=== PATIENT | female | born 1995 | race Hispanic/Latino ===

== ENCOUNTER 2017-11-04 | Emergency (ER) | payer OTHER ==
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
--- NOTE | 2017-11-04 18:00 | ER ---
Nurse's Notes [facility] Name: Sharlene Thayer Age: 22 yrs Sex: Female : 1995 Arrival Date: 11/04/2017 Time: 17:16 Bed 19 Private MD: Diagnosis: Non-specific right foot swelling and numbness Presentation: 11/04 17:27 Presenting complaint: Patient states: right foot swelling for a couple months, worse la1 today. Transition of care: patient was not received from another setting of care. Onset of symptoms was November 04, 2017. Care prior to arrival: None. 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 - Social history:: Smoking status: Patient/guardian denies using tobacco. Screenin:47 Abuse screen: Denies threats or abuse. Denies injuries from another. Nutritional iw screening: No deficits noted. Tuberculosis screening: No symptoms or risk factors identified. Fall Risk None identified. Assessment: 17:47 General: Appears in no apparent distress. Behavior is calm, cooperative. Pain: Denies iw pain. Neuro: Level of Consciousness is awake, alert, obeys commands, Oriented to person, place, time, situation. Derm: Skin is pink, warm \T\ dry. normal. Vital Signs: 17:27 BP 132 / 82; Pulse 98; Resp 16; Temp 97.3(TE); Pulse Ox 100% on R/A; Weight 86.18 kg; la1 Height 5 ft. 2 in. (157.48 cm); 17:27 Body Mass Index 34.75 (86.18 kg, 157.48 cm) la1 ED Course: 17:16 Patient arrived in ED. rg4 17:16 Bandar Reddy MD is Attending Physician. kdr 17:27 Triage completed. la1 17:28 Arm band placed on right wrist. la1 17:45 Kamaljit Garrison LVN is Primary Nurse. em 17:47 Patient has correct armband on for positive identification. iw 17:47 No provider procedures requiring assistance completed. Patient did not have IV access iw during this emergency room visit. 17:49 Primary Nurse role handed off by Kamaljit Garrison LVN iw 17:49 Jennifer Mcmullen, RN is Primary Nurse. iw Administered Medications: No medications were administered Outcome: 17:47 Medical screen evaluation completed per provider. Patient declined treatment. iw 17:47 Condition: good 17:47 Following a medical screening exam, the patient was provided information regarding alternative care sites and resources available per registration personnel. 18:00 Discharge ordered by . kdr 18:02 Patient left the ED. iw Signatures: Bandar Reddy MD MD kdr Munoz, Edgar, LVN LVN em Jennifer Mcmullen, RN RN iw Uvaldo Quinones RN RN Deb Bueno rg4
== END 2017-11-04 18:02 | disposition home or self-care (01) ==
DX: R20.0 Anesthesia of skin (principal)
CPT/HCPCS: 99281

== ENCOUNTER 2018-01-05 11:28 | Emergency (ER) | payer OTHER ==
[2018-01-05] MEDS ORDERED: TETANUS & DIPHTHERIA TOX,ADULT 0.5 ML VIAL ONE (12:10)
[2018-01-05] MEDS ORDERED: LIDOCAINE 1% MPF 2 ML AMPULE ONE (12:10)
--- NOTE | 2018-01-05 13:04 | EDPHYS ---
Physician Documentation [facility] Name: Sharlene Thayer Age: 22 yrs Sex: Female : 1995 Arrival Date: 01/05/2018 Time: 11:29 Bed 7 Private MD: None, None ED Physician Anuel Valdez HPI: 01/05 15:11 This 22 yrs old Female presents to ER via Ambulatory with complaints of gs Laceration To Hand. 15:11 The patient has a laceration occurred at home. The laceration(s) is(are) located on the gs dorsal aspect of right forearm. Onset: The symptoms/episode began/occurred acutely, just prior to arrival. Associated signs and symptoms: Pertinent negatives: heavy bleeding, numbness distal to injury. The patient has not experienced similar symptoms in the past. 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 - Social history:: Smoking status: Patient/guardian denies using tobacco. - Ebola Screening: : No symptoms or risks identified at this time. ROS: 15:11 All other systems are negative. gs Exam: 15:11 Constitutional: The patient appears alert, awake. gs 15:11 Musculoskeletal/extremity: ROM: no acute changes, Circulation is intact in all extremities. Sensation intact. Compartment Syndrome exam of affected extremity: is normal. 15:11 Skin: injury, laceration(s), the wound is approximately 2.5 cm(s), with a depth of 1 cm(s), of the palmar aspect of right forearm. 15:11 Neuro: Exam negative for acute changes, focal neuro deficits, motor deficits, sensory deficits. Vital Signs: 11:35 BP 134 / 90; Pulse 100; Resp 18; Temp 97.4; Pulse Ox 99% ; Weight 90.72 kg; Height 5 sv ft. 1 in. (154.94 cm); Pain 8/10; 13:01 BP 115 / 76; Pulse 85; Resp 17; Pulse Ox 100% on R/A; dh3 13:43 BP 120 / 72; Pulse 78; Resp 18; Temp 97.9; Pulse Ox 99% ; ph 11:35 Body Mass Index 37.79 (90.72 kg, 154.94 cm) sv Laceration: 15:11 Wound Repair of 2.5cm ( 1.0in ) subcutaneous laceration to dorsal aspect of right gs forearm. Distal neuro/vascular/tendon intact. Anesthesia: Local anesthetic administered with 3 mls of 1% lidocaine. Wound prep: Simple cleansing with betadine. Skin closed with 3 1-0 [place] using simple sutures and sterile technique. Dressed with 4x4's. Patient tolerated well. MDM: 11:55 Patient medically screened. 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 Exp: ph 04/04/2020. Lot #: [id number]. } Route: IM; Site: right deltoid; 13:05 Follow up: Response: No adverse reaction ph 13:44 Follow up: Response: No adverse reaction ph 12:55 Drug: Lidocaine (1 %) 5 mg Volume: 5 ml; Route: Infiltration; ph 13:05 Follow up: Response: No adverse reaction ph 13:44 Follow up: Response: No adverse reaction ph Disposition: 01/05/18 13:04 Discharged to Home. Impression: Laceration without foreign body of right forearm. - Condition is Stable. - Discharge Instructions: Laceration Care, Adult. - Medication Reconciliation Form, Thank You Letter, Antibiotic Education, Prescription Opioid Use form. - Follow up: Private Physician; When: 7 - 10 days; Reason: Staple/Suture removal. Signatures: Dispatcher [employer] Karrie Eugene RN RN Zora Coombs RN RN ph Valdez, MD LAVERNE Agee Corrections: (The following items were deleted from the chart) 13:45 13:04 01/05/2018 13:04 Discharged to Home. Impression: Laceration without foreign body ph of right forearm. Condition is Stable. Forms are Medication Reconciliation Form, Thank You Letter, Antibiotic Education, Prescription Opioid Use. Follow up: Private Physician; When: 7 - 10 days; Reason: Staple/Suture removal.
--- NOTE | 2018-01-05 13:04 | ER ---
Nurse's Notes [facility] Name: Sharlene Thayer Age: 22 yrs Sex: Female : 1995 Arrival Date: 01/05/2018 Time: 11:29 Bed 7 Private MD: None, None Diagnosis: Laceration without foreign body of right forearm Presentation: 01/05 11:33 Presenting complaint: Patient states: pushing on a window and right hand went through sv the glass. Pt was attempting to get into her house. Laceration noted to right inner forearm with small amount of bleeding and abrasion noted to right inner wrist. Transition of care: patient was not received from another setting of care. Complicating Factors: Glass or an other foreign body is present in the wound. Onset of symptoms was January 05, 2018. 11:33 Method Of Arrival: Ambulatory sv 11:33 Acuity: SAMANTHA 3 sv 11:34 Risk Assessment: Do you want to hurt yourself or someone else? Patient reports no sv desire to harm self or others. Initial Sepsis Screen: Does the patient meet any 2 criteria? No. Patient's initial sepsis screen is negative. Does the patient have a suspected source of infection? No. Patient's initial sepsis screen is negative. Care prior to arrival: Bleeding of injury controlled. right arm wrapped with her shirt. 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 - Social history:: Smoking status: Patient/guardian denies using tobacco. - Ebola Screening: : No symptoms or risks identified at this time. Screenin:00 Abuse screen: Denies threats or abuse. Denies injuries from another. Nutritional ph screening: No deficits noted. Tuberculosis screening: No symptoms or risk factors identified. Fall Risk None identified. Assessment: 11:55 General: Appears in no apparent distress. comfortable, well groomed, Behavior is calm, ph cooperative, appropriate for age, Denies fever, feeling ill. Pain: Complains of pain in right wrist and palmar aspect of right forearm. Neuro: Level of Consciousness is awake, alert, obeys commands, Oriented to person, place, time, situation. Cardiovascular: Capillary refill < 3 seconds Patient's skin is warm and dry. Pulses are palpable in right radial artery and left radial artery. Respiratory: Airway is patent Respiratory effort is even, unlabored. GI: No signs and/or symptoms were reported involving the gastrointestinal system. Derm: Skin is healthy with good turgor, Skin is pink, warm \T\ dry. Wound noted dorsal aspect of right forearm, right wrist and palmar aspect of right forearm Wound is small laceration noted to palmar aspect of right forearm, and 3 abrasions noted to dorsal aspect of right forearm. Musculoskeletal: Circulation, motion, and sensation intact. Range of motion: intact in all extremities. Injury Description: Laceration sustained to dorsal aspect of right forearm is 0.5 to 2.5 cm long, not bleeding. 13:00 Reassessment: Patient appears in no apparent distress at this time. Patient and/or ph family updated on plan of care and expected duration. Pain level reassessed. Patient is alert, oriented x 3, equal unlabored respirations, skin warm/dry/pink. ERP at bedside to staple wound, pt tolerated well. 13:40 Reassessment: Patient appears in no apparent distress at this time. Patient and/or ph family updated on plan of care and expected duration. Pain level reassessed. Patient is alert, oriented x 3, equal unlabored respirations, skin warm/dry/pink. Pt instructed to follow up in 7-10 days for staple removal, discharged home. Vital Signs: 11:35 BP 134 / 90; Pulse 100; Resp 18; Temp 97.4; Pulse Ox 99% ; Weight 90.72 kg; Height 5 sv ft. 1 in. (154.94 cm); Pain 8/10; 13:01 BP 115 / 76; Pulse 85; Resp 17; Pulse Ox 100% on R/A; dh3 13:43 BP 120 / 72; Pulse 78; Resp 18; Temp 97.9; Pulse Ox 99% ; ph 11:35 Body Mass Index 37.79 (90.72 kg, 154.94 cm) sv ED Course: 11:29 Patient arrived in ED. sb2 11:29 None, None is Private Physician. sb2 11:35 Triage completed. sv 11:36 Arm band placed on left wrist. sv 11:36 Bandage applied. sv 11:52 Valdez, Anuel, MD is Attending Physician. 12:00 Patient has correct armband on for positive identification. Bed in low position. Call ph light in reach. Side rails up X 1. Warm blanket given. 12:14 Zora Coombs RN is Primary Nurse. ph 12:31 X-ray completed. Portable x-ray completed in exam room. Patient tolerated procedure kc2 well. 12:31 Forearm Right XRAY In Process Unspecified. EDMS 13:00 Assist provider with laceration repair on palmar aspect of right forearm that was 2.5 ph cm. or less using phoebe. Set up tray. Performed by Anuel Valdez MD Dressed with 4X4s, Kerlix, Patient tolerated well. 13:41 Patient did not have IV access during this emergency room visit. 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 Exp: ph 04/04/2020. Lot #: [id number]. } Route: IM; Site: right deltoid; 13:05 Follow up: Response: No adverse reaction ph 13:44 Follow up: Response: No adverse reaction ph 12:55 Drug: Lidocaine (1 %) 5 mg Volume: 5 ml; Route: Infiltration; ph 13:05 Follow up: Response: No adverse reaction ph 13:44 Follow up: Response: No adverse reaction ph Outcome: 13:04 Discharge ordered by MD. 13:42 Discharged to home ambulatory. ph 13:42 Condition: good 13:42 Discharge instructions given to patient, Instructed on discharge instructions, follow up and referral plans. wound care, Demonstrated understanding of instructions, follow-up care, wound care. 13:45 Patient left the ED. ph Signatures: Dispatcher [employer] EDMD Karrie Berger RN RN Zora Coombs RN RN Michelle Jimenez 2 Annelise Louis 3 Anuel Valdez MD MD Trinh Rodriguez 2 Corrections: (The following items were deleted from the chart) 11:36 11:35 BP 134 / 90; Pulse 100bpm; Resp 18bpm; Pulse Ox 99%; Temp 97.4F; [facility]
--- NOTE | 2018-01-05 13:14 | RAD REPORT ---
EXAM DESCRIPTION: RAD - Forearm Right - 01/05/2018 12:32 pm CLINICAL HISTORY: Mid forearm laceration COMPARISON: None. FINDINGS: No fracture is identified. There is no dislocation or periosteal reaction noted. No acute bone process seen. No air or definitive foreign body. On the lateral view there are 3 punctate hyperdensities present. T hese are not present on the AP projection and are probably film artifacts or less likely skin contami nant. IMPRESSION: No acute bone finding. True foreign body not suspected.
== END 2018-01-05 13:45 | disposition home or self-care (01) ==
LOC: ER 11:28
PROC: 0JQG0ZZ Repair Right Lower Arm Subcutaneous Tissue and Fascia, Open Approach (ICD-10-PCS; principal; 2018-01-05)
DX: S51.811A Laceration without foreign body of right forearm, initial encounter (principal); W25.XXXA Contact with sharp glass, initial encounter; Y93.89 Activity, other specified; Y92.019 Unspecified place in single-family (private) house as the place of occurrence of the external cause; Z23 Encounter for immunization
CPT/HCPCS: 90714; 99284; J2001

== ENCOUNTER 2022-01-07 23:07 | Emergency (ER) | payer OTHER ==
--- OUTSIDE RECORDS SUMMARY | 2022-01-07 23:12 | XMS REPORT | Continuity of Care Document ---
:1995 Author Organization [facility] t Address [address] [place] [address] Care Team Providers Name Role Phone Thad BEGUM Primary Care Physician Unavailable MIKE Attending Clinician Unavailable MIKE Attending Clinician Unavailable Pob, Lab Main Attending Clinician Unavailable Ada Trujillo MD Attending Clinician ADA TRUJILLO Attending Clinician Unavailable 2, Lab Attending Clinician Unavailable EDITH DEE Attending Clinician Unavailable Ultrasound Attending Clinician Unavailable Edith Dee MD Attending Clinician Only, Db Test Attending Clinician Unavailable Ebrahim [employer] SAL[employer] PROFESSIONAL Attending Clinician EBRAHIM Attending Clinician Unavailable Rd DUMONT Attending Clinician TRIMAJOR Admitting Clinician Unavailable Payers Payer Name Policy Type Policy Number Effective Date Expiration Date Critical access hospital [id number] 2018 CHOICE MEDICAID 00:00:00 Problems Condition Condition Condition Status Onset Resolution Last Treating Co mments Source Name Details Category Date Date Treatment Clinician Date 10 weeks 10 weeks Disease Active Unive rs gestation gestation 5-23 ity of of of 00:00: [place] 00 [facility] Abnormal Abnormal Disease Active [place] 5-23 [place] [address] [place] [address] Disease Active 2022-0 Uni vers with with 4-25 ity of inconclusi inconclus[place] Medica l viability, viability, Br anch single or single or unspecifie unspecifie d fetus d fetus Vaginal Vaginal Disease Active Univers discharge discharge 4-25 ity of 00:00: [place] 00 [facility] Branch History of History of Disease Active U nivers gestationa gestationa 4-25 it y of l diabetes l diabetes [place] [facility] Vaginal Vaginal Disease Active Univers bleeding bleeding 7-20 [place] ch Obesity, Obesity, Disease Active Unive rs Class III, Class III, 2-03 it y of BMI BMI 00:00: [place] 40-49.9 40-49.9 00 Medical (morbid (morbid Branch obesity) obesity) History of History of Disease Active U nivers pre-eclamp pre-eclamp 2-03 it y of ang ang 00:00: [place] 00 Medical Branch History of History of Disease Active U nivers depression depression 2-03 it y of 00:00: [place] 00 Medical Branch Previous Previous Disease Active Unive rs 2-03 ity of section section 00:00: [address] Allergies, Adverse Reactions, Alerts Allergy Allergy Status Severity Reaction(s) Onset Inactive Treating Comm ents Source Name Type Date Date Clinician NO KNOWN Drug Active Univers ALLERGIE Class ity of S [facility] Social History Social Habit Start Date Stop Date Quantity Comments Source ASSERTION 2021-10-31 [facility] 00:00:00 [facility] Branch Exposure to 2021-12-16 2021-12-26 Not sure [facility] SARS-CoV-2 (event) 00:00:00 07:54:00 Medica l Branch Alcohol intake 2021-12-26 2021-12-26 0 /d [facility] 00:00:00 00:00:00 Medical Branch Tobacco use and 2012-11-28 2012-11-28 Never used [facility] exposure 00:00:00 00:00:00 Medical Branch Sex Assigned At [birth year] [facility] 00:00:00 00:00:00 Medical Branch Smoking Status Start Date Stop Date Source Never smoker [facility] Medications Ordered Filled Start Stop Current Ordering Indication Dosage Frequency Signature Comments Components Source Medication Medication Date Date Medication? Clinician (SIG) Name Name No known No Univers medications 5-23 ity of 11:31: [place] 00 Medical [facility] No known No Univers medications 5-23 ity of 11:31: [place] 00 Medical Branch PNV 2021- Yes [id number] 1{capsu Take 1 Uni vers 102-iron-fo 4-26 05-27 le} capsule by i ty of [facility] 00:00: 04:59 mouth [place] (VITAFOL FE 00 :00 daily for Med ical PLUS) 90 mg 30 days. Bran ch iron- 1 mg-200 mg Cap PNV 2021- Yes [id number] 1{capsu Take 1 Uni vers 102-iron-fo 4-26 05-27 le} capsule by i ty of [facility] 00:00: 04:59 mouth [place] (VITAFOL FE 00 :00 daily for Med ical PLUS) 90 mg 30 days. Bran ch iron- 1 mg-200 mg Cap PNV 2021- Yes [id number] 1{capsu Take 1 Uni vers 102-iron-fo 4-26 05-27 le} capsule by i ty of [facility] 00:00: 04:59 mouth [place] (VITAFOL FE 00 :00 daily for Med ical PLUS) 90 mg 30 days. Bran ch iron- 1 mg-200 mg Cap PNV 2021- Yes [id number] 1{capsu Take 1 Uni vers 102-iron-fo 4-26 05-27 le} [facility] 00:00: 04:59 mouth [place] (VITAFOL FE 00 :00 daily for Med ical PLUS) 90 mg 30 days. Bran ch iron- 1 mg-200 mg Cap PNV 2021- Yes [id number] 1{capsu Take 1 Uni vers 102-iron-fo 4-26 05-27 le} capsule by i ty of [facility] 00:00: 04:59 mouth [place] (VITAFOL FE 00 :00 daily for Med ical PLUS) 90 mg 30 days. Bran ch iron- 1 mg-200 mg Cap PNV 2021- Yes [id number] 1{capsu Take 1 Uni vers 102-iron-fo 11-29 05-27 le} capsule by i ty of [facility] 00:00: 04:59 mouth [place] (VITAFOL FE 00 :00 daily for Med ical PLUS) 90 mg 30 days. Bran ch iron- 1 mg-200 mg Cap PNV 2021- Yes [id number] 1{capsu Take 1 Uni vers 102-iron-fo 11-29-27 le} capsule by i ty of [facility] 00:00: 04:59 mouth [place] (VITAFOL FE 00 :00 daily for Med ical PLUS) 90 mg 30 days. Bran ch iron- 1 mg-200 mg Cap PNV 2021- Yes [id number] 1{capsu Take 1 Uni vers 102-iron-fo 11-29 05-27 le} capsule by i ty of [facility] 00:00: 04:59 mouth [place] (VITAFOL FE 00 :00 daily for Med ical PLUS) 90 mg 30 days. Bran ch iron- 1 mg-200 mg Cap terconazole 2021- Yes [id number] 80mg Insert 1 Univers 80 mg 11-2930 Suppositor ity of vaginal 00:00: 04:59 y into [place] suppository 00 :00 vagina at [facility] for 3 days. PNV 2021- Yes [id number] 1{capsu Take 1 Uni vers 102-iron-fo 11-28-26 le} capsule by i ty of [facility] 00:00: 04:59 [place] (VITAFOL FE 00 :00 now for 1 Med ical PLUS) 90 mg dose. Branch iron- 1 mg-200 mg Cap No known No Univers medications 7-20 ity of 17:41: [address] Branch Immunizations Ordered Immunization Filled Immunization Date Status Commen ts Source Name Name TDAP (ADACEL) VACCINE 2019-10-06 Completed Uni versity of 00:00:00 [facility] TDAP (ADACEL) VACCINE 2019-10-06 Completed Uni versity of 00:00:00 [facility] TDAP (ADACEL) VACCINE 2019-10-06 Completed Uni versity of 00:00:00 [place] [facility] TDAP (ADACEL) VACCINE 2019-10-06 Completed Uni versity of 00:00:00 [place] [facility] TDAP (ADACEL) VACCINE 2019-10-06 Completed Uni versity of 00:00:00 [place] [facility] TDAP (ADACEL) VACCINE 2019-10-06 Completed Uni versity of 00:00:00 [place] [facility] TDAP (ADACEL) VACCINE 2019-10-06 Completed Uni versity of 00:00:00 [place] [facility] TDAP (ADACEL) VACCINE 2019-10-06 Completed Uni versity of 00:00:00 [place] [facility] TDAP (ADACEL) VACCINE 2019-10-06 Completed Uni versity of 00:00:00 [place] [facility] TDAP (ADACEL) VACCINE 2019-10-06 Completed Uni versity of 00:00:00 [place] [facility] TDAP (ADACEL) VACCINE 2019-10-06 Completed Uni versity of 00:00:00 [place] [facility] TDAP (ADACEL) VACCINE 2019-10-06 Completed Uni versity of 00:00:00 [facility] Branch Influenza Virus 2019-06-02 Completed Universit y of Vaccine Quad .5 mL IM 00:00:00 [facility] 6+ MO Branch Influenza Virus 2019-06-02 Completed Universit y of Vaccine Quad .5 mL IM 00:00:00 [facility] 6+ MO Branch Influenza Virus 2019-06-02 Completed Universit y of Vaccine Quad .5 mL IM 00:00:00 [facility] 6+ MO Branch Influenza Virus 2019-06-02 Completed Universit y of Vaccine Quad .5 mL IM 00:00:00 [facility] 6+ MO Branch Influenza Virus 2019-06-02 Completed Universit y of Vaccine Quad .5 mL IM 00:00:00 [facility] 6+ MO Branch Influenza Virus 2019-06-02 Completed Universit y of Vaccine Quad .5 mL IM 00:00:00 [facility] 6+ MO Branch Influenza Virus 2019-06-02 Completed Universit y of Vaccine Quad .5 mL IM 00:00:00 [facility] 6+ MO Branch Influenza Virus 2019-06-02 Completed Universit y of Vaccine Quad .5 mL IM 00:00:00 [facility] 6+ MO Branch Influenza Virus 2019-06-02 Completed Universit y of Vaccine Quad .5 mL IM 00:00:00 [facility] 6+ MO Branch Influenza Virus 2019-06-02 Completed Universit y of Vaccine Quad .5 mL IM 00:00:00 [facility] 6+ MO Branch Influenza Virus 2019-06-02 Completed Universit y of Vaccine Quad .5 mL IM 00:00:00 [facility] 6+ MO Branch Influenza Virus 2019-06-02 Completed Universit y of Vaccine Quad .5 mL IM 00:00:00 [facility] 6+ MO Branch TDAP 2015-12-29 Completed University of 00:00:00 [facility] TDAP 2015-12-29 Completed University of 00:00:00 [facility] TDAP 2015-12-29 Completed University of 00:00:00 [facility] TDAP 2015-12-29 Completed University of 00:00:00 [facility] TDAP 2015-12-29 Completed University of 00:00:00 [facility] TDAP 2015-12-29 Completed University of 00:00:00 [facility] TDAP 2015-12-29 Completed University of 00:00:00 [facility] TDAP 2015-12-29 Completed University of 00:00:00 [facility] TDAP 2015-12-29 Completed University of 00:00:00 [facility] TDAP 2015-12-29 Completed University of 00:00:00 [facility] TDAP 2015-12-29 Completed University of 00:00:00 [facility] TDAP 2015-12-29 Completed University of 00:00:00 [facility] Influenza Virus 2015-10-07 Completed Universit y of Vaccine Quad IM 3+ 00:00:00 [facility] Influenza Virus 2015-10-07 Completed Universit y of Vaccine Quad IM 3+ 00:00:00 [facility] Influenza Virus 2015-10-07 Completed Universit y of Vaccine Quad IM 3+ 00:00:00 [facility] Influenza Virus 2015-10-07 Completed Universit y of Vaccine Quad IM 3+ 00:00:00 [facility] Influenza Virus 2015-10-07 Completed Universit y of Vaccine Quad IM 3+ 00:00:00 [facility] Influenza Virus 2015-10-07 Completed Universit y of Vaccine Quad IM 3+ 00:00:00 [facility] Influenza Virus 2015-10-07 Completed Universit y of Vaccine Quad IM 3+ 00:00:00 [facility] Influenza Virus 2015-10-07 Completed Universit y of Vaccine Quad IM 3+ 00:00:00 [facility] Influenza Virus 2015-10-07 Completed Universit y of Vaccine Quad IM 3+ 00:00:00 [facility] Influenza Virus 2015-10-07 Completed Universit y of Vaccine Quad IM 3+ 00:00:00 [facility] Influenza Virus 2015-10-07 Completed Universit y of Vaccine Quad IM 3+ 00:00:00 [facility] Influenza Virus 2015-10-07 Completed Universit y of Vaccine Quad IM 3+ 00:00:00 [facility] TDAP 2015-04-13 Completed University of 00:00:00 [facility] TDAP 2015-04-13 Completed University of 00:00:00 [facility] TDAP 2015-04-13 Completed University of 00:00:00 [facility] TDAP 2015-04-13 Completed University of 00:00:00 [facility] TDAP 2015-04-13 Completed University of 00:00:00 [facility] TDAP 2015-04-13 Completed University of 00:00:00 [facility] TDAP 2015-04-13 Completed University of 00:00:00 [facility] TDAP 2015-04-13 Completed University of 00:00:00 [facility] TDAP 2015-04-13 Completed University of 00:00:00 [facility] TDAP 2015-04-13 Completed University of 00:00:00 [facility] TDAP 2015-04-13 Completed University of 00:00:00 [facility] TDAP 2015-04-13 Completed University of 00:00:00 [facility] Rubella 2012-11-29 Completed University of 00:00:00 [facility] Rubella 2012-11-29 Completed University of 00:00:00 [facility] Rubella 2012-11-29 Completed University of 00:00:00 [facility] Rubella 2012-11-29 Completed University of 00:00:00 [facility] Rubella 2012-11-29 Completed University of 00:00:00 [facility] Rubella 2012-11-29 Completed University of 00:00:00 [facility] Rubella 2012-11-29 Completed University of 00:00:00 [facility] Rubella 2012-11-29 Completed University of 00:00:00 [facility] Rubella 2012-11-29 Completed University of 00:00:00 [facility] Rubella 2012-11-29 Completed University of 00:00:00 [place] [facility] Rubella 2012-11-29 Completed University of 00:00:00 [place] [facility] Rubella 2012-11-29 Completed University of 00:00:00 [place] [facility] HPV 2009-09-27 Completed University of 00:00:00 [place] [facility] HPV 2009-09-27 Completed University of 00:00:00 [place] [facility] HPV 2009-09-27 Completed University of 00:00:00 [place] [facility] HPV 2009-09-27 Completed University of 00:00:00 [place] [facility] HPV 2009-09-27 Completed University of 00:00:00 [place] [facility] HPV 2009-09-27 Completed University of 00:00:00 [place] [facility] HPV 2009-09-27 Completed University of 00:00:00 [place] [facility] HPV 2009-09-27 Completed University of 00:00:00 [place] [facility] HPV 2009-09-27 Completed University of 00:00:00 [place] [facility] HPV 2009-09-27 Completed University of 00:00:00 [place] [facility] HPV 2009-09-27 Completed University of 00:00:00 [place] [facility] HPV 2009-09-27 Completed University of 00:00:00 [place] [facility] HPV 2009-05-25 Completed University of 00:00:00 [place] [facility] MMR 2009-05-25 Completed University of 00:00:00 [place] [facility] HPV 2009-05-25 Completed University of 00:00:00 [place] [facility] MMR 2009-05-25 Completed University of 00:00:00 [place] [facility] HPV 2009-05-25 Completed University of 00:00:00 [place] [facility] MMR 2009-05-25 Completed University of 00:00:00 [place] [facility] HPV 2009-05-25 Completed University of 00:00:00 [place] [facility] MMR 2009-05-25 Completed University of 00:00:00 [place] [facility] HPV 2009-05-25 Completed University of 00:00:00 [place] [facility] MMR 2009-05-25 Completed University of 00:00:00 [place] [facility] HPV 2009-05-25 Completed University of 00:00:00 [place] [facility] MMR 2009-05-25 Completed University of 00:00:00 [place] [facility] HPV 2009-05-25 Completed University of 00:00:00 [place] [facility] MMR 2009-05-25 Completed University of 00:00:00 [place] [facility] HPV 2009-05-25 Completed University of 00:00:00 [place] [facility] MMR 2009-05-25 Completed University of 00:00:00 [facility] HPV 2009-05-25 Completed University of 00:00: [facility] MMR 2009-05-25 Completed University of 00:00: [facility] HPV 2009-05-25 Completed University of 00:00:00 [facility] MMR 2009-05-25 Completed University of 00:00:00 [facility] HPV 2009-05-25 Completed University of 00:00:00 [facility] MMR 2009-05-25 Completed University of 00:00:00 [facility] HPV 2009-05-25 Completed University of 00:00:00 [facility] MMR 2009-05-25 Completed University of 00:00:00 [facility] HEPATITIS A 2009-03-23 Completed University of 00:00:00 [facility] HPV 2009-03-23 Completed University of 00:00:00 [facility] Meningococcal 2009-03-23 Completed University of Polysaccharide 00:00:00 [place] Medi kostas (groups A, C, Y and Branc h W-135) conjugate vaccine (MCV4P) Td 2009-03-23 Completed University of 00:00:00 [facility] Varicella 2009-03-23 Completed University of (varivax)(chicken 00:00:00 [place] M edical pox) Branch HEPATITIS A 2009-03-23 Completed University of 00:00:00 [facility] HPV 2009-03-23 Completed University of 00:00:00 [facility] Meningococcal 2009-03-23 Completed University of Polysaccharide 00:00:00 [place] Medi kostas (groups A, C, Y and Branc h W-135) conjugate vaccine (MCV4P) Td 2009-03-23 Completed University of 00:00:00 [facility] Varicella 2009-03-23 Completed University of (varivax)(chicken 00:00:00 [place] M edical pox) Branch HEPATITIS A 2009-03-23 Completed University of 00:00:00 [facility] HPV 2009-03-23 Completed University of 00:00:00 [facility] Meningococcal 2009-03-23 Completed University of Polysaccharide 00:00:00 [place] Medi kostas (groups A, C, Y and Branc h W-135) conjugate vaccine (MCV4P) Td 2009-03-23 Completed University of 00:00:00 [facility] Varicella 2009-03-23 Completed University of (varivax)(chicken 00:00:00 [place] [facility] [place]ical pox) Branch HEPATITIS A 2009-03-23 Completed University of 00:00:00 [facility] HPV 2009-03-23 Completed University of 00:00:00 [facility] Meningococcal 2009-03-23 Completed University of Polysaccharide 00:00:00 [place] Medi kostas (groups A, C, Y and Branc h W-135) conjugate vaccine (MCV4P) Td 2009-03-23 Completed University of 00:00:00 [facility] Varicella 2009-03-23 Completed University of (varivax)(chicken 00:00:00 [place] M edical pox) Branch HEPATITIS A 2009-03-23 Completed University of 00:00:00 [facility] HPV 2009-03-23 Completed University of 00:00:00 [facility] Meningococcal 2009-03-23 Completed University of Polysaccharide 00:00:00 [place] Medi kostas (groups A, C, Y and Branc h W-135) conjugate vaccine (MCV4P) Td 2009-03-23 Completed University of 00:00:00 [facility] Varicella 2009-03-23 Completed University of (varivax)(chicken 00:00:00 [facility] edical pox) Branch HEPATITIS A 2009-03-23 Completed University of 00:00:00 [facility] HPV 2009-03-23 Completed University of 00:00:00 [facility] Meningococcal 2009-03-23 Completed University of Polysaccharide 00:00:00 [place] Medi kostas (groups A, C, Y and Branc h W-135) conjugate vaccine (MCV4P) Td 2009-03-23 Completed University of 00:00:00 [facility] Varicella 2009-03-23 Completed University of (varivax)(chicken 00:00:00 [place] M edical pox) Branch HEPATITIS A 2009-03-23 Completed University of 00:00:00 [facility] HPV 2009-03-23 Completed University of 00:00:00 [facility] Meningococcal 2009-03-23 Completed University of Polysaccharide 00:00:00 [place] Medi kostas (groups A, C, Y and Branc h W-135) conjugate vaccine (MCV4P) Td 2009-03-23 Completed University of 00:00:00 [facility] Varicella 2009-03-23 Completed University of (varivax)(chicken 00:00:00 [place] [facility] [place]ical pox) Branch HEPATITIS A 2009-03-23 Completed University of 00:00:00 [facility] HPV 2009-03-23 Completed University of 00:00:00 [facility] Meningococcal 2009-03-23 Completed University of Polysaccharide 00:00:00 [place] Medi kostas (groups A, C, Y and Branc h W-135) conjugate vaccine (MCV4P) Td 2009-03-23 Completed University of 00:00:00 [facility] Varicella 2009-03-23 Completed University of (varivax)(chicken 00:00:00 [place] M edical pox) Branch HEPATITIS A 2009-03-23 Completed University of 00:00:00 [facility] HPV 2009-03-23 Completed University of 00:00:00 [facility] Meningococcal 2009-03-23 Completed University of Polysaccharide 00:00:00 [place] Medi kostas (groups A, C, Y and Branc h W-135) conjugate vaccine (MCV4P) Td 2009-03-23 Completed University of 00:00:00 [facility] Varicella 2009-03-23 Completed University of (varivax)(chicken 00:00:00 [place] M edical pox) Branch HEPATITIS A 2009-03-23 Completed University of 00:00:00 [facility] HPV 2009-03-23 Completed University of 00:00:00 [facility] Meningococcal 2009-03-23 Completed University of Polysaccharide 00:00:00 [place] Medi kostas (groups A, C, Y and Branc h W-135) conjugate vaccine (MCV4P) Td 2009-03-23 Completed University of 00:00:00 [facility] Varicella 2009-03-23 Completed University of (varivax)(chicken 00:00:00 [place] [facility] [place] pox) Branch HEPATITIS A 2009-03-23 Completed University of 00:00:00 [facility] HPV 2009-03-23 Completed University of 00:00:00 [facility] Meningococcal 2009-03-23 Completed University of Polysaccharide 00:00:00 [place] Medi kostas (groups A, C, Y and Branc h W-135) conjugate vaccine (MCV4P) Td 2009-03-23 Completed University of 00:00:00 [facility] Varicella 2009-03-23 Completed University of (varivax)(chicken 00:00:00 [place] [facility] [place]ical pox) Branch HEPATITIS A 2009-03-23 Completed University of 00:00:00 [facility] HPV 2009-03-23 Completed University of 00:00:00 [facility] Meningococcal 2009-03-23 Completed University of Polysaccharide 00:00:00 [facility] (groups A, C, Y and Branc h W-135) conjugate vaccine (MCV4P) Td 2009-03-23 Completed University of 00:00:00 [facility] Varicella 2009-03-23 Completed University of (varivax)(chicken 00:00:00 [facility] edical pox) Branch Vital Signs Vital Name Observation Time Observation Value Comments Source Systolic blood 2021-12-26 13:13:00 125 mm[Hg] Univer sity of [facility] Diastolic blood 2021-12-26 13:13:00 84 mm[Hg] [facility] Heart rate 2021-12-26 13:13:00 80 /min Universi ty [facility] Body temperature 2021-12-26 13:13:00 36.56 [facility] Res[facility] 2021-12-26 13:13:00 18 /min [facility] Body height 2021-12-26 13:13:00 154.9 cm Universi ty [facility] Body weight 2021-12-26 13:13:00 100.245 kg Universi ty [facility] BMI 2021-12-26 13:13:00 41.76 kg/m2 [facility] Oxygen saturation in 2021-12-26 13:13:00 100 /min [facility] Arterial blood by [facility] Pulse oximetry Branch Systolic blood 2021-11-28 13:32:00 132 mm[Hg] Univer sity of [facility] Diastolic blood 2021-11-28 13:32:00 84 mm[Hg] Unive rsity of [facility] Heart rate 2021-11-28 13:32:00 86 /min Universi ty of [facility] Body temperature 2021-11-28 13:32:00 36.78 Felicita Univ ersity [facility] Respiratory rate 2021-11-28 13:32:00 18 /min [facility] Body height 2021-11-28 13:32:00 154.9 cm Universi ty of [facility] Body weight 2021-11-28 13:32:00 98.385 kg [facility] [facility] 2021-11-28 13:32:00 40.98 kg/m2 [facility] Procedures Procedure Date / Time Performing Clinician Source Performed POCT TEST 2021-12-26 13:39:00 Raz Mckeon [facility] POCT URINALYSIS 2021-12-26 13:27:00 Raz Mckeon [facility] US FIRST 2021-12-09 14:05[facility] 14 [facility] WEEKS WITH TRANSVAGINAL POCT URINALYSIS W/O 2021-11-28 14:19:00 Raz Mckeon [facility] SPECIFIC GRAVITY [facility] POCT TEST 2021-11-28 14:01:00 Raz Mckeon [facility] Encounters Start End Encounter Admission Attending Care Care Encounter Source Date/Time Date/Time Type Type Clinicians Facility Department ID 2022-01-06 2022-01-06 Outpatient R RAZ MCKEON [facility] B [id number] Univers 09:30:00 09:30:00 [id number]-06 2022-01-06 Outpatient R RAZ MCKEON [facility] B [id number] [facility] 09:30:00 09:30:00 RAZ [facility] 2022-01-03 2022-01-03 Patient Mike COBECK [place] [id number] [facility] 00:00:00 00:00:00 Secure Msg Raz MORAN [id number] ity of WOMEN'S [id number] [facility] [phone] [place] [address] [place] 2021-12-31 2021-12-31 Retail Center Receptionist Riley Dillon Lab Main [facility] 1.2.8 40.114 [id number] [facility] 09:00:00 09:15:00 Visit Ana Trujillo [id number] ity [facility] [id number] [phone] Me dical NAL [facility] 2021-12-31 2021-12-31 Outpatient R [facility] [id number] Univers 09:00:00 09:00:00 [id number] ity [facility] 2021-12-31 2021-12-31 Outpatient R ANA TRUJILLO [facility] [id number] Univers 09:00:00 09:00:00 ity [facility] 2021-12-28 2021-12-28 Retail Center Receptionist 2, Adc Lab [facility] 1.2.840.114 [id number] Univers 13:15:00 13:30:00 Visit Raz Mckeon [place] 350.1.13. 10 ity [facility] [id number] [place] [phone] Id dical NAL [address] [place] [address] 2021-12-28 2021-12-28 Outpatient R [facility] [id number] Univers 13:15:00 13:15:00 [id number] ity [facility] 2021-12-28 2021-12-28 Outpatient R RAZ MCKEON [facility] B [id number] Univers 13:15:00 13:15:00 [facility] 2021-12-26 2021-12-26 Outpatient P EDITH [facility] [id number] Univers 11:45:00 12:20:51 ISABELLE it y of [place] [facility] 2021-12-26 2021-12-26 Retail Center Receptionist Ultrasound, Yefri-[facility] 1.2 .840.114 [id number] Univers 11:45:00 12:20:51 Visit Raz Mckeon [employer] [id number] 0 ity Nohemi Mejia [facility] 4.2.7.2 .686 [place] MATERNAL [id number] [facility] ical & CHILD [address] [place] [address] 2021-12-26 2021-12-26 Outpatient R RAZ MCKEON [facility] B [id number] Univers 11:45:00 11:45:00 RAZ MCKEON 22 0523 ity [facility] 2021-12-26 2021-12-26 Routine [facility] 1.2.840.114 [id number] Univers 08:00:00 08:43:28 Raz MORAN [id number] i ty of Visit WOMEN'S [id number] [place] [facility] [phone] [address] 2021-12-26 2021-12-26 Case [facility] 1.2.840.114 [id number] Univers 00:00:00 00:00:00 Management Raz MORAN [id number] ity of WOMEN'S [id number] [facility] [id number] [address] 2021-12-26 2021-12-26 Telephone [facility] [id number] Univers 00:00:00 00:00:00 Raz MORAN [id number] it y of WOMEN'S [id number] [facility] [id number] [address] 2021-12-14 2021-12-14 Outpatient R RAZ MCKEON [facility] B [id number] Univers 13:00:00 13:00:00 [facility] 2021-12-14 2021-12-14 Outpatient R RAZ MCKEON [facility] B [id number] Univers 13:00:00 13:00:00 RAZ MCKEON [facility] 2021-12-09 2021-12-09 Outpatient R RAZ MCKEON [facility] B [id number] Univers 07:54:22 23:59:00 RAZ MCKEON [facility] 2021-12-09 2021-12-09 [facility] 1.2.840.114 [id number] Univers 07:54:22 23:59:00 Encounter Raz [place] [id number] ity [facility] [id number] [place] [facility] [id number] [facility] [address] 2021-12-09 2021-12-09 Outpatient R MIKE RAZ [facility] [place] [id number] Univers 00:00:00 00:00:00 RAZ MCKEON 22 0506 ity of [facility] 2021-12-09 2021-12-09 Case [facility] 1.2.840.114 [id number] Univers 00:00:00 00:00:00 Management Raz MORAN [id number] ity of WOMEN'S [id number] [facility] [id number] [address] 2021-11-29 2021-11-29 [facility] 1.2.840.114 [id number] Univers 00:00:00 00:00:00 Management Raz MORAN [id number] ity of [facility] [id number] [facility] [id number] [address] 2021-11-28 2021-11-28 Outpatient R MIKE RAZ [facility] B [id number] Univers 08:00:00 09:04:01 [facility] 2021-11-28 2021-11-28 Initial [facility] 1.2.840.114 [id number] Univers 08:00:00 09:04:01 Raz MORAN [id number] i ty of Visit WOMEN'S [id number] [facility] [id number] [address] 2021-11-28 2021-11-28 Outpatient R MIKE RAZ [facility] B [id number] Univers 08:00:00 08:00:00 RAZ MCKEON 22 0425 ity [facility] 2021-07-27 2021-07-27 Laboratory Only, Ang Db Test [facility] 1.2.8 40.114 [id number] Univers 17:45:00 18:00:[address] 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 2, Adc Lab [facility] 1.2.840.114 [id number] 11:18:57 11:33:57 Visit Scott 350.1.13.10 [facility] [id number] Professio [id number] [address] 2021-02-17 2021-02-17 Initial Ana Trujillo [facility] [id number] 09:23:48 11:08:40 Cam Scott 350.1.13.10 Visit [facility] [id number] Professio [phone] [address] Results Test Description Test Time Test Comments Results Result Comments Source POCT TEST 2021-12-26 13:39:00 Test Item Value Reference Range Interpretation Comme nts POCT PREG (test code = 1605) Positive On board controls acceptable with C Line (test code = 3574) Yes POCT PREG LOT # (test code = 3575) POCT PREG TEST DATE (test code = 3576) [facility] SPECIFIC [id number] 13:28:00 Test Item Value Reference Range Interpretation Comments POCT U SP GRAV (test code = N/A 1.005-1.025 3255) POCT PH U (test code = 3254) N/A 5-8 POCT U LEUK EST (test code = N/A Negative - Negative 326) POCT U NIT (test code = N/A Negative - Negative 3262) POCT U PROT (test code = Negative Negative - Negative 3259) POCT U GLU (test code = Negative - Negative 3256) POCT U KETONE (test code = N/A Negative - Negative 3258) POCT U UROBILI (test code = N/A 0.2-1 3260) POCT U BILI (test code = N/A Negative - Negative 3261) POCT U BLD (test code = N/A Negative - Negative 3257) POCT U COLOR (test code = light yellow 3266) POCT U APPEAR (test code = clear 3267) [facility] URINALYSIS W/O SPECIFIC [id number] 14:19:00 Test Item Value Reference Range Interpretation Comments POCT PH U (test code = 3254) n/a 5-8 POCT U LEUK EST (test code = n/a Negative - Negative 3263) POCT U NIT (test code = 3262) n/a Negative - Negative POCT U PROT (test code = 3259) Negative Negative - Negative POCT U GLU (test code = 3256) Negative - Negative POCT U KETONE (test code = 3258) n/a Negative - Negative POCT U BLD (test code = 3257) n/a Negative - Negative Lab Interpretation (test code = Abnormal 45844-7) [facility] [id number] 14:02:00 Test Item Value Reference Range Interpretation Comments POCT PREG (test code = 1605) Positive On board controls acceptable with C Yes Line (test code = 3574) POCT PREG LOT # (test code = 3575) POCT PREG TEST DATE (test code = 3576) [facility]
[2022-01-07 23:43] LABS: Absolute Lymphocytes (CBC) 2.3 K/uL (0.7-4.9); Hematocrit 35.1 % (36.0-45.0); Lymphocytes % 25.3 % (15.3-44.8); MPV 7.9 fL (7.6-11.3); RBC Red Blood Cell Count 4.86 M/uL (3.86-4.86)
[2022-01-08 00:03] LABS: Urine Blood Negative (Negative); Urine Glucose 2+ (Negative); Urine Protein Negative (Negative); Urine Specific Gravity >=1.030 (1.005-1.030)
[2022-01-08 00:13] LABS: Potassium 3.6 mmol/L (3.5-5.1)
--- NOTE | 2022-01-08 02:09 | EDPHYS ---
Physician Documentation [facility] Name: Sharlene Thayer Age: 26 yrs Sex: Female : 1995 Arrival Date: 01/07/2022 Time: 23:08 Bed 14 Private MD: ED Physician Kvng Shi HPI: 01/08 02:08 This 26 yrs old Female presents to ER via Ambulatory with complaints of ms3 Vaginal Bleeding, + Preg <12wks. 02:08 The patient presents to the emergency department with abdominal pain, of the suprapubic ms3 area, that started 15 day(s) ago, vaginal bleeding, that is moderate, with clots, reports using 4 pads or tampons per day. course: care: at a clinic, Leakage of Fluid: none appreciated, Ultrasound: the patient had an ultrasound. Previous pregnancies: in previous pregnancies patient has had. Associated signs and symptoms: Pertinent positives: abdominal pain, nausea, vaginal bleeding, Pertinent negatives: fever. VP BUSINESS DEVELOPMENT: 00:02 Verified sm5 02:08 06, Full Term 3, Premature 0, 2, Living 3, LMP 0 ms3 Historical: - Allergies: 01/07 23:25 No Known Allergies; kd3 - Home Meds: 23:25 None [Active]; kd3 - PMHx: 23:25 high risk pregnancies; kd3 - PSHx: 23:25 section; kd3 - Immunization history:: Adult Immunizations up to date, Client reports having NOT received the Covid vaccine. - Social history:: Smoking status: unknown. - : The history from the nurse's notes was reviewed and I agree with what is documented. ROS: 01/08 02:08 Constitutional: Negative for fever, and chills. Neck: Negative for injury, pain, and ms3 swelling, Cardiovascular: Negative for chest pain, and palpitations. Respiratory: Negative for shortness of breath, cough, wheezing, and pleuritic chest pain. Back: Negative for injury and pain, MS/Extremity: Negative for injury and deformity. Abdomen/GI: Positive for abdominal pain, nausea. : Positive for vaginal bleeding. All other systems are negative. Exam: 02:08 Constitutional: This is a well developed, well nourished patient who is awake, alert, ms3 and in no acute distress. Head/Face: Normocephalic, atraumatic. Neck: Trachea midline, no cervical lymphadenopathy. Supple, full range of motion without nuchal rigidity, or vertebral point tenderness. No Meningismus. Chest/axilla: Normal chest wall appearance and motion. Nontender with no deformity. Cardiovascular: Regular rate and rhythm with a normal S1 and S2. No gallops, murmurs, or rubs. Normal PMI, no JVD. No pulse deficits. Respiratory: Lungs have equal breath sounds bilaterally, clear to auscultation and percussion. No rales, rhonchi or wheezes noted. No increased work of breathing, no retractions or nasal flaring. 02:08 Back: No spinal tenderness. No costovertebral tenderness. Full range of motion. Skin: Warm, dry with normal turgor. Normal color with no rashes, no lesions, and no evidence of cellulitis. MS/ Extremity: Pulses equal, no cyanosis. Neurovascular intact. Full, normal range of motion. 02:08 Abdomen/GI: Inspection: abdomen appears normal, Bowel sounds: normal, Palpation: mild abdominal tenderness, in the suprapubic area. Vital Signs: 01/07 23:21 BP 138 / 75; Pulse 115; Resp 19; Temp 98.2; Pulse Ox 100% on R/A; Pain 10/10; kd3 23:21 Weight 100.24 kg; Height 5 ft. 1 in. (154.94 cm); kd3 / 02:29 BP 122 / 64; Pulse 89; Resp 17; Pulse Ox 100% on R/A; sm5 01/07 23:21 Body Mass Index 41.76 (100.24 kg, 154.94 cm) kd3 MDM: 01/07 23:19 Patient medically screened. ms3 01/08 02:08 Differential diagnosis: ectopic . Data reviewed: vital signs, nurses notes. ms3 02:08 ED course: Discussed labs, US, physical exam findings with patient. Patient to ms3 follow-up with VP BUSINESS DEVELOPMENT in 2 to 3 days. Patient understands and agrees with plan. All questions were answered. Return precautions discussed include worsening symptoms, or any other concerns. On reevaluation patient is alert and oriented x4, in no apparent distress, nontoxic-appearing, speaking full sentences, ambulatory in emergency department.. 01/07 23:20 Order name: Abo/rh Typing; Complete Time: 02:05 ms3 01/07 23:20 Order name: Basic Metabolic Panel; Complete Time: 02:05 ms3 01/07 23:20 Order name: CBC with Diff; Complete Time: 02:05 ms3 01/07 23:20 Order name: Quantitative Hcg; Complete Time: 02:05 ms3 01/08 00:03 Order name: Urine Dipstick-Ancillary; Complete Time: 02:05 EDMS 01/08 00:07 Order name: Urine Dipstick-Ancillary EDMS 01/07 23:20 Order name: IV Saline Lock; Complete Time: 23:45 ms3 01/07 23:20 Order name: Labs collected and sent; Complete Time: 23:45 ms3 01/07 23:20 Order name: NPO; Complete Time: 23:45 ms3 01/07 23:20 Order name: Urine Dipstick-Ancillary (obtain specimen); Complete Time: 00:02 ms3 01/08 00:20 Order name: Pelvis Complete EDMS 01/08 00:22 Order name: Transvaginal Study Probe EDMS Administered Medications: No medications were administered Disposition Summary: 01/08/22 02:08 Discharge Ordered Location: Home ms3 Condition: Stable ms3 Diagnosis - incomplete ms3 Followup: ms3 - With: Maximino Bethea MD - When: 1 - 2 days - Reason: Recheck today's complaints Discharge Instructions: - Discharge Summary Sheet ms3 - Incomplete Miscarriage ms3 Forms: - Medication Reconciliation Form ms3 - Thank You Letter ms3 - Antibiotic Education ms3 - Prescription Opioid Use ms3 Signatures: Dispatcher [employer] EDUT Kvng Shi, DO ms3 Gladis Kumari, RN RN kd3 Corrections: (The following items were deleted from the chart) 00:20 01/07 23:21 OB Limited+US.RAD.BRZ ordered. EDUT EDMS 01/08 06: 06:17 Differential diagnosis: ectopic , ms3 ms3 06:22 06:17 Data reviewed: vital signs, nurses notes, ms3 ms3 06:22 06:17 Constitutional: This is a well developed, well nourished patient who is awake, ms3 alert, and in no acute distress. Head/Face: Normocephalic, atraumatic. Neck: Trachea midline, no cervical lymphadenopathy. Supple, full range of motion without nuchal rigidity, or vertebral point tenderness. No Meningismus. Chest/axilla: Normal chest wall appearance and motion. Nontender with no deformity. Cardiovascular: Regular rate and rhythm with a normal S1 and S2. No gallops, murmurs, or rubs. Normal PMI, no JVD. No pulse deficits. Respiratory: Lungs have equal breath sounds bilaterally, clear to auscultation and percussion. No rales, rhonchi or wheezes noted. No increased work of breathing, no retractions or nasal flaring. ms3 06:22 06:17 Abdomen/GI: Inspection: abdomen appears normal, Bowel sounds: normal, Palpation: ms3 mild abdominal tenderness, in the suprapubic area, ms3 06:22 06:17 Back: No spinal tenderness. No costovertebral tenderness. Full range of motion. ms3 Skin: Warm, dry with normal turgor. Normal color with no rashes, no lesions, and no evidence of cellulitis. MS/ Extremity: Pulses equal, no cyanosis. Neurovascular intact. Full, normal range of motion. ms3 :23 06:17 The history from the nurse's notes was reviewed and I agree with what is ms3 documented. ms3 06:23 06:17 Constitutional: Negative for fever, and chills. Neck: Negative for injury, pain, ms3 and swelling, Cardiovascular: Negative for chest pain, and palpitations. Respiratory: Negative for shortness of breath, cough, wheezing, and pleuritic chest pain, ms3 :23 06:17 Abdomen/GI: Positive for abdominal pain, nausea, ms3 ms3 :23 06:17 Back: Negative for injury and pain, MS/Extremity: Negative for injury and ms3 deformity, ms3 : 06:17 : Positive for vaginal bleeding, ms3 ms3 :23 06:17 All other systems are negative, ms3 ms3 06:24 06:17 The patient presents to the emergency department with abdominal pain, of the ms3 suprapubic area, that started 15 day(s) ago, vaginal bleeding, that is moderate, with clots, reports using 4 pads or tampons per day, ms3 :24 06:17 course: care: at a clinic, Leakage of Fluid: none appreciated, ms3 Ultrasound: the patient had an ultrasound, ms3 :24 06:17 Previous pregnancies: in previous pregnancies patient has had ms3 ms3 24 06:17 Associated signs and symptoms: Pertinent positives: abdominal pain, nausea, ms3 vaginal bleeding, Pertinent negatives: fever, ms3 :24 06:17 This 26 yrs old Female presents to ER via Ambulatory with complaints of ms3 Vaginal Bleeding, + Preg <12wks. ms3 :24 06:17 6, Full Term 3, Premature 0, 2, Living 3, LMP 0 ms3 ms3
--- NOTE | 2022-01-08 02:09 | ER ---
Nurse's Notes [facility] Name: Sharlene Thayer Age: 26 yrs Sex: Female : 1995 Arrival Date: 01/07/2022 Time: 23:08 Bed 14 Private MD: Diagnosis: incomplete Presentation: 01/07 23:21 Chief complaint: Patient states: I started spotting on december 24 and now I am bleeding kd3 a lot. I started passing clots yesterday. I have gone through 4 pads today. Coronavirus screen: Vaccine status: Patient reports being unvaccinated. Ebola Screen: No symptoms or risks identified at this time. Initial Sepsis Screen: Does the patient meet any 2 criteria? No. Patient's initial sepsis screen is negative. Does the patient have a suspected source of infection? No. Patient's initial sepsis screen is negative. Risk Assessment: Do you want to hurt yourself or someone else? Patient reports no desire to harm self or others. Onset of symptoms was December 24, 2021. 23:21 Method Of Arrival: Ambulatory kd3 23:21 Acuity: SAMANTHA 3 kd3 Triage Assessment: 23:25 General: Appears in no apparent distress. Behavior is calm, cooperative. Pain: kd3 Complains of pain in right lower quadrant and left lower quadrant. Neuro: Level of Consciousness is awake, alert, obeys commands, Oriented to person, place, time, situation. : Urine is blood tinged. FILENET ADMIN: 01/08 00:02 Verified sm5 02:08 06, Full Term 3, Premature 0, 2, Living 3, LMP 0 ms3 Historical: - Allergies: 01/07 23:25 No Known Allergies; kd3 - Home Meds: 23:25 None [Active]; kd3 - PMHx: 23:25 high risk pregnancies; kd3 - PSHx: 23:25 section; kd3 - Immunization history:: Adult Immunizations up to date, Client reports having NOT received the Covid vaccine. - Social history:: Smoking status: unknown. - : The history from the nurse's notes was reviewed and I agree with what is documented. Screenin:26 Abuse screen: Denies threats or abuse. Denies injuries from another. Nutritional kd3 screening: No deficits noted. Tuberculosis screening: No symptoms or risk factors identified. Fall Risk None identified. Assessment: 01/08 00:03 Reassessment: US at bedside. sm5 01:00 Reassessment: Patient and/or family updated on plan of care and expected duration. Pain sm5 level reassessed. Patient is alert, oriented x 3, equal unlabored respirations, skin warm/dry/pink. 02:29 Reassessment: No changes from previously documented assessment. sm5 Vital Signs: 01/07 23:21 BP 138 / 75; Pulse 115; Resp 19; Temp 98.2; Pulse Ox 100% on R/A; Pain 10/10; kd3 23:21 Weight 100.24 kg; Height 5 ft. 1 in. (154.94 cm); kd3 01/08 02:29 BP 122 / 64; Pulse 89; Resp 17; Pulse Ox 100% on R/A; sm5 01/07 23:21 Body Mass Index 41.76 (100.24 kg, 154.94 cm) kd3 ED Course: 01/07 23:08 Patient arrived in ED. ja2 23:09 Kvng Shi DO is Attending Physician. ms3 23:15 Anjali Hennessy, DELPHINE is Primary Nurse. sm5 23:24 Triage completed. kd3 23:25 Arm band placed on right wrist. kd3 23:26 Patient has correct armband on for positive identification. kd3 23:36 Inserted saline lock: 20 gauge in right antecubital area, using aseptic technique. jw7 Blood collected. 23:36 Initial lab(s) drawn, by vt, sent to lab. jw7 23:45 Abo/rh Typing Sent. sm5 23:45 Basic Metabolic Panel Sent. sm5 23:45 CBC with Diff Sent. sm5 23:45 Quantitative Hcg Sent. sm5 01/08 00:35 Urine Dipstick-Ancillary Sent. sm5 00:56 Pelvis Complete In Process Unspecified. EDMS 00:56 Transvaginal Study Probe In Process Unspecified. EDMS 02:07 Maximino Bethea MD is Referral Physician. ms3 02:29 No provider procedures requiring assistance completed. IV discontinued, intact, sm5 bleeding controlled, No redness/swelling at site. Pressure dressing applied. Administered Medications: No medications were administered Medication: 02:29 VIS not applicable for this client. sm5 Outcome: 02:08 Discharge ordered by . ms3 02:29 Discharged to home ambulatory. sm5 02:29 Condition: stable 02:29 Discharge instructions given to patient, Instructed on discharge instructions, follow up and referral plans. Demonstrated understanding of instructions, follow-up care. 02:29 Patient left the ED. sm5 Signatures: Dispatcher [employer] EDMS Kvng Shi DO DO ms3 Beatris Smith2 Gladis Kumari RN RN 3 Anjali Hennessy RN RN sm5 Angelita Villalba7 Corrections: (The following items were deleted from the chart) 06:23 06:17 The history from the nurse's notes was reviewed and I agree with what is ms3 documented. ms3
[2022-01-08 02:38] VITALS: TEMP 98.2; O2SAT 100
[2022-01-08 02:40] VITALS: BP 122/64
--- NOTE | 2022-01-10 12:26 | RAD REPORT ---
EXAM DESCRIPTION: Transvaginal Study Probe (accession [id number]), Pelvis Complete (accession [id number]) CLINICAL HISTORY: 26 years Female VAGINAL BLEEDING COMPARISON: None TECHNIQUE: Transabdominal and endovaginal sonography of the pelvis was performed. FINDINGS: Uterus is enlarged measuring 10.7 x 4.3 cm. Gestational sac is identified within the endoc ervical region. No cardiac activity noted. Right ovary is normal in size and echogenicity measuring 3.4 x 2 4 x 2.4 cm. Doppler evaluation revea led satisfactory flow. Left ovary is normal in size and echogenicity measuring 2.0 x 1.8 x 2.1 cm. Doppler evaluation reveal ed satisfactory flow. No abnormal fluid collections demonstrated. IMPRESSION: Gestational sac identified within the endocervical region. The findings would be consist ent with in progress. Correlation with beta-hCG and follow-up imaging would be suggested for further characterization. No cardiac activity detected indicating demise. No sonographic abnormality involving the ovaries bilaterally. Electronically signed by: Isa Villanueva MD 01/08/2022 1:10 AM CDT Due to temporary technical issues with the PACS/Fluency reporting system, reports are being signed by the in house radiologists without review as a courtesy to insure prompt reporting. The interpreting radiologist is fully responsible for the content of the report.
--- NOTE | 2022-01-10 13:33 | RAD REPORT ---
EXAM DESCRIPTION: Transvaginal Study Probe (accession [id number]), Pelvis Complete (accession [id number]) CLINICAL HISTORY: 26 years Female VAGINAL BLEEDING COMPARISON: None TECHNIQUE: Transabdominal and endovaginal sonography of the pelvis was performed. FINDINGS: Uterus is enlarged measuring 10.7 x 4.3 cm. Gestational sac is identified within the endoc ervical region. No cardiac activity noted. Right ovary is normal in size and echogenicity measuring 3.4 x 2 4 x 2.4 cm. Doppler evaluation revea led satisfactory flow. Left ovary is normal in size and echogenicity measuring 2.0 x 1.8 x 2.1 cm. Doppler evaluation reveal ed satisfactory flow. No abnormal fluid collections demonstrated. IMPRESSION: Gestational sac identified within the endocervical region. The findings would be consist ent with in progress. Correlation with beta-hCG and follow-up imaging would be suggested for further characterization. No cardiac activity detected indicating demise. No sonographic abnormality involving the ovaries bilaterally. Electronically signed by: Isa Villanueva MD 01/08/2022 1:10 AM CDT Due to temporary technical issues with the PACS/Fluency reporting system, reports are being signed by the in house radiologists without review as a courtesy to insure prompt reporting. The interpreting radiologist is fully responsible for the content of the report.
== END 2022-01-08 02:29 | disposition home or self-care (01) ==
LOC: ER 23:07
DX: O03.4 Incomplete spontaneous abortion without complication (principal)
CPT/HCPCS: 36415; 76830; 76856; 80048; 81003; 84702; 85025; 86900; 86901; 99283

== ENCOUNTER 2022-10-09 14:58 | Emergency (ER) | payer OTHER ==
--- OUTSIDE RECORDS SUMMARY | 2022-10-09 15:21 | XMS REPORT | Continuity of Care Document ---
:1995 Author Organization [facility] t Address [address] [place] [address] Care Team Providers Name Role Phone ANTONIO MCKEON Primary Care Physician Unavailable CONSUELO MUNGUIA Attending Clinician Unavailable AMANDA JOHNSON Attending Clinician Unavailable Amanda Johnson MD Attending Clinician Unknown, Attending Attending Clinician Unavailable ANTONIO MCKEON Attending Clinician Unavailable ANTONIO MCKEON Attending Clinician Unavailable Lab, [facility] Attending Clinician Unavailable Anthony Verde Attending Clinician ANTHONY SANON Attending Clinician Unavailable Mare Anthony Attending Clinician Unavailable Doctor Unassigned, [place] Attending Clinician Unavailable OSMEL HIGGINS Attending Clinician Unavailable Osmel Higgins MD Attending Clinician Pob, [facility] Main Attending Clinician Unavailable Ana Trujillo MD Attending Clinician ANA TRUJILLO Attending Clinician Unavailable 2, [facility] Attending Clinician Unavailable NOHEMI YOUNG Attending Clinician Unavailable Ultrasound, Ang-Mfm Attending Clinician Unavailable Nohemi Young MD Attending Clinician Only, Ang Db Test Attending Clinician Unavailable Osiel Kramer Attending Clinician OSIEL ARDON Attending Clinician Unavailable FARZANA JARAMILLO Attending Clinician Unavailable Ann Marie Carvajal PA-C Attending Clinician Consuelo Munguia MD Attending Clinician ANN MARIE CARVAJAL Attending Clinician Unavailable Nurse, [facility] Attending Clinician Unavailable Diamante Dumont MD Attending Clinician Ultrasound, [facility] Attending Clinician Unavailable Jada Mckeon MD Attending Clinician DIAMANTE DUMONT Admitting Clinician Unavailable ANTONIO MCKEON Admitting Clinician Unavailable Diamante Dumont MD Admitting Clinician Payers Payer Name Policy Type Policy Number Effective Date Expiration Date Pending sale to [facility] [id number] 2018 [facility] MEDICAID 00:00:00 Problems Condition Condition Condition Status Onset Resolution Last Treating Co mments Source Name Details Category Date Date Treatment Clinician Date 10 weeks 10 weeks Disease Active Unive rs gestation gestation 5-23 ity of of of 00:00: [place] 00 [facility] Abnormal Abnormal Disease Active Unive rs 5-23 [place] [facility] Disease Active Uni vers with with 4-25 ity of inconclusi inconclus[place] Med[place] viability, viability, Br anch single or single or unspecifie unspecifie d fetus d fetus Vaginal Vaginal Disease Active Univers discharge discharge 4-25 ity of 00:00: [place] 00 [facility] History of History of Disease Active U nivers gestationa gestationa 4-25 it y of l diabetes l diabetes 00:[place] [facility] Vaginal Vaginal Disease Active Univers bleeding bleeding 7-20 ity of affecting affecting 00:00[place] [facility] [place] Obesity, Obesity, Disease Active Unive rs Class III, Class III, 2-03 it y of BMI BMI 00:00: [place] 40-49.9 40-49.9 00 Medical (morbid (morbid Branch obesity) obesity) History of History of Disease Active U nivers pre-eclamp pre-eclamp 2-03 it y of ang ang 00:00: [address] History of History of Disease Active U nivers depression depression 2-03 it y of 00:00: [address] Previous Previous Disease Active Unive rs 2-03 ity of section section 00:00: [address] Allergies, Adverse Reactions, Alerts Allergy Allergy Status Severity Reaction(s) Onset Inactive Treating Comm ents Source Name Type Date Date Clinician NO KNOWN Drug Active Univers ALLERGIE Class ity of S [facility] Social History Social Habit Start Date Stop Date Quantity Comments Source ASSERTION 2021-10-31 [facility] 00:00:00 [facility] Exposure to 2022-07-07 2022-07-17 Not sure [facility] SARS-CoV-2 00:00:00 12:26:00 [facility] (event) [place] Alcohol intake 2022-07-17 2022-07-17 0 /d [facility] 00:00:00 00:00:00 [facility] Tobacco use and 2012-11-28 2012-11-28 Smokeless tobacco Un iversity of exposure 00:00:00 00:00:00 non-user [facility] Sex Ass[birth year] At [birth year] Universit y of 00:00:00 00:00:00 [facility] Smoking Status Start Date Stop Date Source Never smoked tobacco [facility] Medications Ordered Filled Start Stop Current Ordering Indication Dosage Frequency Signature Comments Components Source Medication Medication Date Date Medication? Clinician (SIG) Name Name ondansetron 2021-08 Yes [id number] 4mg Take 1 Univers 4 mg 2-12 tablet by ity of disintegrat 00:00: mouth [place] ing tablet 00 every 8 Medica l (eight) Branch hours as needed for Nausea and Vomiting (N/V). benzonatate 2021-08 Yes [id number] 200mg Take 2 Univers 100 mg 2-12 capsules ity of capsule 00:00: by mouth [place] 00 every 8 Medical (eight) Branch hours as needed for Cough. No known No Univers medications 6-10 ity of 11:08: [address] No known No No known Unive rs medications 6-10 medication it y of 11:08: s [address] No known No No known Unive rs medications 6-10 medication it y of 11:08: s [place] [facility] No known No No known Unive rs medications 6-10 medication it y of 11:08: s [place] [facility] No known 2021-0 No Univers medications 6-07 ity of 13:08: [place] [facility] No known 2021-0 No Univers medications 5-23 ity of 11:31: [place] 00 [facility] No known 2021-0 No Univers medications 5-23 ity of 11:31: [place] 00 [facility] No known 2021-0 No Univers medications 5-23 ity of 11:31: [place] [facility] PNV 2021- No [id number] 1{capsu Take 1 Uni vers 102-iron-fo 11-2927 le} capsule by i ty of [facility] 00:00: 04:59 mouth [place] (VITAFOL FE 00 :00 daily for Med ical PLUS) 90 mg 30 days. Bran ch iron- 1 mg-200 mg Cap PNV 2021- No [id number] 1{capsu Take 1 Uni vers 102-iron-fo 11-29-27 le} capsule by i ty of [facility] 00:00: 04:59 mouth [place] (VITAFOL FE 00 :00 daily for Med ical PLUS) 90 mg 30 days. Bran ch iron- 1 mg-200 mg Cap PNV 2021- No [id number] 1{capsu Take 1 Uni vers 102-iron-fo 11-29-27 le} capsule [facility] 00:00: 04:59 mouth [place] (VITAFOL FE 00 :00 daily for Med ical PLUS) 90 mg 30 days. Bran ch iron- 1 mg-200 mg Cap PNV 2021- No [id number] 1{capsu Take 1 Uni vers 102-iron-fo 11-29-27 le} capsule by i [facility] 00:00: 04:59 mouth [place] (VITAFOL FE 00 :00 daily for Med ical PLUS) 90 mg 30 days. Bran ch iron- 1 mg-200 mg Cap PNV 2021- No [id number] 1{capsu Take 1 Uni vers 102-iron-fo 11-2927 le} capsule by i ty of late-dha 00:00: 04:59 mouth [place] (VITAFOL FE 00 :00 daily for Med ical PLUS) 90 mg 30 days. Bran ch iron- 1 mg-200 mg Cap PNV 2021- No [id number] 1{capsu Take 1 Uni vers 102-iron-fo 11-29-27 le} capsule by i ty of late-dha 00:00: 04:59 mouth [place] (VITAFOL FE 00 :00 daily for Med ical PLUS) 90 mg 30 days. Bran ch iron- 1 mg-200 mg Cap PNV 2021- No [id number] 1{capsu Take 1 Uni vers 102-iron-fo 11-29 le} capsule by i ty of late-dha 00:00: 04:59 mouth [place] (VITAFOL FE 00 :00 daily for Med ical PLUS) 90 mg 30 days. Bran ch iron- 1 mg-200 mg Cap PNV 2021- No [id number] 1{capsu Take 1 Uni vers 102-iron-fo 11-29 le} capsule by i ty of latedha 00:00: 04:59 mouth [place] (VITAFOL FE 00 :00 daily for Med ical PLUS) 90 mg 30 days. Bran ch iron- 1 mg-200 mg Cap terconazole 2021- No [id number] 80mg Insert 1 Univers 80 mg 11-2930 Suppositor ity of vaginal 00:00: 04:59 y into [place] suppository 00 :00 vagina at Med ical [facility] for 3 days. PNV 2021- No [id number] 1{capsu Take 1 Uni vers 102-iron-fo 11-28 le} [facility]VITAFOL FE 00 :00 now for 1 Med ical PLUS) 90 mg dose. [place] iron- 1 mg-200 mg Cap No known No Univers medications 7-20 ity of 17:41: [address] Branch Immunizations Ordered Immunization Filled Immunization Date Status Commen ts Source Name Name TDAP (ADACEL) VACCINE 2019-10-06 Completed Uni versity of 00:00:00 [facility] TDAP (ADACEL) VACCINE 2019-10-06 Completed Uni versity of 00:00:00 [facility] TDAP (ADACEL) VACCINE 2019-10-06 Completed Uni versity of 00:00:00 [facility] TDAP (ADACEL) VACCINE 2019-10-06 Completed Uni versity of 00:00:00 [facility] TDAP (ADACEL) VACCINE 2019-10-06 Completed Uni versity of 00:00:00 [facility] TDAP (ADACEL) VACCINE 2019-10-06 Completed Uni versity of 00:00:00 [facility] TDAP (ADACEL) VACCINE 2019-10-06 Completed Uni versity of 00:00:00 [facility] TDAP (ADACEL) VACCINE 2019-10-06 Completed Uni versity of 00:00:00 [facility] TDAP (ADACEL) VACCINE 2019-10-06 Completed Uni versity of 00:00:00 [facility] TDAP (ADACEL) VACCINE 2019-10-06 Completed Uni versity of 00:00:00 [facility] TDAP (ADACEL) VACCINE 2019-10-06 Completed Uni versity of 00:00:00 [facility] TDAP (ADACEL) VACCINE 2019-10-06 Completed Uni versity of 00:00:00 [facility] TDAP (ADACEL) VACCINE 2019-10-06 Completed Uni versity of 00:00:00 [facility] TDAP (ADACEL) VACCINE 2019-10-06 Completed Uni versity of 00:00:00 [facility] TDAP (ADACEL) VACCINE 2019-10-06 Completed Uni versity of 00:00:00 [facility] TDAP (ADACEL) VACCINE 2019-10-06 Completed Uni versity of 00:00:00 [facility] TDAP (ADACEL) VACCINE 2019-10-06 Completed Uni versity of 00:00:00 [facility] TDAP (ADACEL) VACCINE 2019-10-06 Completed Uni versity of 00:00:00 [facility] TDAP (ADACEL) VACCINE 2019-10-06 Completed Uni versity of 00:00:00 [facility] Influenza Virus 2019-06-02 Completed Universit y of Vaccine Quad .5 mL IM 00:00:00 [facility] 6+ MO Branch Influenza Virus 2019-06-02 Completed [...] Branch TDAP 2015-12-29 Completed University of 00:00:00 [facility] TDAP 2015-12-29 Completed University of 00:00:00 [facility] TDAP 2015-12-29 Completed University of 00:00:00 [facility] TDAP 2015-12-29 Completed University of 00:00:00 [facility] TDAP 2015-12-29 Completed University of 00:00:00 [facility] TDAP 2015-12-29 Completed University of 00:00:00 [facility] TDAP 2015-12-29 Completed University of 00:00:00 [facility] TDAP 2015-12-29 Completed University of 00:00:00 [facility] TDAP 2015-12-29 Completed University of 00:00:00 [facility] TDAP 2015-12-29 Completed University of 00:00:00 [facility] TDAP 2015-12-29 Completed University of 00:00:00 [facility] TDAP 2015-12-29 Completed University of 00:00:00 [facility] TDAP 2015-12-29 Completed University of 00:00:00 [facility] TDAP 2015-12-29 Completed University of 00:00:00 [facility] TDAP 2015-12-29 Completed University of 00:00:00 [facility] TDAP 2015-12-29 Completed University of 00:00:00 [facility] TDAP 2015-12-29 Completed University of 00:00:00 [facility] TDAP 2015-12-29 Completed University of 00:00:00 [facility] TDAP 2015-12-29 Completed University of 00:00:00 [facility] Influenza Virus 2015-10-07 Completed Universit y of Vaccine Quad IM 3+ 00:00:00 [facility] Influenza Virus 2015-10-07 Completed Universit y of Vaccine Quad IM 3+ 00:00:00 [facility] Influenza Virus 2015-10-07 Completed Universit y of Vaccine Quad IM 3+ 00:00:00 [facility] Influenza Virus 2015-10-07 Completed Universit y of Vaccine Quad IM 3+ 00:00:00 [facility] Influenza Virus 2015-10-07 Completed Universit y of Vaccine Quad IM 3+ 00:00:00 [facility] Influenza Virus 2015-10-07 Completed Universit y of Vaccine Quad IM 3+ 00:00:00 [facility] Influenza Virus 2015-10-07 Completed Universit y of Vaccine Quad IM 3+ 00:00:00 [facility] Influenza Virus 2015-10-07 Completed Universit y of Vaccine Quad IM 3+ 00:00:00 [facility] Influenza Virus 2015-10-07 Completed Universit y of Vaccine Quad IM 3+ 00:00:00 [facility] Influenza Virus 2015-10-07 Completed Universit y of Vaccine Quad IM 3+ 00:00:00 [facility] Influenza Virus 2015-10-07 Completed Universit y of Vaccine Quad IM 3+ 00:00:00 [facility] Influenza Virus 2015-10-07 Completed Universit y of Vaccine Quad IM 3+ 00:00:00 [facility] Influenza Virus 2015-10-07 Completed Universit y of Vaccine Quad IM 3+ 00:00:00 [facility] Influenza Virus 2015-10-07 Completed Universit y of Vaccine Quad IM 3+ 00:00:00 [facility] Influenza Virus 2015-10-07 Completed Universit y of Vaccine Quad IM 3+ 00:00:00 [facility] Influenza Virus 2015-10-07 Completed Universit y of Vaccine Quad IM 3+ 00:00:00 [facility] Influenza Virus 2015-10-07 Completed Universit y of Vaccine Quad IM 3+ 00:00:00 [facility] Influenza Virus 2015-10-07 Completed Universit y of Vaccine Quad IM 3+ 00:00:00 [facility] Influenza Virus 2015-10-07 Completed Universit y of Vaccine Quad IM 3+ 00:00:00 [facility] TDAP 2015-04-13 Completed University of 00:00:00 [facility] TDAP 2015-04-13 Completed University of 00:00:00 [facility] TDAP 2015-04-13 Completed University of 00:00:00 [facility] TDAP 2015-04-13 Completed University of 00:00:00 [facility] TDAP 2015-04-13 Completed University of 00:00:00 [facility] TDAP 2015-04-13 Completed University of 00:00:00 [facility] TDAP 2015-04-13 Completed University of 00:00:00 [facility] TDAP 2015-04-13 Completed University of 00:00:00 [place] [facility] TDAP 2015-04-13 Completed University of 00:00:00 [place] [facility] TDAP 2015-04-13 Completed University of 00:00:00 [place] [facility] TDAP 2015-04-13 Completed University of 00:00:00 [place] [facility] TDAP 2015-04-13 Completed University of 00:00:00 [place] [facility] TDAP 2015-04-13 Completed University of 00:00:00 [place] [facility] TDAP 2015-04-13 Completed University of 00:00:00 [place] [facility] TDAP 2015-04-13 Completed University of 00:00:00 [place] [facility] TDAP 2015-04-13 Completed University of 00:00:00 [place] [facility] TDAP 2015-04-13 Completed University of 00:00:00 [place] [facility] TDAP 2015-04-13 Completed University of 00:00:00 [place] [facility] TDAP 2015-04-13 Completed University of 00:00:00 [place] [facility] Rubella 2012-11-29 Completed University of 00:00:00 [place] [facility] Rubella 2012-11-29 Completed University of 00:00:00 [place] [facility] Rubella 2012-11-29 Completed University of 00:00:00 [place] [facility] Rubella 2012-11-29 Completed University of 00:00:00 [place] [facility] Rubella 2012-11-29 Completed University of 00:00:00 [place] [facility] Rubella 2012-11-29 Completed University of 00:00:00 [place] [facility] Rubella 2012-11-29 Completed University of 00:00:00 [place] [facility] Rubella 2012-11-29 Completed University of 00:00:00 [place] [facility] Rubella 2012-11-29 Completed University of 00:00:00 [place] [facility] Rubella 2012-11-29 Completed University of 00:00:00 [place] [facility] Rubella 2012-11-29 Completed University of 00:00:00 [place] [facility] Rubella 2012-11-29 Completed University of 00:00:00 [place] [facility] Rubella 2012-11-29 Completed University of 00:00:00 [place] [facility] Rubella 2012-11-29 Completed University of 00:00:00 [place] [facility] Rubella 2012-11-29 Completed University of 00:00:00 [place] [facility] Rubella 2012-11-29 Completed University of [...] Branch MMR 2009-05-25 Completed University of 00:00:00 [facility] HPV 2009-05-25 Completed University of 00:00:00 [facility] MMR 2009-05-25 Completed University of 00:00:00 [facility] HPV 2009-05-25 Completed University of 00:00:00 [facility] MMR 2009-05-25 Completed University of 00:00:00 [facility] HPV 2009-05-25 Completed University of 00:00:00 [facility] MMR 2009-05-25 Completed University of 00:00:00 [facility] HPV 2009-05-25 Completed University of 00:00:00 [facility] MMR 2009-05-25 Completed University of 00:00:00 [facility] HPV 2009-05-25 Completed University of 00:00:00 [facility] MMR 2009-05-25 Completed University of 00:00:00 [facility] HPV 2009-05-25 Completed University of 00:00:00 [facility] MMR 2009-05-25 Completed University of 00:00:00 [facility] HPV 2009-05-25 Completed University of 00:00:00 [facility] MMR 2009-05-25 Completed University of 00:00:00 [facility] HPV 2009-05-25 Completed University of 00:00:00 [facility] MMR 2009-05-25 Completed University of 00:00:00 [facility] HPV 2009-05-25 Completed University of 00:00:00 [facility] MMR 2009-05-25 Completed University of 00:00:00 [facility] HEPATITIS A 2009-03-23 Completed University of 00:00:00 [facility] HPV 2009-03-23 Completed University of 00:00:00 [facility] Meningococcal 2009-03-23 Completed University of Polysaccharide 00:00:00 [facility] kostas (groups A, C, Y and Branc h W-135) conjugate vaccine (MCV4P) Td 2009-03-23 Completed University of 00:00:00 [facility] Varicella 2009-03-23 Completed University of (varivax)(chicken 00:00:00 [facility] edical pox) Branch HEPATITIS A 2009-03-23 Completed University of 00:00:00 [facility] HPV 2009-03-23 Completed University of 00:00:00 [facility] Meningococcal 2009-03-23 Completed University of Polysaccharide 00:00:00 [place] [facility]ost[facility] (groups A, C, Y and Branc h W-135) conjugate vaccine (MCV4P) Td 2009-03-23 Completed University of 00:00:00 [facility] Varicella 2009-03-23 Completed University of (varivax)(chicken 00:00:00 [place] M edical pox) Branch HEPATITIS A 2009-03-23 Completed University of 00:00:00 [facility] HPV 2009-03-23 Completed University of 00:00:00 [facility] Meningococcal 2009-03-23 Completed University of Polysaccharide 00:00:00 [place] Medi kostas (groups A, C, Y and Branc h W-135) conjugate vaccine (MCV4P) Td 2009-03-23 Completed University of 00:00:00 [facility] Varicella 2009-03-23 Completed University of (varivax)(chicken 00:00:00 [place] M edical pox) Branch HEPATITIS A 2009-03-23 Completed University of 00:00:00 [facility] HPV 2009-03-23 Completed University of 00:00:00 [facility] Meningococcal 2009-03-23 Completed University of Polysaccharide 00:00:00 [place] Medi kostas (groups A, C, Y and Branc h W-135) conjugate vaccine (MCV4P) Td 2009-03-23 Completed University of 00:00:00 [facility] Varicella 2009-03-23 Completed University of (varivax)(chicken 00:00:00 [place] M edical pox) Branch HEPATITIS A 2009-03-23 Completed University of 00:00:00 [facility] HPV 2009-03-23 Completed University of 00:00:00 [facility] Meningococcal 2009-03-23 Completed University of Polysaccharide 00:00:00 [place] Medi kostas (groups A, C, Y and Branc h W-135) conjugate vaccine (MCV4P) Td 2009-03-23 Completed University of 00:00:00 [facility] Varicella 2009-03-23 Completed University of (varivax)(chicken 00:00:00 [place] M edical pox) Branch HEPATITIS A 2009-03-23 Completed University of 00:00:00 [facility] HPV 2009-03-23 Completed University of 00:00:00 [facility] Meningococcal 2009-03-23 Completed University of Polysaccharide 00:00:00 [place] Medi kostas (groups A, C, Y and Branc h W-135) conjugate vaccine (MCV4P) Td 2009-03-23 Completed University of 00:00:00 [facility] Varicella 2009-03-23 Completed University of (varivax)(chicken 00:00:00 [place] M edical pox) Branch HEPATITIS A 2009-03-23 Completed University of 00:00:00 [facility] HPV 2009-03-23 Completed University of 00:00:00 [facility] Meningococcal 2009-03-23 Completed University of Polysaccharide 00:00:00 [place] Medi kostas (groups A, C, Y and Branc h W-135) conjugate vaccine (MCV4P) Td 2009-03-23 Completed University of 00:00:00 [facility] Varicella 2009-03-23 Completed University of (varivax)(chicken 00:00:00 [place] M edical pox) Branch HEPATITIS A 2009-03-23 Completed University of 00:00:00 [facility] HPV 2009-03-23 Completed University of 00:00:00 [facility] Meningococcal 2009-03-23 Completed University of Polysaccharide 00:00:00 [place] Medi kostas (groups A, C, Y and Branc h W-135) conjugate vaccine (MCV4P) Td 2009-03-23 Completed University of 00:00:00 [facility] Varicella 2009-03-23 Completed University of (varivax)(chicken 00:00:00 [place] M edical pox) Branch HEPATITIS A 2009-03-23 Completed University of 00:00:00 [facility] HPV 2009-03-23 Completed University of 00:00:00 [facility] Meningococcal 2009-03-23 Completed University of Polysaccharide 00:00:00 [place] Medi kostas (groups A, C, Y and Branc h W-135) conjugate vaccine (MCV4P) Td 2009-03-23 Completed University of 00:00:00 [facility] Varicella 2009-03-23 Completed University of (varivax)(chicken 00:00:00 [place] M edical pox) Branch HEPATITIS A 2009-03-23 Completed University of 00:00:00 [facility] HPV 2009-03-23 Completed University of 00:00:00 [facility] Meningococcal 2009-03-23 Completed University of Polysaccharide 00:00:00 [place] [facility] (groups A, C, Y and Branc h W-135) conjugate vaccine (MCV4P) Td 2009-03-23 Completed University of 00:00:00 [facility] Varicella 2009-03-23 Completed University of (varivax)(chicken 00:00:00 [place] [facility] pox) Branch HEPATITIS A 2009-03-23 Completed University of 00:00:00 [facility] HPV 2009-03-23 Completed University of 00:00:00 [facility] Meningococcal 2009-03-23 Completed University of Polysaccharide 00:00:00 [place] [facility] (groups A, C, Y and Branc h W-135) conjugate vaccine (MCV4P) Td 2009-03-23 Completed University of 00:00:00 [facility] Varicella 2009-03-23 Completed University of (varivax)(chicken 00:00:00 [place] [facility] pox) Branch HEPATITIS A 2009-03-23 Completed University of 00:00:00 [facility] HPV 2009-03-23 Completed University of 00:00:00 [facility] Meningococcal 2009-03-23 Completed University of Polysaccharide 00:00:00 [place] [facility] (groups A, C, Y and Branc h W-135) conjugate vaccine (MCV4P) Td 2009-03-23 Completed University of 00:00:00 [facility] Varicella 2009-03-23 Completed University of (varivax)(chicken 00:00:00 [facility] edical pox) Branch HEPATITIS A 2009-03-23 Completed University of 00:00:00 [facility] HPV 2009-03-23 Completed University of 00:00:00 [facility] Meningococcal 2009-03-23 Completed University of Polysaccharide 00:00:00 [place] [facility] (groups A, C, Y and Branc h W-135) conjugate vaccine (MCV4P) Td 2009-03-23 Completed University of 00:00:00 [facility] Varicella 2009-03-23 Completed University of (varivax)(chicken 00:00:00 [place] [facility] pox) [facility] HEPATITIS A 2009-03-23 Completed University of 00:00:00 [facility] HPV 2009-03-23 Completed University of 00:00:00 [facility] Meningococcal 2009-03-23 Completed University of Polysaccharide 00:00:00 [place] [facility] (groups A, C, Y and Branc h W-135) conjugate vaccine (MCV4P) Td 2009-03-23 Completed University of 00:00:00 [facility] Varicella 2009-03-23 Completed University of (varivax)(chicken 00:00:00 [place] [facility] pox) Branch HEPATITIS A 2009-03-23 Completed University of 00:00:00 [facility] HPV 2009-03-23 Completed University of 00:00:00 [facility] Meningococcal 2009-03-23 Completed [facility] Polysaccharide 00:00:00 [facility] (groups A, C, Y and Branc h W-135) conjugate vaccine (MCV4P) Td 2009-03-23 Completed University of 00:00:00 [facility] Varicella 2009-03-23 Completed University (varivax)(chicken 00:00:00 [facility] edical pox) [place] Vital Signs Vital Name Observation Time Observation Value Comments Source Systolic blood 2022-07-17 19:04:00 130 mm[Hg] Univer sity of [facility] Diastolic blood 2022-07-17 19:04:00 88 mm[Hg] Unive rsity of [facility] Heart rate 2022-07-17 19:04:00 90 /min Universi [facility] Body temperature 2022-07-17 19:04:[address] [facility] Respiratory rate 2022-07-17 19:04:00 16 /min Univ [facility] Body height 2022-07-17 19:04:00 154.9 cm Universi ty [facility] Body weight 2022-07-17 19:04:00 101.47 kg [facility] BMI 2022-07-17 19:04:00 42.27 kg/m2 [facility] Oxygen saturation in 2022-07-17 19:04:00 96 /min University of Arterial blood by [facility] Pulse oximetry Branch Systolic blood 2022-01-09 18:27:00 117 mm[Hg] Univer sity of [facility] Diastolic blood 2022-01-09 18:27:00 84 mm[Hg] Unive rsity of [facility] Heart rate 2022-01-09 18:27:00 84 /min Universi ty [facility] Body temperature 2022-01-09 18:27:00 36.67 Felicita [facility] Respiratory rate 2022-01-09 18:27:00 16 /min [facility] Body height 2022-01-09 18:27:00 154.9 cm [facility]i [facility] [place] [facility] Body weight 2022-01-09 18:27:00 100.245 kg [facility]i [facility] [place] [facility] BMI 2022-01-09 18:27:00 41.76 kg/m2 [facility] [place] [facility] Oxygen saturation in 2022-01-09 18:27:00 97 /min University of Arterial blood by [facility] Pulse oximetry Branch Systolic blood 2021-12-26 13:13:00 125 mm[Hg] Univer sity of pressure [facility] Diastolic blood 2021-12-26 13:13:00 84 mm[Hg] Unive rsity of pressure [facility] Heart rate 2021-12-26 13:13:00 80 /min Universi ty [facility] [place] [facility] Body temperature 2021-12-26 13:13:00 36.56 Felicita Univ ersity of [place] [facility] Respiratory rate 2021-12-26 13:13:00 18 /min Univ ersity of [place] [facility] Body height 2021-12-26 13:13:00 154.9 cm [facility]i [facility] [place] [facility] Body weight 2021-12-26 13:13:00 100.245 kg [facility] [place] [facility] BMI 2021-12-26 13:13:00 41.76 kg/m2 [facility] [place] [facility] Oxygen saturation in 2021-12-26 13:13:00 100 /min University of Arterial blood by [facility] Pulse oximetry Branch Systolic blood 2021-11-28 13:32:00 132 mm[Hg] Univer sity of pressure [facility] Diastolic blood 2021-11-28 13:32:00 84 mm[Hg] Unive rsity of pressure [facility] Heart rate 2021-11-28 13:32:00 86 /min [facility]i ty [facility] [place] [facility] Body temperature 2021-11-28 13:32:00 36.78 Felicita Univ ersity of [facility] Respiratory rate 2021-11-28 13:32:00 18 /min Univ ersity of [facility] Body height 2021-11-28 13:32:00 154.9 cm [facility] [place] [facility] Body weight 2021-11-28 13:32:00 98.385 kg [facility] [place] [facility] BMI 2021-11-28 13:32:00 40.98 kg/m2 [facility] [place] [facility] Procedures Procedure Date / Time Performing Clinician Source Performed POCT TEST 2022-07-17 19:20:00 Amanda Johnson [facility] SCANNED LAB RESULTS 2022-02-16 05:01:00 Doctor Unassigned, No [facility] [place] [facility] POCT TEST 2021-12-26 13:39:[address] [facility] POCT URINALYSIS 2021-12-26 13:27:00 Antonio Mckeon [facility] US FIRST 2021-12-09 14:05:00 Antonio Mckeon [facility] TRIMESTER LESS THAN 14 Medical [facility] WEEKS WITH TRANSVAGINAL POCT URINALYSIS W/O 2021-11-28 14:19:00 Antonio Mckeon [facility] SPECIFIC GRAVITY [facility] POCT TEST 2021-11-28 14:01:00 [facility] En[facility] Start End Encounter Admission Attending Care Care Encounter Source Date/Time Date/Time Type Type Clinicians Facility Department ID 2021-06-02 Outpatient P [facility] VAL [id number] Univers 19:02:24 [facility] 2022-10-11 2022-10-11 Outpatient R TYRELL [facility] [id number] Univers 14:00:00 14:00:00 CONSUELO [facility] 2022-07-17 2022-07-17 Outpatient R ISHA [facility] [id number] Univers 12:20:00 13:24:12 [facility] 2022-07-17 2022-07-17 Urgent Amanda Johnson [facility] 1.2.840.114 [id number] Univers 12:20:00 13:24:12 Care Unknown, Attending [facility] 350.1.13.10 [facility] 4.2.7.2.686 Deepak as TAVON?BLEA [phone] [address] MEDICAL OFFICE BUILDING 2022-06-14 2022-06-14 Outpatient SFA GEORGI [id number] [place] 11:06:56 11:06:56 [id number] F Brian 2022-05-31 2022-05-31 Outpatient SFA SFA [id number] [address] 14:03:19 14:03:19 [id number] Brian 2022-05-09 2022-05-09 Outpatient R BETOANTONIO GONSALVES [facility] B [id number] Univers 09:00:00 09:00:00 ARVINDANTONIO CLARK ity of [facility] 2022-02-21 2022-02-21 Commercial Lines Sales Executive Lab, Ang-Rmchp [facility] 1.2.840. 114 [id number] Univers 10:00:00 10:11:49 Visit Anthony Sanon PIE CRIMPING MACHINE OPERATOR 350.1.13.10 ity of [facility] 4.2.7.2.686 Deepak as MATERNAL [phone] Med ical & CHILD [address] [place] [address] 2022-02-21 2022-02-21 Outpatient R TALITA [facility] [id number] Univers 10:00:00 10:00:00 ANTHONY sánchez [facility] 2022-02-20 2022-02-20 Outpatient R TALITA [facility] [id number] Univers 08:30:00 08:30:00 ANTHONY sánchez [facility] 2022-02-16 2022-02-16 Case Raj [facility] 1.2.840.114 [id number] Univers 00:00:00 00:00:00 Management Mare SPECIALTY 350.1.13.10 ity of [place].2.686 [place] [id number] [facility] 161 Branch 2022-02-16 2022-02-16 Orders Doctor BLACK 1.2.840.114 [id number] Univers 00:00:00 00:00:00 Only Unassigned, TESSA 350.1.13.10 ity of [place] [facility] 4.2.7.2.686 Deepak as [id number] [facility] 009 Branch 2022-01-13 2022-01-13 Outpatient R OSMEL HIGGINS [facility] [id number] Univers 10:30:00 11:24:57 ity of [facility] 2022-01-13 2022-01-13 Telemedici Mare Anthony [facility] 1.2.8 40.114 [id number] Univers 10:30:00 11:24:57 ne Visit Osmel Higgins PIE CRIMPING MACHINE OPERATOR 350.1.13.10 ity of REGIONAL 4.2.7.2.686 Deepak as MATERNAL [phone] [facility] ical & CHILD [address] [place] [address] 2022-01-09 2022-01-09 Outpatient R ANTONIO MCKEON [facility] B [id number] Univers 13:15:00 16:40:15 ARVINDANTONIO CLARK [facility] 2022-01-09 2022-01-09 [facility] 1.2.840.114 [id number] Univers 13:15:00 16:40:15 Antonio MORAN 350.1.13.10 i ty of Visit [place].2.7.2.686 [place] [id number] [address] 2022-01-09 2022-01-09 Patient Mike [facility] 1.2.840.114 [id number] Univers 00:00:00 00:00:00 Secure Msg Antonio MORAN 350.1.13.10 ity of [place] 4.2.7.2.686 [place] [id number] [address] 2022-01-06 2022-01-06 Outpatient R ANTONIO MCKEON [facility] B [id number] Univers 09:30:00 09:30:00 ARVINDANTONIO CLARK [facility] 2022-01-03 2022-01-03 Patient Mike [facility] 1.2.840.114 [id number] Univers 00:00:00 00:00:00 Secure Msg Antonio MORAN 350.1.13.10 ity of [place] 4.2.7.2.686 [place] [id number] [address] 2021-12-31 2021-12-31 Commercial Lines Sales Executive Riley Dillon [facility] Main [facility] 1.2.8 40.114 [id number] Univers 09:00:00 09:15:00 Visit Ana Trujillo [place] 350.1.13.10 ity of [place] 4.2.7.2.686 [place] PROFESSIO [phone] Me dical NAL [address] [facility] 2021-12-31 2021-12-31 Outpatient R ANA TRUJILLO [facility] [id number] Univers 09:00:00 09:00:00 ity of [facility] 2021-12-28 2021-12-28 Commercial Lines Sales Executive 2, Riley Lab [facility] 1.2.840.114 [id number] Univers 13:15:00 13:30:00 Visit ArvindAntonio clark [place] 350.1.13. 10 ity of [place] 4.2.7.2.686 [place] PROFESS[place] [phone] Vt dical NAL [address] [place] [address] 2021-12-28 2021-12-28 Outpatient R MIKE ANTONIO [facility] B [id number] Univers 13:15:00 13:15:00 ANTONIO MCKEON [facility] 2021-12-26 2021-12-26 Outpatient P EDITH [facility] [id number] Univers 11:45:00 12:20:51 ISABELLE it y of [place] [facility] 2021-12-26 2021-12-26 Commercial Lines Sales Executive Ultrasound, [facility] 1.2 .840.114 [id number] Univers 11:45:00 12:20:51 Visit Mike Antonio PIE CRIMPING MACHINE OPERATOR 350.1.13.1 0 ity of Nohemi Young [facility] 4.2.7.2 .686 [place] MATERNAL [phone] Med ical & CHILD [address] [place] [address] 2021-12-26 2021-12-26 Routine Mike [facility] 1.2.840.114 [id number] Univers 08:00:00 08:43:28 Antonio LUISA 350.1.13.10 i ty of Visit [place] 4.2.7.2.686 [place] [id number] [address] 2021-12-26 2021-12-26 Case Mike [facility] 1.2.840.114 [id number] Univers 00:00:00 00:00:00 Management Antonio MORAN 350.1.13.10 ity of [place] 4.2.7.2.686 [place] [id number] [address] 2021-12-26 2021-12-26 [facility] 1.2.840.11 [id number] Univers 00:00:00 00:00:00 Antonio MORAN 350.1.13.10 it y of WOMEN'S 4.2.7.2.686 [facility] [phone] [address] 2021-12-14 2021-12-14 Outpatient R MIKE ANTONIO [facility] B [id number] Univers 13:00:00 13:00:00 [facility] 2021-12-09 2021-12-09 Outpatient R MIKE ANTONIO [facility] B [id number] Univers 07:54:22 23:59:00 [facility] 2021-12-09 2021-12-09 [facility] 1.2.840.114 [id number] Univers 07:54:22 23:59:00 Encounter Antonio BLACKBURN 350.1.13.10 ity [facility] 4.2.7.2.686 [facility] [phone] [facility] 806 [place] 2021-12-09 2021-12-09 [facility] 1.2.840.114 [id number] Univers 00:00:00 00:00:00 Management Antonio MORAN 350.1.13.10 ity of [place] 4.2.7.2.686 [place] HE[place] [id number] [address] 2021-11-29 2021-11-29 [facility] 1.2.840.114 [id number] Univers 00:00:00 00:00:00 Management Antonio MORAN 350.1.13.10 ity of WOMEN'S 4.2.7.2.686 [facility] HEALTH [id number] [address] 2021-11-28 2021-11-28 Outpatient R ANTONIO MCKEON [facility] B [id number] Univers 08:00:00 09:04:01 [facility]TON[facility] 2021-11-28 2021-11-28 Initial [facility] CHRIS 1.2.840.114 [id number] Univers 08:00:00 09:04:01 Antonio MORAN 350.1.13.10 i ty of Visit WOMEN'S 4.2.7.2.686 [place] [facility] [phone] [address] 2021-07-27 2021-07-27 Laboratory Only, Ang Db Test [facility] 1.2.8 40.114 [id number] Univers 17:45:00 18:00:00 Only Ebrahim, [facility] 350.1.13.10 ity of [place] 4.2.7.2.686 Deepak as TAVON?BLEA [id number] [address] MEDICAL OFFICE [facility] 2021-07-27 2021-07-27 Outpatient R DUGLAS [facility] [id number] Univers 17:45:00 17:45:00 [facility] 2021-07-27 2021-07-27 Outpatient R DUGLAS [facility] [id number] Univers 17:45:00 17:45:00 [facility] 2021-07-22 2021-07-22 Laboratory Only, Ang Db Test [facility] 1.2.8 40.114 [id number] Univers 17:30:00 17:45:00 Only Unknown, Attending HEALTH 350.1.13.10 ity of [place] 4.2.7.2.686 Deepak as TAVON?BLEA [id number] [address] MEDICAL OFFICE BUILDING 2021-07-22 2021-07-22 Outpatient R CLINT [facility] [id number] Univers 17:30:00 17:30:00 FARZANA [facility] 2021-03-02 2021-03-02 Outpatient R ANA TRUJILLO [facility] [id number] Univers 10:15:00 10:15:00 ity of [facility] 2021-02-24 2021-02-24 Orders Doctor BLACK 1.2.840.114 [id number] Univers 00:00:00 00:00:00 Only Unassigned, TESSA 350.1.13.10 ity of [place] [facility] 4.2.7.2.686 Deepak as [phone] [address] 2021-02-22 2021-02-22 Routine Ana Trujillo [facility] 1.2.671.312 [id number] Univers 13:39:17 14:19:25 Jovany Blackburn 350.1.13.10 ity of Visit [place] 4.2.7.2.686 [place] Profess[place] [phone] Vt dical nal 134 [facility] 2021-02-22 2021-02-22 Commercial Lines Sales Executive 2, Adc Lab [facility] 1.2.840.114 [id number] Univers 08:39:23 08:54:23 Visit Ana Trujillo 350.1.13.10 ity of [place] 4.2.7.2.686 [place] Profess[place] [phone] Vt carole ngo 353 [facility] 2021-02-22 2021-02-22 Outpatient R ANA TRUJILLO [facility] [id number] Univers 08:30:00 08:30:00 ity of [facility] 2021-02-21 2021-02-21 Outpatient R ANA TRUJILLO [facility] [id number] Univers 14:00:00 14:00:00 ity of [facility] 2021-02-21 2021-02-21 Telephone Ana Trujillo [facility] 1.2.840.114 [id number] Univers 00:00:00 00:00:00 Jovany Blackburn 350.1.13.10 i ty of [place] 4.2.7.2.686 [place] Profess[place] [phone] Vt dical nal 134 [facility] 2021-02-19 2021-02-19 Outpatient R ANA TRUJILLO [facility] [id number] Univers 11:45:00 11:45:00 ity of [facility] 2021-02-18 2021-02-18 Telephone Alena [facility] 1.2.840.114 [id number] 00:00:00 00:00:00 Ann Marie Patelton 350.1.13.10 [place] 4.2.7.2.686 Professio [phone] [address] 2021-02-18 2021-02-18 Telephone [facility] 1.2.840.114 [id number] [facility] 00:00:00 00:00:00 Ann Marie Scott 350.1.13.10 i ty of [place] 4.2.7.2.686 [place] [phone] Vt dical nal 134 [facility] 2021-02-17 2021-02-17 Commercial Lines Sales Executive 2, Adc Lab [facility] 1.2.840.114 [id number] 11:18:57 11:33:57 Visit [place] 350.1.13.10 [place] 4.2.7.2.686 Professio [phone] [address] 2021-02-17 2021-02-17 Commercial Lines Sales Executive 2, Adc Lab [facility] 1.2.840.114 [id number] [facility] 11:18:57 11:33:57 Visit Ana Trujillo [place] 350.1.13.10 ity of [place] 4.2.7.2.686 [place] [phone] Vt dical nal [address] [place] [address] 2021-02-17 2021-02-17 Initial Ana Trujillo [facility] 1.2.199.814 [id number] 09:23:48 11:08:40 Cam [place] 350.1.13.10 Visit [place] 4.2.7.2.686 Professio [phone] [address] 2021-02-17 2021-02-17 Initial Ana Trujillo [facility] 1.2.840.114 [id number] Univers 09:23:48 11:08:40 AdumConsuelo 350.1.13.10 ity of Visit [place] 4.2.7.2.686 [place] [phone] Vt dical [address] 2021-02-17 2021-02-17 Outpatient R ADUM, [facility] [id number] Univers 09:30:00 09:30:00 CONSUELO felix [facility] 2021-01-06 2021-01-06 Outpatient R ALENA [facility] [id number] Univers 09:00:00 09:00:00 ANN MARIE isidro [facility] 2020-12-23 2020-12-23 Case Alena [facility] 1.2.796.023 [id number] Univers 00:00:00 00:00:00 Management Ann Marie Blackburn 350.1.13.10 ity of [place] 4.2.7.2.686 [place] [phone] Vt dical nal 134 [facility] 2020-12-21 2020-12-21 Commercial Lines Sales Executive Santana, Riley Lab Main [facility] 1.2.8 40.114 [id number] Univers 16:00:27 16:15:27 Visit Ann Marie Carvajal 350.1.13.10 ity of [place] 4.2.7.2.686 [place] [phone] Vt dical nal 353 [facility] 2020-12-21 2020-12-21 Office Alena [facility] 1.2.788.432 [id number] [facility] 15:11:19 15:45:05 Visit Ann Marie Blackburn 350.1.13.10 i ty of [place] 4.2.7.2.686 [place] [phone] Vt dical nal 134 [facility] 2020-12-21 2020-12-21 Outpatient Jose CARVAJAL [facility] [id number] Univers 15:30:00 15:30:00 ANN MARIE [facility] 2020-12-21 2020-12-21 Orders Doctor CLAENING 1.2.840.114 [id number] Univers 00:00:00 00:00:00 Only Unassigned, TESSA 350.1.13.10 ity of [facility] 4.2.7.2.686 Deepak as [phone] [address] 2020-10-13 2020-10-13 Outpatient Jose CARVAJAL [facility] [id number] Univers 09:00:00 09:00:00 [facility] 2020-10-07 2020-10-07 Outpatient R ALENA [facility] [id number] Univers 08:30:00 08:30:00 [facility] 2020-01-05 2020-01-05 Outpatient R ALENA [facility] [id number] Univers 14:45:00 14:45:00 [facility] 2020-01-02 2020-01-02 Outpatient R ALENA [facility] [id number] Univers 11:00:00 11:00:00 [facility] 2019-12-31 2019-12-31 [facility] [id number] Univers 10:00:00 10:00:00 [facility] 2019-12-22 2019-12-22 Patient Ana Trujillo [facility] 1.2.120.748 [id number] Univers 00:00:00 00:00:00 Secure Msg Jovany Blackburn 350.1.13.10 ity of [place] 4.2.7.2.686 [place] [phone] Vt dical nal [address] [place] [address] 2019-12-09 2019-12-09 Nurse Nurse, [facility] 1.2.840.114 [id number] Univers 10:18:56 10:39:45 Visit Ana Trujillo [place] 350.1.13.10 ity of [place] 4.2.7.2.686 [place] [phone] Vt dical [address] 2019-12-09 2019-12-09 Outpatient R [facility] [id number] Univers 10:30:00 10:30:00 ity [facility] 2019-12-08 2019-12-08 Outpatient R [facility] [id number] Univers 14:00:00 14:00:00 ity of [facility] 2019-12-08 2019-12-08 Outpatient R [facility] [id number] Univers 10:00:00 10:00:00 ity of [facility] 2019-12-05 2019-12-05 Outpatient R ANA TRUJILLO [facility] [id number] Univers 10:00:00 10:00:00 ity of [facility] 2019-12-03 2019-12-03 Outpatient R ANA TRUJILLO [facility] [id number] Univers 16:15:00 16:15:00 ity [facility] 2019-11-30 2019-12-02 [facility] 1.2.840.114 [id number] Univers 14:27:57 15:00:00 Encounter Diamante Blackburn 350.1.13.10 ity of [place] 4.2.7.2.686 [place] [phone] [address] 2019-11-28 2019-11-28 Commercial Lines Sales Executive Ultrasound, Adc [facility] 1. .840.114 [id number] Univers 15:43:44 16:08:14 Visit Jada Mckeon 350.1.13.10 ity of [place] 4.2.7.2.686 [place] [phone] [address] 2019-11-28 2019-11-28 Outpatient P [facility] [id number] Univers 15:30:00 15:30:00 ity of [facility] 2019-11-24 2019-11-24 Outpatient R ANA TRUJILLO [facility] [id number] Univers 15:45:00 15:45:00 ity [facility] 2019-11-20 2019-11-20 Telephone Ana Trujillo [facility] 1.2.840.114 [id number] Univers 00:00:00 00:00:00 Jovany Blackburn 350.1.13.10 i ty of [place] 4.2.7.2.686 [place] [phone] [address] 2019-11-20 2019-11-20 Telephone Ana Trujillo [facility] 1.2.840.114 [id number] Univers 00:00:00 00:00:00 Jovany Blackburn [id number] i [id number] [phone] [address] 2019-11-20 2019-11-20 Patient Doctor [facility] 1.2.840.114 [id number] Univers 00:00:00 00:00:00 Secure Msg Unassigned, [place] [id number] [id number] [phone] Vt dical nal 134 [facility] 2019-11-17 2019-11-17 Outpatient R ANA TRUJILLO [facility] [id number] Univers 16:00:00 16:00:00 ity of [facility] [facility] 2019-11-17 2019-11-17 Routine [facility] [id number] Univers 13:18:33 14:02:08 Cam [place] [id number] ity of [id number] [phone] Vt dical nal 134 [facility] 2019-11-17 2019-11-17 Commercial Lines Sales Executive 2, Adc Lab [facility] [id number] Univers 13:04:03 13:19:03 Visit Ann Marie Carvajal 350.1.13.10 ity of [id number] [phone] Vt dical nal 353 [facility] 2019-11-17 2019-11-17 Orders Doctor BLACK 1.2.840.114 [id number] Univers 00:00:00 00:00:00 Only Unassigned, TESSA 350.1.13.10 ity of [place] [facility] 4.2.7.2.686 Deepak as [phone] [address] 2019-11-14 2019-11-14 Telephone [facility] 1.2.840.114 [id number] Univers 00:00:00 00:00:00 [place] [id number] i ty of [id number] [phone] Vt dical nal 134 [facility] 2019-11-14 2019-11-14 Telephone [facility] 1.2.840.114 [id number] Univers 00:00:00 00:00:00 Cam [place] [id number] i ty of [id number] [phone] Vt dic[address] 2019-11-14 2019-11-14 Telephone [facility] 1.2.840.114 [id number] Univers 00:00:00 00:00:00 Ann Marie Blackburn 350.1.13.10 i ty of [id number] [phone] [address] 2019-11-07 2019-11-07 Outpatient P [facility] [id number] Univers 13:30:00 13:30:00 ity of [facility] 2019-11-07 2019-11-07 Patient Doctor [facility] 1.2.840.114 [id number] Univers 00:00:00 00:00:00 Secure Msg Unassigned, Scott 350.1.13.10 [place] [phone] [address] 2019-11-03 2019-11-03 Outpatient R ALENA [facility] [id number] Univers 10:15:00 10:15:00 ANN MARIE ity [facility] 2019-11-03 2019-11-03 [facility] 1.2.840.114 [id number] Univers 08:16:34 08:31:34 ne Visit Ann Marie Blackburn [id number] ity of [id number] [phone] [address] 2019-10-24 2019-10-24 Orders Doctor BLACK 1.2.840.114 [id number] Univers 00:00:00 00:00:00 Only Unassigned, TESSA 350.1.13.10 ity of [place] [facility] 4.2.7.2.686 Deepak as [phone] [address] 2019-10-23 2019-10-23 Telephone [facility] 1.2.840.114 [id number] Univers 00:00:00 00:00:00 Ann Marie Blackburn 350.1.13.10 i ty of [id number] [phone] Vt dical nal 134 [facility] 2019-10-20 2019-10-20 Routine Ana Trujillo [facility] 1.2.840.114 [id number] Univers 10:23:53 10:59:47 Ann Marie Carvajal 350.1.13.10 ity of Visit [id number] [phone] Vt dical nal 134 [facility] 2019-10-20 2019-10-20 Outpatient R ALENA [facility] [id number] Univers 10:15:00 10:15:00 ANN MARIE itkaruna [facility] 2019-10-20 2019-10-20 Telephone Ana Trujillo [facility] 1.2.840.114 [id number] Univers 00:00:00 00:00:00 Cam [place] 350.1.13.10 i ty of [place] [phone] [facility] 134 [facility] 2019-10-08 2019-10-08 Outpatient R [facility] [id number] Univers 10:00:00 10:00:00 ity [facility] 2019-10-06 2019-10-06 Routine [facility] [id number] Univers 15:11:25 16:24:42 Ann Marie Blackburn 350.1.13.10 ity of [place] [phone] Vt dicmi nal 134 [facility] 2019-10-06 2019-10-06 Commercial Lines Sales Executive Riley Dillon Lab Main [facility] 1.2.8 40.114 [id number] Univers 09:03:03 09:18:03 Visit Ann Marie Carvajal 350.1.13.10 ity of [place] [phone] Vt dical nal 353 [facility] 2019-10-06 2019-10-06 Outpatient R ALENA [facility] [id number] Univers 09:15:00 09:15:00 ANN MARIE felix [facility] 2019-10-06 2019-10-06 Orders Doctor BLACK 1.2.840.114 [id number] Univers 00:00:00 00:00:00 Only Unassigned, TESSA 350.1.13.10 ity of [place] [facility] 4.2.7.2.686 Deepak as [phone] [address] 2019-10-06 2019-10-06 Letter Alena [facility] [id number] Univers 00:00:00 00:00:00 (Out) Ann Marie Blackburn 350.1.13.10 i ty of [place] [phone] Vt dical nal 134 [facility] 2019-10-06 2019-10-06 Letter [facility] 1.2.788.006 [id number] Univers 00:00:00 00:00:00 (Out) Ann Marie Blackburn 350.1.13.10 i ty of [id number] [phone] Vt dical nal 134 [facility] 2019-09-30 2019-09-30 Patient Ana Trujillo [facility] 1.2.716.862 [id number] Univers 00:00:00 00:00:00 Secure Jovany Blackburn 350.1.13.10 ity of [place] [phone] Vt dical nal 134 [facility] 2019-09-16 2019-09-16 Commercial Lines Sales Executive Riley Dillon Lab Main [facility] 1.2.8 40.114 [id number] Univers 14:24:11 17:50:40 Visit Ana Trujillo Jovany Blackburn 350.1.13.10 ity of [place] [phone] Vt dical nal 353 [facility] 2019-09-16 2019-09-16 Case Alena [facility] 1.2.164.481 [id number] Univers 00:00:00 00:00:00 Management Ann Marie Blackburn 350.1.13.10 ity of [place] [phone] Vt dical nal 134 [facility] 2019-09-08 2019-09-08 Routine Ana Trujillo [facility] [id number] Univers 11:18:19 12:11:06 Jovany Blackburn 350.1.13.10 ity of [place] [phone] Vt dical nal 134 [facility] 2019-08-20 2019-08-20 Routine Alena, [facility] 1.2.693.521 [id number] Univers 08:56:22 09:13:24 Ann Marie Blackburn 350.1.13.10 ity of [id number] [phone] [facility] 134 [facility] Results Test Description Test Time Test Comments Results Result Comments Source POCT TEST 2022-07-17 19:21:00 Test Item Value Reference Range Interpretation Comme nts POCT PREG (test code = 1605) Negative On board controls acceptable with C Line (test code = 3574) Yes POCT PREG LOT # (test code = 3575) PO[facility]REG [facility] (test code = 3576[id number] 13[facility]39:00 Test Item Value Reference Range Interpretation Comments POCT PREG (test code = 1605) Positive On board controls acceptable with C Yes Line (test code = 3574) POCT PREG LOT # (test code = 3575) POCT PREG TEST DATE (test code = 3576) [facility] URINALYSIS W SPECIFIC [id number] 13:28:00 Test Item Value Reference Range Interpretation Comments POCT U SP GRAV (test code = N/A 1.005-1.025 3255) POCT PH U (test code = 3254) N/A 5-8 POCT U LEUK EST (test code = N/A Negative - Negative 3263) POCT U NIT (test code = N/A [...] U APPEAR (test code = clear 3267) [facility] URINALYSIS W/O SPECIFIC [id number] 14:19:00 Test Item Value Reference Range Interpretation [...] Negative Lab Interpretation (test code = Abnormal 65678-6) [id number] 14:02:00 Test Item Value Reference Range Interpretation Comments POCT PREG (test code = 1605) Positive On board controls acceptable with C Yes Line (test code = 3574) POCT PREG LOT # (test code = 3575) POCT PREG TEST DATE (test code = 3576) [facility]
--- NOTE | 2022-10-09 16:05 | RAD REPORT ---
EXAM DESCRIPTION: US - Transvaginal OB - 10/09/2022 3:52 pm CLINICAL HISTORY: with abdominal pain COMPARISON: None. FINDINGS: The uterus measures 13 x 4 x 6 centimeters. Small amount of fluid is present within the e ndometrium. A gestational sac is not seen. Ovaries are normal in size and echotexture.. The right and left adnexa unremarkable No significant free fluid IMPRESSION: Nonvisualization of a gestational sac within the endometrium. These findings could represent an early intrauterine in which the gestational sac is not se en. and even an ectopic can also result in this appearance. This all should be cor related clinically and with serial beta HCG levels. Followup endovaginal sonogram in 1 week recommend ed
[2022-10-09 17:37] LABS: Absolute Lymphocytes (CBC) 3.2 K/uL (0.7-4.9); Hematocrit 40.8 % (36.0-45.0); Lymphocytes % 30.4 % (15.3-44.8); MPV 7.9 fL (7.6-11.3); RBC Red Blood Cell Count 5.37 M/uL (3.86-4.86)
[2022-10-09 17:49] LABS: Potassium 3.8 mmol/L (3.5-5.1)
[2022-10-09 17:55] LABS: Specific Gravity 1.023 (1.005-1.030); Urine Bacteria None Seen /HPF (<20); Urine Bilirubin NEGATIVE (Negative); Urine Blood 3+ (OVER) (Negative); Urine Clarity Extremely Turbid (Clear); Urine Color Brown (Yellow); Urine Crystals Unidentified Few /HPF (None Seen); Urine Glucose 3+ (Negative); Urine Protein 1+ (Negative); Urine RBC >50 /HPF (None Seen); Urine Urobilinogen Normal (Normal); Urine WBC Clump Occasional /HPF (None Seen)
--- NOTE | 2022-10-09 18:03 | EDPHYS ---
Physician Documentation [facility] Name: Sharlene Thayer Age: 27 yrs Sex: Female : 1995 Arrival Date: 10/09/2022 Time: 15:00 Bed DIS4 Private MD: ED Physician Kvng Shi HPI: 10/09 15:19 This 27 yrs old Female presents to ER via Unassigned with complaints of kb Abdominal Pain, Vaginal Bleeding, + Preg <12wks. 15:19 The patient presents to the emergency department with abdominal pain, of the suprapubic kb area, that started this morning, described as crampy, vaginal bleeding, that is light, with clots. The estimated gestational age is 6 weeks. course: care: none, Leakage of Fluid: none appreciated, Ultrasound: the patient has not had an ultrasound. Previous pregnancies: in previous pregnancies patient has had . Associated signs and symptoms: Pertinent positives: abdominal pain, vaginal bleeding. The patient has not experienced similar symptoms in the past. The patient has not recently seen a physician. 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 kb 15:19 Abdomen/GI: Positive for abdominal cramps. 15:19 : Positive for vaginal bleeding. 15:19 All other systems are negative. Exam: 15:19 Constitutional: This is a well developed, well nourished patient who is awake, alert, kb and in no acute distress. Head/Face: Normocephalic, atraumatic. ENT: Moist Mucous membranes Cardiovascular: Regular rate and rhythm with a normal S1 and S2. No gallops, murmurs, or rubs. No pulse deficits. Respiratory: Respirations even and unlabored. No increased work of breathing. Talking in full sentences Abdomen/GI: Soft, non-tender. No distention Skin: Warm, dry with normal turgor. Normal color. MS/ Extremity: Pulses equal, no cyanosis. Neurovascular intact. Full, normal range of motion. Neuro: Awake and alert, GCS 15, oriented to person, place, time, and situation. Moves all extremities. Normal gait. Vital Signs: 17:25 BP 122 / 79; Pulse 87; Resp 16; Temp 98.0; Pulse Ox 100% on R/A; iw MDM: 15:07 Patient medically screened. kb 15:19 Data reviewed: vital signs, nurses notes. kb 15:23 Differential diagnosis: threatened Ab, ectopic . ED course: Patient is a 27-year-old female who presents for suprapubic cramping that started this morning has now resolved and vaginal bleeding that started as spotting yesterday and has progressed today to mild bleeding with clots. G6, P3, A2. LMP 08/31/2022. Normal physical exam, no abdominal tenderness, respirations even and unlabored. will obtain serum labs and transvaginal ultrasound... 18:02 Counseling: I had a detailed discussion with the patient and/or guardian regarding: the historical points, exam findings, and any diagnostic results supporting the discharge/admit diagnosis, lab results, radiology results, the need for outpatient follow up, an OB/Gyne specialist, to return to the emergency department if symptoms worsen or persist or if there are any questions or concerns that arise at home. 10/09 15:08 Order name: Abo/rh Typing 10/09 15:08 Order name: Basic Metabolic Panel 10/09 15:08 Order name: CBC with Diff 10/09 15:08 Order name: Quantitative Hcg 10/09 15:08 Order name: US Transvaginal Ob 10/09 15:08 Order name: IV Saline Lock; Complete Time: 17:25 kb 10/09 15:08 Order name: Labs collected and sent; Complete Time: 17:25 kb 10/09 15:08 Order name: NPO; Complete Time: 17:38 kb 10/09 15:08 Order name: Urine Dipstick-Ancillary (obtain specimen); Complete Time: 17:38 kb 10/09 15:08 Order name: Urine Test (obtain specimen); Complete Time: 17:38 kb 10/09 16:06 Order name: US; Complete Time: 16:16 EDMS 10/09 17:31 Order name: UA bd 10/09 17:50 Order name: Basic Metabolic Panel; Complete Time: 17:54 EDMS 10/09 17:50 Order name: HCG, Quantitative; Complete Time: 17:54 EDMS 10/09 17:53 Order name: ABO/RH typing; Complete Time: 17:54 EDMS 10/09 17:56 Order name: CBC with Automated Diff; Complete Time: 17:58 EDMS 10/09 17:56 Order name: Urinalysis; Complete Time: 17:58 EDMS Administered Medications: No medications were administered Disposition: 18:30 Co-signature as Attending Physician, Kvng Shi I was immediately available on-site ms3 in the Emergency Department for consultation in the care of the patient. Disposition Summary: 10/09/22 18:03 Discharge Ordered Location: Home kb Condition: Stable kb Diagnosis - Threatened kb Followup: kb - With: Emergency Department - When: As needed - Reason: Worsening of condition Followup: kb - With: Private Physician - When: 2 - 3 days - Reason: Recheck today's complaints, Continuance of care, Re-evaluation by your physician Discharge Instructions: - Discharge Summary Sheet kb - Threatened Miscarriage, [id number] kb - Vaginal Bleeding During , First Trimester, [id number]-[id number] kb Forms: - Medication Reconciliation Form kb - Thank You Letter kb - Antibiotic Education kb - Prescription Opioid Use kb Signatures: Dispatcher [employer] Carmen Hutchison, SUPERVISOR DRILLING AND SHOOTING-C SUPERVISOR DRILLING AND SHOOTING-Mey Baidr, RN RN aa5 Kvng Shi, DO HERNANDEZ ms3
--- NOTE | 2022-10-09 18:03 | ER ---
Nurse's Notes [facility] Name: Sharlene Thayer Age: 27 yrs Sex: Female : 1995 Arrival Date: 10/09/2022 Time: 15:00 Bed DIS4 Private MD: Diagnosis: Threatened Presentation: 10/09 15:25 Chief complaint: Patient states: vaginal spotting yesterday and today bleeding with aa5 clots, reports abd cramping today. Reports being 6 weeks . Coronavirus screen: At this time, the client does not indicate any symptoms associated with coronavirus-19. Ebola Screen: Patient denies travel to an Ebola-affected area in the 21 days before illness onset. Risk Assessment: Do you want to hurt yourself or someone else? Patient reports no desire to harm self or others. Onset of symptoms was October 2022. 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 Abuse screen: Denies threats or abuse. Denies injuries from another. Nutritional screening: No deficits noted. Tuberculosis screening: No symptoms or risk factors identified. Assessment: 17:25 Reassessment: Patient appears in no apparent distress at this time. Patient and/or iw family updated on plan of care and expected duration. Pain level reassessed. Patient is alert, oriented x 3, equal unlabored respirations, skin warm/dry/pink. Vital Signs: 17:25 BP 122 / 79; Pulse 87; Resp 16; Temp 98.0; Pulse Ox 100% on R/A; iw ED Course: 15:00 Patient arrived in ED. rg4 15:02 Carmen Russo FNP-C is PHCP. kb 15:02 Kvng Shi DO is Attending Physician. kb 15:25 Arm band placed on. aa5 15:26 Triage completed. aa5 17:24 Inserted saline lock: 20 gauge in right antecubital area, using aseptic technique. zm Blood collected. 17:25 Jennifer Mcmullen, RN is Primary Nurse. iw 17:25 Abo/rh Typing Sent. zm 17:25 Basic Metabolic Panel Sent. zm 17:25 CBC with Diff Sent. zm 17:25 Quantitative Hcg Sent. zm 17:25 No provider procedures requiring assistance completed. iw 17:38 UA Sent. zm 18:31 IV discontinued, intact, bleeding controlled, No redness/swelling at site. Pressure iw dressing applied. Administered Medications: No medications were administered Medication: 17:25 VIS not applicable for this client. iw Outcome: 18:03 Discharge ordered by . kb 18:31 Discharged to home ambulatory. iw 18:31 Condition: good 18:31 Discharge instructions given to patient, Instructed on discharge instructions, follow up and referral plans. Demonstrated understanding of instructions, follow-up care. 18:31 Patient left the ED. iw Signatures: Carmen Russo, PALM AND BACK FORGER-C PALM AND BACK FORGER-CkJennifer Gaviria, RN RN Mey Peacock, RN RN Deb Crow Zaina
[2022-10-09 19:20] VITALS: BP 122/79; TEMP 98; O2SAT 100
--- NOTE | 2022-10-10 09:51 | RAD REPORT ---
EXAM DESCRIPTION: US - Pelvis Complete - 10/09/2022 3:52 pm CLINICAL HISTORY: with abdominal pain COMPARISON: None. FINDINGS: The uterus measures 13 x 4 x 6 centimeters. Small amount of fluid is present within the en dometrium. A gestational sac is not seen. Ovaries are normal in size and echotexture.. The right and left adnexa unremarkable No significant free fluid IMPRESSION: Nonvisualization of a gestational sac within the endometrium. These findings could represent an early intrauterine in which the gestational sac is not se en. and even an ectopic can also result in this appearance. This all should be cor related clinically and with serial beta HCG levels. Followup endovaginal sonogram in 1 week recommend ed
== END 2022-10-09 18:31 | disposition home or self-care (01) ==
LOC: ER 14:58
DX: O20.0 Threatened abortion (principal)
CPT/HCPCS: 36415; 76817; 76856; 80048; 81001; 84702; 85025; 86900; 86901; 87086; 87088

== ENCOUNTER 2023-01-23 07:56 | Emergency (ER) | payer OTHER ==
--- OUTSIDE RECORDS SUMMARY | 2023-01-23 08:02 | XMS REPORT | Continuity of Care Document ---
:1995 Author Organization [facility] t Address [address] [facility] [address] [facility] [place] [address] Care Team Providers Name Role Phone Antonio Mckeon NP Primary Care Physician [phone] ANTONIO MCKEON Attending Clinician Unavailable ANTONIO MCKEON Attending Clinician Unavailable MILA WHITTAKER Attending Clinician Unavailable MILA WHITTAKER Attending Clinician Unavailable Doctor Unassigned, [place] Attending Clinician Unavailable Ana Trujillo MD Attending Clinician Klarissa Paiz MA Attending Clinician Unavailable Consuelo Munguia MD Attending Clinician CONSUELO MUNGUIA Attending Clinician Unavailable AMANDA JOHNSON Attending Clinician Unavailable Amanda Johnson MD Attending Clinician Unknown, Attending Attending Clinician Unavailable Lab, [facility] Attending Clinician Unavailable Anthony Verde Attending Clinician ANTHONY SANON Attending Clinician Unavailable Mare Anthony Attending Clinician Unavailable OSMEL HIGGINS Attending Clinician Unavailable Osmel Higgins MD Attending Clinician Pob, [facility] Main Attending Clinician Unavailable ANA TRUJILLO Attending Clinician Unavailable 2, [facility] Attending Clinician Unavailable NOHEMI YOUNG Attending Clinician Unavailable Ultrasound, [facility] Attending Clinician Unavailable Edith Dee MD, Nohemi Attending Clinician [phone] Only, Yefri Db Test Attending Clinician Unavailable Ebrahim REDUCTION FURNACE OPERATOR, Osiel Attending Clinician EBRAHIM, RANIA Attending Clinician Unavailable FARZANA JARAMILLO Attending Clinician Unavailable Ann Marie Carvajal PA-C Attending Clinician ANN MARIE CARVAJAL Attending Clinician Unavailable Nurse, [facility] Attending Clinician Unavailable Diamante Dumont MD Attending Clinician Ultrasound, [facility] Mf Attending Clinician Unavailable Jada Mckeon MD Attending Clinician DIAMANTE DUMONT Admitting Clinician Unavailable ANTONIO MCKEON Admitting Clinician Unavailable Diamante Dumont MD Admitting Clinician Payers Payer Name Policy Type Policy Number Effective Date Expiration Date Formerly [facility] [id number] 2018 CHOICE MEDICAID 00:00:00 [place] [facility] [id number] 2023 00:00:00 Problems Condition Condition Condition Status Onset Resolution Last Treating Co mments Source Name Details Category Date Date Treatment Clinician Date 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 Abnormal Abnormal Disease Active Unive rs 5-23 [place] of [place] [facility] Disease Active Uni vers with with 4-25 ity of inconclusi inconclusi 00:[place] 00 Medica l viability, viability, Br anch single or single or unspecifie unspecifie d fetus d fetus Vaginal Vaginal Disease Active Univers discharge discharge 4-25 ity of 00:00: [place] [address] [place] [address] History of History of Disease Active U nivers gestationa gestationa 4-25 it y of l diabetes l diabetes [place] [facility] Vaginal Vaginal Disease Active Univers bleeding bleeding 7-20 [place] affecting [place] Obesity, Obesity, Disease Active Unive rs Class III, Class III, 2-03 it y of BMI BMI 00:00: [place] 40-49.9 40-49.9 00 Medical (morbid (morbid Branch obesity) obesity) History of History of Disease Active U nivers pre-eclamp pre-eclamp 2-03 it y of ang ang 00:00: [place] [facility] Branch History of History of Disease Active U nivers depression depression 2-03 it y of 00:00: [place] [facility] Previous Previous Disease Active Unive rs 2-03 ity of section section 00:00: [address] Allergies, Adverse Reactions, Alerts Allergy Allergy Status Severity Reaction(s) Onset Inactive Treating Comm ents Source Name Type Date Date Clinician NO KNOWN Drug Active Univers ALLERGIE Class ity of S [facility] Social History Social Habit Start Date Stop Date Quantity Comments Source ASSERTION 2021-10-31 [facility] 00:00:00 [facility] Alcohol intake 2023-01-18 2023-01-18 0 /d [facility] 00:00:00 00:00:00 [facility] Exposure to 2022-10-30 2022-11-09 Not sure [facility] SARS-CoV-2 00:00:00 16:10:00 [facility] (event) [place] Tobacco use and 2022-10-11 2022-10-11 Smokeless tobacco Un iversity of exposure 00:00:00 00:00:00 non-user [facility] Sex Ass[birth year] At [birth year] Universit y of 00:00:00 00:00:00 [facility] Smoking Status Start Date Stop Date Source Never smoked tobacco [facility] Medications Ordered Filled Start Stop Current Ordering Indication Dosage Frequency Signature Comments Components Source Medication Medication Date Date Medication? Clinician (SIG) Name Name metformin Yes Univers ER 750 mg 6-15 ity of 24 hr 14:10: [place] tablet 45 [facility] metformin Yes Univers ER 750 mg 6-15 ity of 24 hr 14:10: [place] tablet 45 Medical Branch fluconazole 2022-0 Yes [id number] 200mg Take 1 Univers (DIFLUCAN) 4-08 tablet by ity of 200 mg 00:00: mouth in [place] tablet 00 the Medical morning. Branch fluconazole 2022-0 Yes [id number] 200mg Take 1 Univers (DIFLUCAN) 4-08 tablet by ity of 200 mg 00:00: mouth in [place] tablet 00 the Medical morning. Branch fluconazole 2022-0 Yes [id number] 200mg Take 1 Univers (DIFLUCAN) 4-08 tablet by ity of 200 mg 00:00: mouth in [place] tablet 00 the Medical morning. Branch fluconazole 2022-0 Yes [id number] 200mg Take 1 Univers (DIFLUCAN) 4-08 tablet by ity of 200 mg 00:00: mouth in [place] tablet 00 the Medical morning. Branch fluconazole 2022-0 Yes [id number] 200mg Take 1 Univers (DIFLUCAN) 4-08 tablet by ity of 200 mg 00:00: mouth in [place] tablet 00 the Medical morning. Branch 2022-0 Yes Take by Univer s 25/iron 4-06 mouth. ity of fum/folic/d 16:20: [place] medrano 00 Medical (-1 Branch ORAL) metformin 2022-0 Yes Univers ER 750 mg 4-06 ity of 24 hr 16:20: [place] tablet 00 Medical Branch 2022-0 Yes Take by Univer s 25/iron 4-06 mouth. ity of fum/folic/d 16:20: [place] medrano 00 Medical (-1 Branch ORAL) metformin 2022-0 Yes Univers ER 750 mg 4-06 ity of 24 hr 16:20: [place] tablet 00 Medical Branch 2022-0 Yes Take by Univer s 25/iron 4-06 mouth. ity of fum/folic/d 16:20: [place] medrano 00 Medical (-1 Branch ORAL) metformin 2022-0 Yes Univers ER 750 mg 4-06 ity of 24 hr 16:20: [place] tablet 00 Medical Branch 2022-0 Yes Take by Univer s 25/iron 4-06 mouth. ity of fum/folic/d 16:20: [place] medrano 00 Medical (-1 Branch ORAL) metformin 2022-0 Yes Univers ER 750 mg 4-06 ity of 24 hr 16:20: [place] tablet 00 Medical Branch 0 Yes Take by Univer s 25/iron 4-06 mouth. ity of fum/folic/d 16:20: [place] medrano 00 Medical (-1 Branch ORAL) metformin 0 Yes Univers ER 750 mg 4-06 ity of 24 hr 16:20: [place] tablet 00 Medical Branch 0 Yes Take by Univer s 25/iron 4-06 mouth. ity of fum/folic/d 16:20: [place] medrano 00 Medical (-1 Branch ORAL) 0 Yes Take by Univer s 25/iron 4-06 mouth. ity of fum/folic/d 16:20: [place] medrano Medical (-1 Branch ORAL) atorvastati 0 Yes Univer s n 20 mg 3-15 ity of tablet 00:00: [place] [facility] famotidine 0 Yes Univers 40 mg 3-15 ity of tablet 00:00: [place] [facility] glimepiride 0 Yes Univer s 1 mg tablet 3-15 ity of 00:00: Medical Branch atorvastati 0 Yes Univer s n 20 mg 3-15 ity of tablet 00:00: [place] [facility] famotidine 2022-0 Yes Univers 40 mg 3-15 ity of tablet 00:00: Medical Branch glimepiride 0 Yes Univer s 1 mg tablet 3-15 ity of 00:00: Medical Branch atorvastati 2022-0 Yes Univer s n 20 mg 3-15 ity of tablet 00:00: [place] [facility] famotidine 2022-0 Yes Univers 40 mg 3-15 ity of tablet 00:00: [place] [facility] glimepiride 2022-0 Yes Univer s 1 mg tablet 3-15 ity of 00:00: Medical Branch atorvastati 2022-0 Yes Univer s n 20 mg 3-15 ity of tablet 00:00: [place] [facility] famotidine 2022-0 Yes Univers 40 mg 3-15 ity of tablet 00:00: [place] [facility] glimepiride 2022-0 Yes Univer s 1 mg tablet 3-15 ity of 00:00: Medical Branch atorvastati 2022-0 Yes Univer s n 20 mg 3-15 ity of tablet 00:00: Medical Branch famotidine 2022-0 Yes Univers 40 mg 3-15 ity of tablet 00:00: Medical Branch glimepiride 2022-0 Yes Univer s 1 mg tablet 3-15 ity of 00:00: Medical Branch atorvastati 2022-0 Yes Univer s n 20 mg 3-15 ity of tablet 00:00: Medical Branch famotidine 2022-0 Yes Univers 40 mg 3-15 ity of tablet 00:00: Medical Branch glimepiride 2022-0 Yes Univer s 1 mg tablet 3-15 ity of 00:00: Medical Branch atorvastati 0 Yes Univer s n 20 mg 3-15 ity of tablet 00:00: Medical Branch famotidine 2022-0 Yes Univers 40 mg 3-15 ity of tablet 00:00: Medical Branch glimepiride 0 Yes Univer s 1 mg tablet 3-15 ity of 00:00: Medical Branch metformin 2022-0 2023- No Univers ER 750 mg 3-15 04-06 ity of 24 hr 00:00: 00:00 [place] tablet 00 :00 Medical Branch metformin 3-0 3- No Univers ER 750 mg 3-15 04-06 ity of 24 hr 00:00: 00:00 [place] tablet 00 :00 Medical Branch 0 Yes Take by Univer s 25/iron 3-08 mouth. ity of fum/folic/d 14:20: [place] medrano 02 Medical (-1 Branch ORAL) 0 Yes Take by Univer s 25/iron 3-08 mouth. ity of fum/folic/d 14:20: [place] medrano 02 Medical (-1 Branch ORAL) 0 Yes Take by Univer s 25/iron 3-08 mouth. ity of fum/folic/d 14:20: [place] medrano 02 Medical (-1 Branch ORAL) Yes Take by Univer s 25/iron 3-08 mouth. ity of fum/folic/d 14:20: [place] medrano 02 Medical (-1 Branch ORAL) Yes Take by Univer s 25/iron 3-08 mouth. ity of fum/folic/d 14:20: [facility] (-1 Branch ORAL) ondansetron 2021-08 Yes [id number] 4mg Take 1 Univers 4 mg 2-12 tablet by ity of disintegrat 00:00: mouth [place] ing tablet 00 every 8 Medica l (eight) Branch hours as needed for Nausea and Vomiting (N/V). benzonatate 2021-08 Yes [id number] 200mg Take 2 Univers 100 mg 2-12 capsules ity of capsule 00:00: by mouth [place] 00 every 8 Medical (eight) Branch hours as needed for Cough. ondansetron 2021-08- No [id number] 4mg Take 1 Univers 4 mg 2-12 03-08 tablet by ity of disintegrat 00:00: 00:00 [place] tablet [place] :00 every 8 Medica l (eight) Branch hours as needed for Nausea and Vomiting (N/V). benzonatate 2021-08- No [id number] 200mg Take 2 Univers 100 mg 2-12 03-08 capsules ity of capsule 00:00: 00:00 by mouth [place] 00 :00 every 8 Medical (eight) Branch hours as needed for Cough. No known 0 No Univers medications 6-10 ity of 11:08: [address] No known 0 No No known Unive rs medications 6-10 medication it y of 11:08: [address] No known 2021-0 No No known Unive rs medications 6-10 medication it y of 11:08: [address] No known 2021-0 No No known Unive rs medications 6-10 medication it y of 11:08: [address] No known 2021-0 No Univers medications 6-07 ity of 13:08: [address] No known 2021-0 No Univers medications 5-23 ity of 11:31: [address] No known 2021-0 No Univers medications 5-23 ity of 11:31: [address] No known 2021-0 No Univers medications 5-23 ity of 11:31: [place] [facility] PNV No [id number] 1{capsu Take 1 Uni vers 102-iron-fo 4- 05-27 le} [facility]:00: 04:59 mouth [place] (VITAFOL FE 00 :00 daily for Med ical PLUS) 90 mg 30 days. Bran ch iron- 1 mg-200 mg Cap PNV No [id number] 1{capsu Take 1 Uni vers 102-iron-fo 4- 05-27 le} capsule by i ty of [facility] 00:00: 04:59 mouth [place] (VITAFOL FE 00 :00 daily for Med ical PLUS) 90 mg 30 days. Bran ch iron- 1 mg-200 mg Cap PNV No [id number] 1{capsu Take 1 Uni vers 102-iron-fo 4- 05-27 le} capsule by i ty of [facility] 00:00: 04:59 mouth [place] (VITAFOL FE 00 :00 daily for Med ical PLUS) 90 mg 30 days. Bran ch iron- 1 mg-200 mg Cap PNV No [id number] 1{capsu Take 1 Uni vers 102-iron-fo - 05-27 le} capsule by i ty of [facility] 00:00: 04:59 mouth [place] (VITAFOL FE 00 :00 daily for Med ical PLUS) 90 mg 30 days. Bran ch iron- 1 mg-200 mg Cap PNV No [id number] 1{capsu Take 1 Uni vers 102-iron-fo 11-29 05-27 le} capsule by i ty of [facility] 00:00: 04:59 mouth [place] (VITAFOL FE 00 :00 daily for Med ical PLUS) 90 mg 30 days. Bran ch iron- 1 mg-200 mg Cap PNV No [id number] 1{capsu Take 1 Uni vers 102-iron-fo 4- 05-27 le} capsule by i ty of [facility] 00:00: 04:59 mouth [place] (VITAFOL FE 00 :00 daily for Med ical PLUS) 90 mg 30 days. Bran ch iron- 1 mg-200 mg Cap PNV No [id number] 1{capsu Take 1 Uni vers 102-iron-fo 11-29 le} capsule by i ty of late-dha 00:00: 04:59 mouth [place] (VITAFOL FE 00 :00 daily for Med ical PLUS) 90 mg 30 days. Bran ch iron- 1 mg-200 mg Cap PNV 2021- No [id number] 1{capsu Take 1 Uni vers 102-iron-fo 11-29 le} capsule by i ty of late-dha 00:00: 04:59 mouth [place] (VITAFOL FE 00 :00 daily for Med ical PLUS) 90 mg 30 days. Bran ch iron- 1 mg-200 mg Cap terconazole 2021- No [id number] 80mg Insert 1 Univers 80 mg 11-2930 Suppositor ity of vaginal 00:00: 04:59 y into [place] suppository 00 :00 vagina at [facility] ical bedtime Branch for 3 days. PNV 2021- No [id number] 1{capsu Take 1 Uni vers 102-iron-fo 11-28 le} capsule by i ty of latedha 00:00: 04:59 mouth [place] (VITAFOL FE 00 :00 now for 1 Med ical PLUS) 90 mg dose. Branch iron- 1 mg-200 mg Cap No known No Univers medications 7-20 ity of 17:41: [address] Immunizations Ordered Immunization Filled Immunization Date Status Commen ts Source Name Name TDAP (ADACEL) VACCINE 2019-10-06 Completed Uni versity of 00:00:00 [facility] TDAP (ADACEL) VACCINE 2019-10-06 Completed Uni versity of 00:00:00 [facility] TDAP (ADACEL) VACCINE 2019-10-06 Completed Uni versity of 00:00:00 [facility] TDAP (ADACEL) VACCINE 2019-10-06 Completed Uni versity of 00:00:00 [facility] TDAP (ADACEL) VACCINE 2019-10-06 Completed Uni versity of 00:00:00 [facility] TDAP (ADACEL) VACCINE 2019-10-06 Completed Uni versity of 00:00:00 [facility] TDAP (ADACEL) VACCINE 2019-10-06 Completed Uni versity [...] VACCINE 2019-10-06 Completed Uni versity of 00:00:00 [facility] Branch TDAP (ADACEL) VACCINE 2019-10-06 Completed Uni versity of 00:00:00 [facility] Branch TDAP (ADACEL) VACCINE 2019-10-06 Completed Uni versity of 00:00:00 [place] [facility] TDAP (ADACEL) VACCINE 2019-10-06 Completed Uni versity of 00:00:00 [facility] Branch TDAP (ADACEL) VACCINE 2019-10-06 Completed Uni versity of 00:00:00 [facility] Branch TDAP (ADACEL) VACCINE 2019-10-06 Completed Uni versity of 00:00:00 [facility] Influenza Virus 2019-06-02 Completed Universit y of [...] Branch TDAP 2015-12-29 Completed University of 00:00:00 [facility] TDAP 2015-12-29 Completed University of 00:00:00 [facility] Branch TDAP 2015-12-29 Completed University of 00:00:00 [facility] Branch TDAP 2015-12-29 Completed University of 00:00:00 [facility] Branch TDAP 2015-12-29 Completed University of 00:00:00 [facility] TDAP 2015-12-29 Completed University of 00:00:00 [facility] TDAP 2015-12-29 Completed University of 00:00:00 [facility] TDAP 2015-12-29 Completed University of 00:00:00 [facility] TDAP 2015-12-29 Completed University of 00:00:00 [facility] TDAP 2015-12-29 Completed University of 00:00:00 [facility] TDAP 2015-12-29 Completed University of 00:00:00 [facility] TDAP 2015-12-29 Completed University of 00:00:00 [facility] TDAP 2015-12-29 Completed University of 00:00:00 [facility] TDAP 2015-12-29 Completed University of 00:00:00 [facility] TDAP 2015-12-29 Completed University of 00:00:00 [facility] TDAP 2015-12-29 Completed University of 00:00:00 [facility] TDAP 2015-12-29 Completed University of 00:00:00 [facility] TDAP 2015-12-29 Completed University of 00:00:00 [facility] TDAP 2015-12-29 Completed University of 00:00:00 [facility] TDAP 2015-12-29 Completed University of 00:00:00 [facility] TDAP 2015-12-29 Completed University of 00:00:00 [facility] TDAP 2015-12-29 Completed University of 00:00:00 [facility] TDAP 2015-12-29 Completed University of 00:00:00 [facility] TDAP 2015-12-29 Completed University of 00:00:00 [facility] TDAP 2015-12-29 Completed University of 00:00:00 [facility] TDAP 2015-12-29 Completed University of 00:00:00 [facility] TDAP 2015-12-29 Completed University of 00:00:00 [facility] TDAP 2015-12-29 Completed University of 00:00:00 [facility] TDAP 2015-12-29 Completed University of 00:00:00 [facility] TDAP 2015-12-29 Completed University of 00:00:00 [facility] TDAP 2015-12-29 Completed University of 00:00:00 [facility] TDAP 2015-12-29 Completed University of 00:00:00 [facility] Influenza Virus 2015-10-07 Completed Universit y of Vaccine Quad IM 3+ 00:00:00 [facility] Influenza Virus 2015-10-07 Completed Universit y of Vaccine Quad IM 3+ 00:00:00 [facility] Influenza Virus 2015-10-07 Completed Universit y of Vaccine Quad IM 3+ 00:00:00 [facility] Influenza Virus 2015-10-07 Completed Universit y of Vaccine Quad IM 3+ 00:00:00 [facility] Influenza Virus 2015-10-07 Completed Universit y of Vaccine Quad IM 3+ 00:00:00 [facility] Influenza Virus 2015-10-07 Completed Universit y of Vaccine Quad IM 3+ 00:00:00 [facility] Influenza Virus 2015-10-07 Completed Universit y of Vaccine Quad IM 3+ 00:00:00 [facility] Influenza Virus 2015-10-07 Completed Universit y of Vaccine Quad IM 3+ 00:00:00 [facility] Influenza Virus 2015-10-07 Completed Universit y of Vaccine Quad IM 3+ 00:00:00 [facility] Influenza Virus 2015-10-07 Completed Universit y of Vaccine Quad IM 3+ 00:00:00 [facility] Influenza Virus 2015-10-07 Completed Universit y of Vaccine Quad IM 3+ 00:00:00 [facility] Influenza Virus 2015-10-07 Completed Universit y of Vaccine Quad IM 3+ 00:00:00 [facility] Influenza Virus 2015-10-07 Completed Universit y of Vaccine Quad IM 3+ 00:00:00 [facility] Influenza Virus 2015-10-07 Completed Universit y of Vaccine Quad IM 3+ 00:00:00 [facility] Influenza Virus 2015-10-07 Completed Universit y of Vaccine Quad IM 3+ 00:00:00 [facility] Influenza Virus 2015-10-07 Completed Universit y of Vaccine Quad IM 3+ 00:00:00 [facility] Influenza Virus 2015-10-07 Completed Universit y of Vaccine Quad IM 3+ 00:00:00 [facility] Influenza Virus 2015-10-07 Completed Universit y of Vaccine Quad IM 3+ 00:00:00 [facility] Influenza Virus 2015-10-07 Completed Universit y of Vaccine Quad IM 3+ 00:00:00 [facility] Influenza Virus 2015-10-07 Completed Universit y of Vaccine Quad IM 3+ 00:00:00 [facility] Influenza Virus 2015-10-07 Completed Universit y of Vaccine Quad IM 3+ 00:00:00 [facility] Influenza Virus 2015-10-07 Completed Universit y of Vaccine Quad IM 3+ 00:00:00 [facility] Influenza Virus 2015-10-07 Completed Universit y of Vaccine Quad IM 3+ 00:00:00 [facility] Influenza Virus 2015-10-07 Completed Universit y of Vaccine Quad IM 3+ 00:00:00 [facility] Influenza Virus 2015-10-07 Completed Universit y of Vaccine Quad IM 3+ 00:00:00 [facility] Influenza Virus 2015-10-07 Completed Universit y of Vaccine Quad IM 3+ 00:00:00 [facility] Influenza Virus 2015-10-07 Completed Universit y of Vaccine Quad IM 3+ 00:00:00 [facility] Influenza Virus 2015-10-07 Completed Universit y of Vaccine Quad IM 3+ 00:00:00 [facility] Influenza Virus 2015-10-07 Completed Universit y of Vaccine Quad IM 3+ 00:00:00 [facility] Influenza Virus 2015-10-07 Completed Universit y of Vaccine Quad IM 3+ 00:00:00 [facility] Influenza Virus 2015-10-07 Completed Universit y of Vaccine Quad IM 3+ 00:00:00 [facility] Influenza Virus 2015-10-07 Completed Universit y of Vaccine Quad IM 3+ 00:00:00 [facility] TDAP 2015-04-13 Completed University of 00:00:00 [place] [facility] TDAP 2015-04-13 Completed University of 00:00:00 [place] [facility] TDAP 2015-04-13 Completed University of 00:00:00 [place] [facility] TDAP 2015-04-13 Completed University of 00:00:00 [place] [facility] TDAP 2015-04-13 Completed University of 00:00:00 [place] [facility] TDAP 2015-04-13 Completed University of 00:00:00 [place] [facility] TDAP 2015-04-13 Completed University of 00:00:00 [place] [facility] TDAP 2015-04-13 Completed University of 00:00:00 [place] [facility] TDAP 2015-04-13 Completed University of 00:00:00 [place] [facility] TDAP 2015-04-13 Completed University of 00:00:00 [place] [facility] TDAP 2015-04-13 Completed University of 00:00:00 [place] [facility] TDAP 2015-04-13 Completed University of 00:00:00 [place] [facility] TDAP 2015-04-13 Completed University of 00:00:00 [place] [facility] TDAP 2015-04-13 Completed University of 00:00:00 [place] [facility] TDAP 2015-04-13 Completed University of 00:00:00 [place] [facility] TDAP 2015-04-13 Completed University of 00:00:00 [place] [facility] TDAP 2015-04-13 Completed University of 00:00:00 [place] [facility] TDAP 2015-04-13 Completed University of 00:00:00 [place] [facility] TDAP 2015-04-13 Completed University of 00:00:00 [place] [facility] TDAP 2015-04-13 Completed University of 00:00:00 [place] [facility] TDAP 2015-04-13 Completed University of 00:00:00 [place] [facility] TDAP 2015-04-13 Completed University of 00:00:00 [place] [facility] TDAP 2015-04-13 Completed University of 00:00:00 [place] [facility] TDAP 2015-04-13 Completed University of 00:00:00 [place] [facility] TDAP 2015-04-13 Completed University of 00:00:00 [place] [facility] TDAP 2015-04-13 Completed University of 00:00:00 [place] [facility] TDAP 2015-04-13 Completed University of 00:00:00 [place] [facility] TDAP 2015-04-13 Completed University of 00:00:00 [place] [facility] TDAP 2015-04-13 Completed University of 00:00:00 [place] [facility] TDAP 2015-04-13 Completed University of 00:00:00 [place] [facility] TDAP 2015-04-13 Completed University of 00:00:00 [place] [facility] TDAP 2015-04-13 Completed University of 00:00:00 [place] [facility] Rubella 2012-11-29 Completed University of 00:00:00 [place] [facility] Rubella 2012-11-29 Completed University of 00:00:00 [place] [facility] Rubella 2012-11-29 Completed University of 00:00:00 [place] [facility] Rubella 2012-11-29 Completed University of 00:00:00 [place] [facility] Rubella 2012-11-29 Completed [facility] 00:00:00 [facility] Rubella 2012-11-29 Completed University of 00:00:00 [facility] Rubella 2012-11-29 Completed University [facility] 00:00:00 [facility] Rubella 2012-11-29 Completed University [facility] 00:00:00 [facility] Rubella 2012-11-29 Completed University [facility] 00:00:00 [facility] Rubella 2012-11-29 Completed University [facility] 00:00:00 [facility] Rubella 2012-11-29 Completed University [facility] 00:00:00 [facility] Rubella 2012-11-29 Completed University [facility] 00:00:00 [facility] Rubella 2012-11-29 Completed University [facility] 00:00:00 [facility] Rubella 2012-11-29 Completed University [facility] 00:00:00 [facility] Rubella 2012-11-29 Completed University [facility] 00:00:00 [facility] Rubella 2012-11-29 Completed University [facility] 00:00:00 [facility] Rubella 2012-11-29 Completed University of 00:00:00 [facility] Rubella 2012-11-29 Completed [facility] 00:00:00 [facility] Rubella 2012-11-29 Completed University [facility] 00:00:00 [facility] Rubella 2012-11-29 Completed University [facility] 00:00:00 [facility] Rubella 2012-11-29 Completed University of 00:00:00 [facility] Rubella 2012-11-29 Completed University of 00:00:00 [facility] Rubella 2012-11-29 Completed University of 00:00:00 [facility] Rubella 2012-11-29 Completed University of [...] Branch MMR 2009-05-25 Completed University of 00:00:00 [facility] Branch HPV 2009-05-25 Completed University [facility] 00:00:00 [facility] MMR 2009-05-25 Completed University [facility] 00:00:00 [facility] HPV 2009-05-25 Completed University [facility] 00:00:00 [facility] MMR 2009-05-25 Completed University of 00:00:00 [facility] Branch HPV 2009-05-25 Completed University of 00:00:00 [facility] MMR 2009-05-25 Completed University [facility] 00:00:00 [facility] HPV 2009-05-25 Completed University of 00:00:00 [facility] MMR 2009-05-25 Completed University [facility] 00:00:00 [facility] HPV 2009-05-25 Completed [facility] 00:00:00 [facility] MMR 2009-05-25 Completed [facility] of 00:00:00 [facility] Branch HPV 2009-05-25 Completed University of 00:00:00 [facility] Branch MMR 2009-05-25 Completed University of 00:00:00 [facility] Branch HPV 2009-05-25 Completed University of 00:00:00 [facility] Branch MMR 2009-05-25 Completed University of 00:00:00 [facility] Branch HPV 2009-05-25 Completed University of 00:00:00 [facility] Branch MMR 2009-05-25 Completed University of 00:00:00 [facility] Branch HPV 2009-05-25 Completed [facility] 00:00:00 [facility] Branch MMR 2009-05-25 Completed University of 00:00:00 [facility] Branch HPV 2009-05-25 Completed University [facility] 00:00:00 [facility] Branch MMR 2009-05-25 Completed [facility] 00:00:00 [facility] Branch HPV 2009-05-25 Completed University of 00:00:00 [facility] Branch MMR 2009-05-25 Completed University of 00:00:00 [facility] Branch HPV 2009-05-25 Completed University of 00:00:00 [facility] Branch MMR 2009-05-25 Completed University of 00:00:00 [facility] HEPATITIS A 2009-03-23 Completed University of 00:00:00 [facility] HPV 2009-03-23 Completed University of 00:00:00 [facility] Meningococcal 2009-03-23 Completed University of Polysaccharide 00:00:00 [facility] kostas (groups A, C, Y and Branc h W-135) conjugate vaccine (MCV4P) Td 2009-03-23 Completed University of 00:00:00 [facility] Varicella 2009-03-23 Completed University of (varivax)(chicken 00:00:00 [place] [facility]ox[facility] HEPATITIS A 2009-03-23 Completed University of 00:00:00 [facility] HPV 2009-03-23 Completed University of 00:00:00 [facility] Meningococcal 2009-03-23 Completed University of Polysaccharide 00:00:00 [place] [facility] (groups A, C, Y and Branc h W-135) conjugate vaccine (MCV4P) Td 2009-03-23 Completed University of 00:00:00 [facility] Varicella 2009-03-23 Completed University of (varivax)(chicken 00:00:00 [place] [facility] pox) [facility] HEPATITIS A 2009-03-23 Completed University of 00:00:00 [facility] HPV 2009-03-23 Completed University of 00:00:00 [facility] Meningococcal 2009-03-23 Completed University of Polysaccharide 00:00:00 [place] [facility] (groups A, C, Y and Branc h W-135) conjugate vaccine (MCV4P) Td 2009-03-23 Completed University of 00:00:00 [facility] Varicella 2009-03-23 Completed University of (varivax)(chicken 00:00:00 [place] [facility] pox) [facility] HEPATITIS A 2009-03-23 Completed University of 00:00:00 [facility] HPV 2009-03-23 Completed University of 00:00:00 [facility] Meningococcal 2009-03-23 Completed University of Polysaccharide 00:00:00 [place] [facility] (groups A, C, Y and Branc h W-135) conjugate vaccine (MCV4P) Td 2009-03-23 Completed University of 00:00:00 [facility] Varicella 2009-03-23 Completed University of (varivax)(chicken 00:00:00 [place] [facility]ox[facility] HEPATITIS A 2009-03-23 Completed University of 00:00:00 [facility] HPV 2009-03-23 Completed University of 00:00:00 [facility] Meningococcal 2009-03-23 Completed University of Polysaccharide 00:00:00 [place] [facility] (groups A, C, Y and Branc h W-135) conjugate vaccine (MCV4P) Td 2009-03-23 Completed University of 00:00:00 [facility] Varicella 2009-03-23 Completed University of (varivax)(chicken 00:00:00 [place] [facility] pox) [facility] HEPATITIS A 2009-03-23 Completed University of 00:00:00 [facility] HPV 2009-03-23 Completed University of 00:00:00 [facility] Meningococcal 2009-03-23 Completed University of Polysaccharide 00:00:00 [place] [facility] (groups A, C, Y and Branc h W-135) conjugate vaccine (MCV4P) Td 2009-03-23 Completed University of 00:00:00 [facility] Varicella 2009-03-23 Completed University of (varivax)(chicken 00:00:00 [place] [facility] pox) [facility] HEPATITIS A 2009-03-23 Completed University of 00:00:00 [facility] HPV 2009-03-23 Completed University of 00:00:00 [facility] Meningococcal 2009-03-23 Completed University of Polysaccharide 00:00:00 [place] [facility] (groups A, C, Y and Branc h W-135) conjugate vaccine (MCV4P) Td 2009-03-23 Completed University of 00:00:00 [facility] Varicella 2009-03-23 Completed University of (varivax)(chicken 00:00:00 [facility] edical pox) Branch HEPATITIS A 2009-03-23 Completed University of 00:00:00 [facility] HPV 2009-03-23 Completed University of 00:00:00 [facility] Meningococcal 2009-03-23 Completed University of Polysaccharide 00:00:00 [place] [facility] (groups A, C, Y and Branc h W-135) conjugate vaccine (MCV4P) Td 2009-03-23 Completed University of 00:00:00 [facility] Varicella 2009-03-23 Completed University of (varivax)(chicken 00:00:00 [place] [facility] pox) [facility] HEPATITIS A 2009-03-23 Completed University of 00:00:00 [facility] HPV 2009-03-23 Completed University of 00:00:00 [facility] Meningococcal 2009-03-23 Completed University of Polysaccharide 00:00:00 [place] [facility] (groups A, C, Y and Branc h W-135) conjugate vaccine (MCV4P) Td 2009-03-23 Completed University of 00:00:00 [facility] Varicella 2009-03-23 Completed University of (varivax)(chicken 00:00:00 [place] [facility]ox[facility] HEPATITIS A 2009-03-23 Completed University of 00:00:00 [facility] HPV 2009-03-23 Completed University of 00:00:00 [facility] Meningococcal 2009-03-23 Completed University of Polysaccharide 00:00:00 [place] [facility] (groups A, C, Y and Branc h W-135) conjugate vaccine (MCV4P) Td 2009-03-23 Completed University of 00:00:00 [facility] Varicella 2009-03-23 Completed University of (varivax)(chicken 00:00:00 [place] [facility] pox) [facility] HEPATITIS A 2009-03-23 Completed University of 00:00:00 [facility] HPV 2009-03-23 Completed University of 00:00:00 [facility] Meningococcal 2009-03-23 Completed University of Polysaccharide 00:00:00 [place] [facility] (groups A, C, Y and Branc h W-135) conjugate vaccine (MCV4P) Td 2009-03-23 Completed University of 00:00:00 [facility] Varicella 2009-03-23 Completed University of (varivax)(chicken 00:00:00 [place] [facility] pox) [facility] HEPATITIS A 2009-03-23 Completed University of 00:00:00 [facility] HPV 2009-03-23 Completed University of 00:00:00 [facility] Meningococcal 2009-03-23 Completed University of Polysaccharide 00:00:00 [place] [facility] (groups A, C, Y and Branc h W-135) conjugate vaccine (MCV4P) Td 2009-03-23 Completed University of 00:00:00 [facility] Varicella 2009-03-23 Completed University of (varivax)(chicken 00:00:00 [place] [facility] pox) [facility] HEPATITIS A 2009-03-23 Completed University of 00:00:00 [facility] HPV 2009-03-23 Completed University of 00:00:00 [facility] Meningococcal 2009-03-23 Completed University of Polysaccharide 00:00:00 [place] [facility] (groups A, C, Y and Branc h W-135) conjugate vaccine (MCV4P) Td 2009-03-23 Completed University of 00:00:00 [facility] Varicella 2009-03-23 Completed University of (varivax)(chicken 00:00:00 [place] [facility] pox) [facility] HEPATITIS A 2009-03-23 Completed University of 00:00:00 [facility] HPV 2009-03-23 Completed University of 00:00:00 [facility] Meningococcal 2009-03-23 Completed University of Polysaccharide 00:00:00 [facility] kostas (groups A, C, Y and Branc h W-135) conjugate vaccine (MCV4P) Td 2009-03-23 Completed University of 00:00:00 [facility] Varicella 2009-03-23 Completed University of (varivax)(chicken 00:00:00 [place] [facility] pox) [facility] HEPATITIS A 2009-03-23 Completed University of 00:00:00 [facility] HPV 2009-03-23 Completed University of 00:00:00 [facility] Meningococcal 2009-03-23 Completed University of Polysaccharide 00:00:00 [facility] kostas (groups A, C, Y and Branc h W-135) conjugate vaccine (MCV4P) Td 2009-03-23 Completed University of 00:00:00 [facility] Varicella 2009-03-23 Completed University of (varivax)(chicken 00:00:00 [facility] edical pox) [place] Vital Signs Vital Name Observation Time Observation Value Comments Source Systolic blood 2023-01-18 19:09:00 139 mm[Hg] Univer sity [facility] Diastolic blood 2023-01-18 19:09:00 93 [facility] 2023-01-18 19:04:00 83 /min [facility] Body temperature 2023-01-18 19:04:00 36.83 Felicita [facility] Respiratory rate 2023-01-18 19:04:00 18 /min [facility] Body height 2023-01-18 19:04:00 154.9 cm [facility] Body weight 2023-01-18 19:04:00 99.791 kg [facility] BMI 2023-01-18 19:04:00 41.57 kg/m2 [facility] Systolic blood 2022-11-09 21:18:00 134 mm[Hg] Univer sity [facility] Diastolic blood 2022-11-09 21:18:00 86 mm[Hg] Unive rsity [facility] Heart rate 2022-11-09 21:18:00 78 /min [facility] Body temperature 2022-11-09 21:18:00 36.89 Felicita [facility] Respiratory rate 2022-11-09 21:18:00 18 /min Univ [facility] Body height 2022-11-09 21:18:00 154.9 cm [facility] Body weight 2022-11-09 21:18:00 103.329 kg [facility] BMI 2022-11-09 21:18:00 43.04 kg/m2 [facility] Systolic blood 2022-10-11 20:20:00 136 mm[Hg] Univer sity of pressure [facility] Diastolic blood 2022-10-11 20:20:00 80 mm[Hg] Unive rsity of pressure [facility] Heart rate 2022-10-11 20:20:00 88 /min [facility] Body temperature 2022-10-11 20:20:00 36.56 Felicita [facility] Respiratory rate 2022-10-11 20:20:00 18 /min Univ [facility] Body height 2022-10-11 20:20:00 154.9 cm [facility] Body weight 2022-10-11 20:20:00 102.649 kg [facility] BMI 2022-10-11 20:20:00 42.76 kg/m2 [facility] Systolic blood 2022-07-17 19:04:00 130 mm[Hg] Univer sity of pressure [facility] Diastolic blood 2022-07-17 19:04:00 88 mm[Hg] Unive rsity of pressure [facility] Heart rate 2022-07-17 19:04:00 90 /min [facility] Body temperature 2022-07-17 19:04:00 37.33 Felicita [facility] Respiratory rate 2022-07-17 19:04:00 16 /min Univ [facility] Body height 2022-07-17 19:04:00 154.9 cm [facility] Body weight 2022-07-17 19:04:00 101.47 kg [facility] BMI 2022-07-17 19:04:00 42.27 kg/m2 [facility] Oxygen saturation in 2022-07-17 19:04:00 96 /min University of Arterial blood by [place] [facility] kostas Pulse oximetry Branch Systolic blood 2022-01-09 18:27:00 117 mm[Hg] Univer sity of pressure [facility] Diastolic blood 2022-01-09 18:27:00 84 mm[Hg] Unive rsity of pressure [facility] Heart rate 2022-01-09 18:27:00 84 /min [facility] Body temperature 2022-01-09 18:27:00 36.67 Felicita [facility] Respiratory rate 2022-01-09 18:27:00 16 /min Univ [facility] Body height 2022-01-09 18:27:00 154.9 cm [facility] Body weight 2022-01-09 18:27:00 100.245 kg [facility] BMI 2022-01-09 18:27:00 41.76 kg/m2 [facility] Oxygen saturation in 2022-01-09 18:27:00 97 /min University of Arterial blood by [place] [facility] [facility] Pulse oximetry Branch Systolic blood 2021-12-26 13:13:00 125 mm[Hg] Univer sity of pressure [facility] Diastolic blood 2021-12-26 13:13:00 84 mm[Hg] Unive rsity of pressure [facility] Heart rate 2021-12-26 13:13:00 80 /min [facility] Body temperature 2021-12-26 13:13:00 36.56 Felicita [facility] Respiratory rate 2021-12-26 13:13:00 18 /min Univ [facility] Body height 2021-12-26 13:13:00 154.9 cm [facility] Body weight 2021-12-26 13:13:00 100.245 kg [facility] BMI 2021-12-26 13:13:00 41.76 kg/m2 [facility] Oxygen saturation in 2021-12-26 13:13:00 100 /min University of Arterial blood by [place] [facility] Pulse oximetry Branch Systolic blood 2021-11-28 13:32:00 132 mm[Hg] Univer sity of pressure [facility] Diastolic blood 2021-11-28 13:32:00 84 mm[Hg] Unive rsity of pressure [facility] Heart rate 2021-11-28 13:32:00 86 /min [facility] Body temperature 2021-11-28 13:32:00 36.78 Felicita [facility] Res[facility] rate 2021-11-28 13:32:00 18 /min [facility] Body height 2021-11-28 13:32:00 154.9 cm [facility] Body weight 2021-11-28 13:32:00 98.385 kg [facility] BMI 2021-11-28 13:32:00 40.98 kg/m2 [facility] Procedures Procedure Date / Time Performing Clinician Source Performed ASSIGNMENT OF BENEFITS 2023-01-18 18:48:59 Doctor Unassigned, No [facility] POCT TEST 2023-01-18 00:00:00 [facility]INALYSIS W/O 2023-01-18 00:00:00 [facility] 2022-10-26 05:01:00 Doctor Unassigned, No [facility] HCG, TOTAL, QN-Q 2022-10-13 16:27:00 Adum, Consuelo Adkins [facility] POCT TEST 2022-10-11 00:00:00 AdumConsuelo [facility] POCT URINALYSIS W/O 2022-10-11 00:00:00 Adum, Consuelo Adkins [facility] AUTHORIZATION TO RELEASE 2022-10-06 06:01:00 Doctor Unassigned, No [facility] POCT TEST 2022-07-17 19:20:00 Amanda Johnson [facility] SCANNED LAB RESULTS 2022-02-16 05:01:00 [facility], [facility] POCT TEST 2021-12-26 13:39:00 Antonio Mckeon [facility] POCT URINALYSIS 2021-12-26 13:27:00 [facility] 2021-12-09 14:05:00 Antonio Mckeone [facility] TRIMESTER LESS THAN [address] WEEKS WITH TRANSVAGINAL POCT URINALYSIS W/O 2021-11-28 14:19:00 Antonio Mckeon [facility] SPECIFIC GRAVITY [facility] POCT TEST 2021-11-28 14:01:00 Antonio Mckeon [facility] Encounters Start End Encounter Admission Attending Care Care Encounter Source Date/Time Date/Time Type Type Clinicians Facility Department ID 2021-06-02 Outpatient P [facility] VAL [id number] Univers 19:02:24 ity of [facility] 2023-01-30 2023-01-30 Outpatient R ANTONIO MCKEON [facility] B [id number] Univers 09:30:00 09:30:00 ANTONIO MCKEON [facility]kar[facility] 2023-01-18 2023-01-18 Outpatient R MILA WHITTAKER [facility] [[email or web address]] [facility] [id number] Univers 14:00:00 14:36:54 RIVER WHITTAKERL ity [facility] 2023-01-18 2023-01-18 Initial [facility] 1.2.840.114 [id number] Univers 14:00:00 14:36:54 s, Mila LUISA 350.1.13.10 ity of [place] [id number] [facility] [address] 2023-01-18 2023-01-18 Orders Doctor CLEANING 1.2.840.114 [id number] Univers 00:00:00 00:00:00 Only Unassigned, TESSA 350.1.13.10 ity of [place] [facility] 4.2.7.2.686 Deepak as [id number] [address] 2023-01-18 2023-01-18 Telephone [facility] 1.2.840.11 [id number] Univers 00:00:00 00:00:00 sMila 350.1.13.10 [place] [id number] [address] 2022-11-23 2022-11-23 Refill Ana Trujillo [facility] [[email or web address]] [id number] Univers 00:00:00 00:00:00 Cam ALEXEY 350.1.13.10 i ty of [facility] [place] [id number] Mo dic[address] 2022-11-22 2022-11-22 Outpatient [facility] [id number] [address] 09:45:26 09:45:26 [id number] [address] [place] 2022-11-11 2022-11-11 Case Ana Trujillo [facility] [[email or web address]] [id number] Univers 00:00:00 00:00:00 Management Jovany ALEXEY 350.1.13.10 ity [facility] 4[place] [id number] Mo dic[address] 2022-11-09 2022-11-09 Outpatient R KAMINI WHITTAKERSOL [facility] [[email or web address]] U [facility] [id number] Univers 16:00:00 16:35:12 KYLE-DEE MILA ity [facility] 2022-11-09 2022-11-09 Office [facility] 1.2.840.114 [id number] Univers 16:00:00 16:35:12 Visit sMila 350.1.13.10 ity [place] [id number] [address] 2022-11-09 2022-11-09 Outpatient R BENNETT MILA [facility] [[email or web address]] U [facility] [id number] Univers 14:00:00 14:00:00 MORE[place]-DEE MILA ity [facility] 2022-10-31 2022-10-31 JAKI Barker 1.2.840.114 [id number] Univers 00:00:00 00:00:00 Management Klarissa MEIER 350.1.13.10 [place] [id number] [facility] [address] [place] 2022-10-26 2022-10-26 Orders Doctor BLACK 1.2.840.114 [id number] Univers 00:00:00 00:00:00 Only Unassigned, TESSA 350.1.13.10 ity of [place] [facility] 4.2.7.2.686 Deepak as [id number] [facility] [address] [place] 2022-10-18 2022-10-18 Outpatient [facility] [id number] Ward 10:46:03 10:46:03 [id number] F Brian 2022-10-13 2022-10-13 Orders AdumBLACK 1.2.840.114 [id number] Univers 00:00:00 00:00:00 Only Consuelo ZARATE 350.1.13.10 i ty of HOSPITAL 4.2.7.2.686 Deepak as [id number] [address] 2022-10-13 2022-10-13 [facility] 1.2.840.114 [id number] Univers 00:00:00 00:00:00 Consuelo MORAN 350.1.13.10 i ty [place] [id number] [address] 2022-10-11 2022-10-11 Outpatient R ADUM, [facility] [id number] Univers 14:00:00 14:51:10 CONSUELO felix of [facility] 2022-10-11 2022-10-11 [facility] [id number] [id number] Univers 14:00:00 14:51:10 Consuelo MORAN 350.1.13.10 ity of [place] [id number] [address] 2022-10-062022-10-06 Orders Doctor BLACK 1.2.840.114 [id number] Univers 00:00:00 00:00:00 Only Unassigned, TESSA 350.1.13.10 ity of [place] [facility] 4.2.7.2.686 Deepka as [id number] [address] 2022-07-17 2022-07-17 Outpatient R ALEX [facility] [id number] [facility] 12:20:00 13:24:12 [facility] 2022-07-17 2022-07-17 Urgent Alex [facility] 1.2.840.114 [id number] Univers 12:20:00 13:24:12 Care Unknown, Attending [facility].1.13.10 [facility] 4.2.7.2.686 Deepak as TAVON?BLEA [id number] [address] MEDICAL OFFICE [facility] 2022-06-14 2022-06-14 Outpatient [facility] [id number] [address] 11:06:56 11:06:56 [id number] [address] [place] 2022-05-31 2022-05-31 Outpatient [facility] [id number] [address] 14:03:19 14:03:19 [id number] [place] 2022-05-09 2022-05-09 Outpatient R ANTONIO MCKEON [facility] B [id number] Univers 09:00:00 09:00:00 ANTONIO MCKEON [facility] 2022-02-21 2022-02-21 Palliative Nurse Lab, Ang-Rmchp [facility] [[email or web address]] 1.2.840. 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 350.1.13.10 ity [facility] 4.2.7.2.686 Deepak as MATERNAL [id number] Med ical & CHILD [address] [place] [address] 2022-02-21 2022-02-21 Outpatient R TALITA [facility] [id number] Univers 10:00:00 10:00:00 ANTHONY felix o [facility] 2022-02-20 2022-02-20 Outpatient R TALITA [facility] [id number] Univers 08:30:00 08:30:00 ROSHUNDA ity o f [facility] 2022-02-16 2022-02-16 Case Raj [facility] [[email or web address]] 1.2.840.114 [id number] Univers 00:00:00 00:00:00 Management Mare SPECIALTY 350.1.13.10 ity of [place] [id number] [facility] [address] 2022-02-16 2022-02-16 Orders Doctor BLACK 1.2.840.114 [id number] Univers 00:00:00 00:00:00 Only Unassigned, TESSA 350.1.13.10 ity of [place] [facility] 4.2.7.2.686 Deepak as [phone] [facility] [address] 2022-01-13 2022-01-13 Outpatient R OSMEL HIGGINS [facility] [id number] Univers 10:30:00 11:24:57 ity of [facility] 2022-01-13 2022-01-13 Telemedici RajMare [facility] [[email or web address]] 1.2.8 40.114 [id number] Univers 10:30:00 11:24:57 ne Visit Osmel Higgins ENTRY LEVEL ASSISTANT MANAGER 350.1.13.10 ity of [facility] 4.2.7.2.686 Deepak as MATERNAL [phone] Med ical & CHILD [address] [place] [address] 2022-01-09 2022-01-09 Outpatient R ANTONIO MCKEON [facility] B [id number] Univers 13:15:00 16:40:15 TRIANTONIO GONSALVES ity of [facility] 2022-01-09 2022-01-09 Routine Trimatt [facility] 1.2.840.114 [id number] Univers 13:15:00 16:40:15 Antonio MORAN 350.1.13.10 i ty of Visit [place] [facility] [phone] [facility] [address] 2022-01-09 2022-01-09 Patient Mike PRBECK PEREZ 1.2.840.114 [id number] Univers 00:00:00 00:00:00 Secure Msg Antonio MORAN 350.1.13.10 ity of [place] [facility] [phone] [address] 2022-01-06 2022-01-06 Outpatient R ARVINDEDUADRO ANTONIO [facility] B [id number] Univers 09:30:00 09:30:00 ANTONIO MCKEON ity of [facility] 2022-01-03 2022-01-03 Patient Arvindeduardo [facility] 1.2.840.114 [id number] Univers 00:00:00 00:00:00 Secure Msg Antonio MORAN 350.1.13.10 ity [place] [phone] [address] 2021-12-31 2021-12-31 Palliative Nurse Santana, Adc Lab Main [facility] [[email or web address]] 1.2.8 40.114 [id number] Univers 09:00:00 09:15:00 Visit Ana Trujillo 350.1.13.10 ity of [facility] 4.2.7.2.[place] [phone] Mo dical NAL [facility] 2021-12-31 2021-12-31 Outpatient R ANA TRUJILLO [facility] [id number] Univers 09:00:00 09:00:00 ity of [facility] 2021-12-28 2021-12-28 Palliative Nurse 2, Adc Lab [facility] [[email or web address]] 1.2.840.114 [id number] Univers 13:15:00 13:30:00 Visit TrinitycierraJennifer clarkburak ALEXEY 350.1.13. 10 ity of [place] [phone] Mo dical NAL [facility] 2021-12-28 2021-12-28 Outpatient R ANTONIO MCKEON [facility] B [id number] Univers 13:15:00 13:15:00 ANTONIO MCKEON ity [facility] 2021-12-26 2021-12-26 Outpatient P EDITH [facility] [id number] Univers 11:45:00 12:20:51 ISABELLE it y of S, SONG [facility] 2021-12-26 2021-12-26 Palliative Nurse [facility]tras[facility] 1.2 .840.114 [id number] [facility] 11:45:00 12:20:51 Visit Antonio Mckeon ENTRY LEVEL ASSISTANT MANAGER 350.1.13.1 0 ity of Edith GodinezNohemi brush [facility] 4.2.7.2 .686 [place] MATERNAL [phone] [facility] ical & CHILD [address] [place] [address] 2021-12-26 2021-12-26 Routine [facility] 1.2.840.114 [id number] Univers 08:00:00 08:43:28 Jenniferburak MORAN 350.1.13.10 i ty of Visit [place] [id number] [address] 2021-12-26 2021-12-26 [facility] 1.2.840.114 [id number] Univers 00:00:00 00:00:00 Management Antonio MORAN 350.1.13.10 ity of [place] [phone] [address] 2021-12-26 2021-12-26 Telephone [facility] 1.2.840.11 [id number] Univers 00:00:00 00:00:00 Antonio MORAN 350.1.13.10 it y of [place] [id number] [address] 2021-12-14 2021-12-14 Outpatient R ANTONIO MCKEON [facility] B [id number] Univers 13:00:00 13:00:00 ANTONIO MCKEON [facility] 2021-12-09 2021-12-09 Outpatient R ANTONIO MCKEON [facility] B [id number] Univers 07:54:22 23:59:00 ANTONIO MCKEON [facility] 2021-12-09 2021-12-09 [facility] 1.2.840.114 [id number] Univers 07:54:22 23:59:00 Encounter Antonio PATELTHOMAS 350.1.13.10 ity of [place] 4.2.7.2.686 [facility] [phone] [place] 018726 [place] 2021-12-09 2021-12-09 [facility] 1.2.840.114 [id number] Univers 00:00:00 00:00:00 Management Antonio MORAN 350.1.13.10 ity of [place]'S 4.2.7.2.686 [facility] [phone] [address] 2021-11-29 2021-11-29 [facility] 1.2.840.114 [id number] Univers 00:00:00 00:00:00 Management Antonio MORAN 350.1.13.10 ity of [place]'S 4.2.7.2.686 [facility] [id number] [address] 2021-11-28 2021-11-28 Outpatient R ARVINDJENNIFER CLARKBURAK [facility] B [id number] Univers 08:00:00 09:04:01 [facility] 2021-11-28 2021-11-28 Initial [facility] 1.2.840.114 [id number] Univers 08:00:00 09:04:01 Antonio LUISA 350.1.13.10 i ty of Visit WOMEN'S 4.2.7.2.686 [facility] [phone] [address] 2021-07-27 2021-07-27 Laboratory Only, Ang Db Test [facility] [[email or web address]] 1.2.8 40.114 [id number] Univers 17:45:00 18:00:00 Only Osiel Grajeda HEALTH 350.1.13.10 ity of [place] 4.2.7.2.686 Deepak as TAVON?BLEA [phone] Mo carole [address] MEDICAL OFFICE BUILDING 2021-07-27 2021-07-27 Outpatient R DUGLAS [facility] [id number] Univers 17:45:00 17:45:00 RANIA ity [facility] 2021-07-27 2021-07-27 Outpatient R DUGLAS [facility] [id number] Univers 17:45:00 17:45:00 RANIA ity [facility] 2021-07-22 2021-07-22 Laboratory Only, Ang Db Test [facility] [[email or web address]] 1.2.8 40.114 [id number] Univers 17:30:00 17:45:00 Only Unknown, Attending HEALTH 350.1.13.10 ity of [facility] 4.2.7.2.686 Deepak as TAVON?BLEA [phone] Mo carole BLAIREY [address] [place] MEDICAL [facility]ILD[facility] 2021-07-22 2021-07-22 Outpatient R CLINT [facility] [id number] Univers 17:30:00 17:30:00 FARZANA ity [facility] 2021-03-02 2021-03-02 Outpatient R ANA TRUJILLO [facility] [id number] Univers 10:15:00 10:15:00 ity [facility] 2021-02-24 2021-02-24 Orders Doctor BLACK 1.2.840.114 [id number] Univers 00:00:00 00:00:00 Only Unassigned, TESSA 350.1.13.10 ity of [place] [facility] 4.2.7.2.686 Deepak as [phone] [address] 2021-02-22 2021-02-22 Routine Ana Trujillo [facility] [[email or web address]] 1.2.333.886 [id number] Univers 13:39:17 14:19:25 Jovany Chavez 350.1.13.10 ity of [place] [phone] Mo carole ngo [address] 2021-02-22 2021-02-22 Palliative Nurse 2, Adc Lab [facility] [[email or web address]] 1.2.840.114 [id number] Univers 08:39:23 08:54:23 Visit Ana Trujillo 350.1.13.10 ity of [place] [phone] [facility] 353 [facility] 2021-02-22 2021-02-22 Outpatient R RONNIE ANA [facility] [id number] Univers 08:30:00 08:30:00 ity [facility] 2021-02-21 2021-02-21 Outpatient R RONNIE [facility] [id number] Univers 14:00:00 14:00:00 [facility] 2021-02-21 2021-02-21 Telephone Ronnie [facility] 1.2.840.114 [id number] [facility] 00:00:00 00:00:00 Cam Ansley 350.1.13.10 i ty of [place] [phone] [address] 2021-02-19 2021-02-19 Outpatient R RONNIE [facility] [id number] Univers 11:45:00 11:45:00 [facility] 2021-02-18 2021-02-18 [facility] 1.2.840.114 [id number] 00:00:00 00:00:00 Ann Marie Ansley 350.1.13.10 [place] 4.2.7.2.686 Professio [phone] [address] 2021-02-18 2021-02-18 Telephone [facility] 1.2.840.114 [id number] [facility] 00:00:00 00:00:00 Ann Marie Patelton 350.1.13.10 i ty of [place].2.[place] [phone] Mo dic[address] 2021-02-17 2021-02-17 Palliative Nurse 2, Adc Lab [facility] [[email or web address]] 1.2.840.114 [id number] 11:18:57 11:33:57 Visit Ansley 350.1.13.10 [place] 4.2.7.2.686 Professio [phone] [address] 2021-02-17 2021-02-17 Palliative Nurse 2, Adc Lab [facility] [[email or web address]] 1.2.840.114 [id number] [facility] 11:18:57 11:33:57 Visit Ana Trujillo 350.1.13.10 ity of [place].2.[place] [phone] Mo dical [facility] 353 [facility] 2021-02-17 2021-02-17 Initial Ana Trujillo [facility] 1.2.462.408 [id number] 09:23:48 11:08:40 Jovany Chavez 350.1.13.10 Visit [place] 4.2.7.2.686 Professio [phone] [facility] 134 [facility] 2021-02-17 2021-02-17 Initial Ana Trujillo [email or web address]] 1.2.840.114 [id number] [facility] 09:23:48 11:08:40 Adum, Consuelo Patelton 350.1.13.10 ity of [place].2.[place] [phone] [facility] 134 [facility] 2021-02-17 2021-02-17 Outpatient R TYRELL, [facility] [id number] Univers 09:30:00 09:30:00 CONSUELO ity [facility] 2021-01-06 2021-01-06 [facility] [id number] Univers 09:00:00 09:00:00 ANN MARIE itkaruna [facility] 2020-12-23 2020-12-23 Case [facility] 1.2.259.597 [id number] Univers 00:00:00 00:00:00 Management Ann Marie Chavez 350.1.13.10 ity of [place] [phone] Mo dical [facility] 134 [facility] 2020-12-21 2020-12-21 Palliative Nurse Riley Dillon Lab Main [facility] [[email or web address]] 1.2.8 40.114 [id number] Univers 16:00:27 16:15:27 Visit Ann Marie Carvajal 350.1.13.10 ity of [place].2.[place] [phone] Mo dical [facility] 353 [facility] 2020-12-21 2020-12-21 Office Alena [facility] [[email or web address]] 1.2.820.843 [id number] Univers 15:11:19 15:45:05 Visit Ann Marie Chavez 350.1.13.10 i ty of [place].2.[place] [phone] Mo dic[address] 2020-12-21 2020-12-21 Outpatient R ALENA [facility] [id number] Univers 15:30:00 15:30:00 [facility] 2020-12-21 2020-12-21 Orders Doctor BLACK 1.2.840.114 [id number] Univers 00:00:00 00:00:00 Only Unassigned, TESSA 350.1.13.10 ity [facility] 4.2.7.2.686 Deepak as [phone] [address] 2020-10-13 2020-10-13 Outpatient R ALENA [facility] [id number] Univers 09:00:00 09:00:00 [facility] 2020-10-07 2020-10-07 Outpatient R ALENA [facility] [id number] Univers 08:30:00 08:30:00 [facility] 2020-01-05 2020-01-05 Outpatient R ALENA [facility] [id number] Univers 14:45:00 14:45:00 [facility] 2020-01-02 2020-01-02 Outpatient Jose CARVAJAL [facility] [id number] Univers 11:00:00 11:00:00 [facility] 2019-12-31 2019-12-31 Outpatient Jose CARVAJAL [facility] [id number] Univers 10:00:00 10:00:00 [facility] 2019-12-22 2019-12-22 Patient Ana Trujillo [email or web address]] 1.2.042.276 [id number] Univers 00:00:00 00:00:00 Secure Msg Jovany Alexey 350.1.13.10 ity [facility] [place].2.[place] [phone] [address] 2019-12-09 2019-12-09 Nurse Nurse, [facility] 1.2.840.114 [id number] Univers 10:18:56 10:39:45 Visit Ana Trujillo 350.1.13.10 ity of [place].2.[place] [phone] [address] 2019-12-09 2019-12-09 Outpatient R [facility] [id number] Univers 10:30:00 10:30:00 ity of [facility] 2019-12-08 2019-12-08 Outpatient R [facility] [id number] Univers 14:00:00 14:00:00 ity of [facility] 2019-12-08 2019-12-08 Outpatient R [facility] [id number] Univers 10:00:00 10:00:00 ity of [facility] 2019-12-05 2019-12-05 Outpatient R ANA TRUJILLO [facility] [id number] Univers 10:00:00 10:00:00 ity of [facility] 2019-12-03 2019-12-03 Outpatient R ANA TRUJILLO [facility] [id number] Univers 16:15:00 16:15:00 ity of [facility] 2019-11-30 2019-12-02 [facility] 1.2.840.114 [id number] Univers 14:27:57 15:00:00 Encounter Diamante Chavez 350.1.13.10 ity of [place] [phone] [address] 2019-11-28 2019-11-28 Palliative Nurse Ultrasound, [facility] 1.2 .840.114 [id number] Univers 15:43:44 16:08:14 Visit Jada Mckeon 350.1.13.10 ity of [place].2.[place] [phone] [address] 2019-11-28 2019-11-28 Outpatient P [facility] [id number] Univers 15:30:00 15:30:00 ity of [facility] 2019-11-24 2019-11-24 Outpatient R ANA TRUJILLO [facility] [id number] Univers 15:45:00 15:45:00 ity of [facility] 2019-11-20 2019-11-20 Telephone Ana Trujillo [email or web address] 1.2.840.114 [id number] Univers 00:00:00 00:00:00 Cam Ansley 350.1.13.10 i ty of [place] [phone] [address] 2019-11-20 2019-11-20 Telephone Ana Trujillo [facility] [[email or web address]] 1.2.840.114 [id number] Univers 00:00:00 00:00:00 Cam Ansley 350.1.13.10 i ty of [place].2.[place] [phone] [address] 2019-11-20 2019-11-20 Patient Doctor [facility] [[email or web address]] 1.2.840.114 [id number] Univers 00:00:00 00:00:00 Secure Msg Unassigned, Ansley 350.1.13.10 ity of [place] 4.2.7.2.[place] [phone] [address] 2019-11-17 2019-11-17 Outpatient R ANA TRUJILLO [facility] [id number] Univers 16:00:00 16:00:00 ity of [facility] 2019-11-17 2019-11-17 Routine Ana Trujillo [email or web address]] 1.2.364.497 [id number] Univers 13:18:33 14:02:08 Cam Ansley 350.1.13.10 ity of [place].2.[place] [phone] [address] 2019-11-17 2019-11-17 Palliative Nurse 2, Adc Lab [facility] [[email or web address]] 1.2.840.114 [id number] Univers 13:04:03 13:19:03 Visit Ann Marie Carvajalton 350.1.13.10 ity of [place].2.[place] [phone] Mo dical nal 353 [facility] 2019-11-17 2019-11-17 Orders Doctor BLACK 1.2.840.114 [id number] Univers 00:00:00 00:00:00 Only Unassigned, ETSSA 350.1.13.10 ity of [place] [facility] 4.2.7.2.686 Deepak as [phone] [address] 2019-11-14 2019-11-14 Telephone Ana Trujillo [email or web address]] 1.2.840.114 [id number] Univers 00:00:00 00:00:00 Cam Ansley 350.1.13.10 i ty of [place] 4.2.[place].2.[place] [phone] Mo dical nal 134 [facility] 2019-11-14 2019-11-14 Telephone Ana Trujillo [email or web address] 1.2.840.114 [id number] Univers 00:00:00 00:00:00 Jovany Ansley 350.1.13.10 i ty of [place].2.[place] [phone] Mo dical nal 134 [facility] 2019-11-14 2019-11-14 Telephone Alena [facility] [[email or web address] 1.2.840.114 [id number] Univers 00:00:00 00:00:00 Ann Marie Chavez 350.1.13.10 i ty of [place].2.[place] [phone] Mo dical nal 134 [facility] 2019-11-07 2019-11-07 Outpatient P [facility] [id number] Univers 13:30:00 13:30:00 ity of [facility] 2019-11-07 2019-11-07 Patient Doctor [email or web address]] 1.2.840.114 [id number] Univers 00:00:00 00:00:00 Secure Msg Unassigned, Ansley 350.1.13.10 ity of [place] 4.2.7.2.[place] [phone] Mo dical nal 134 [facility] 2019-11-03 2019-11-03 Outpatient R ALENA [facility] [id number] Univers 10:15:00 10:15:00 ANN MARIE ity of [facility] 2019-11-03 2019-11-03 Telemedici [facility] 1.2.840.114 [id number] Univers 08:16:34 08:31:34 ne Visit Ann Marie Chavez 350.1.13.10 ity of [place] 4[place].2.[place] [phone] Mo dical [address] 2019-10-24 2019-10-24 Orders Doctor BLACK 1.2.840.114 [id number] Univers 00:00:00 00:00:00 Only Unassigned, TESSA 350.1.13.10 ity of [place] [facility] 4.2.7.2.686 Deepak as [phone] [address] 2019-10-23 2019-10-23 Telephone Alena [email or web address] 1.2.840.114 [id number] Univers 00:00:00 00:00:00 Ann Marie Chavez 350.1.13.10 i ty of [place].2.[place] [phone] Mo dical nal [address] [place] [address] 2019-10-20 2019-10-20 Routine Ana Trujillo [email or web address]] 1.2.840.114 [id number] Univers 10:23:53 10:59:47 Ann Marie Carvajal 350.1.13.10 ity of [place].2.[place] [phone] Mo dical [address] 2019-10-20 2019-10-20 Outpatient R ALENA [facility] [id number] Univers 10:15:00 10:15:00 ANN MARIE itkaruna [facility] 2019-10-20 2019-10-20 Telephone Ana Trujillo [email or web address] 1.2.840.114 [id number] Univers 00:00:00 00:00:00 Jovany Chavez 350.1.13.10 i ty of [place] 4[place].2.[place] [phone] Mo dical [address] 2019-10-08 2019-10-08 Outpatient R [facility] [id number] Univers 10:00:00 10:00:00 ity of [facility] 2019-10-06 2019-10-06 Routine Alena [email or web address] 1.2.898.523 [id number] Univers 15:11:25 16:24:42 Ann Marie Chavez 350.1.13.10 ity of [place] [phone] [facility] 134 [facility] 2019-10-06 2019-10-06 Palliative Nurse Santana, Riley Lab Main [email or web address]] 1.2.8 40.114 [id number] [facility] 09:03:03 09:18:03 Visit Ann Marie Carvajal 350.1.13.10 ity of [place] [phone] [facility] 353 [facility] 2019-10-06 2019-10-06 Outpatient R ALENA [facility] [id number] Univers 09:15:00 09:15:00 ANN MARIE ity of [facility] 2019-10-06 2019-10-06 Orders Doctor BLACK 1.2.840.114 [id number] Univers 00:00:00 00:00:00 Only Unassigned, TESSA 350.1.13.10 ity of [place] [facility] 4.2.7.2.686 Deepak as [phone] [address] 2019-10-06 2019-10-06 Letter Alena [email or web address]] 1.2.935.094 [id number] Univers 00:00:00 00:00:00 (Out) Ann Marie Chavez 350.1.13.10 i ty of [place] [phone] [address] 2019-10-06 2019-10-06 Letter [facility] 1.2.041.939 [id number] Univers 00:00:00 00:00:00 (Out) Ann Marie Chvaez 350.1.13.10 i ty [place] [phone] [facility] 134 [facility] 2019-09-30 2019-09-30 Patient Ana Trujillo [facility] 1.2.642.681 [id number] Univers 00:00:00 00:00:00 Secure Msg Jovany Aelxey 350.1.13.10 ity of [place] [phone] Mo dical nal 134 [facility] 2019-09-16 2019-09-16 Palliative Nurse Santana, Adc Lab Main [facility] 1.2.8 40.114 [id number] Univers 14:24:11 17:50:40 Visit Ana Trujillo 350.1.13.10 ity of [place] [phone] Mo dicsc nal 353 [facility] 2019-09-16 2019-09-16 Case Alena [email or web address]] 1.2.166.941 [id number] Univers 00:00:00 00:00:00 Management Ann Marie Alexey [id number] [id number] [phone] [facility] nal 134 [facility] 2019-09-08 2019-09-08 Routine Ana [place] [id number] [employer] 11:18:19 12:11:06 Jovany Ansley [id number] ity of [id number] [phone] Mo dical nal 134 [facility] 2019-08-20 2019-08-20 Routine Alena [facility] [[email or web address]] [id number] [facility] 08:56:22 09:13:24 Ann Marie Alexey [id number] ity [id number] [phone] [facility] 134 [facility] Results Test Description Test Time Test Comments Results Result Comments Source POCT TEST 2023-01-18 19:17:00 Test Item Value Reference Range Interpretation Comme nts POCT PREG (test code = 1605) Positive faint On board controls acceptable with C Line (test code = 3574) Yes POCT PREG LOT # (test code = 3575) POCT PREG TEST DATE (test code = 3576) [facility]/O SPECIFIC [id number] 19:17:00 Test Item Value Reference Range Interpretation Comments POCT PH U (test code = 3254) N/A 5-8 POCT U LEUK EST (test code = N/A Negative - Negative 3263) POCT U NIT (test code = 3262) N/A Negative - Negative POCT U PROT (test code = 3259) Negative Negative - Negative POCT U GLU (test code = 3256) Negative Negative - Negative POCT U KETONE (test code = 3258) N/A Negative - Negative POCT U BLD (test code = 3257) N/A Negative - Negative [facility] IgG, IgM, [id number] 11:33:07 Test Item Value Reference Range Interpretation Comments RHEUMATOID FACTOR IgG 2 Units <7 (test code = 35863) RHEUMATOID FACTOR IgA 2 Units <7 (test code = 42277) RHEUMATOID FACTOR IgM 3 Units <7 TESTI NG PERFORMED AT (test code = 47793) [facility] [employer] . [address] [place] [address], [address], [place] [id number] CLIA NO: [id number] NAY AUTOIMMUNE [id number] 02:36:39 Test Item Value Reference Range Interpretation Comments ANTI-NUCLEAR NEGATIVE NEGATIVE ANTIBODIES (test code = 3506) NAY PATTERN SEE BELOW (REPORTED TITER) (test code = 87031) HOMOGENEOUS (test NEGATIVE TITER NEGATIVE code = 81223) SPECKLED (test NEGATIVE TITER NEGATIVE code = 148095) DENSE FINE NEGATIVE TITER NEGATIVE SPECKLED (test code = 05916) CENTROMERE (test NEGATIVE TITER NEGATIVE code = 414457) COARSE SPECKLED NEGATIVE TITER NEGATIVE (test code = 299319) DISCRETE NUCLEAR NEGATIVE TITER NEGATIVE DOTS (test code = 462368) NUCLEOLAR (test NEGATIVE TITER NEGATIVE code = 295117) NUCLEAR MEMBRANE NEGATIVE TITER NEGATIVE (test code = 107716) CYTO. RETICULAR NEGATIVE NEGATIVE (SHARLENE) (test code = 657320) COMMENTS (test NONE code = 416320) METHOD (test code (NOTE) TESTING P ERFORMED BY = 32392) [facility] NOVA VIEW IFA PLATFORM.THE DC THOD INCLUDES A SCRE EN THRESHOLD OF 1: 80, DIGITIZED AND COMPUTER ALGORITHM-KARRI NICOLE INTERPRETATION OF TITERS AND DIGI HOLLEY PATTERNS, AND H Ep-2 CELL LINE SUBST RATE. ADDITIONAL UNUS UAL PATTERNS WILL B E GIVEN COMMEN TS.FOR MORE INFORMATIO N, SEE [email or web address] SJOGREN'S SS-A <0.2 AI <1.0 ANTIBODY (test code = 98129) SJOGREN'S SS-B <0.2 AI <1.0 ANTIBODY (test code = 40711) SALDANA (Sm) <0.2 AI <1.0 ANTIBODY (test code = 87140) [employer] ANTIBODY (test <0.2 AI <1.0 code = 55572) SCL-70 ANTIBODY <0.2 AI <1.0 (test code = 4606) Marj-1 ANTIBODY <0.2 AI <1.0 (test code = 4680) CENTROMERE B <0.2 AI <1.0 ANTIBODY (test code = 4630) RIBOSOMAL P <0.2 AI <1.0 ANTIBODY (test code = 01197) CHROMATIN ANTIBODY <0.2 AI <1.0 (test code = 19956) THYROID PEROXIDASE 3 IU/ML <9 AB (test code = 71338) COMPLEMENT C3 201 MG/DL 90-180 H (test code = 3509) COMPLEMENT C4 44 MG/DL 10-40 H (test code = 3510) RHEUMATOID FACTOR, <10 IU/ML <14 QUANT (test code = 3502) dsDNA ANTIBODY 1.0 IU/ML SEE BELOW NEGATIVE . . . . . . (test code = 4287) . . . . . . . . IU/ML <=4.9 INDETERMI RODRÍGUEZ. . . . . . . . . . . . IU/ML 5.0-9.0 POSITIVE . . . . . . . . . . . . . . IU/ML >=10.0 CCP IgG (test code <0.5 U/ML <3.0 INTE RPRETIVE = 07102) INFORMATION INTERPRETATION RESULT NEGATIVE <3.0 U /ML POSITIVE >=3.0 U/ML SEDIMENTATION [id number] 10:17:52 Test Item Value Reference Range Interpretation Comments SEDIMENTATION RATE (test code = 8 MM/HOUR 0-20 1017) VITAMIN D, 25 [id number] 07:14:47 Test Item Value Reference Range Interpretation Comments VITAMIN D, 25 24 NG/ML SEE BELOW L EFFECTIVE 08/14/2022, [place] (test code PLEASE NOTE NE W METHODOLOGY = 4958) IS ELECTROCH EMILUMINESCENCE BINDING ASSAY. NOTE: 25-HYDROXYVITAM IN D ASSAY INCLUDES 25-HYD ROXYVITAMIN D2 AND D3. I NTERPRETIVE RANGES PED IATRIC (<17 YEARS) . . . . . . . . . . . NG/ML 20-100ADU LT: INSUFFICIENT . . . . . . . . . . . . . . NG/ML <20 SUBOP TIMAL . . . . . . . . . . . . . . . NG/ML 20-29 OPTIMAL . . . . . . . . . . . . . . . . . NG/ML 30-100 VITAMIN [id number] 07:14:34 Test Item Value Reference Range Interpretation Comments VITAMIN B-12 (test code = 2840) 381 PG/ML 200-950 LIPID [id number] 06:50:15 Test Item Value Reference Range Interpretation Comments CHOLESTEROL (test 154 MG/DL <200 code = 2210) TRIGLYCERIDES (test 168 MG/DL <150 H code = 2232) HDL CHOLESTEROL (test 28 MG/DL >39 L code = 2220) CALC LDL CHOL (test 99 MG/DL <100 NOTE: C ALCULATED LDL code = 2237) IS BASED ON TAIWO-MAC METHOD WHICHINCLUDES ADJUSTABLE TRIGLYCERIDE:VL DL CHOLESTEROL RAT IO.THIS FACTOR VARIES B Y MEASURED TRIGLY CERIDE AND NON-HDLCHOL ESTEROL CONCENTRATIONS WITH INCREASED CALCU LATED LDL SEENIN HIGH ER TRIGLYCERIDE OR LOWER NON-HDL SPECIME NS. FOR MOREINFORMATION , SEE CLIENT ANNOUNCE MENT AT [email or web address] LDL/HDL 3.54 RATIO <3.22 H [facility] has important (test code = 2238) pathology staff changes effecti ve 10/04/2022. New pathology staff will provide uninter rupted, excellent patie nt care and clinical consultation. S ee URL: [email or web address]. UNLE SS OTHERWISE INDIC ATED, ALL TESTING PER FORMED AT [facility], [address] [place] [address] MEHUL HASKINS DIRECTOR: Tommie VASQUES [place] NUMBER [id number] CAP ACCREDITATION N O. [id number] URIC [id number] 06:50:15 Test Item Value Reference Range Interpretation Comments URIC ACID (test code = 2233) 4.2 MG/DL 2.7-6.1 C-REACTIVE [id number] 06:48:54 Test Item Value Reference Range Interpretation Comments C-REACTIVE PROTEIN (test code = 0.4 MG/DL <0.5 3513) HEMOGLOBIN [id number] 05:15:02 Test Item Value Reference Range Interpretation Comments HEMOGLOBIN A1c (test 8.9 % 4.2-5.6 H AMERIC AN DIABETES code = 30876) ASSOCIATION IDELINES FOR HGB A1C: PREDIABETES/INC REASED RISK . . . . . . . 5.7 -6.4% DIAGNOSIS OF DI ABETES . . . . . . . . . >=6 .5% WITH CONFIRMATION OR APPROPRIATE SYMPTOMS NOTE: ASSAY MAY BE AFFECTED BY HEMOGLOBINOPATH IES (SICKLE CELL ANEMIA, S- C DISEASE, OTHERS) OR JACINTA FICIALLY LOWERED BY DECR EASED RED CELL SURVIVAL ( HEMOLYTIC ANEMIAS, BLOOD LOSS, ETC.). CONSIDER ALTERN ATE TESTING OR LABORATORY C ONSULTATION. HCG, TOTAL, [id number] 06:00:00 Test Item Value Reference Interpretation Comments Range HCG, TOTAL, QN-Q 6 mIU/mL H Reference (test code = [place] [address]-6) premenopausal ? ?<5Postmenopaus al ? <10 Values from dif ferent assay methods m ay vary.The use of this assay to monito r or to diagnose pat ients with cancer or any condition unrel atedto has n ot been cleared or approved bythe FDA or the manufacture r of the assay. Wome n with hCG values betw een 5 and 25 mIU/mLsh ould have the result confirmed by repeatanalysis in 2 to 4 days if clinically estella cated. Values less ryder n 10 are considered normal forpost-menopau chica females. SANTANA (test code = PERFORMED BY SANTANA) [employer] [facility]; [address] [place] [address]; NESS KINGSLEY MD Lab Interpretation Abnormal (test code = 47268-8) [facility] [id number] 20:22:00 Test Item Value Reference Range Interpretation Comments POCT PREG (test code = 1605) Negative very faint On board controls acceptable with Yes C Line (test code = 3574) POCT PREG LOT # (test code = 3575) POCT PREG TEST DATE (test code = 3576) [facility] URINALYSIS W/O SPECIFIC [id number] 20:19:00 Test Item Value Reference Range Interpretation Comments POCT PH U (test code = 3254) n/a 5-8 POCT U LEUK EST (test code = n/a Negative - Negative 3263) POCT U NIT (test code = 3262) n/a Negative - Negative POCT U PROT (test code = 3259) negative Negative - Negative POCT U GLU (test code = 3256) 250 Negative - Negative POCT U KETONE (test code = 3258) n/a Negative - Negative POCT U BLD (test code = 3257) n/a Negative - Negative [facility] [id number] 19:21:00 Test Item Value Reference Range Interpretation Comments POCT PREG (test code = 1605) Negative On board controls acceptable with C Yes Line (test code = 3574) POCT PREG LOT # (test code = 3575) POCT PREG TEST DATE (test code = 3576) [facility] [id number] 13:39:00 Test Item Value Reference Range Interpretation Comments POCT PREG (test code = 1605) Positive On board controls acceptable with C Yes Line (test code = 3574) POCT PREG LOT # (test code = 3575) POCT PREG TEST DATE (test code = 3576) [facility] URINALYSIS W SPECIFIC [id number] 13:28:00 Test Item Value Reference Range Interpretation [...] POCT U APPEAR (test code = clear 3266) [facility]/O SPECIFIC [id number] 14:19:00 Test Item Value Reference Range Interpretation [...] Negative Lab Interpretation (test code = Abnormal 20611-7) [facility] [id number] 14:02:00 Test Item Value Reference Range Interpretation Comments POCT PREG (test code = 1605) Positive On board controls acceptable with C Yes Line (test code = 3574) POCT PREG LOT # (test code = 3570) POCT PREG TEST DATE (test code = 3576) [facility]
[2023-01-23] MEDS ORDERED: ACETAMINOPHEN 500 MG TAB ONE (08:28)
[2023-01-23 08:40] LABS: Absolute Lymphocytes (CBC) 2.1 K/uL (0.7-4.9); Hematocrit 40.5 % (36.0-45.0); MCV 78.7 fL (80-100); MPV 8.4 fL (7.6-11.3); RBC Red Blood Cell Count 5.14 M/uL (3.86-4.86)
[2023-01-23 08:56] LABS: Specific Gravity 1.027 (1.005-1.030)
[2023-01-23 08:57] LABS: ALT/SGPT 76 U/L (13-56); AST/SGOT 20 U/L (15-37); Albumin 3.3 g/dL (3.4-5.0); Alkaline Phosphatase 112 U/L (45-117); BUN Blood Urea Nitrogen 10 mg/dL (7-18); Bicarbonate 25 mEq/L (21-32); Bilirubin Total 0.4 mg/dL (0.2-1.0); Glomerular Filtration Rate 121 ml/min (=/>90); Glucose Level 308 mg/dL (74-106); Potassium 3.7 mEq/L (3.5-5.1); Protein, Total 7.3 g/dL (6.4-8.2); Sodium Level 136 mEq/L (136-145)
[2023-01-23 08:57] LABS: Specific Gravity 1.027 (1.005-1.030); Urine Bacteria None Seen /HPF (<20); Urine Bilirubin NEGATIVE (Negative); Urine Blood 3+ (OVER) (Negative); Urine Clarity Turbid (Clear); Urine Color Colorless (Yellow); Urine Glucose 4+ (Over) (Negative); Urine Protein NEGATIVE (Negative); Urine RBC >50 /HPF (None Seen); Urine Urobilinogen Normal (Normal)
[2023-01-23 08:58] LABS: Bilirubin Direct < 0.1 mg/dL (0-0.2); Bilirubin Indirect, Calculated ND mg/dL (0.2-0.8); Troponin High Sensitivity < 3.0 pg/mL (<58.9)
[2023-01-23 09:12] LABS: Barbiturates NEGATIVE (NEGATIVE); Benzodiazepines NEGATIVE (NEGATIVE); Cocaine NEGATIVE (NEGATIVE); METHAMPHETAM NEGATIVE (NEGATIVE); Methadone NEGATIVE (NEGATIVE); Opiates NEGATIVE (NEGATIVE); Phencyclidine NEGATIVE (NEGATIVE); THC Cannibis POSITIVE (NEGATIVE)
--- NOTE | 2023-01-23 11:04 | RAD REPORT ---
EXAM DESCRIPTION: US - Pelvis Complete - 01/23/2023 10:17 am CLINICAL HISTORY: EARLY OB, VAG BLEEDING COMPARISON: Pelvis Complete dated 10/09/2022; TRANSVAG OB CERVIX ASSESSMENT dated 01/23/2023; Transvagi nal OB dated 10/09/2022 TECHNIQUE: Sonographic grayscale and color flow images of the pelvis were obtained through both tra nsvaginal and transabdominal approach. FINDINGS: The uterus is normal in size and echotexture. The uterus measures 11.1 centimeter in lengt h. Lobulated appearance along the anterior wall, may relate to a small subendometrial fibroid. The uterine cervix is elongated, with numerous nabothian cysts. The endometrial stripe is focally thickened near the fundus, with an ill-defined small internal compl ex cystic structure, measuring 1.5 x 1.5 x 0.9 centimeter. No pole is identified. If this does indeed represent the gestational sac, its average diameter would be 12.9 millimeter, corresponding to gestational age of 6 weeks and 0 days. Gestational age by last menstrual period was calculated at 10 weeks and 3 days. Both ovaries were not visualized, limiting evaluation. No suspicious masses or other abnormal process ease in the adnexal regions. No significant pelvic ascites. IMPRESSION: Small ovoid complex cystic structure in the fundal endometrium, with average diameter 12 .9 millimeter. If this is indeed represents these gestational sac, it would correspond to gestational age of 6 weeks and 0 days, compared to calculated gestational age of 10 weeks and 3 days by given da sukhjinder. This is an abnormal finding, and could relate to incomplete miscarriage or retained products of conception. Please correlate clinically and with beta HCG levels. Nonvisualization of the ovaries, limiting evaluation. No other suspicious abnormalities.
--- NOTE | 2023-01-23 11:04 | RAD REPORT ---
EXAM DESCRIPTION: US - TRANSVAG OB CERVIX ASSESSMENT - 01/23/2023 10:17 am CLINICAL HISTORY: VAGINAL BLEEDING COMPARISON: Pelvis Complete dated 01/23/2023; Transvaginal OB dated 10/09/2022; Pelvis Complete dated TECHNIQUE: Sonographic grayscale and color flow images of the pelvis were obtained through both tra nsvaginal and transabdominal approach. FINDINGS: The uterus is normal in size and echotexture. The uterus measures 11.1 centimeter in lengt h. Lobulated appearance along the anterior wall, may relate to a small subendometrial fibroid. The uterine cervix is elongated, with numerous nabothian cysts. The endometrial stripe is focally thickened near the fundus, with an ill-defined small internal compl ex cystic structure, measuring 1.5 x 1.5 x 0.9 centimeter. No pole is identified. If this does indeed represent the gestational sac, its average diameter would be 12.9 millimeter, corresponding to gestational age of 6 weeks and 0 days. Gestational age by last menstrual period was calculated at 10 weeks and 3 days. Both ovaries were not visualized, limiting evaluation. No suspicious masses or other abnormal process ease in the adnexal regions. No significant pelvic ascites. IMPRESSION: Small ovoid complex cystic structure in the fundal endometrium, with average diameter 12 .9 millimeter. If this is indeed represents these gestational sac, it would correspond to gestational age of 6 weeks and 0 days, compared to calculated gestational age of 10 weeks and 3 days by given da sukhjinder. This is an abnormal finding, and could relate to incomplete miscarriage or retained products of conception. Please correlate clinically and with beta HCG levels. Nonvisualization of the ovaries, limiting evaluation. No other suspicious abnormalities.
--- NOTE | 2023-01-23 11:25 | ER ---
Nurse's Notes [facility] Name: Sharlene Thayer Age: 27 yrs Sex: Female : 1995 Arrival Date: 01/23/2023 Time: 07:56 Bed 15 Private MD: Diagnosis: Chest pain, unspecified;Threatened ;Diabetes mellitus due to underlying condition with hyperglycemia Presentation: 01/23 08:04 Chief complaint: Patient states: right sided chest pain that blankenship at 3am this morning. kc6 pt states her LMP was in November and believes she is currently experiencing a miscarriage. Coronavirus screen: At this time, the client does not indicate any symptoms associated with coronavirus-19. Ebola Screen: No symptoms or risks identified at this time. Initial Sepsis Screen: Does the patient meet any 2 criteria? No. Patient's initial sepsis screen is negative. Does the patient have a suspected source of infection? No. Patient's initial sepsis screen is negative. Risk Assessment: Do you want to hurt yourself or someone else? Patient reports no desire to harm self or others. Onset of symptoms was January 23, 2023. 08:04 Method Of Arrival: Ambulatory 6 08:04 Acuity: SAMANTHA 3 kc6 Triage Assessment: 08:06 General: Appears in no apparent distress. comfortable, Behavior is calm, cooperative, kc6 appropriate for age. Pain: Complains of pain in chest Pain does not radiate. Pain currently is 5 out of 10 on a pain scale. at worst was 8 out of 10 on a pain scale. Quality of pain is described as sharp, Pain began 4 hours ago. Is continuous. EENT: No signs and/or symptoms were reported regarding the EENT system. Neuro: Level of Consciousness is awake, alert, obeys commands, Oriented to person, place, time, situation, Appropriate for age. Cardiovascular: Capillary refill < 3 seconds. Respiratory: Airway is patent Trachea midline Respiratory effort is even, unlabored, Respiratory pattern is regular, symmetrical. GI: No signs and/or symptoms were reported involving the gastrointestinal system. : Reports vaginal bleeding that is bright red, with clots, moderate flow. Derm: No signs and/or symptoms reported regarding the dermatologic system. Skin is intact, Skin is pink, warm \T\ dry. Musculoskeletal: No signs and/or symptoms reported regarding the musculoskeletal system. Circulation, motion, and sensation intact. Capillary refill < 3 seconds, Range of motion: intact in all extremities. 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 Flu vaccine is not up to date. - Social history:: Smoking status: Patient denies any tobacco usage or history of. Screenin:08 [facility] ED Fall Risk Assessment (Adult) History of falling in the last 3 months, kc6 including since admission No falls in past 3 months (0 pts) Confusion or Disorientation No (0 pts) Intoxicated or Sedated No (0 pts) Impaired Gait No (0 pts) Mobility Assist Device Used No (0 pt) Altered Elimination No (0 pt) Score/Fall Risk Level 0 - 2 = Low Risk Oriented to surroundings, Maintained a safe environment, Educated pt \T\ family on fall prevention, incl call for assistance when getting out of bed, Assessed \T\ reinforced patient's understanding of fall precautions, Hourly rounding (assess needs \T\ fall precautionary measures) done. Abuse screen: Denies threats or abuse. Denies injuries from another. Nutritional screening: No deficits noted. Tuberculosis screening: No symptoms or risk factors identified. Assessment: 08:07 Reassessment: please see triage assessment. kc6 09:06 Reassessment: Patient appears in no apparent distress at this time. No changes from 6 previously documented assessment. Patient and/or family updated on plan of care and expected duration. Pain level reassessed. Patient is alert, oriented x 3, equal unlabored respirations, skin warm/dry/pink. 10:05 Reassessment: Patient appears in no apparent distress at this time. No changes from 6 previously documented assessment. Patient and/or family updated on plan of care and expected duration. Pain level reassessed. Patient is alert, oriented x 3, equal unlabored respirations, skin warm/dry/pink. 11:02 Reassessment: Patient appears in no apparent distress at this time. No changes from [facility] previously documented assessment. Patient and/or family updated on plan of care and expected duration. Pain level reassessed. Patient is alert, oriented x 3, equal unlabored respirations, skin warm/dry/pink. Vital Signs: 08:04 Weight 99.79 kg; Height 5 ft. 1 in. (R); Pain 5/10; kc6 08:08 BP 141 / 69; Pulse 99; Resp 18 S; Pulse Ox 99% on R/A; kc6 09:06 BP 130 / 69; Pulse 83; Resp 19 S; Pulse Ox 97% on R/A; kc6 10:06 BP 125 / 89; Pulse 79; Resp 20 S; Pulse Ox 98% on R/A; kc6 11:03 BP 113 / 71; Pulse 79; Resp 17 S; Pulse Ox 98% on R/A; kc6 08:04 Body Mass Index 41.57 (99.79 kg, 154.94 cm) kc6 08:04 Pain Scale: Adult kc6 ED Course: 07:57 Patient arrived in ED. im 08:00 Elizabeth Adan, RN is Primary Nurse. kc6 08:06 Triage completed. kc6 08:06 Arm band placed on. kc6 08:08 Patient has correct armband on for positive identification. Bed in low position. Call kc6 light in reach. Side rails up X 1. Adult w/ patient. Client placed on continuous cardiac and pulse oximetry monitoring. NIBP monitoring applied. playground monitor on. 08:08 Patient maintains SpO2 saturation greater than 95% on room air. kc6 08:11 Rajendra Griffin PA is PHCP. cp 08:11 Bandar Reddy MD is Attending Physician. cp 08:29 Inserted saline lock: 20 gauge in right antecubital area, using aseptic technique. kc6 Blood collected. 09:12 Rh Type Sent. kc6 09:12 HCG-Quantitative Sent. kc6 10:17 TRANSVAG OB CERVIX ASSESSMENT In Process Unspecified. EDMS 10:19 Pelvis Complete In Process Unspecified. EDMS 11:39 No provider procedures requiring assistance completed. IV discontinued, intact, kc6 bleeding controlled, No redness/swelling at site. Pressure dressing applied. Administered Medications: 08:21 Drug: Acetaminophen PO 1000 mg Route: PO; kc6 09:08 Follow up: Response: No adverse reaction; Pain is decreased kc6 Medication: 11:39 VIS not applicable for this client. kc6 Outcome: 11:24 Discharge ordered by . cp 11:39 Discharged to home ambulatory, with significant other. kc6 11:39 Condition: improved 11:39 Discharge instructions given to patient, Instructed on discharge instructions, follow up and referral plans. Demonstrated understanding of instructions, follow-up care. 11:39 Patient left the ED. kc6 Signatures: Dispatcher [employer] EDMS Rajendra Griffin PA PA cp Campbell, Kaitlyn RN RN kc6 Safia Cabrera
--- NOTE | 2023-01-23 11:25 | EDPHYS ---
Physician Documentation [facility] Name: Sharlene Thayer Age: 27 yrs Sex: Female : 1995 Arrival Date: 01/23/2023 Time: 07:56 Bed 15 Private MD: ED Physician Bandar Reddy HPI: 01/23 08:17 This 27 yrs old Female presents to ER via Ambulatory with complaints of Chest cp Pain. 08:17 The patient or guardian reports chest pain that is located primarily in the anterior cp chest wall, right. The pain does not radiate. Duration: The patient or guardian reports a single episode, that is now resolved. Modifying factors: the symptoms are aggravated by movement, palpation of area. Severity of pain: in the emergency department the pain has resolved and did so just prior to arrival. 08:17 Patient reports recently finding out she was . Concerned about possible cp miscarriage as she has been having vaginal bleeding for past several days. 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 Flu vaccine is not up to date. - Social history:: Smoking status: Patient denies any tobacco usage or history of. ROS: 08:18 Constitutional: Negative for body aches, chills, fever, poor PO intake. cp 08:18 Cardiovascular: Positive for chest pain. cp 08:18 Respiratory: Negative for cough, shortness of breath, wheezing. cp 08:18 Eyes: Negative for injury, pain, redness, and discharge. cp 08:18 ENT: Negative for drainage from ear(s), ear pain, sore throat, difficulty swallowing, difficulty handling secretions. 08:18 Abdomen/GI: Negative for abdominal pain, nausea, vomiting, and diarrhea. 08:18 Neuro: Negative for altered mental status, dizziness, headache, syncope, weakness. 08:18 : Positive for vaginal bleeding, Negative for urinary symptoms. cp 08:18 All other systems are negative. Exam: 08:18 ECG was reviewed by the Attending Physician. cp 08:20 Constitutional: The patient appears in no acute distress, alert, awake, cp non-diaphoretic, non-toxic, well developed, well nourished, obese. 08:20 Head/Face: Normocephalic, atraumatic. cp 08:20 Eyes: Periorbital structures: appear normal, Conjunctiva: normal, no exudate, no injection, Sclera: no appreciated abnormality, Lids and lashes: appear normal, bilaterally. 08:20 ENT: External ear(s): are unremarkable, Nose: is normal, Mouth: Lips: moist, Oral mucosa: pink and intact, moist, Posterior pharynx: is normal, airway is patent, no erythema, no exudate. 08:20 Neck: ROM/movement: is normal, is supple, without pain, no range of motions limitations. 08:20 Chest/axilla: Inspection: normal. 08:20 Cardiovascular: Rate: normal, Rhythm: regular, Edema: is not appreciated, JVD: is not appreciated. 08:20 Respiratory: the patient does not display signs of respiratory distress, Respirations: normal, no use of accessory muscles, no retractions, labored breathing, is not present, Breath sounds: are clear throughout, no decreased breath sounds, no stridor, no wheezing. 08:20 Abdomen/GI: Inspection: obese Bowel sounds: active, all quadrants, Palpation: soft, in all quadrants, nontender, in all quadrants. 08:20 Back: pain, is absent, ROM is normal. 08:20 Neuro: Orientation: to person, place \T\ time. Mentation: is normal, Cerebellar function: is grossly normal, Motor: moves all fours, strength is normal, Sensation: is normal. Vital Signs: 08:04 Weight 99.79 kg; Height 5 ft. 1 in. (R); Pain 5/10; kc6 08:08 BP 141 / 69; Pulse 99; Resp 18 S; Pulse Ox 99% on R/A; kc6 09:06 BP 130 / 69; Pulse 83; Resp 19 S; Pulse Ox 97% on R/A; kc6 10:06 BP 125 / 89; Pulse 79; Resp 20 S; Pulse Ox 98% on R/A; kc6 11:03 BP 113 / 71; Pulse 79; Resp 17 S; Pulse Ox 98% on R/A; kc6 08:04 Body Mass Index 41.57 (99.79 kg, 154.94 cm) [facility] 08:04 Pain Scale: Adult kc6 MDM: 08:15 Patient medically screened. 09:00 Differential diagnosis: abnormal EKG, acute myocardial infarction, acute pericarditis, cp anxiety, chest wall pain, cholecystitis, Cholelithiasis pericarditis, pneumonia, pneumothorax, pulmonary embolus. 11:22 ED course: review of records from previous ED visit show patient with positive rh cp factor. 11:24 Data reviewed: vital signs, nurses notes, lab test result(s), EKG, radiologic studies, cp plain films. 11:24 I considered the following discharge prescriptions or medication management in the emergency department Medications were administered in the Emergency Department. See MAR. Independent interpretation of the following test(s) in the Emergency Department EKG: See my EKG interpretation above X-Ray: My interpretation is chest image negative for infiltrates. Test considered but Not performed: CT: chest. Counseling: I had a detailed discussion with the patient and/or guardian regarding: the historical points, exam findings, and any diagnostic results supporting the discharge/admit diagnosis, lab results, radiology results, the need for outpatient follow up, an OB/Gyne specialist, to return to the emergency department if symptoms worsen or persist or if there are any questions or concerns that arise at home. 01/23 08:13 Order name: Urinalysis W/Microscopic; Complete Time: 09:28 01/23 09:28 Interpretation: Normal except: [facility] Turbid; UGLUC 4+ (Over); UKET TRACE; UBLD 3+ cp (OVER); URBC >50. 01/23 08:13 Order name: PREGU; Complete Time: 08:57 01/23 11:11 Interpretation: Reviewed. 01/23 08:13 Order name: UDS; Complete Time: 09:28 01/23 09:28 Interpretation: Normal except: THC POSITIVE. 01/23 08:13 Order name: Basic Metabolic Panel; Complete Time: 09:28 01/23 09:29 Interpretation: Normal except: GLUC 308. 01/23 08:13 Order name: CBC with Diff; Complete Time: 08:57 01/23 08:57 Interpretation: Normal except: RBC 5.14; MCV 78.7; MCH 26.1. 01/23 08:13 Order name: LFT's; Complete Time: 09:28 cp 20 09:29 Interpretation: Normal except: ALT 76; ALB 3.3; GLOB 4.0; A/G 0.8. cp 01/23 08:13 Order name: Magnesium; Complete Time: 09:28 cp 01/23 08:13 Order name: PT-INR; Complete Time: 08:57 cp 01/23 08:13 Order name: Troponin HS; Complete Time: 09:28 cp 01/23 08:15 Order name: Lipase; Complete Time: 08:57 cp 01/23 08:57 Interpretation: Reviewed. cp 01/23 08:56 Order name: Rh Type cp 01/23 08:56 Order name: HCG-Quantitative; Complete Time: 09:28 cp 01/23 09:29 Interpretation: HCGQ 69; Reviewed. cp 01/23 11:19 Order name: Glucose, Ancillary Testing; Complete Time: 11:25 EDMS 01/23 10:15 Order name: Pelvis Complete; Complete Time: 11:10 EDMS 01/23 10:17 Order name: TRANSVAG OB CERVIX ASSESSMENT; Complete Time: 11:10 EDMS 01/23 08:13 Order name: EKG; Complete Time: 08:14 cp 01/23 08:13 Order name: Cardiac monitoring; Complete Time: 08:15 cp 01/23 08:13 Order name: EKG - Nurse/Tech; Complete Time: 08:15 cp 01/23 08:13 Order name: IV Saline Lock; Complete Time: 08:29 cp 01/23 08:13 Order name: Labs collected and sent; Complete Time: 08:29 cp 01/23 08:13 Order name: O2 Per Protocol; Complete Time: 08:15 cp 01/23 08:13 Order name: O2 Sat Monitoring; Complete Time: 08:15 cp 01/23 11:01 Order name: Accucheck Blood Glucose; Complete Time: 11:07 cp EC:18 Rate is 77 beats/min. Rhythm is regular. MI interval is normal. QRS interval is normal. cp QT interval is normal. T waves are Inverted in lead aVR. Interpreted by me. Reviewed by me. Administered Medications: 08:21 Drug: Acetaminophen PO 1000 mg Route: PO; kc6 09:08 Follow up: Response: No adverse reaction; Pain is decreased kc6 Disposition: 12:10 Co-signature as Attending Physician, Bandar Reddy MD I agree with the assessment and kdr plan of care. Disposition Summary: 01/23/23 11:24 Discharge Ordered Location: Home cp Problem: new cp Symptoms: have improved cp Condition: Stable cp Diagnosis - Chest pain, unspecified cp - Threatened cp - Diabetes mellitus due to underlying condition with hyperglycemia cp Followup: cp - With: Private Physician - When: 48 Hours - Reason: Repeat Beta-HCG (48 Hours) Discharge Instructions: - Discharge Summary Sheet cp - Nonspecific Chest Pain, Adult cp - Hyperglycemia cp - Care cp - Threatened Miscarriage cp - Vaginal Bleeding During , First Trimester cp - Blood Glucose Monitoring, Adult cp - Diabetes Mellitus and Nutrition, Adult cp Forms: - Medication Reconciliation Form cp - Thank You Letter cp - Antibiotic Education cp - Prescription Opioid Use cp Signatures: Dispatcher [employer] EDBandar Nettles MD MD kdr Rajendra Griffin PA PA cp Elizabeth Adan RN RN kc6 Corrections: (The following items were deleted from the chart) 10:16 09:30 Transvaginal Ob+US.RAD.BRZ ordered. EDMS EDMS
[2023-01-23 12:09] VITALS: O2SAT 98
[2023-01-23 12:10] VITALS: BP 113/71
--- NOTE | 2023-01-24 19:13 | EKG ---
Test Date: 2023-01-23 Test Time: 08:10:52 Delivery Driver: GALILEO MEASUREMENT RESULTS: Intervals: Rate: 77 AL: 168 QRSD: 84 QT: 388 QTc: 439 [place]: P: 33 AL: 168 QRS: 82 T: 29 INTERPRETIVE STATEMENTS: Normal sinus rhythm Normal ECG No previous ECG available for comparison Electronically Signed On 01-24-23 19:10:30 CDT by Dominik Beard
== END 2023-01-23 11:39 | disposition home or self-care (01) ==
LOC: ER 07:56
DX: O20.0 Threatened abortion (principal); O24.911 Unspecified diabetes mellitus in pregnancy, first trimester; E11.65 Type 2 diabetes mellitus with hyperglycemia; Z3A.10 10 weeks gestation of pregnancy
CPT/HCPCS: 36415; 76817; 76856; 80048; 80076; 80307; 81001; 81025; 82947; 83690; 83735; 84484; 84702; 85025; 85610; 93005

== ENCOUNTER 2023-06-21 10:19 | Emergency (ER) | payer OTHER ==
--- OUTSIDE RECORDS SUMMARY | 2023-06-21 10:29 | XMS REPORT | Continuity of Care Document ---
:1995 Author Organization [facility] t Address [address] [facility] [place] [address] Care Team Providers Name Role Phone Marychuy Johnson MD Primary Care Physician MARYCHUY JOHNSON Attending Clinician Unavailable MARYCHUY JOHNSON Attending Clinician Unavailable RE VELARDE Attending Clinician Unavailable Pob, [facility] Attending Clinician Unavailable Diamante Baer MD Attending Clinician DIAMANTE BAER Attending Clinician Unavailable Mila Whittaker MD Attending Clinician 2, [facility] Attending Clinician Unavailable MILA WHITTAKER Attending Clinician Unavailable Doctor Unassigned, [place] Attending Clinician Unavailable Chente CHOPRA, [place] Attending Clinician ANTONIO MCKEON Attending Clinician Unavailable ANTONIO MCKEON Attending Clinician Unavailable Ana Trujillo MD Attending [...] Clinician Unavailable Osmel Higgins MD Attending Clinician ANA TRUJILLO Attending Clinician Unavailable NOHEMI YOUNG Attending Clinician Unavailable Ultrasound, [facility] Attending Clinician Unavailable Nohemi Young MD Attending Clinician [phone] Only, Ang Db Test Attending Clinician Unavailable EbrahiOsiel Foster Attending Clinician EBRAOSIEL DELVALLE Attending Clinician Unavailable FARZANA JARAMILLO Attending Clinician Unavailable Ann Marie Carvajal PA-C Attending Clinician ANN MARIE CARVAJAL Attending Clinician Unavailable Nurse, [facility] Attending Clinician Unavailable Diamante Dumont MD Attending Clinician Ultrasound, [facility] Attending Clinician Unavailable Jada Mckeon MD Attending Clinician DIAMANTE DUMONT Admitting Clinician Unavailable OBI-ANA, MARYCHUY Admitting Clinician Unavailable MILA WHITTAKER Admitting Clinician Unavailable ANTONIO MCKEON Admitting Clinician Unavailable Diamante Dumont MD Admitting Clinician Payers Payer Name Policy Type Policy Number Effective Date Expiration Date [facility] [id number] 2018 CHOICE MEDICAID 00:00:00 [place] [employer] [id number] 2023 00:00:00 Problems Condition Condition Condition Status Onset Resolution Last Treating Co mments Source Name Details Category Date Date Treatment Clinician Date Other Other Disease Active Univers hyperlipid hyperlipid 03-08 it y of emia emia 00:00: [address] Other Other Disease Active Univers fatigue fatigue 03-08 ity of 00:00: [address] Vitamin Vitamin Disease Active Univers B12 B12 03-08 [place] [address] [place] [address] STI STI Disease Active Univers (sexually (sexually 8-03 ity of transmitte transmitte [place] 00 Medical infection) infection) Br anch Type 2 Type 2 Disease Active Univers diabetes diabetes 4-06 ity of mellitus mellitus 00:00: without without 00 Medical complicati complicati Br anch on, on, without without long-term long-term current current use of use of insulin insulin 10 weeks 10 weeks Disease Active Unive rs gestation gestation 5-23 ity of of of 00:00: [place] 00 [facility] Abnormal Abnormal Disease Active Unive rs 5-23 [place] [facility] Branch Disease Active Uni vers with with 4-25 ity of inconclusi inconclusi [place] Medica l viability, viability, Br anch fetus 1 of fetus 1 of multiple multiple gestation gestation Vaginal Vaginal Disease Active Univers discharge discharge 4-25 ity of 00:00: [place] [facility] History of History of Disease Active U nivers gestationa gestationa 4-25 it y of l diabetes l diabetes 00:[place] 00 [facility] Vaginal Vaginal Disease Active Univers bleeding bleeding 7-20 ity of affecting affecting 00:00: [place] early early Medical Bran ch Obesity, Obesity, Disease Active Unive rs Class III, Class III, 2-03 it y of BMI BMI 00:00: [place] 40-49.9 40-49.9 00 Medical (morbid (morbid Branch obesity) obesity) History of History of Disease Active 2019- U nivers pre-eclamp pre-eclamp 2-03 it y of ang ang 00:00: [place] [facility] History of History of Disease Active 2020- U nivers depression depression 2-03 it y of 00:00: [place] [facility] Previous Previous Disease Active Unive rs 2-03 ity of section section 00:00: [address] Allergies, Adverse Reactions, Alerts Allergy Allergy Status Severity Reaction(s) Onset Inactive Treating Comm ents Source Name Type Date Date Clinician NO KNOWN Drug Active Univers ALLERGIE Class ity of S [facility] Social History Social Habit Start Date Stop Date Quantity Comments Source ASSERTION 2021-10-31 [facility] 00:00:00 [facility] Gender identity Universit y of [facility] Sexual orientation [facility]iver [facility]ity [facility] Alcohol intake 2023-06-11 2023-06-11 0 /d [facility] 00:00:00 00:00:00 [facility] History of Social 2023-03-08 2023-03-08 Univers ity of function 00:00:00 00:00:00 [facility] Exposure to 2022-10-30 2022-11-09 Not sure [facility] SARS-CoV-2 (event) 00:00:00 16:10:00 [facility] Tobacco use and 2022-10-11 2022-10-11 Smokeless Universit y of exposure 00:00:00 00:00:00 tobacco non-user [facility] Sex Assigned At [birth year] Universit y of 00:00:00 00:00:00 [facility] Smoking Status Start Date Stop Date Source Never smoked tobacco [facility] [place] Medications Ordered Filled Start Stop Current Ordering Indication Dosage Frequency Signature Comments Components Source Medication Medication Date Date Medication? Clinician (SIG) Name Name metformin 2022-08 Yes [id number] 500mg Take 1 Univers ER 500 mg 1-06 tablet by ity o f 24 hr 00:00: mouth in [place] tablet 00 the Medical morning Branch and 1 tablet in the evening. ondansetron 2022-08 Yes [id number] 4mg Take 1 Univers 4 mg 1-06 tablet by ity of disintegrat 00:00: mouth [place] ing tablet 00 every 8 Medica l (eight) Branch hours as needed for Nausea and Vomiting (N/V). metformin 2022-08 Yes [id number] 500mg Take 1 Univers ER 500 mg 1-06 tablet by ity o f 24 hr 00:00: mouth in [place] tablet 00 the Medical morning Branch and 1 tablet in the evening. ondansetron 2022-08 Yes [id number] 4mg Take 1 Univers 4 mg 1-06 tablet by ity of disintegrat 00:00: mouth [place] ing tablet 00 every 8 Medica l (eight) Branch hours as needed for Nausea and Vomiting (N/V). metformin 2022- Univers ER 750 mg -20 09-20 ity of 24 hr 13:33: 00:00 [place] tablet 50 :00 Medical Branch metformin 2023-0 2023- No Univers ER 750 mg 9-20 -20 ity of 24 hr 13:33: 00:00 [place] tablet 50 :00 Medical Branch ondansetron 2023-0 Yes [id number] 4mg Take 1 Univers 4 mg 9-20 tablet by ity of disintegrat 00:00: mouth [place] ing tablet 00 every 8 Medica l (eight) Branch hours as needed for Nausea and Vomiting (N/V). metformin 2023-0 Yes 750mg Take 1 Unive rs ER 750 mg 9-20 tablet by ity o f 24 hr 00:00: mouth in [place] tablet 00 the Medical morning Branch and 1 tablet in the evening. ondansetron 2023-0 Yes [id number] 4mg Take 1 Univers 4 mg 9-20 tablet by ity of disintegrat 00:00: mouth [place] ing tablet 00 every 8 Medica l (eight) Branch hours as needed for Nausea and Vomiting (N/V). metformin 2023-0 Yes 750mg Take 1 Unive rs ER 750 mg 9-20 tablet by ity o f 24 hr 00:00: mouth in [place] tablet 00 the Medical morning Branch and 1 tablet in the evening. ondansetron 2023-0 Yes [id number] 4mg Take 1 Univers 4 mg 9-20 tablet by ity of disintegrat 00:00: mouth [place] ing tablet 00 every 8 Medica l (eight) Branch hours as needed for Nausea and Vomiting (N/V). metformin 2023-0 Yes 750mg Take 1 Unive rs ER 750 mg 9-20 tablet by ity o f 24 hr 00:00: mouth in [place] tablet 00 the Medical morning Branch and 1 tablet in the evening. ondansetron 2023-0 Yes [id number] 4mg Take 1 Univers 4 mg 9-20 tablet by ity of disintegrat 00:00: mouth [place] ing tablet 00 every 8 Medica l (eight) Branch hours as needed for Nausea and Vomiting (N/V). metformin 2023-0 Yes 750mg Take 1 Unive rs ER 750 mg 9-20 tablet by ity o f 24 hr 00:00: mouth in [place] tablet 00 the Medical morning Branch and 1 tablet in the evening. ondansetron 2023-0 Yes [id number] 4mg Take 1 Univers 4 mg 9-20 tablet by ity of disintegrat 00:00: mouth [place] ing tablet 00 every 8 Medica l (eight) Branch hours as needed for Nausea and Vomiting (N/V). metformin 2023-0 Yes 750mg Take 1 Unive rs ER 750 mg 9-20 tablet by ity o f 24 hr 00:00: mouth in [place] tablet 00 the Medical morning Branch and 1 tablet in the evening. ondansetron 2023-0 Yes [id number] 4mg Take 1 Univers 4 mg 9-20 tablet by ity of disintegrat 00:00: mouth [place] ing tablet 00 every 8 Medica l (eight) Branch hours as needed for Nausea and Vomiting (N/V). metformin 2023-0 Yes 750mg Take 1 Unive rs ER 750 mg 9-20 tablet by ity o f 24 hr 00:00: mouth in [place] tablet 00 the Medical morning Branch and 1 tablet in the evening. ondansetron 2023-0 Yes [id number] 4mg Take 1 Univers 4 mg 9-20 tablet by ity of disintegrat 00:00: mouth [place] ing tablet 00 every 8 Medica l (eight) Branch hours as needed for Nausea and Vomiting (N/V). metformin 2023-0 Yes 750mg Take 1 Unive rs ER 750 mg 9-20 tablet by ity o f 24 hr 00:00: mouth in [place] tablet 00 the Medical morning Branch and 1 tablet in the evening. ondansetron 2023-0 Yes [id number] 4mg Take 1 Univers 4 mg 9-20 tablet by ity of disintegrat 00:00: mouth [place] ing tablet 00 every 8 Medica l (eight) Branch hours as needed for Nausea and Vomiting (N/V). metformin 2023-0 Yes 750mg Take 1 Unive rs ER 750 mg 9-20 tablet by ity o f 24 hr 00:00: mouth in [place] tablet 00 the Medical morning Branch and 1 tablet in the evening. ondansetron 2023-0 Yes [id number] 4mg Take 1 Univers 4 mg 9-20 tablet by ity of disintegrat 00:00: mouth [place] ing tablet 00 every 8 Medica l (eight) Branch hours as needed for Nausea and Vomiting (N/V). metformin 2023-0 Yes 750mg Take 1 Unive rs ER 750 mg 9-20 tablet by ity o f 24 hr 00:00: mouth in [place] tablet 00 the Medical morning Branch and 1 tablet in the evening. ondansetron 2023-0 Yes [id number] 4mg Take 1 Univers 4 mg 9-20 tablet by ity of disintegrat 00:00: mouth [place] ing tablet 00 every 8 Medica l (eight) Branch hours as needed for Nausea and Vomiting (N/V). metformin 2023-0 Yes 750mg Take 1 Unive rs ER 750 mg 9-20 tablet by ity o f 24 hr 00:00: mouth in [place] tablet 00 the Medical morning Branch and 1 tablet in the evening. ondansetron 2023-0 Yes [id number] 4mg Take 1 Univers 4 mg 9-20 tablet by ity of disintegrat 00:00: mouth [place] ing tablet 00 every 8 Medica l (eight) Branch hours as needed for Nausea and Vomiting (N/V). metformin 2023-0 Yes 750mg Take 1 Unive rs ER 750 mg 9-20 tablet by ity o f 24 hr 00:00: mouth in [place] tablet 00 the Medical morning Branch and 1 tablet in the evening. ondansetron 2023-0 2023- No [id number] 4mg Take 1 Univers 4 mg 9-20 11-06 tablet by ity of disintegrat 00:00: [place] :00 every 8 Medica l (eight) Branch hours as needed for Nausea and Vomiting (N/V). metformin 2023-0 2023- No 750mg Take 1 Univ ers ER 750 mg 9-20 11-06 tablet by ity of 24 hr 00:00: 00:00 mouth in [place] tablet 00 :00 the Medical morning Branch and 1 tablet in the evening. ondansetron 2023-0 2023- No [id number] 4mg Take 1 Univers 4 mg 9-20 11-06 tablet by ity of disintegrat 00:00: [place] :00 every 8 Medica l (eight) Branch hours as needed for Nausea and Vomiting (N/V). metformin 2023-0 2023- No 750mg Take 1 Univ ers ER 750 mg 9-20 11-06 tablet by ity of 24 hr 00:00: 00:00 mouth in [place] tablet 00 :00 the Medical morning Branch and 1 tablet in the evening. semaglutide 2022-0 2023- No [id number] inject Univers (OZEMPIC) 03-13 104 0.25 mg ity of 0.25 mg or 00:00: 05:59 under the [place] 0.5 mg(2 00 :00 skin Medical mg/1.5 mL) weekly for Bra nch PnIj 30 days, THEN 0.5 mg weekly for 30 days, THEN 1 mg weekly for 90 days. Direction: Inject 0.25mg qWeek x 4 Weeks; then Inject 0.5mg qWeek x 4Weeks; then inject 1mg qWeek. semaglutide 2022-0 2022- No [id number] inject Univers (OZEMPIC) 03-13 104 0.25 mg ity of 0.25 mg or 00:00: 05:59 under the [place] 0.5 mg (2 00 :00 skin Medical mg/3 mL) weekly for Branc h PnIj 30 days, THEN 0.5 mg weekly for 30 days. semaglutide 2022-0 2022- No [id number] inject Univers (OZEMPIC) 03-13 104 0.25 mg ity of 0.25 mg or 00:00: 05:59 under the [place] 0.5 mg (2 00 :00 skin Medical mg/3 mL) weekly for Branc h PnIj 30 days, THEN 0.5 mg weekly for 30 days. semaglutide 2022-0 2022- No [id number] inject Univers (OZEMPIC) 03-13 104 0.25 mg ity of 0.25 mg or 00:00: 05:59 under the [place] 0.5 mg (2 00 :00 skin Medical mg/3 mL) weekly for Branc h PnIj 30 days, THEN 0.5 mg weekly for 30 days. semaglutide 2022-0 2022- No [id number] inject Univers (OZEMPIC) 03-13 104 0.25 mg ity of 0.25 mg or 00:00: 05:59 under the [place] 0.5 mg (2 00 :00 skin Medical mg/3 mL) weekly for Branc h PnIj 30 days, THEN 0.5 mg weekly for 30 days. semaglutide 2022-0 3- No [id number] inject Univers (OZEMPIC) 03-13 104 0.25 mg ity of 0.25 mg or 00:00: 05:59 under the [place] 0.5 mg (2 00 :00 skin Medical mg/3 mL) weekly for Branc h PnIj 30 days, THEN 0.5 mg weekly for 30 days. semaglutide 2022-0 3- No [id number] inject Univers (OZEMPIC) 03-13 104 0.25 mg ity of 0.25 mg or 00:00: 05:59 under the [place] 0.5 mg (2 00 :00 skin Medical mg/3 mL) weekly for Branc h PnIj 30 days, THEN 0.5 mg weekly for 30 days. semaglutide 2022-0 3- No [id number] inject Univers (OZEMPIC) 03-13 104 0.25 mg ity of 0.25 mg or 00:00: 05:59 under the [place] 0.5 mg (2 00 :00 skin Medical mg/3 mL) weekly for Branc h PnIj 30 days, THEN 0.5 mg weekly for 30 days. semaglutide 2022-0 3- No [id number] inject Univers (OZEMPIC) 03-13 104 0.25 mg ity of 0.25 mg or 00:00: 05:59 under the [place] 0.5 mg (2 00 :00 skin Medical mg/3 mL) weekly for Branc h PnIj 30 days, THEN 0.5 mg weekly for 30 days. semaglutide 2022-0 3- No [id number] inject Univers (OZEMPIC) 03-13 104 0.25 mg ity of 0.25 mg or 00:00: 05:59 under the [place] 0.5 mg (2 00 :00 skin Medical mg/3 mL) weekly for Branc h PnIj 30 days, THEN 0.5 mg weekly for 30 days. semaglutide 3-0 3- No [id number] inject Univers (OZEMPIC) 03-13 104 0.25 mg ity of 0.25 mg or 00:00: 05:59 under the [place] 0.5 mg (2 00 :00 skin Medical mg/3 mL) weekly for Branc h PnIj 30 days, THEN 0.5 mg weekly for 30 days. semaglutide 2023-0 2023- No [id number] inject Univers (OZEMPIC) 03-13 104 0.25 mg ity of 0.25 mg or 00:00: 04:59 under the [place] 0.5 mg (2 00 :00 skin Medical mg/3 mL) weekly for Branc h PnIj 30 days, THEN 0.5 mg weekly for 30 days. semaglutide 2022-0 3- No [id number] inject Univers (OZEMPIC) 03-13 104 0.25 mg ity of 0.25 mg or 00:00: 04:59 under the [place] 0.5 mg (2 00 :00 skin Medical mg/3 mL) weekly for Branc h PnIj 30 days, THEN 0.5 mg weekly for 30 days. semaglutide 2022-0 3- No [id number] inject Univers (OZEMPIC) 03-13 104 0.25 mg ity of 0.25 mg or 00:00: 04:59 under the [place] 0.5 mg (2 00 :00 skin Medical mg/3 mL) weekly for Branc h PnIj 30 days, THEN 0.5 mg weekly for 30 days. semaglutide 3-0 3- No [id number] inject Univers (OZEMPIC) 03-13 104 0.25 mg ity of 0.25 mg or 00:00: 04:59 under the [place] 0.5 mg (2 00 :00 skin Medical mg/3 mL) weekly for Branc h PnIj 30 days, THEN 0.5 mg weekly for 30 days. semaglutide 3-0 3- No [id number] inject Univers (OZEMPIC) 03-13 104 0.25 mg ity of 0.25 mg or 00:00: 04:59 under the [place] 0.5 mg (2 00 :00 skin Medical mg/3 mL) weekly for Branc h PnIj 30 days, THEN 0.5 mg weekly for 30 days. semaglutide 3-0 3- No [id number] inject Univers (OZEMPIC) 03-13 104 0.25 mg ity of 0.25 mg or 00:00: 04:59 under the [place] 0.5 mg (2 00 :00 skin Medical mg/3 mL) weekly for Branc h PnIj 30 days, THEN 0.5 mg weekly for 30 days. ergocalcife 2023-0 Yes [id number] Take 1 Univers rol, 8-04 capsule by ity of vitamin d2, 00:00: mouth [place] 1,250 mcg 00 weekly. Medical (50,000 Branch unit) capsule ergocalcife 2023-0 Yes [id number] Take 1 Univers rol, 8-04 capsule by ity of vitamin d2, 00:00: mouth [place] 1,250 mcg 00 weekly. Medical (50,000 Branch unit) capsule ergocalcife 2023-0 Yes [id number] Take 1 Univers rol, 8-04 capsule by ity of vitamin d2, 00:00: mouth [place] 1,250 mcg 00 weekly. Medical (50,000 Branch unit) capsule ergocalcife 2023-0 Yes [id number] Take 1 Univers rol, 8-04 capsule by ity of vitamin d2, 00:00: mouth [place] 1,250 mcg 00 weekly. Medical (50,000 Branch unit) capsule ergocalcife 2023-0 Yes [id number] Take 1 Univers rol, 8-04 capsule by ity of vitamin d2, 00:00: mouth [place] 1,250 mcg 00 weekly. Medical (50,000 Branch unit) capsule ergocalcife 2023-0 Yes [id number] Take 1 Univers rol, 8-04 capsule by ity of vitamin d2, 00:00: mouth [place] 1,250 mcg 00 weekly. Medical (50,000 Branch unit) capsule ergocalcife 2023-0 Yes [id number] Take 1 Univers rol, 8-04 capsule by ity of vitamin d2, 00:00: mouth [place] 1,250 mcg 00 weekly. Medical (50,000 Branch unit) capsule ergocalcife 2023-0 Yes [id number] Take 1 Univers rol, 8-04 capsule by ity of vitamin d2, 00:00: mouth [place] 1,250 mcg 00 weekly. Medical (50,000 Branch unit) capsule ergocalcife 2023-0 Yes [id number] Take 1 Univers rol, 8-04 capsule by ity of vitamin d2, 00:00: mouth [place] 1,250 mcg 00 weekly. Medical (50,000 Branch unit) capsule ergocalcife 2023-0 Yes [id number] Take 1 Univers rol, 8-04 capsule by ity of vitamin d2, 00:00: mouth [place] 1,250 mcg 00 weekly. Medical (50,000 Branch unit) capsule ergocalcife 2023-0 Yes [id number] Take 1 Univers rol, 8-04 capsule by ity of vitamin d2, 00:00: mouth [place] 1,250 mcg 00 weekly. Medical (50,000 Branch unit) capsule ergocalcife 2023-0 Yes [id number] Take 1 Univers rol, 8-04 capsule by ity of vitamin d2, 00:00: mouth [place] 1,250 mcg 00 weekly. Medical (50,000 Branch unit) capsule ergocalcife 2023-0 Yes [id number] Take 1 Univers rol, 8-04 capsule by ity of vitamin d2, 00:00: mouth [place] 1,250 mcg 00 weekly. Medical (50,000 Branch unit) capsule ergocalcife 2023-0 Yes [id number] Take 1 Univers rol, 8-04 capsule by ity of vitamin d2, 00:00: mouth [place] 1,250 mcg 00 weekly. Medical (50,000 Branch unit) capsule ergocalcife 2023-0 Yes [id number] Take 1 Univers rol, 8-04 capsule by ity of vitamin d2, 00:00: mouth [place] 1,250 mcg 00 weekly. Medical (50,000 Branch unit) capsule ergocalcife 2023-0 Yes [id number] Take 1 Univers rol, 8-04 capsule by ity of vitamin d2, 00:00: mouth [place] 1,250 mcg 00 weekly. Medical (50,000 Branch unit) capsule ergocalcife 2023-0 Yes [id number] Take 1 Univers rol, 8-04 capsule by ity of vitamin d2, 00:00: mouth [place] 1,250 mcg 00 weekly. Medical (50,000 Branch unit) capsule ergocalcife 2023-0 Yes [id number] Take 1 Univers rol, 8-04 capsule by ity of vitamin d2, 00:00: mouth [place] 1,250 mcg 00 weekly. Medical (50,000 Branch unit) capsule ergocalcife 2023-0 Yes [id number] Take 1 Univers rol, 8-04 capsule by ity of vitamin d2, 00:00: mouth [place] 1,250 mcg 00 weekly. Medical (50,000 Branch unit) capsule ergocalcife 2023-0 Yes [id number] Take 1 Univers rol, 8-04 capsule by ity of vitamin d2, 00:00: mouth [place] 1,250 mcg 00 weekly. Medical (50,000 Branch unit) capsule ergocalcife 2023-0 Yes [id number] Take 1 Univers rol, 8-04 capsule by ity of vitamin d2, 00:00: mouth [place] 1,250 mcg 00 weekly. Medical (50,000 Branch unit) capsule semaglutide 2022-0 4- No [id number] inject Univers (OZEMPIC) 03-09 104 0.25 mg ity of 0.25 mg or 00:00: 05:59 under the [place] 0.5 mg(2 00 :00 skin Medical mg/1.5 mL) weekly for Bra nch PnIj 30 days, THEN 0.5 mg weekly for 30 days, THEN 1 mg weekly for 90 days. Direction: Inject 0.25mg qWeek x 4 Weeks; then Inject 0.5mg qWeek x 4Weeks; then inject 1mg qWeek. semaglutide 0 4- No [id number] inject Univers (OZEMPIC) 03-09 104 0.25 mg ity of 0.25 mg or 00:00: 05:59 under the [place] 0.5 mg(2 00 :00 skin Medical mg/1.5 mL) weekly for Bra nch PnIj 30 days, THEN 0.5 mg weekly for 30 days, THEN 1 mg weekly for 90 days. Direction: Inject 0.25mg qWeek x 4 Weeks; then Inject 0.5mg qWeek x 4Weeks; then inject 1mg qWeek. semaglutide 2022-0 4- No [id number] inject Univers (OZEMPIC) 03-09 104 0.25 mg ity of 0.25 mg or 00:00: 05:59 under the [place] 0.5 mg(2 00 :00 skin Medical mg/1.5 mL) weekly for Bra nch PnIj 30 days, THEN 0.5 mg weekly for 30 days, THEN 1 mg weekly for 90 days. Direction: Inject 0.25mg qWeek x 4 Weeks; then Inject 0.5mg qWeek x 4Weeks; then inject 1mg qWeek. semaglutide 3-0 4- No [id number] inject Univers (OZEMPIC) 03-09 104 0.25 mg ity of 0.25 mg or 00:00: 05:59 under the [place] 0.5 mg(2 00 :00 skin Medical mg/1.5 mL) weekly for Bra nch PnIj 30 days, THEN 0.5 mg weekly for 30 days, THEN 1 mg weekly for 90 days. Direction: Inject 0.25mg qWeek x 4 Weeks; then Inject 0.5mg qWeek x 4Weeks; then inject 1mg qWeek. semaglutide 3-0 3- No [id number] inject Univers (OZEMPIC) 03-09 104 0.25 mg ity of 0.25 mg or 00:00: 00:00 under the [place] 0.5 mg(2 00 :00 skin Medical mg/1.5 mL) weekly for Bra nch PnIj 30 days, THEN 0.5 mg weekly for 30 days, THEN 1 mg weekly for 90 days. Direction: Inject 0.25mg qWeek x 4 Weeks; then Inject 0.5mg qWeek x 4Weeks; then inject 1mg qWeek. glimepiride 2023-0 Yes 2mg Take 1 Univ ers 2 mg tablet 7-14 tablet by ity of 00:00: mouth in [address] and 1 tablet in the evening. glimepiride 2023-0 Yes 2mg Take 1 Univ ers 2 mg tablet 7-14 tablet by ity of 00:00: mouth in [address] and 1 tablet in the evening. glimepiride 2023-0 Yes 2mg Take 1 Univ ers 2 mg tablet 7-14 tablet by ity of 00:00: mouth in [address] and 1 tablet in the evening. glimepiride 2023-0 Yes 2mg Take 1 Univ ers 2 mg tablet 7-14 tablet by ity of 00:00: mouth in [place] 00 the [facility] morning Branch and 1 tablet in the evening. glimepiride 2023-0 Yes 2mg Take 1 Univ ers 2 mg tablet 7-14 tablet by ity of 00:00: mouth in [place] 00 the [facility] morning [place] and 1 tablet in the evening. glimepiride 2023-0 Yes 2mg Take 1 Univ ers 2 mg tablet 7-14 tablet by ity of 00:00: mouth in [place] 00 the [facility] morning Branch and 1 tablet in the evening. glimepiride 2023-0 Yes 2mg Take 1 Univ ers 2 mg tablet 7-14 tablet by ity of 00:00: mouth in [place] 00 the [facility] morning [place] and 1 tablet in the evening. glimepiride 2023-0 Yes 2mg Take 1 Univ ers 2 mg tablet 7-14 tablet by ity of 00:00: mouth in [place] 00 the [facility] and 1 tablet in the evening. glimepiride 2023-0 Yes 2mg Take 1 Univ ers 2 mg tablet 7-14 tablet by ity of 00:00: mouth in [place] 00 the [facility] morning [place] and 1 tablet in the evening. glimepiride 2023-0 Yes 2mg Take 1 Univ ers 2 mg tablet 7-14 tablet by ity of 00:00: mouth in [place] [address] the [facility] and 1 tablet in the evening. glimepiride 2023-0 Yes 2mg Take 1 Univ ers 2 mg tablet 7-14 tablet by ity of 00:00: mouth in [place] 00 the [facility] and 1 tablet in the evening. glimepiride 2023-0 2023- No 2mg Take 1 Uni vers 2 mg tablet 7-14 11-06 tablet by it y of 00:00: 00:00 mouth in [place] 00 :00 the [facility] and 1 tablet in the evening. glimepiride 2023-0 2023- No 2mg Take 1 Uni vers 2 mg tablet 7-14 11-06 tablet by it y of 00:00: 00:00 mouth in [place] 00 :00 the [facility] and 1 tablet in the evening. metformin 2023-0 Yes Univers ER 750 mg 6-15 ity of 24 hr 14:10: [place] tablet 45 [facility] metformin 2023-0 Yes Univers ER 750 mg 6-15 ity of 24 hr 14:10: [place] tablet [address] [place] [address] metformin 3-0 Yes Univers ER 750 mg 6-15 ity of 24 hr 14:10: [place] tablet [address] [place] [address] metformin 3-0 Yes Univers ER 750 mg 6-15 ity of 24 hr 14:10: [place] tablet [address] [place] [address] metformin 3-0 Yes Univers ER 750 mg 6-15 ity of 24 hr 14:10: [place] tablet [address] [place] [address] metformin 2022-0 Yes Univers ER 750 mg 6-15 ity of 24 hr 14:10: [place] tablet [address] [place] [address] metformin 2022-0 Yes [facility] 750 mg 6-15 ity of 24 hr 14:10: [place] tablet [address] [place] [address] metformin 2022-0 Yes [facility] 750 mg 6-15 ity of 24 hr 14:10: [place] tablet [address] [place] [address] metformin 2022-0 Yes [facility] 750 mg 6-15 ity of 24 hr 14:10: [place] tablet [address] [place] [address] metformin 3-0 Yes [facility] 750 mg 6-15 ity of 24 hr 14:10: [place] tablet [address] [place] [address] metformin 3-0 Yes [facility] 750 mg 6-15 ity of 24 hr 14:10: [place] tablet [address] [place] [address] metformin 3-0 Yes [facility] 750 mg 6-15 ity of 24 hr 14:10: [place] tablet [address] [place] [address] metformin 3-0 Yes [facility] 750 mg 6-15 ity of 24 hr 14:10: [place] tablet [address] [place] [address] metformin 2023-0 Yes [facility] 750 mg 6-15 ity of 24 hr 14:10: [place] tablet [address] [place] [address] metformin 3-0 Yes [facility] 750 mg 6-15 ity of 24 hr 14:10: [place] tablet [address] [place] [address] metformin 3-0 Yes [facility] 750 mg 6-15 ity of 24 hr 14:10: [place] tablet [address] [place] [address] metformin 2023-0 Yes [facility] 750 mg 6-15 ity of 24 hr 14:10: [place] tablet [address] [place] [address] metformin 2023-0 Yes [facility] 750 mg 6-15 ity of 24 hr 14:10: [place] tablet [address] [place] [address] metformin 2023-0 Yes [facility] 750 mg 6-15 ity of 24 hr 14:10: [place] tablet [address] [place] [address] metformin 3-0 Yes [facility] 750 mg 6-15 ity of 24 hr 14:10: [place] tablet 45 [facility] metformin 3-0 Yes [facility] ER 750 mg 6-15 ity of 24 hr 14:10: [place] tablet 45 [facility] metformin 3-0 Yes [facility] 750 mg 6-15 ity of 24 hr 14:10: [place] tablet 45 [facility] metformin 3-0 Yes [facility] ER 750 mg 6-15 ity of 24 hr 14:10: [place] tablet 45 [facility] metformin 3-0 Yes [facility] 750 mg 6-15 ity of 24 hr 14:10: [place] tablet 45 [facility] metformin 2022-0 Yes [facility] ER 750 mg 6-15 ity of 24 hr 14:10: [place] tablet 45 [facility] metformin 2022-0 Yes [facility] ER 750 mg 6-15 ity of 24 hr 14:10: [place] tablet 45 [facility] metformin 2022-0 Yes [facility] ER 750 mg 6-15 ity of 24 hr 14:10: [place] tablet 45 [facility] metformin 3-0 Yes [facility] 750 mg 6-15 ity of 24 hr 14:10: [place] tablet 45 [facility] metformin 3-0 Yes [facility] 750 mg 6-15 ity of 24 hr 14:10: [place] tablet 45 [facility] metformin 3-0 Yes [facility] 750 mg 6-15 ity of 24 hr 14:10: [place] tablet 45 [facility] metformin 3-0 Yes [facility] 750 mg 6-15 ity of 24 hr 14:10: [place] tablet 45 [facility] metformin 3-0 Yes [facility] ER 750 mg 6-15 ity of 24 hr 14:10: [place] tablet 45 [facility] metformin 3-0 Yes [facility] 750 mg 6-15 ity of 24 hr 14:10: [place] tablet 45 [facility] fluconazole 3-0 Yes [id number] 200mg Take 1 [facility] (DIFLUCAN) 4-08 tablet by ity of 200 mg 00:00: mouth in [place] tablet 00 the Medical morning. Branch fluconazole 2022-0 Yes [id number] 200mg Take 1 [facility] (DIFLUCAN) 4-08 tablet by ity of 200 mg 00:00: mouth in [place] tablet 00 the Medical morning. Branch fluconazole 2022-0 Yes [id number] 200mg Take 1 [facility] (DIFLUCAN) 4-08 tablet by ity of 200 mg 00:00: mouth in [place] tablet 00 the Medical morning. Branch fluconazole 2023-0 Yes [id number] 200mg Take 1 [facility] (DIFLUCAN) 4-08 tablet by ity of 200 mg 00:00: mouth in [place] tablet 00 the Medical morning. Branch fluconazole 2023-0 Yes [id number] 200mg Take 1 [facility] (DIFLUCAN) 4-08 tablet by ity of 200 mg 00:00: mouth in [place] tablet 00 the Medical morning. Branch fluconazole 2023-0 Yes [id number] 200mg Take 1 [facility] (DIFLUCAN) 4-08 tablet by ity of 200 mg 00:00: mouth in [place] tablet 00 the Medical morning. Branch fluconazole 2023-0 Yes [id number] 200mg Take 1 [facility] (DIFLUCAN) 4-08 tablet by ity of 200 mg 00:00: mouth in [place] tablet 00 the Medical morning. Branch fluconazole 2023-0 Yes [id number] 200mg Take 1 [facility] (DIFLUCAN) 4-08 tablet by ity of 200 mg 00:00: mouth in [place] tablet 00 the Medical morning. Branch fluconazole 2023-0 Yes [id number] 200mg Take 1 [facility] (DIFLUCAN) 4-08 tablet by ity of 200 mg 00:00: mouth in [place] tablet 00 the Medical morning. Branch fluconazole 2023-0 Yes [id number] 200mg Take 1 [facility] (DIFLUCAN) 4-08 tablet by ity of 200 mg 00:00: mouth in [place] tablet 00 the Medical morning. Branch fluconazole 2023-0 Yes [id number] 200mg Take 1 [facility] (DIFLUCAN) 4-08 tablet by ity of 200 mg 00:00: mouth in [place] tablet 00 the Medical morning. Branch fluconazole 2023-0 Yes [id number] 200mg Take 1 [facility] (DIFLUCAN) 4-08 tablet by ity of 200 mg 00:00: mouth in [place] tablet 00 the Medical morning. Branch fluconazole 2023-0 Yes [id number] 200mg Take 1 [facility] (DIFLUCAN) 4-08 tablet by ity of 200 mg 00:00: mouth in [place] tablet 00 the Medical morning. Branch fluconazole 2023-0 Yes [id number] 200mg Take 1 [facility] (DIFLUCAN) 4-08 tablet by ity of 200 mg 00:00: mouth in [place] tablet 00 the Medical morning. Branch fluconazole 2023-0 Yes [id number] 200mg Take 1 [facility] (DIFLUCAN) 4-08 tablet by ity of 200 mg 00:00: mouth in [place] tablet 00 the Medical morning. Branch fluconazole 2023-0 Yes [id number] 200mg Take 1 [facility] (DIFLUCAN) 4-08 tablet by ity of 200 mg 00:00: mouth in [place] tablet 00 the Medical morning. Branch fluconazole 2023-0 Yes [id number] 200mg Take 1 [facility] (DIFLUCAN) 4-08 tablet by ity of 200 mg 00:00: mouth in [place] tablet 00 the Medical morning. Branch fluconazole 2023-0 Yes [id number] 200mg Take 1 [facility] (DIFLUCAN) 4-08 tablet by ity of 200 mg 00:00: mouth in [place] tablet 00 the Medical morning. Branch fluconazole 2023-0 Yes [id number] 200mg Take 1 [facility] (DIFLUCAN) 4-08 tablet by ity of 200 mg 00:00: mouth in [place] tablet 00 the Medical morning. Branch fluconazole 2023-0 Yes [id number] 200mg Take 1 [facility] (DIFLUCAN) 4-08 tablet by ity of 200 mg 00:00: mouth in [place] tablet 00 the Medical morning. Branch fluconazole 3-0 Yes [id number] 200mg Take 1 [facility] (DIFLUCAN) 4-08 tablet by ity of 200 mg 00:00: mouth in [place] tablet 00 the Medical morning. Branch fluconazole 2023-0 Yes [id number] 200mg Take 1 [facility] (DIFLUCAN) 4-08 tablet by ity of 200 mg 00:00: mouth in [place] tablet 00 the Medical morning. Branch fluconazole 2023-0 Yes [id number] 200mg Take 1 [facility] (DIFLUCAN) 4-08 tablet by ity of 200 mg 00:00: mouth in [place] tablet 00 the Medical morning. Branch fluconazole 2023-0 Yes [id number] 200mg Take 1 [facility] (DIFLUCAN) 4-08 tablet by ity of 200 mg 00:00: mouth in [place] tablet 00 the Medical morning. Branch fluconazole 2023-0 Yes [id number] 200mg Take 1 [facility] (DIFLUCAN) 4-08 tablet by ity of 200 mg 00:00: mouth in [place] tablet 00 the Medical morning. Branch fluconazole 2023-0 Yes [id number] 200mg Take 1 [facility] (DIFLUCAN) 4-08 tablet by ity of 200 mg 00:00: mouth in [place] tablet 00 the Medical morning. Branch fluconazole 2023-0 Yes [id number] 200mg Take 1 [facility] (DIFLUCAN) 4-08 tablet by ity of 200 mg 00:00: mouth in [place] tablet 00 the Medical morning. Branch fluconazole 2023-0 Yes [id number] 200mg Take 1 [facility] (DIFLUCAN) 4-08 tablet by ity of 200 mg 00:00: mouth in [place] tablet 00 the Medical morning. Branch fluconazole 2023-0 Yes [id number] 200mg Take 1 [facility] (DIFLUCAN) 4-08 tablet by ity of 200 mg 00:00: mouth in [place] tablet 00 the Medical morning. Branch fluconazole 2023-0 Yes [id number] 200mg Take 1 [facility] (DIFLUCAN) 4-08 tablet by ity of 200 mg 00:00: mouth in [place] tablet 00 the Medical morning. Branch fluconazole 2023-0 Yes [id number] 200mg Take 1 [facility] (DIFLUCAN) 4-08 tablet by ity of 200 mg 00:00: mouth in [place] tablet 00 the Medical morning. Branch fluconazole 3-0 Yes [id number] 200mg Take 1 [facility] (DIFLUCAN) 4-08 tablet by ity of 200 mg 00:00: mouth in [place] tablet 00 the Medical morning. Branch fluconazole 3-0 Yes [id number] 200mg Take 1 [facility] (DIFLUCAN) 4-08 tablet by ity of 200 mg 00:00: mouth in [place] tablet 00 the Medical morning. Branch fluconazole 2023-0 Yes [id number] 200mg Take 1 [facility] (DIFLUCAN) 4-08 tablet by ity of 200 mg 00:00: mouth in [place] tablet 00 the Medical morning. Branch fluconazole 2023-0 Yes [id number] 200mg Take 1 [facility] (DIFLUCAN) 4-08 tablet by ity of 200 mg 00:00: mouth in [place] tablet 00 the Medical morning. Branch fluconazole 2023-0 Yes [id number] 200mg Take 1 [facility] (DIFLUCAN) 4-08 tablet by ity of 200 mg 00:00: mouth in [place] tablet 00 the Medical morning. Branch fluconazole 2023-0 2023- No [id number] 200mg Take 1 [facility] (DIFLUCAN) 4-08 09-20 tablet by ity of 200 mg 00:00: 00:00 mouth in [place] tablet 00 :00 the Medical morning. Branch fluconazole 2022-0 2023- No [id number] 200mg Take 1 [facility] (DIFLUCAN) 4-08 09-20 tablet by ity of 200 mg 00:00: 00:00 mouth in [place] tablet 00 :00 the Medical morning. Branch 2022-0 Yes Take [...] [place] medrano 00 Medical (-1 Branch ORAL) 2023-0 Yes Take by [facility] 25/iron 4-06 [...] [place] medrano 00 Medical (-1 Branch ORAL) atorvastati 2022-0 Yes [facility] n 20 mg 3-15 ity of tablet 00:00: [place] [facility] famotidine 2022-0 Yes [facility] 40 mg 3-15 ity of tablet 00:00: [place] [facility] glimepiride 2022-0 Yes [facility] 1 mg tablet 3-15 ity of 00:00: [place] [facility] atorvastati 2022-0 Yes [facility] s n 20 mg 3-15 ity of tablet 00:00: [place] [address] Medical Branch famotidine 2022-0 Yes [facility] 40 mg 3-15 ity of tablet 00:00: [place] [address] Medical Branch glimepiride 2022-0 Yes [facility] 1 mg tablet 3-15 ity of 00:00: [place] [address] Medical Branch atorvastati 2022-0 Yes [facility] n 20 mg 3-15 ity of tablet 00:00: [place] [address] Medical Branch famotidine 2022-0 Yes [facility] 40 mg 3-15 ity of tablet 00:00: [place] [facility] glimepiride 2022-0 Yes [facility] 1 mg tablet 3-15 ity of 00:00: [place] [address] Medical Branch atorvastati 2022-0 Yes [facility] n 20 mg 3-15 ity of tablet 00:00: [place] [address] Medical Branch famotidine 2022-0 Yes [facility] 40 mg 3-15 ity of tablet 00:00: [place] [address] Medical Branch glimepiride 2022-0 Yes [facility] 1 mg tablet 3-15 ity of 00:00: [place] [facility] atorvastati 2022-0 Yes [facility] s n 20 mg 3-15 ity of tablet 00:00: [place] [address] Medical Branch famotidine 2022-0 Yes [facility] 40 mg 3-15 ity of tablet 00:00: [place] [address] Medical Branch glimepiride 2022-0 Yes [facility] 1 mg tablet 3-15 ity of 00:00: [place] [facility] atorvastati 2022-0 Yes [facility] s n 20 mg 3-15 ity of tablet 00:00: [place] [address] Medical Branch famotidine 2022-0 Yes [facility] 40 mg 3-15 ity of tablet 00:00: [place] [facility] glimepiride 2023-0 Yes [facility] 1 mg tablet 3-15 ity of 00:00: [place] 00 Medical Branch atorvastati 2023-0 Yes [facility] s n 20 mg 3-15 ity of tablet 00:00: [place] [facility] famotidine 2023-0 Yes [facility] 40 mg 3-15 ity of tablet 00:00: [place] [facility] glimepiride 2023-0 Yes [facility] 1 mg tablet 3-15 ity of 00:00: [place] [facility] atorvastati 2022-0 Yes [facility] s n 20 mg 3-15 ity of tablet 00:00: [place] [address] Medical Branch famotidine 3-0 Yes [facility] 40 mg 3-15 ity of tablet 00:00: [place] [facility] glimepiride 2022-0 Yes [facility] 1 mg tablet 3-15 ity of 00:00: [place] [facility] atorvastati 2022-0 Yes [facility] n 20 mg 3-15 ity of tablet 00:00: [place] [facility] famotidine 3-0 Yes [facility] 40 mg 3-15 ity of tablet 00:00: [place] [facility] glimepiride 3-0 Yes [facility] 1 mg tablet 3-15 ity of 00:00: [place] [facility] atorvastati 3-0 Yes [facility] n 20 mg 3-15 ity of tablet 00:00: [place] [address] Medical Branch famotidine 2023-0 Yes [facility] 40 mg 3-15 ity of tablet 00:00: [place] [facility] glimepiride 2023-0 Yes [facility] 1 mg tablet 3-15 ity of 00:00: [place] [facility] atorvastati 3-0 Yes [facility] s n 20 mg 3-15 ity of tablet 00:00: [place] [address] Medical Branch famotidine 2023-0 Yes [facility] 40 mg 3-15 ity of tablet 00:00: [place] [facility] glimepiride 2023-0 Yes [facility] 1 mg tablet 3-15 ity of 00:00: [place] [facility] atorvastati 3-0 Yes [facility] s n 20 mg 3-15 ity of tablet 00:00: [place] [facility] famotidine 2023-0 Yes [facility] 40 mg 3-15 ity of tablet 00:00: [place] [facility] glimepiride 2022-0 Yes [facility] 1 mg tablet 3-15 ity of 00:00: [place] [facility] atorvastati 2022-0 Yes [facility] s n 20 mg 3-15 ity of tablet 00:00: [place] [facility] famotidine 2022-0 Yes [facility] 40 mg 3-15 ity of tablet 00:00: [place] [facility] glimepiride 2022-0 Yes [facility] 1 mg tablet 3-15 ity of 00:00: [place] [facility] atorvastati 2022-0 Yes [facility] s n 20 mg 3-15 ity of tablet 00:00: [place] [facility] famotidine 2022-0 Yes [facility] 40 mg 3-15 ity of tablet 00:00: [place] [facility] glimepiride 2022-0 Yes [facility] 1 mg tablet 3-15 ity of 00:00: [place] [facility] atorvastati 2022-0 Yes [facility] s n 20 mg 3-15 ity of tablet 00:00: [place] [facility] famotidine 2022-0 Yes [facility] 40 mg 3-15 ity of tablet 00:00: [place] [facility] glimepiride 2022-0 Yes [facility] 1 mg tablet 3-15 ity of 00:00: [place] [facility] atorvastati 2022-0 Yes [facility] s n 20 mg 3-15 ity of tablet 00:00: [place] [address] Medical Branch famotidine 2022-0 Yes [facility] 40 mg 3-15 ity of tablet 00:00: [place] [facility] glimepiride 2022-0 Yes [facility] 1 mg tablet 3-15 ity of 00:00: [place] [facility] atorvastati 3-0 Yes [facility] s n 20 mg 3-15 ity of tablet 00:00: [place] [facility] famotidine 3-0 Yes [facility] 40 mg 3-15 ity of tablet 00:00: [place] [facility] glimepiride 2022-0 Yes [facility] 1 mg tablet 3-15 ity of 00:00: [place] [facility] atorvastati 2022-0 Yes [facility] n 20 mg 3-15 ity of tablet 00:00: [place] [address] Medical Branch famotidine 2023-0 Yes [facility] 40 mg 3-15 ity of tablet 00:00: [place] [facility] glimepiride 2022-0 Yes [facility] 1 mg tablet 3-15 ity of 00:00: [place] [facility] atorvastati 2022-0 Yes [facility] n 20 mg 3-15 ity of tablet 00:00: [place] [facility] famotidine 2022-0 Yes [facility] 40 mg 3-15 ity of tablet 00:00: [place] [facility] glimepiride 2022-0 Yes [facility] 1 mg tablet 3-15 ity of 00:00: [place] [facility] atorvastati 2022-0 Yes [facility] s n 20 mg 3-15 ity of tablet 00:00: [place] [facility] famotidine 2022-0 Yes [facility] 40 mg 3-15 ity of tablet 00:00: [place] [facility] glimepiride 2022-0 Yes [facility] 1 mg tablet 3-15 ity of 00:00: [place] [facility] atorvastati 2022-0 Yes [facility] n 20 mg 3-15 ity of tablet 00:00: [place] [address] Medical Branch famotidine 2022-0 Yes [facility] 40 mg 3-15 ity of tablet 00:00: [place] [facility] glimepiride 2022-0 Yes [facility] 1 mg tablet 3-15 ity of 00:00: [place] [facility] atorvastati 2022-0 Yes [facility] n 20 mg 3-15 ity of tablet 00:00: [place] [facility] famotidine 2022-0 Yes [facility] 40 mg 3-15 ity of tablet 00:00: [place] [facility] glimepiride 2022-0 Yes [facility] 1 mg tablet 3-15 ity of 00:00: [place] [facility] atorvastati 3-0 Yes [facility] n 20 mg 3-15 ity of tablet 00:00: [place] [facility] famotidine 3-0 Yes [facility] 40 mg 3-15 ity of tablet 00:00: [place] [address] Medical Branch glimepiride 2022-0 Yes [facility] 1 mg tablet 3-15 ity of 00:00: [place] [facility] atorvastati 2022-0 Yes [facility] n 20 mg 3-15 ity of tablet 00:00: [place] [facility] famotidine 2022-0 Yes [facility] 40 mg 3-15 ity of tablet 00:00: [place] [facility] glimepiride 2022-0 Yes [facility] 1 mg tablet 3-15 ity of 00:00: [place] [facility] atorvastati 2022-0 Yes [facility] n 20 mg 3-15 ity of tablet 00:00: [place] [facility] famotidine 2022-0 Yes [facility] 40 mg 3-15 ity of tablet 00:00: [place] [facility] glimepiride 2022-0 Yes [facility] 1 mg tablet 3-15 ity of 00:00: [place] [facility] atorvastati 2022-0 Yes [facility] n 20 mg 3-15 ity of tablet 00:00: [place] [facility] famotidine 2022-0 Yes [facility] 40 mg 3-15 ity of tablet 00:00: [place] [facility] glimepiride 2022-0 Yes [facility] 1 mg tablet 3-15 ity of 00:00: [place] [facility] atorvastati 2022-0 Yes [facility] n 20 mg 3-15 ity of tablet 00:00: [place] [address] [facility] Branch famotidine 2022-0 Yes [facility] 40 mg 3-15 ity of tablet 00:00: [place] [facility] glimepiride 2022-0 Yes [facility] 1 mg tablet 3-15 ity of 00:00: [place] [facility] atorvastati 2022-0 Yes [facility] n 20 mg 3-15 ity of tablet 00:00: [place] [facility] famotidine 2022-0 Yes [facility] 40 mg 3-15 ity of tablet 00:00: [place] [facility] glimepiride 2022-0 Yes [facility] 1 mg tablet 3-15 ity of 00:00: [place] [facility] atorvastati 2022-0 Yes [facility] n 20 mg 3-15 ity of tablet 00:00: [place] [facility] famotidine 2022-0 Yes [facility] 40 mg 3-15 ity of tablet 00:00: [place] [facility] glimepiride 2022-0 Yes [facility] 1 mg tablet 3-15 ity of 00:00: [place] [address] [facility] Branch atorvastati 2022-0 Yes [facility] n 20 mg 3-15 ity of tablet 00:00: [place] [facility] famotidine 2022-0 Yes [facility] 40 mg 3-15 ity of tablet 00:00: [place] [facility] glimepiride 2022-0 Yes [facility] 1 mg tablet 3-15 ity of 00:00: [place] [facility] atorvastati 2022-0 Yes [facility] n 20 mg 3-15 ity of tablet 00:00: [place] [facility] famotidine 2022-0 Yes [facility] 40 mg 3-15 ity of tablet 00:00: [place] [facility] glimepiride 2022-0 Yes [facility] 1 mg tablet 3-15 ity of 00:00: [place] [facility] atorvastati 2022-0 Yes [facility] n 20 mg 3-15 ity of tablet 00:00: [place] [address] [facility] Branch famotidine 2022-0 Yes [facility] 40 mg 3-15 ity of tablet 00:00: [place] [facility] glimepiride 2022-0 Yes [facility] 1 mg tablet 3-15 ity of 00:00: [place] [address] [facility] Branch atorvastati 2022-0 Yes [facility] n 20 mg 3-15 ity of tablet 00:00: [place] [address] [facility] Branch famotidine 2022-0 Yes [facility] 40 mg 3-15 ity of tablet 00:00: [place] [address] [facility] Branch glimepiride 2022-0 Yes [facility] 1 mg tablet 3-15 ity of 00:00: [place] [facility] atorvastati 2022-0 Yes [facility] n 20 mg 3-15 ity of tablet 00:00: [place] [facility] famotidine 3-0 Yes [facility] 40 mg 3-15 ity of tablet 00:00: [place] [facility] glimepiride 2022-0 Yes [facility] 1 mg tablet 3-15 ity of 00:00: [place] [facility] atorvastati 2022-0 Yes [facility] n 20 mg 3-15 ity of tablet 00:00: [place] [address] [facility] Branch famotidine 2022-0 Yes [facility] 40 mg 3-15 ity of tablet 00:00: [place] [facility] glimepiride 2022-0 Yes [facility] 1 mg tablet 3-15 ity of 00:00: [place] [facility] atorvastati 2022-0 Yes [facility] s n 20 mg 3-15 ity of tablet 00:00: [place] [facility] famotidine 202-0 Yes [facility] 40 mg 3-15 ity of tablet 00:00: [place] [facility] glimepiride 2022-0 Yes [facility] 1 mg tablet 3-15 ity of 00:00: Medical Branch atorvastati 2022-0 Yes [facility] n 20 mg 3-15 ity of tablet 00:00: [place] [facility] famotidine 2022-0 Yes [facility] 40 mg 3-15 ity of tablet 00:00: [place] [facility] glimepiride 2022-0 Yes [facility] 1 mg tablet 3-15 ity of 00:00: [place] [facility] atorvastati 2022-0 Yes [facility] n 20 mg 3-15 ity of tablet 00:00: [place] [facility] famotidine 2022-0 Yes [facility] 40 mg 3-15 ity of tablet 00:00: [place] [facility] glimepiride 2022-0 Yes [facility] 1 mg tablet 3-15 ity of 00:00: [place] [facility] atorvastati 2022-0 Yes [facility] n 20 mg 3-15 ity of tablet 00:00: [place] [facility] famotidine 2022-0 Yes [facility] 40 mg 3-15 ity of tablet 00:00: [place] [facility] atorvastati 2022-0 Yes [facility] n 20 mg 3-15 ity of tablet 00:00: [place] [facility] famotidine 3-0 Yes [facility] 40 mg 3-15 ity of tablet 00:00: [place] [facility] atorvastati 3-0 Yes [facility] n 20 mg 3-15 ity of tablet 00:00: [place] [facility] famotidine 202-0 Yes [facility] 40 mg 3-15 ity of tablet 00:00: [place] [facility] atorvastati 2022-0 Yes [facility] n 20 mg 3-15 ity of tablet 00:00: [place] [facility] famotidine 3-0 Yes [facility] 40 mg 3-15 ity of tablet 00:00: [place] [address] [facility] Branch atorvastati 2023-0 Yes [facility] n 20 mg 3-15 ity of tablet 00:00: [place] [facility] famotidine 2022-0 Yes [facility] 40 mg 3-15 ity of tablet 00:00: [place] [facility] atorvastati 2022-0 Yes [facility] n 20 mg 3-15 ity of tablet 00:00: [place] [facility] famotidine 2022-0 Yes [facility] 40 mg 3-15 ity of tablet 00:00: [place] [facility] atorvastati 2022-0 Yes [facility] n 20 mg 3-15 ity of tablet 00:00: [place] [facility] famotidine 2022-0 Yes [facility] 40 mg 3-15 ity of tablet 00:00: [place] [facility] atorvastati 2022-0 Yes [facility] n 20 mg 3-15 ity of tablet 00:00: [place] [address] [facility] Branch famotidine 2022-0 Yes [facility] 40 mg 3-15 ity of tablet 00:00: [place] [facility] atorvastati 2022-0 Yes [facility] n 20 mg 3-15 ity of tablet 00:00: [place] [facility] famotidine 2022-0 Yes [facility] 40 mg 3-15 ity of tablet 00:00: [place] [facility] atorvastati 2022-0 Yes [facility] s n 20 mg 3-15 ity of tablet 00:00: [place] [facility] famotidine 2022-0 Yes [facility] 40 mg 3-15 ity of tablet 00:00: [place] [facility] atorvastati 2022-0 Yes [facility] s n 20 mg 3-15 ity of tablet 00:00: [place] [facility] famotidine 2022-0 Yes [facility] 40 mg 3-15 ity of tablet 00:00: [place] [address] [facility] Branch atorvastati 2022-0 Yes [facility] n 20 mg 3-15 ity of tablet 00:00: [place] [facility] famotidine 2023-0 Yes [facility] 40 mg 3-15 ity of tablet 00:00: [place] [address] [facility] Branch atorvastati 2022-0 Yes [facility] n 20 mg 3-15 ity of tablet 00:00: [place] [facility] famotidine 2022-0 Yes [facility] 40 mg 3-15 ity of tablet 00:00: [place] 00 [facility] Branch atorvastati 0 Yes [facility] s n 20 mg 3-15 ity of tablet 00:00: 00 Medical Branch famotidine 2022-0 Yes [facility] 40 mg 3-15 ity of tablet 00:00: Medical Branch atorvastati 2022-0 Yes [facility] n 20 mg 3-15 ity of tablet 00:00: Medical Branch famotidine 2022-0 Yes [facility] 40 mg 3-15 ity of tablet 00:00: Medical Branch atorvastati 0 Yes [facility] s n 20 mg 3-15 ity of tablet 00:00: Medical Branch famotidine 2022-0 Yes [facility] 40 mg 3-15 ity of tablet 00:00: Medical Branch glimepiride 2022-0 3- No [facility] 1 mg tablet 3-15 -20 ity of 00:00: 00:00 [place] 00 :00 Medical Branch glimepiride 2022-0 2022- No [facility] 1 mg tablet 3-15 -20 ity of 00:00: 00:00 [place] 00 :00 Medical Branch metformin 2022-0 3- No [facility] ER 750 mg 3-15 -06 ity of 24 hr 00:00: 00:00 [place] tablet 00 :00 Medical Branch metformin 2022-0 2022- No [facility] ER 750 mg 3-15 -06 ity of 24 hr 00:00: 00:00 [place] tablet 00 :00 Medical Branch Yes Take by [facility] 25/iron 3-08 [...] [place] medrano 02 Medical (-1 Branch ORAL) ondansetron 2021-08 Yes [id number] 4mg Take 1 [facility] 4 mg 2-12 tablet by ity of disintegrat 00:00: mouth [place] ing tablet 00 every 8 Medica l (eight) Branch hours as needed for Nausea and Vomiting (N/V). benzonatate 2021-08 Yes [id number] 200mg Take 2 [facility] 100 mg 2-12 capsules ity of capsule 00:00: by mouth [place] 00 every 8 Medical (eight) Branch hours as needed for Cough. ondansetron 2021-08- No [id number] 4mg Take 1 [facility] 4 mg 2-12 03-08 tablet by ity of disintegrat 00:00: 00:00 [place] :00 every 8 Medica l (eight) Branch hours as needed for Nausea and Vomiting (N/V). benzonatate 2021-08- No [id number] 200mg Take 2 [facility] 100 mg 2-12 03-08 capsules ity of capsule 00:00: 00:00 by mouth [place] 00 :00 every 8 Medical (eight) Branch hours as needed for Cough. No known No [facility] medications 6-10 ity of 11:08: [address] No known 0 No No known Un[facility] rs medications 6-10 medication it y of 11:08: s [address] No known 0 No No known Un[facility] rs medications 6-10 medication it y of 11:08: s [address] No known 2021-0 No No known Un[facility] rs medications 6-10 medication it y of 11:08: [place] [address] No known 0 No [facility] medications 6-07 ity of 13:08: [place] [facility] No known 2021-0 No [facility] medications 5-23 ity of 11:31: [place] [facility] No known 2021-0 No [facility] medications 5-23 ity of 11:31: [place] [facility] No known 2021-0 No [facility] medications 5-23 ity of 11:31: [place] [facility] PNV 2021- No [id number] 1{capsu Take 1 Uni vers 102-iron-fo - 05-27 le} capsule by i ty of [facility] 00:00: 04:59 mouth [place] (VITAFOL FE 00 :00 daily for Med ical PLUS) 90 mg 30 days. Bran ch iron- 1 mg-200 mg Cap PNV 2021- No [id number] 1{capsu Take 1 Uni vers 102-iron-fo 11-29 05-27 le} [facility]:00: 04:59 mouth [place] (VITAFOL FE 00 :00 daily for Med ical PLUS) 90 mg 30 days. Bran ch iron- 1 mg-200 mg Cap PNV 2021- No [id number] 1{capsu Take 1 Uni vers 102-iron-fo 11-29 05-27 le} capsule by i ty of [facility] 00:00: 04:59 mouth [place] (VITAFOL FE 00 :00 daily for Med ical PLUS) 90 mg 30 days. Bran ch iron- 1 mg-200 mg Cap PNV 2021- No [id number] 1{capsu Take 1 Uni vers 102-iron-fo - 05-27 le} capsule by i ty of [facility] 00:00: 04:59 mouth [place] (VITAFOL FE 00 :00 daily for Med ical PLUS) 90 mg 30 days. Bran ch iron- 1 mg-200 mg Cap PNV 2021- No [id number] 1{capsu Take 1 Uni vers 102-iron-fo 11-29 05-27 le} capsule by i ty of [facility] 00:00: 04:59 mouth [place] (VITAFOL FE 00 :00 daily for Med ical PLUS) 90 mg 30 days. Bran ch iron- 1 mg-200 mg Cap PNV 2021- No [id number] 1{capsu Take 1 Uni vers 102-iron-fo 4 05-27 le} [facility]:00: 04:59 mouth [place] (VITAFOL FE 00 :00 daily for Med ical PLUS) 90 mg 30 days. Bran ch iron- 1 mg-200 mg Cap PNV No [id number] 1{capsu Take 1 Uni vers 102-iron-fo 4- 05-27 le} capsule by i ty of [facility] 00:00: 04:59 mouth [place] (VITAFOL FE 00 :00 daily for Med ical PLUS) 90 mg 30 days. Bran ch iron- 1 mg-200 mg Cap PNV 2021- No [id number] 1{capsu Take 1 Uni vers 102-iron-fo 11-29 le} capsule by i ty of [facility] 00:00: 04:59 mouth [place] (VITAFOL FE 00 :00 daily for Med ical PLUS) 90 mg 30 days. Bran ch iron- 1 mg-200 mg Cap terconazole 2021- No [id number] 80mg Insert 1 Univers 80 mg 11-2930 Suppositor ity of vaginal 00:00: 04:59 y into [place] suppository 00 :00 vagina at [facility] ical bedtime Branch for 3 days. PNV 2021- No [id number] 1{capsu Take 1 Uni vers 102-iron-fo 11-28 le} [facility] 04[facility]59 [place]VITAFOL FE 00 :00 now for 1 Med ical PLUS) 90 mg dose. Branch iron- 1 mg-200 mg Cap No known No Univers medications 7-20 ity of 17:41: [address] Immunizations Ordered Immunization Filled Date Status Comments Sour ce Name Immunization Name TDAP (ADACEL) 2019-10-06 Completed University of VACCINE 00:00:00 [facility] TDAP (ADACEL) 2019-10-06 Completed University of VACCINE 00:00:00 [facility] TDAP (ADACEL) 2019-10-06 Completed University of VACCINE 00:00:00 [facility] TDAP (ADACEL) 2019-10-06 Completed University of VACCINE 00:00:00 [facility] TDAP (ADACEL) 2019-10-06 Completed University of VACCINE 00:00:00 [facility] TDAP (ADACEL) 2019-10-06 Completed University of VACCINE 00:00:00 [facility] TDAP (ADACEL) 2019-10-06 Completed University of VACCINE 00:00:00 [facility] TDAP (ADACEL) 2019-10-06 Completed University of VACCINE 00:00:00 [place] [facility] TDAP (ADACEL) 2019-10-06 Completed University of VACCINE 00:00:00 [place] [facility] TDAP (ADACEL) 2019-10-06 Completed University of VACCINE 00:00:00 [place] [facility] TDAP (ADACEL) 2019-10-06 Completed University of VACCINE 00:00:00 [facility] TDAP (ADACEL) 2019-10-06 Completed University of VACCINE 00:00:00 [facility] TDAP (ADACEL) 2019-10-06 Completed University of VACCINE 00:00:00 [facility] TDAP (ADACEL) 2019-10-06 Completed University of VACCINE 00:00:00 [facility] TDAP (ADACEL) 2019-10-06 Completed University of VACCINE 00:00:00 [facility] TDAP (ADACEL) 2019-10-06 Completed University of VACCINE 00:00:00 [facility] TDAP (ADACEL) 2019-10-06 Completed University of VACCINE 00:00:00 [facility] TDAP (ADACEL) 2019-10-06 Completed University of VACCINE 00:00:00 [facility] TDAP (ADACEL) 2019-10-06 Completed University of VACCINE 00:00:00 [facility] TDAP (ADACEL) 2019-10-06 Completed University of VACCINE 00:00:00 [facility] TDAP (ADACEL) 2019-10-06 Completed University of VACCINE 00:00:00 [facility] TDAP (ADACEL) 2019-10-06 Completed University of VACCINE 00:00:00 [facility] TDAP (ADACEL) 2019-10-06 Completed University of VACCINE 00:00:00 [facility] TDAP (ADACEL) 2019-10-06 Completed University of VACCINE 00:00:00 [facility] TDAP (ADACEL) 2019-10-06 Completed University of VACCINE 00:00:00 [facility] TDAP (ADACEL) 2019-10-06 Completed University of VACCINE 00:00:00 [place] [facility] TDAP (ADACEL) 2019-10-06 Completed University of VACCINE 00:00:00 [place] [facility] TDAP (ADACEL) 2019-10-06 Completed University of VACCINE 00:00:00 [facility] TDAP (ADACEL) 2019-10-06 Completed University of VACCINE 00:00:00 [place] [facility] TDAP (ADACEL) 2019-10-06 Completed University of VACCINE 00:00:00 [place] [facility] TDAP (ADACEL) 2019-10-06 Completed University of VACCINE 00:00:00 [place] [facility] TDAP (ADACEL) 2019-10-06 Completed University of VACCINE 00:00:00 [place] [facility] TDAP (ADACEL) 2019-10-06 Completed University of VACCINE 00:00:00 [facility] TDAP (ADACEL) 2019-10-06 Completed University of VACCINE 00:00:00 [facility] TDAP (ADACEL) 2019-10-06 Completed University of VACCINE 00:00:00 [place] [facility] TDAP (ADACEL) 2019-10-06 Completed University of VACCINE 00:00:00 [facility] TDAP (ADACEL) 2019-10-06 Completed University of VACCINE 00:00:00 [facility] TDAP (ADACEL) 2019-10-06 Completed University of VACCINE 00:00:00 [facility] TDAP (ADACEL) 2019-10-06 Completed University of VACCINE 00:00:00 [facility] TDAP (ADACEL) 2019-10-06 Completed University of VACCINE 00:00:00 [facility] TDAP (ADACEL) 2019-10-06 Completed University of VACCINE 00:00:00 [facility] TDAP (ADACEL) 2019-10-06 Completed University of VACCINE 00:00:00 [facility] TDAP (ADACEL) 2019-10-06 Completed University of VACCINE 00:00:00 [facility] TDAP (ADACEL) 2019-10-06 Completed University of VACCINE 00:00:00 [facility] TDAP (ADACEL) 2019-10-06 Completed University of VACCINE 00:00:00 [place] [facility] TDAP (ADACEL) 2019-10-06 Completed University of VACCINE 00:00:00 [facility] TDAP (ADACEL) 2019-10-06 Completed University of VACCINE 00:00:00 [place] [facility] TDAP (ADACEL) 2019-10-06 Completed University of VACCINE 00:00:00 [place] [facility] TDAP (ADACEL) 2019-10-06 Completed University of VACCINE 00:00:00 [facility] TDAP (ADACEL) 2019-10-06 Completed University of VACCINE 00:00:00 [place] [facility] TDAP (ADACEL) 2019-10-06 Completed University of VACCINE 00:00:00 [facility] TDAP (ADACEL) 2019-10-06 Completed University of VACCINE 00:00:00 [facility] TDAP (ADACEL) 2019-10-06 Completed University of VACCINE 00:00:00 [facility] TDAP (ADACEL) 2019-10-06 Completed University of VACCINE 00:00:00 [facility] TDAP (ADACEL) 2019-10-06 Completed University of VACCINE 00:00:00 [facility] TDAP (ADACEL) 2019-10-06 Completed University of VACCINE 00:00:00 [facility] TDAP (ADACEL) 2019-10-06 Completed University of VACCINE 00:00:00 [facility] TDAP (ADACEL) 2019-10-06 Completed University of VACCINE 00:00:00 [facility] TDAP (ADACEL) 2019-10-06 Completed University of VACCINE 00:00:00 [facility] TDAP (ADACEL) 2019-10-06 Completed University of VACCINE 00:00:00 [facility] TDAP (ADACEL) 2019-10-06 Completed University of VACCINE 00:00:00 [facility] TDAP (ADACEL) 2019-10-06 Completed University of VACCINE 00:00:00 [facility] Influenza Virus 2019-06-02 Completed Universit y of Vaccine Quad .5 mL 00:00:00 [place] [facility] Influenza Virus 2019-06-02 Completed Universit y of [facility] .5 mL 00:00:00 [place] [facility] Influenza Virus 2019-06-02 Completed Universit y of [facility] .5 mL 00:00:00 [place] [facility] Influenza Virus 2019-06-02 Completed Universit y of [facility] .5 mL 00:00:00 [place] [facility] Influenza Virus 2019-06-02 Completed Universit y of [facility] .5 mL 00:00:00 [place] [facility] Influenza Virus 2019-06-02 Completed Universit y of [facility] .5 mL 00:00:00 [place] [facility] Influenza Virus 2019-06-02 Completed Universit y of [facility] .5 mL 00:00:00 [place] [facility] Influenza Virus 2019-06-02 Completed Universit y of [facility] .5 mL 00:00:00 [place] [facility] Influenza Virus 2019-06-02 Completed Universit y of [facility] .5 mL 00:00:00 [place] [facility] Influenza Virus 2019-06-02 Completed Universit y of [facility] .5 mL 00:00:00 [place] [facility] Influenza Virus 2019-06-02 Completed Universit y of [facility] .5 mL 00:00:00 [place] [facility] Influenza Virus 2019-06-02 Completed Universit y of [facility] .5 mL 00:00:00 [place] [facility] Influenza Virus 2019-06-02 Completed Universit y of [facility] .5 mL 00:00:00 [place] [facility] Influenza Virus 2019-06-02 Completed Universit y of [facility] .5 mL 00:00:00 [place] [facility] Influenza Virus 2019-06-02 Completed Universit y of [facility] .5 mL 00:00:00 [place] [facility] Influenza Virus 2019-06-02 Completed Universit y of [facility] .5 mL 00:00:00 [place] [facility] Influenza Virus 2019-06-02 Completed Universit y of [facility] .5 mL 00:00:00 [place] [facility] Influenza Virus 2019-06-02 Completed Universit y of [facility] .5 mL 00:00:00 [place] [facility] Influenza Virus 2019-06-02 Completed Universit y of [facility] .5 mL 00:00:00 [place] [facility] Influenza Virus 2019-06-02 Completed Universit y of [facility] .5 mL 00:00:00 [place] [facility] Influenza Virus 2019-06-02 Completed Universit y of [facility] .5 mL 00:00:00 [place] [facility] Influenza Virus 2019-06-02 Completed Universit y of [facility] .5 mL 00:00:00 [place] [facility] Influenza Virus 2019-06-02 Completed Universit y of [facility] .5 mL 00:00:00 [place] [facility] Influenza Virus 2019-06-02 Completed Universit y of [facility] .5 mL 00:00:00 [place] [facility] Influenza Virus 2019-06-02 Completed Universit y of [facility] .5 mL 00:00:00 [place] [facility] Influenza Virus 2019-06-02 Completed Universit y of [facility] .5 mL 00:00:00 [place] [facility] Influenza Virus 2019-06-02 Completed Universit y of [facility] .5 mL 00:00:00 [place] [facility] Influenza Virus 2019-06-02 Completed Universit y of [facility] .5 mL 00:00:00 [place] [facility] Influenza Virus 2019-06-02 Completed Universit y of [facility] .5 mL 00:00:00 [place] [facility] MO [facility] Influenza Virus 2019-06-02 Completed Universit y of [facility] .5 mL 00:00:00 [place] [facility] Influenza Virus 2019-06-02 Completed Universit y of [facility] .5 mL 00:00:00 [place] [facility] Influenza Virus 2019-06-02 Completed Universit y of [facility] .5 mL 00:00:00 [place] [facility] Influenza Virus 2019-06-02 Completed Universit y of [facility] .5 mL 00:00:00 [place] [facility] Influenza Virus 2019-06-02 Completed Universit y of [facility] .5 mL 00:00:00 [place] [facility] Influenza Virus 2019-06-02 Completed Universit y of [facility] .5 mL 00:00:00 [place] [facility] Influenza Virus 2019-06-02 Completed Universit y of [facility] .5 mL 00:00:00 [place] [facility] Influenza Virus 2019-06-02 Completed Universit y of [facility] .5 mL 00:00:00 [place] [facility] Influenza Virus 2019-06-02 Completed Universit y of [facility] .5 mL 00:00:00 [place] [facility] Influenza Virus 2019-06-02 Completed Universit y of [facility] .5 mL 00:00:00 [place] [facility] MO [facility] Influenza Virus 2019-06-02 Completed Universit y of [facility] .5 mL 00:00:00 [place] [facility] Influenza Virus 2019-06-02 Completed Universit y of [facility] .5 mL 00:00:00 [place] [facility] Influenza Virus 2019-06-02 Completed Universit y of [facility] .5 mL 00:00:00 [place] [facility] MO [facility] Influenza Virus 2019-06-02 Completed Universit y of [facility] .5 mL 00:00:00 [place] [facility] Influenza Virus 2019-06-02 Completed Universit y of [facility] .5 mL 00:00:00 [place] [facility] MO Branch Influenza Virus 2019-06-02 Completed Universit y of [facility] .5 mL 00:00:00 [place] [facility] Influenza Virus 2019-06-02 Completed Universit y of [facility] .5 mL 00:00:00 [place] [facility] Influenza Virus 2019-06-02 Completed Universit y of [facility] .5 mL 00:00:00 [place] [facility] MO Branch Influenza Virus 2019-06-02 Completed Universit y of [facility] .5 mL 00:00:00 [place] [facility] Influenza Virus 2019-06-02 Completed Universit y of [facility] .5 mL 00:00:00 [place] [facility] MO Branch Influenza Virus 2019-06-02 Completed Universit y of [facility] .5 mL 00:00:00 [place] [facility] MO Branch Influenza Virus 2019-06-02 Completed Universit y of [facility] .5 mL 00:00:00 [place] [facility] MO Branch Influenza Virus 2019-06-02 Completed Universit y of [facility] .5 mL 00:00:00 [place] [facility] MO Branch Influenza Virus 2019-06-02 Completed Universit y of [facility] .5 mL 00:00:00 [place] [facility] MO Branch Influenza Virus 2019-06-02 Completed Universit y of [facility] .5 mL 00:00:00 [place] [facility] MO Branch Influenza Virus 2019-06-02 Completed Universit y of [facility] .5 mL 00:00:00 [place] [facility] MO Branch Influenza Virus 2019-06-02 Completed Universit y of [facility] .5 mL 00:00:00 [place] [facility] MO Branch Influenza Virus 2019-06-02 Completed Universit y of [facility] .5 mL 00:00:00 [place] [facility] MO Branch Influenza Virus 2019-06-02 Completed Universit y of [facility] .5 mL 00:00:00 [place] [facility] Influenza Virus 2019-06-02 Completed Universit y of [facility] .5 mL 00:00:00 [place] [facility] MO Branch Influenza Virus 2019-06-02 Completed Universit y of [facility] .5 mL 00:00:00 [place] [facility] MO Branch Influenza Virus 2019-06-02 Completed Universit y of Vaccine [facility] .5 mL 00:00:00 [facility] IM 6+ MO Branch Influenza Virus 2019-06-02 Completed Universit y of Vaccine [facility] .5 mL 00:00:00 [facility] IM 6+ MO Branch TDAP 2015-12-29 Completed University of 00:00:00 [facility] TDAP 2015-12-29 Completed University of 00:00:00 [facility] TDAP 2015-12-29 Completed University of 00:00:00 [facility] TDAP 2015-12-29 Completed University of 00:00:00 [facility] TDAP 2015-12-29 Completed University of 00:00:00 [facility] TDAP 2015-12-29 Completed University of 00:00:00 [facility] TDAP 2015-12-29 Completed University of 00:00:00 [facility] TDAP 2015-12-29 Completed University of 00:00:00 [facility] TDAP 2015-12-29 Completed University of 00:00:00 [facility] TDAP 2015-12-29 Completed University of 00:00:00 [facility] TDAP 2015-12-29 Completed University of 00:00:00 [facility] TDAP 2015-12-29 Completed University of 00:00:00 [facility] TDAP 2015-12-29 Completed University of 00:00:00 [facility] TDAP 2015-12-29 Completed University of 00:00:00 [facility] TDAP 2015-12-29 Completed University of 00:00:00 [facility] TDAP 2015-12-29 Completed University of 00:00:00 [facility] TDAP 2015-12-29 Completed University of 00:00:00 [facility] TDAP 2015-12-29 Completed University of 00:00:00 [facility] TDAP 2015-12-29 Completed University of 00:00:00 [facility] TDAP 2015-12-29 Completed University of 00:00:00 [facility] TDAP 2015-12-29 Completed University of 00:00:00 [facility] TDAP 2015-12-29 Completed University of 00:00:00 [facility] TDAP 2015-12-29 Completed University of 00:00:00 [facility] TDAP 2015-12-29 Completed University of 00:00:00 [facility] TDAP 2015-12-29 Completed University of 00:00:00 [facility] TDAP 2015-12-29 Completed University of 00:00:00 [place] [facility] TDAP 2015-12-29 Completed University of 00:00:00 [place] [facility] TDAP 2015-12-29 Completed University of 00:00:00 [place] [facility] TDAP 2015-12-29 Completed University of 00:00:00 [place] [facility] TDAP 2015-12-29 Completed University of 00:00:00 [place] [facility] TDAP 2015-12-29 Completed University of 00:00:00 [place] [facility] TDAP 2015-12-29 Completed University of 00:00:00 [place] [facility] TDAP 2015-12-29 Completed University of 00:00:00 [place] [facility] TDAP 2015-12-29 Completed University of 00:00:00 [place] [facility] TDAP 2015-12-29 Completed University of 00:00:00 [place] [facility] TDAP 2015-12-29 Completed University of 00:00:00 [place] [facility] TDAP 2015-12-29 Completed University of 00:00:00 [facility] TDAP 2015-12-29 Completed University of 00:00:00 [facility] TDAP 2015-12-29 Completed University of 00:00:00 [facility] TDAP 2015-12-29 Completed University of 00:00:00 [facility] TDAP 2015-12-29 Completed University of 00:00:00 [place] [facility] TDAP 2015-12-29 Completed University of 00:00:00 [place] [facility] TDAP 2015-12-29 Completed University of 00:00:00 [facility] TDAP 2015-12-29 Completed University of 00:00:00 [facility] TDAP 2015-12-29 Completed University of 00:00:00 [place] [facility] TDAP 2015-12-29 Completed University of 00:00:00 [place] [facility] TDAP 2015-12-29 Completed University of 00:00:00 [place] [facility] TDAP 2015-12-29 Completed University of 00:00:00 [place] [facility] TDAP 2015-12-29 Completed University of 00:00:00 [place] [facility] TDAP 2015-12-29 Completed University of 00:00:00 [place] [facility] TDAP 2015-12-29 Completed University of 00:00:00 [place] [facility] TDAP 2015-12-29 Completed University of 00:00:00 [facility] TDAP 2015-12-29 Completed University of 00:00:00 [facility] TDAP 2015-12-29 Completed University of 00:00:00 [facility] TDAP 2015-12-29 Completed University of 00:00:00 [facility] TDAP 2015-12-29 Completed University of 00:00:00 [facility] TDAP 2015-12-29 Completed University of 00:00:00 [facility] TDAP 2015-12-29 Completed University of 00:00:00 [facility] TDAP 2015-12-29 Completed University of 00:00:00 [facility] TDAP 2015-12-29 Completed University of 00:00:00 [facility] TDAP 2015-12-29 Completed University of 00:00:00 [facility] TDAP 2015-12-29 Completed University of 00:00:00 [facility] Influenza Virus 2015-10-07 Completed Universit y of [facility] IM 3+ 00:00:00 [facility] Influenza Virus 2015-10-07 Completed Universit y of [facility] IM 3+ 00:00:00 [facility] Influenza Virus 2015-10-07 Completed Universit y of [facility] IM 3+ 00:00:00 [facility] Influenza Virus 2015-10-07 Completed Universit y of [facility] IM 3+ 00:00:00 [facility] Influenza Virus 2015-10-07 Completed Universit y of [facility] IM 3+ 00:00:00 [facility] Influenza Virus 2015-10-07 Completed Universit y of [facility] IM 3+ 00:00:00 [facility] Influenza Virus 2015-10-07 Completed Universit y of [facility] IM 3+ 00:00:00 [facility] Influenza Virus 2015-10-07 Completed Universit y of [facility] IM 3+ 00:00:00 [facility] Influenza Virus 2015-10-07 Completed Universit y of [facility] IM 3+ 00:00:00 [facility] Influenza Virus 2015-10-07 Completed Universit y of [facility] IM 3+ 00:00:00 [facility] Influenza Virus 2015-10-07 Completed Universit y of [facility] IM 3+ 00:00:00 [facility] Influenza Virus 2015-10-07 Completed Universit y of [facility] IM 3+ 00:00:00 [facility] Influenza Virus 2015-10-07 Completed Universit y of [facility] IM 3+ 00:00:00 [facility] Influenza Virus 2015-10-07 Completed Universit y of [facility] IM 3+ 00:00:00 [facility] Influenza Virus 2015-10-07 Completed Universit y of [facility] IM 3+ 00:00:00 [facility] Influenza Virus 2015-10-07 Completed Universit y of [facility] IM 3+ 00:00:00 [facility] Influenza Virus 2015-10-07 Completed Universit y of [facility] IM 3+ 00:00:00 [facility] Influenza Virus 2015-10-07 Completed Universit y of [facility] IM 3+ 00:00:00 [facility] Influenza Virus 2015-10-07 Completed Universit y of [facility] IM 3+ 00:00:00 [facility] Influenza Virus 2015-10-07 Completed Universit y of [facility] IM 3+ 00:00:00 [facility] Influenza Virus 2015-10-07 Completed Universit y of [facility] IM 3+ 00:00:00 [facility] Influenza Virus 2015-10-07 Completed Universit y of [facility] IM 3+ 00:00:00 [facility] Influenza Virus 2015-10-07 Completed Universit y of [facility] IM 3+ 00:00:00 [facility] Influenza Virus 2015-10-07 Completed Universit y of [facility] IM 3+ 00:00:00 [facility] Influenza Virus 2015-10-07 Completed Universit y of [facility] IM 3+ 00:00:00 [facility] Influenza Virus 2015-10-07 Completed Universit y of [facility] IM 3+ 00:00:00 [facility] Influenza Virus 2015-10-07 Completed Universit y of [facility] IM 3+ 00:00:00 [facility] Influenza Virus 2015-10-07 Completed Universit y of [facility] IM 3+ 00:00:00 [facility] Influenza Virus 2015-10-07 Completed Universit y of [facility] IM 3+ 00:00:00 [facility] Influenza Virus 2015-10-07 Completed Universit y of [facility] IM 3+ 00:00:00 [facility] Influenza Virus 2015-10-07 Completed Universit y of [facility] IM 3+ 00:00:00 [facility] Influenza Virus 2015-10-07 Completed Universit y of [facility] IM 3+ 00:00:00 [facility] Influenza Virus 2015-10-07 Completed Universit y of [facility] IM 3+ 00:00:00 [facility] Influenza Virus 2015-10-07 Completed Universit y of [facility] IM 3+ 00:00:00 [facility] Influenza Virus 2015-10-07 Completed Universit y of Vaccine Quad IM 3+ 00:00:00 [facility] Influenza Virus 2015-10-07 Completed Universit y of Vaccine Quad IM 3+ 00:00:00 [facility] Influenza Virus 2015-10-07 Completed [facility] y of Vaccine Quad IM 3+ 00:00:00 [facility] Influenza Virus 2015-10-07 Completed [facility]it y of Vaccine Quad IM 3+ 00:00:00 [facility] Influenza Virus 2015-10-07 Completed [facility] y of Vaccine Quad IM 3+ 00:00:00 [facility] Influenza Virus 2015-10-07 Completed [facility]it y of Vaccine Quad IM 3+ 00:00:00 [facility] Influenza Virus 2015-10-07 Completed [facility]it y of Vaccine Quad IM 3+ 00:00:00 [facility] Influenza Virus 2015-10-07 Completed [facility]it y of Vaccine Quad IM 3+ 00:00:00 [facility] Influenza Virus 2015-10-07 Completed [facility]it y of Vaccine Quad IM 3+ 00:00:00 [facility] Influenza Virus 2015-10-07 Completed [facility] y of Vaccine Quad IM 3+ 00:00:00 [facility] Influenza Virus 2015-10-07 Completed [facility] y of Vaccine Quad IM 3+ 00:00:00 [facility] Influenza Virus 2015-10-07 Completed [facility] y of Vaccine Quad IM 3+ 00:00:00 [facility] Influenza Virus 2015-10-07 Completed [facility] y of Vaccine Quad IM 3+ 00:00:00 [facility] Influenza Virus 2015-10-07 Completed [facility]it y of Vaccine Quad IM 3+ 00:00:00 [facility] Influenza Virus 2015-10-07 Completed [facility] y of Vaccine Quad IM 3+ 00:00:00 [facility] Influenza Virus 2015-10-07 Completed [facility] y of Vaccine Quad IM 3+ 00:00:00 [facility] Influenza Virus 2015-10-07 Completed [facility] y of Vaccine Quad IM 3+ 00:00:00 [facility] Influenza Virus 2015-10-07 Completed [facility] y of Vaccine Quad IM 3+ 00:00:00 [facility] Influenza Virus 2015-10-07 Completed [facility] y of Vaccine Quad IM 3+ 00:00:00 [facility] Influenza Virus 2015-10-07 Completed [facility] y of Vaccine Quad IM 3+ 00:00:00 [facility] Influenza Virus 2015-10-07 Completed [facility] y of Vaccine Quad IM 3+ 00:00:00 [facility] Influenza Virus 2015-10-07 Completed [facility] y of Vaccine Quad IM 3+ 00:00:00 [facility] Influenza Virus 2015-10-07 Completed [facility] y of Vaccine Quad IM 3+ 00:00:00 [facility] Influenza Virus 2015-10-07 Completed [facility] y of Vaccine Quad IM 3+ 00:00:00 [facility] Influenza Virus 2015-10-07 Completed [facility] y of Vaccine Quad IM 3+ 00:00:00 [facility] Influenza Virus 2015-10-07 Completed [facility] y of Vaccine Quad IM 3+ 00:00:00 [facility] Influenza Virus 2015-10-07 Completed [facility] y of Vaccine Quad IM 3+ 00:00:00 [facility] Influenza Virus 2015-10-07 Completed [facility] y of Vaccine Quad IM 3+ 00:00:00 [facility] TDAP 2015-04-13 Completed [facility] of 00:00:00 [facility] TDAP 2015-04-13 Completed University of 00:00:00 [facility] TDAP 2015-04-13 Completed [facility] of 00:00:00 [facility] TDAP 2015-04-13 Completed [facility] of 00:00:00 [facility] TDAP 2015-04-13 Completed [facility] of 00:00:00 [facility] TDAP 2015-04-13 Completed [facility] of 00:00:00 [facility] TDAP 2015-04-13 Completed University of 00:00:00 [facility] TDAP 2015-04-13 Completed [facility] of 00:00:00 [facility] TDAP 2015-04-13 Completed [facility] of 00:00:00 [facility] TDAP 2015-04-13 Completed [facility] of 00:00:00 [facility] TDAP 2015-04-13 Completed [facility] of 00:00:00 [facility] TDAP 2015-04-13 Completed [facility] of 00:00:00 [facility] TDAP 2015-04-13 Completed [facility] of 00:00:00 [facility] TDAP 2015-04-13 Completed [facility] 00:00:00 [facility] TDAP 2015-04-13 Completed [facility] 00:00:00 [facility] TDAP 2015-04-13 Completed [facility] of 00:00:00 [facility] TDAP 2015-04-13 Completed [facility] of 00:00:00 [facility] TDAP 2015-04-13 Completed [facility] of 00:00:00 [facility] TDAP 2015-04-13 Completed [facility] of 00:00:00 [facility] TDAP 2015-04-13 Completed [facility] of 00:00:00 [facility] TDAP 2015-04-13 Completed [facility] of 00:00:00 [facility] TDAP 2015-04-13 Completed [facility] of 00:00:00 [facility] TDAP 2015-04-13 Completed [facility] of 00:00:00 [facility] TDAP 2015-04-13 Completed [facility] of 00:00:00 [facility] TDAP 2015-04-13 Completed [facility] of 00:00:00 [facility] TDAP 2015-04-13 Completed [facility] of 00:00:00 [facility] TDAP 2015-04-13 Completed [facility] of 00:00:00 [facility] TDAP 2015-04-13 Completed [facility] of 00:00:00 [facility] TDAP 2015-04-13 Completed [facility] of 00:00:00 [facility] TDAP 2015-04-13 Completed [facility] of 00:00:00 [facility] TDAP 2015-04-13 Completed [facility] of 00:00:00 [facility] TDAP 2015-04-13 Completed [facility] of 00:00:00 [facility] TDAP 2015-04-13 Completed [facility] of 00:00:00 [facility] TDAP 2015-04-13 Completed [facility] of 00:00:00 [facility] TDAP 2015-04-13 Completed [facility] of 00:00:00 [facility] TDAP 2015-04-13 Completed [facility] of 00:00:00 [facility] TDAP 2015-04-13 Completed [facility] of 00:00:00 [facility] TDAP 2015-04-13 Completed [facility] of 00:00:00 [facility] TDAP 2015-04-13 Completed [facility] of 00:00:00 [facility] TDAP 2015-04-13 Completed University of [...] Branch TDAP 2015-04-13 Completed [facility] of 00:00:00 [facility] TDAP 2015-04-13 Completed [facility] of 00:00:00 [facility] TDAP 2015-04-13 Completed [facility] of 00:00:00 [facility] TDAP 2015-04-13 Completed [facility] of 00:00:00 [facility] TDAP 2015-04-13 Completed [facility] 00:00:00 [facility] TDAP 2015-04-13 Completed [facility] 00:00:00 [facility] TDAP 2015-04-13 Completed [facility] of 00:00:00 [facility] TDAP 2015-04-13 Completed [facility] of 00:00:00 [facility] TDAP 2015-04-13 Completed [facility] of 00:00:00 [facility] TDAP 2015-04-13 Completed [facility] of 00:00:00 [facility] TDAP 2015-04-13 Completed [facility] of 00:00:00 [facility] Rubella 2012-11-29 Completed [facility] of 00:00:00 [facility] Rubella 2012-11-29 Completed [facility] of 00:00:00 [facility] Rubella 2012-11-29 Completed [facility] of 00:00:00 [facility] Rubella 2012-11-29 Completed [facility] of 00:00:00 [facility] Rubella 2012-11-29 Completed [facility] of 00:00:00 [facility] Rubella 2012-11-29 Completed [facility] 00:00:00 [facility] Rubella 2012-11-29 Completed [facility] of 00:00:00 [facility] Rubella 2012-11-29 Completed [facility] of 00:00:00 [facility] Rubella 2012-11-29 Completed [facility] 00:00:00 [facility] Rubella 2012-11-29 Completed [facility] of 00:00:00 [facility] Rubella 2012-11-29 Completed [facility] of 00:00:00 [facility] Rubella 2012-11-29 Completed [facility] of 00:00:00 [facility] Rubella 2012-11-29 Completed [facility] of 00:00:00 [facility] Rubella 2012-11-29 Completed [facility] of 00:00:00 [facility] Rubella 2012-11-29 Completed [facility] of 00:00:00 [facility] Rubella 2012-11-29 Completed [facility] 00:00:00 [facility] Rubella 2012-11-29 Completed [facility] of 00:00:00 [facility] Rubella 2012-11-29 Completed [facility] 00:00:00 [facility] Rubella 2012-11-29 Completed [facility] 00:00:00 [facility] Rubella 2012-11-29 Completed [facility] 00:00:00 [facility] Rubella 2012-11-29 Completed [facility] 00:00:00 [facility] Rubella 2012-11-29 Completed [facility] 00:00:00 [facility] Rubella 2012-11-29 Completed [facility] 00:00:00 [facility] Rubella 2012-11-29 Completed [facility] 00:00:00 [facility] Rubella 2012-11-29 Completed [facility] 00:00:00 [facility] Rubella 2012-11-29 Completed [facility] 00:00:00 [facility] Rubella 2012-11-29 Completed [facility] 00:00:00 [facility] Rubella 2012-11-29 Completed [facility] 00:00:00 [facility] Rubella 2012-11-29 Completed [facility] 00:00:00 [facility] Rubella 2012-11-29 Completed [facility] 00:00:00 [facility] Rubella 2012-11-29 Completed [facility] 00:00:00 [facility] Rubella 2012-11-29 Completed [facility] 00:00:00 [facility] Rubella 2012-11-29 Completed [facility] 00:00:00 [facility] Rubella 2012-11-29 Completed [facility] of 00:00:00 [facility] Rubella 2012-11-29 Completed [facility] 00:00:00 [facility] Rubella 2012-11-29 Completed [facility] 00:00:00 [facility] Rubella 2012-11-29 Completed [facility] 00:00:00 [facility] Rubella 2012-11-29 Completed [facility] of 00:00:00 [facility] Rubella 2012-11-29 Completed [facility] of 00:00:00 [facility] Rubella 2012-11-29 Completed [facility] of 00:00:00 [facility] Rubella 2012-11-29 Completed [facility] 00:00:00 [facility] Rubella 2012-11-29 Completed [facility] of 00:00:00 [facility] Rubella 2012-11-29 Completed [facility] of 00:00:00 [facility] Rubella 2012-11-29 Completed [facility] of 00:00:00 [facility] Rubella 2012-11-29 Completed [facility] 00:00:00 [facility] Rubella 2012-11-29 Completed [facility] 00:00:00 [facility] Rubella 2012-11-29 Completed [facility] 00:00:00 [facility] Rubella 2012-11-29 Completed [facility] 00:00:00 [facility] Rubella 2012-11-29 Completed [facility] of 00:00:00 [facility] Rubella 2012-11-29 Completed [facility] 00:00:00 [facility] Rubella 2012-11-29 Completed [facility] of 00:00:00 [facility] Rubella 2012-11-29 Completed [facility] of 00:00:00 [facility] Rubella 2012-11-29 Completed [facility] of 00:00:00 [facility] Rubella 2012-11-29 Completed [facility] 00:00:00 [facility] Rubella 2012-11-29 Completed [facility] of 00:00:00 [facility] Rubella 2012-11-29 Completed [facility] 00:00:00 [facility] Rubella 2012-11-29 Completed [facility] 00:00:00 [facility] Rubella 2012-11-29 Completed [facility] 00:00:00 [facility] Rubella 2012-11-29 Completed [facility] 00:00:00 [facility] Rubella 2012-11-29 Completed [facility] 00:00:00 [facility] Rubella 2012-11-29 Completed [facility] of 00:00:00 [facility] Rubella 2012-11-29 Completed University of [...] Branch HPV 2009-05-25 Completed [facility] of 00:00:00 [facility] MMR 2009-05-25 Completed [facility] of 00:00:00 [facility] HPV 2009-05-25 Completed University of 00:00: [facility] MMR 2009-05-25 Completed University of 00:00: [facility] HPV 2009-05-25 Completed [facility] of 00:00:00 [facility] MMR 2009-05-25 Completed [facility] of 00:00:00 [facility] HPV 2009-05-25 Completed [facility] of 00:00:00 [facility] MMR 2009-05-25 Completed [facility] of 00:00:00 [facility] HEPATITIS A 2009-03-23 Completed [facility] of 00:00:00 [facility] HPV 2009-03-23 Completed [facility] of 00:00:00 [facility] Meningococcal 2009-03-23 Completed [facility] Polysaccharide 00:00:00 [facility] (groups A, C, Y and Branc h W-135) conjugate vaccine (MCV4P) Td 2009-03-23 Completed [facility] of 00:00:00 [facility] Varicella 2009-03-23 Completed University of (varivax)(chicken 00:00:00 [facility] pox) [facility] HEPATITIS A 2009-03-23 Completed [facility] of 00:00:00 [facility] HPV 2009-03-23 Completed [facility] of 00:00:00 [facility] Meningococcal 2009-03-23 Completed [facility] of Polysaccharide 00:00:00 [facility] (groups A, C, Y and Branc h W-135) conjugate vaccine (MCV4P) Td 2009-03-23 Completed [facility] of 00:00:00 [facility] Varicella 2009-03-23 Completed [facility] of (varivax)(chicken 00:00:00 [facility] pox) [facility] HEPATITIS A 2009-03-23 Completed [facility] of 00:00:00 [facility] HPV 2009-03-23 Completed [facility] of 00:00:00 [facility] Meningococcal 2009-03-23 Completed [facility] of Polysaccharide 00:00:00 [facility] (groups A, C, Y and Branc h W-135) conjugate vaccine (MCV4P) Td 2009-03-23 Completed [facility] of 00:00:00 [facility] Varicella 2009-03-23 Completed [facility] of (varivax)(chicken 00:00:00 [facility] pox) [facility] HEPATITIS A 2009-03-23 Completed [facility] of 00:00:00 [facility] HPV 2009-03-23 Completed [facility] of 00:00:00 [facility] Meningococcal 2009-03-23 Completed [facility] of Polysaccharide 00:00:00 [facility] (groups A, C, Y and Branc h W-135) conjugate vaccine (MCV4P) Td 2009-03-23 Completed [facility] of 00:00:00 [facility] Varicella 2009-03-23 Completed [facility] of (varivax)(chicken 00:00:00 [facility] pox) [facility] HEPATITIS A 2009-03-23 Completed [facility] of 00:00:00 [facility] HPV 2009-03-23 Completed [facility] of 00:00:00 [facility] Meningococcal 2009-03-23 Completed [facility] of Polysaccharide 00:00:00 [facility] (groups A, C, Y and Branc h W-135) conjugate vaccine (MCV4P) Td 2009-03-23 Completed [facility] of 00:00:00 [facility] Varicella 2009-03-23 Completed [facility] of (varivax)(chicken 00:00:00 [facility] pox) [facility] HEPATITIS A 2009-03-23 Completed [facility] of 00:00:00 [facility] HPV 2009-03-23 Completed [facility] of 00:00:00 [facility] Meningococcal 2009-03-23 Completed [facility] of Polysaccharide 00:00:00 [facility] (groups A, C, Y and Branc h W-135) conjugate vaccine (MCV4P) Td 2009-03-23 Completed [facility] of 00:00:00 [facility] Varicella 2009-03-23 Completed [facility] of (varivax)(chicken 00:00:00 [facility] pox) [facility] HEPATITIS A 2009-03-23 Completed [facility] of 00:00:00 [facility] HPV 2009-03-23 Completed [facility] of 00:00:00 [facility] Meningococcal 2009-03-23 Completed [facility] of Polysaccharide 00:00:00 [facility] (groups A, C, Y and Branc h W-135) conjugate vaccine (MCV4P) Td 2009-03-23 Completed [facility] of 00:00:00 [facility] Varicella 2009-03-23 Completed [facility] of (varivax)(chicken 00:00:00 [facility] pox) [facility] HEPATITIS A 2009-03-23 Completed [facility] of 00:00:00 [facility] HPV 2009-03-23 Completed [facility] of 00:00:00 [facility] Meningococcal 2009-03-23 Completed [facility] of Polysaccharide 00:00:00 [facility] (groups A, C, Y and Branc h W-135) conjugate vaccine (MCV4P) Td 2009-03-23 Completed [facility] of 00:00:00 [facility] Varicella 2009-03-23 Completed [facility] of (varivax)(chicken 00:00:00 [facility] pox) [facility] HEPATITIS A 2009-03-23 Completed [facility] of 00:00:00 [facility] HPV 2009-03-23 Completed [facility] of 00:00:00 [facility] Meningococcal 2009-03-23 Completed [facility] of Polysaccharide 00:00:00 [facility] (groups A, C, Y and Branc h W-135) conjugate vaccine (MCV4P) Td 2009-03-23 Completed [facility] of 00:00:00 [facility] Varicella 2009-03-23 Completed [facility] of (varivax)(chicken 00:00:00 [facility] pox) [facility] HEPATITIS A 2009-03-23 Completed [facility] of 00:00:00 [facility] HPV 2009-03-23 Completed [facility] of 00:00:00 [facility] Meningococcal 2009-03-23 Completed [facility] of Polysaccharide 00:00:00 [facility] (groups A, C, Y and Branc h W-135) conjugate vaccine (MCV4P) Td 2009-03-23 Completed [facility] of 00:00:00 [facility] Varicella 2009-03-23 Completed [facility] of (varivax)(chicken 00:00:00 [facility] pox) [facility] HEPATITIS A 2009-03-23 Completed [facility] of 00:00:00 [facility] HPV 2009-03-23 Completed [facility] of 00:00:00 [facility] Meningococcal 2009-03-23 Completed [facility] of Polysaccharide 00:00:00 [facility] (groups A, C, Y and Branc h W-135) conjugate vaccine (MCV4P) Td 2009-03-23 Completed [facility] 00:00:00 [facility] Varicella 2009-03-23 Completed [facility] of (varivax)(chicken 00:00:00 [facility] pox) [facility] HEPATITIS A 2009-03-23 Completed [facility] of 00:00:00 [facility] HPV 2009-03-23 Completed [facility] of 00:00:00 [facility] Meningococcal 2009-03-23 Completed [facility] of Polysaccharide 00:00:00 [facility] (groups A, C, Y and Branc h W-135) conjugate vaccine (MCV4P) Td 2009-03-23 Completed [facility] of 00:00:00 [facility] Varicella 2009-03-23 Completed [facility] of (varivax)(chicken 00:00:00 [facility] pox) [facility] HEPATITIS A 2009-03-23 Completed [facility] of 00:00:00 [facility] HPV 2009-03-23 Completed [facility] of 00:00:00 [facility] Meningococcal 2009-03-23 Completed [facility] of Polysaccharide 00:00:00 [facility] (groups A, C, Y and Branc h W-135) conjugate vaccine (MCV4P) Td 2009-03-23 Completed [facility] of 00:00:00 [facility] Varicella 2009-03-23 Completed [facility] of (varivax)(chicken 00:00:00 [facility] pox) [facility] HEPATITIS A 2009-03-23 Completed [facility] of 00:00:00 [facility] HPV 2009-03-23 Completed [facility] of 00:00:00 [facility] Meningococcal 2009-03-23 Completed [facility] of Polysaccharide 00:00:00 [facility] (groups A, C, Y and Branc h W-135) conjugate vaccine (MCV4P) Td 2009-03-23 Completed [facility] of 00:00:00 [facility] Varicella 2009-03-23 Completed [facility] of (varivax)(chicken 00:00:00 [facility] pox) [facility] HEPATITIS A 2009-03-23 Completed [facility] of 00:00:00 [facility] HPV 2009-03-23 Completed [facility] of 00:00:00 [facility] Meningococcal 2009-03-23 Completed [facility] of Polysaccharide 00:00:00 [facility] (groups A, C, Y and Branc h W-135) conjugate vaccine (MCV4P) Td 2009-03-23 Completed [facility] of 00:00:00 [facility] Varicella 2009-03-23 Completed [facility] of (varivax)(chicken 00:00:00 [facility] pox) [facility] HEPATITIS A 2009-03-23 Completed [facility] of 00:00:00 [facility] HPV 2009-03-23 Completed [facility] of 00:00:00 [facility] Meningococcal 2009-03-23 Completed [facility] of Polysaccharide 00:00:00 [facility] (groups A, C, Y and Branc h W-135) conjugate vaccine (MCV4P) TD, NOS 2009-03-23 Completed [facility] of 00:00:00 [facility] Varicella 2009-03-23 Completed [facility] of (varivax)(chicken 00:00:00 [facility] pox) [facility] HEPATITIS A 2009-03-23 Completed [facility] of 00:00:00 [facility] HPV 2009-03-23 Completed [facility] of 00:00:00 [facility] Meningococcal 2009-03-23 Completed [facility] of Polysaccharide 00:00:00 [facility] (groups A, C, Y and Branc h W-135) conjugate vaccine (MCV4P) TD, NOS 2009-03-23 Completed [facility] of 00:00:00 [facility] Varicella 2009-03-23 Completed [facility] of (varivax)(chicken 00:00:00 [facility] pox) Branch HEPATITIS A 2009-03-23 Completed [facility] of 00:00:00 [facility] HPV 2009-03-23 Completed [facility] of 00:00:00 [facility] Meningococcal 2009-03-23 Completed [facility] of Polysaccharide 00:00:00 [facility] (groups A, C, Y and Branc h W-135) conjugate vaccine (MCV4P) TD, NOS 2009-03-23 Completed [facility] of 00:00:00 [facility] Varicella 2009-03-23 Completed [facility] of (varivax)(chicken 00:00:00 [facility] pox) [facility] HEPATITIS A 2009-03-23 Completed [facility] of 00:00:00 [facility] HPV 2009-03-23 Completed [facility] of 00:00:00 [facility] Meningococcal 2009-03-23 Completed [facility] of Polysaccharide 00:00:00 [facility] (groups A, C, Y and Branc h W-135) conjugate vaccine (MCV4P) TD, NOS 2009-03-23 Completed [facility] of 00:00:00 [facility] Varicella 2009-03-23 Completed [facility] of (varivax)(chicken 00:00:00 [facility] pox) [facility] HEPATITIS A 2009-03-23 Completed [facility] of 00:00:00 [facility] HPV 2009-03-23 Completed [facility] of 00:00:00 [facility] Meningococcal 2009-03-23 Completed [facility] of Polysaccharide 00:00:00 [facility] (groups A, C, Y and Branc h W-135) conjugate vaccine (MCV4P) TD, NOS 2009-03-23 Completed [facility] 00:00:00 [facility] Varicella 2009-03-23 Completed [facility] of (varivax)(chicken 00:00:00 [facility] pox) [facility] HEPATITIS A 2009-03-23 Completed [facility] of 00:00:00 [facility] HPV 2009-03-23 Completed [facility] of 00:00:00 [facility] Meningococcal 2009-03-23 Completed [facility] of Polysaccharide 00:00:00 [facility] (groups A, C, Y and Branc h W-135) conjugate vaccine (MCV4P) TD, NOS 2009-03-23 Completed [facility] 00:00:00 [facility] Varicella 2009-03-23 Completed [facility] of (varivax)(chicken 00:00:00 [facility] pox) [facility] HEPATITIS A 2009-03-23 Completed [facility] of 00:00:00 [facility] HPV 2009-03-23 Completed [facility] of 00:00:00 [facility] Meningococcal 2009-03-23 Completed [facility] of Polysaccharide 00:00:00 [facility] (groups A, C, Y and Branc h W-135) conjugate vaccine (MCV4P) TD, NOS 2009-03-23 Completed [facility] 00:00:00 [facility] Varicella 2009-03-23 Completed [facility] of (varivax)(chicken 00:00:00 [facility] pox) [facility] Rubella Unknown Completed [facility] TDAP Unknown Completed [facility] Influenza Virus Unknown Completed [facility] of Vaccine Quad IM 3+ [facility] TDAP Unknown Completed [facility] Influenza Virus Unknown Completed [facility] Vaccine Quad .5 mL [facility] 6+ [place] Branch (FLUZONE/FLULAVAL/FL UARIX) TDAP (ADACEL) Unknown Completed [facility] Rubella Unknown Completed [facility] TDAP Unknown Completed [facility] Influenza Virus Unknown Completed [facility] of Vaccine Quad IM 3+ [facility] TDAP Unknown Completed [facility] Influenza Virus Unknown Completed [facility] Vaccine Quad .5 mL [facility] IM 6+ [place] Branch (FLUZONE/FLULAVAL/FL UARIX) TDAP (ADACEL) Unknown Completed [facility] [facility] Unknown Completed [facility] TDAP Unknown Completed [facility] Influenza Virus Unknown Completed [facility] IM 3+ [facility] TDAP Unknown Completed [facility] Influenza Virus Unknown Completed [facility] .5 mL [facility] 6+ [facility] (FLUZONE/FLULAVAL/FL UARIX) TDAP (ADACEL) Unknown Completed [facility] Rubella Unknown Completed [facility] TDAP Unknown Completed [facility] Influenza Virus Unknown Completed [facility] y [facility] IM 3+ [facility] TDAP Unknown Completed [facility] Influenza Virus Unknown Completed [facility] .5 mL [facility] 6+ [facility] (FLUZONE/FLULAVAL/FL UARIX) TDAP (ADACEL) Unknown Completed [facility] Rubella Unknown Completed [facility] TDAP Unknown Completed [facility] Influenza Virus Unknown Completed [facility] IM 3+ [facility] TDAP Unknown Completed [facility] Influenza Virus Unknown Completed [facility] .5 mL [facility] 6+ MO Branch (FLUZONE/FLULAVAL/FL UARIX) TDAP (ADACEL) Unknown Completed [facility] Rubella Unknown Completed [facility] TDAP Unknown Completed [facility] Influenza Virus Unknown Completed [facility] IM 3+ [facility] TDAP Unknown Completed [facility] Influenza Virus Unknown Completed [facility] .5 mL [facility] 6+ [facility] Branch (FLUZONE/FLULAVAL/FL UARIX) TDAP (ADACEL) Unknown Completed [facility] Rubella Unknown Completed [facility] TDAP Unknown Completed [facility] Influenza Virus Unknown Completed [facility] IM 3+ [facility] TDAP Unknown Completed [facility] Influenza Virus Unknown Completed [facility] .5 mL [facility] IM 6+ [facility] Branch (FLUZONE/FLULAVAL/FL UARIX) TDAP (ADACEL) Unknown Completed [facility] Rubella Unknown Completed [facility] TDAP Unknown Completed [facility] Influenza Virus Unknown Completed [facility] IM 3+ [facility] TDAP Unknown Completed [facility] Influenza Virus Unknown Completed [facility] .5 mL [facility] IM 6+ [facility] (FLUZONE/FLULAVAL/FL UARIX) TDAP (ADACEL) Unknown Completed [facility] Rubella Unknown Completed [facility] TDAP Unknown Completed [facility] Influenza Virus Unknown Completed [facility] IM 3+ [facility] TDAP Unknown Completed [facility] Influenza Virus Unknown Completed [facility] .5 mL [facility] IM 6+ [facility] (FLUZONE/FLULAVAL/FL UARIX) TDAP (ADACEL) Unknown Completed [facility] Rubella Unknown Completed [facility] TDAP Unknown Completed [facility] Influenza Virus Unknown Completed [facility] IM 3+ [facility] TDAP Unknown Completed [facility] Influenza Virus Unknown Completed [facility] .5 mL [facility] IM 6+ [facility] Branch (FLUZONE/FLULAVAL/FL UARIX) TDAP (ADACEL) Unknown Completed [facility] Rubella Unknown Completed [facility] TDAP Unknown Completed [facility] Influenza Virus Unknown Completed [facility] IM 3+ [facility] TDAP Unknown Completed [facility] Influenza Virus Unknown Completed [facility] .5 mL [facility] 6+ MO Branch (FLUZONE/FLULAVAL/FL UARIX) TDAP (ADACEL) Unknown Completed [facility] Rubella Unknown Completed [facility] TDAP Unknown Completed [facility] Influenza Virus Unknown Completed [facility] IM 3+ [facility] TDAP Unknown Completed [facility] Influenza Virus Unknown Completed [facility] .5 mL [facility] 6+ MO Branch (FLUZONE/FLULAVAL/FL UARIX) TDAP (ADACEL) Unknown Completed [facility] Rubella Unknown Completed [facility] TDAP Unknown Completed [facility] Influenza Virus Unknown Completed [facility] IM 3+ [facility] TDAP Unknown Completed [facility] Influenza Virus Unknown Completed [facility] .5 mL [facility] IM 6+ [facility] Branch (FLUZONE/FLULAVAL/FL UARIX) TDAP (ADACEL) Unknown Completed [facility] Rubella Unknown Completed [facility] TDAP Unknown Completed [facility] Influenza Virus Unknown Completed [facility] Vaccine Quad IM 3+ [facility] TDAP Unknown Completed [facility] Influenza Virus Unknown Completed [facility] .5 mL [facility] IM 6+ [facility] (FLUZONE/FLULAVAL/FL UARIX) TDAP (ADACEL) Unknown Completed [facility] Rubella Unknown Completed [facility] TDAP Unknown Completed [facility] Influenza Virus Unknown Completed [facility] IM 3+ [facility] TDAP Unknown Completed [facility] Influenza Virus Unknown Completed [facility] .5 mL [facility] IM 6+ [facility] (FLUZONE/FLULAVAL/FL UARIX) TDAP (ADACEL) Unknown Completed [facility] Rubella Unknown Completed [facility] TDAP Unknown Completed [facility] Influenza Virus Unknown Completed [facility] IM 3+ [facility] TDAP Unknown Completed [facility] Influenza Virus Unknown Completed [facility] .5 mL [facility] 6+ MO Branch (FLUZONE/FLULAVAL/FL UARIX) TDAP (ADACEL) Unknown Completed [facility] Rubella Unknown Completed [facility] TDAP Unknown Completed [facility] Influenza Virus Unknown Completed [facility] IM 3+ [facility] TDAP Unknown Completed [facility] Influenza Virus Unknown Completed [facility] .5 mL [facility] 6+ MO Branch (FLUZONE/FLULAVAL/FL UARIX) TDAP (ADACEL) Unknown Completed [facility] Rubella Unknown Completed [facility] TDAP Unknown Completed [facility] Influenza Virus Unknown Completed [facility] IM 3+ [facility] TDAP Unknown Completed [facility] Influenza Virus Unknown Completed [facility] .5 mL [facility] 6+ MO Branch (FLUZONE/FLULAVAL/FL UARIX) TDAP (ADACEL) Unknown Completed [facility] Rubella Unknown Completed [facility] TDAP Unknown Completed [facility] Influenza Virus Unknown Completed [facility] IM 3+ [facility] TDAP Unknown Completed [facility] Influenza Virus Unknown Completed [facility] .5 mL [facility] IM 6+ [facility] (FLUZONE/FLULAVAL/FL UARIX) TDAP (ADACEL) Unknown Completed [facility] Influenza Virus Unknown Completed [facility] Vaccine [facility] Rubella Unknown Completed [facility] TDAP Unknown Completed [facility] Influenza Virus Unknown Completed [facility] Quad IM 3+ [facility] TDAP Unknown Completed [facility] Influenza Virus Unknown Completed [facility] .5 mL [facility] IM 6+ [facility] (FLUZONE/FLULAVAL/FL UARIX) TDAP (ADACEL) Unknown Completed [facility] Influenza Virus Unknown Completed [facility] Vaccine [facility] Rubella Unknown Completed [facility] TDAP Unknown Completed [facility] Influenza Virus Unknown Completed [facility] IM 3+ [facility] TDAP Unknown Completed [facility] Influenza Virus Unknown Completed [facility] Quad .5 mL [facility] 6+ MO Branch (FLUZONE/FLULAVAL/FL UARIX) TDAP (ADACEL) Unknown Completed [facility] Influenza Virus Unknown Completed [facility] Vaccine [facility] Rubella Unknown Completed [facility] TDAP Unknown Completed [facility] Influenza Virus Unknown Completed [facility] IM 3+ [facility] TDAP Unknown Completed [facility] Influenza Virus Unknown Completed [facility] Quad .5 mL [facility] 6+ MO Branch (FLUZONE/FLULAVAL/FL UARIX) TDAP (ADACEL) Unknown Completed [facility] Influenza Virus Unknown Completed [facility] Vaccine [facility] Rubella Unknown Completed [facility] TDAP Unknown Completed [facility] Influenza Virus Unknown Completed [facility] IM 3+ [facility] TDAP Unknown Completed [facility] Influenza Virus Unknown Completed [facility] .5 mL [facility] IM 6+ [facility] (FLUZONE/FLULAVAL/FL UARIX) TDAP (ADACEL) Unknown Completed [facility] Influenza Virus Unknown Completed [facility] Vaccine [facility] Rubella Unknown Completed [facility] TDAP Unknown Completed [facility] Influenza Virus Unknown Completed [facility]ine Quad IM 3+ [facility] TDAP Unknown Completed [facility] Influenza Virus Unknown Completed [facility] .5 mL [facility] IM 6+ [facility] (FLUZONE/FLULAVAL/FL UARIX) TDAP (ADACEL) Unknown Completed [facility] Influenza Virus Unknown Completed [facility] Vaccine [facility] Rubella Unknown Completed [facility] TDAP Unknown Completed [facility] Influenza Virus Unknown Completed [facility] of Vaccine Quad IM 3+ [facility] [place] TDAP Unknown Completed [facility] Influenza Virus Unknown Completed [facility] .5 mL [facility] IM 6+ [facility] (FLUZONE/FLULAVAL/FL UARIX) TDAP (ADACEL) Unknown Completed [facility] Influenza Virus Unknown Completed [facility] Vaccine [facility] Rubella Unknown Completed [facility] TDAP Unknown Completed [facility] Influenza Virus Unknown Completed [facility] of Vaccine Quad IM 3+ [facility] TDAP Unknown Completed [facility] Influenza Virus Unknown Completed [facility] of [facility] Quad .5 mL [facility] 6+ MO Branch (FLUZONE/FLULAVAL/FL UARIX) TDAP (ADACEL) Unknown Completed [facility] Influenza Virus Unknown Completed [facility] Vaccine [facility] Rubella Unknown Completed [facility] TDAP Unknown Completed [facility] Influenza Virus Unknown Completed [facility]ine [facility] IM 3+ [facility] TDAP Unknown Completed [facility] Influenza Virus Unknown Completed [facility] of [facility] Quad .5 mL [facility] 6+ MO Branch (FLUZONE/FLULAVAL/FL UARIX) TDAP (ADACEL) Unknown Completed [facility] Influenza Virus Unknown Completed [facility] Vaccine [facility] Rubella Unknown Completed [facility] TDAP Unknown Completed [facility] Influenza Virus Unknown Completed [facility] of Vaccine Quad IM 3+ [facility] TDAP Unknown Completed [facility] Influenza Virus Unknown Completed [facility] .5 mL [facility] IM 6+ [facility] (FLUZONE/FLULAVAL/FL UARIX) TDAP (ADACEL) Unknown Completed [facility] Influenza Virus Unknown Completed [facility] Vaccine [facility] Vital Signs Vital Name Observation Time Observation Value Comments Source Diastolic blood 2023-06-11 14:57:00 85 mm[Hg] [facility] Heart rate 2023-06-11 14:57:00 72 /min [facility] Body height 2023-06-11 14:57:00 154.9 cm [facility] Body weight 2023-06-11 14:57:00 91.218 kg [facility] BMI 2023-06-11 14:57:00 38.00 kg/m2 [facility] Oxygen saturation in 2023-06-11 14:57:00 98 /min [facility] of Arterial blood by [facility] Pulse oximetry Branch Systolic blood 2023-06-11 14:57:00 131 mm[Hg] Univer sity of pressure [facility] Systolic blood 2023-05-29 15:44:00 117 mm[Hg] [facility]iver [facility] of pressure [facility] Diastolic blood 2023-05-29 15:44:00 78 mm[Hg] [facility] pressure [facility] Heart rate 2023-05-29 15:44:00 88 /min [facility] Body temperature 2023-05-29 15:44:00 36.33 Felicita [facility] Body height 2023-05-29 15:44:00 154.9 cm [facility] Body weight 2023-05-29 15:44:00 92.262 kg [facility] BMI 2023-05-29 15:44:00 38.43 kg/m2 [facility] Oxygen saturation in 2023-05-29 15:44:00 96 /min [facility] of Arterial blood by [facility] kostas Pulse oximetry Branch Systolic blood 2023-04-25 18:08:00 124 mm[Hg] Univer sity of pressure [facility] Diastolic blood 2023-04-25 18:08:00 87 mm[Hg] [facility]ive rsity of pressure [facility] Heart rate 2023-04-25 18:08:00 79 /min [facility] Body temperature 2023-04-25 18:08:00 36.28 Felicita [facility] Body height 2023-04-25 18:08:00 154.9 cm [facility] Body weight 2023-04-25 18:08:00 94.983 kg [facility] BMI 2023-04-25 18:08:00 39.57 kg/m2 [facility] Oxygen saturation in 2023-04-25 18:08:00 94 /min [facility] Arterial blood by [facility] Pulse oximetry Branch Systolic blood 2023-03-08 18:06:00 119 mm[Hg] [facility]iver [facility] of pressure [facility] Diastolic blood 2023-03-08 18:06:00 78 mm[Hg] [facility] of pressure [facility] Heart rate 2023-03-08 18:06:00 74 /min [facility] Body temperature 2023-03-08 18:06:00 36.33 Felicita [facility] Respiratory rate 2023-03-08 18:06:00 18 /min [facility] Body height 2023-03-08 18:06:00 154.9 cm [facility] Body weight 2023-03-08 18:06:00 97.75 kg [facility] BMI 2023-03-08 18:06:00 40.72 kg/m2 [facility] Systolic blood 2023-03-05 20:17:00 120 mm[Hg] [facility] Diastolic blood 2023-03-05 20:17:00 75 mm[Hg] [facility] pressure [facility] Heart rate 2023-03-05 20:17:00 79 /min [facility] Body temperature 2023-03-05 20:17:00 36.72 Felicita [facility] Respiratory rate 2023-03-05 20:17:00 18 /min [facility] Body height 2023-03-05 20:17:00 154.9 cm [facility] Body weight 2023-03-05 20:17:00 97.342 kg [facility] BMI 2023-03-05 20:17:00 40.55 kg/m2 [facility] Systolic blood 2023-02-01 13:23:00 121 mm[Hg] [facility] Diastolic blood 2023-02-01 13:23:00 81 mm[Hg] [facility] pressure [facility] Heart rate 2023-02-01 13:23:00 75 /min [facility] Respiratory rate 2023-02-01 13:23:00 18 /min [facility] Body height 2023-02-01 13:23:00 154.9 cm [facility] Body weight 2023-02-01 13:23:00 100.699 kg [facility] BMI 2023-02-01 13:23:00 41.95 kg/m2 [facility] Systolic blood 2023-01-25 20:06:00 120 mm[Hg] [facility] pressure [facility] Diastolic blood 2023-01-25 20:06:00 79 mm[Hg] [facility]ive rsity of pressure [facility] Heart rate 2023-01-25 20:06:00 78 /min [facility] Body temperature 2023-01-25 20:06:00 36.72 Felicita [facility] Respiratory rate 2023-01-25 20:06:00 18 /min [facility] Body height 2023-01-25 20:06:00 154.9 cm [facility] Body weight 2023-01-25 20:06:00 100.245 kg [facility] BMI 2023-01-25 20:06:00 41.76 kg/m2 [facility] Systolic blood 2023-01-18 19:09:00 139 mm[Hg] [facility] Diastolic blood 2023-01-18 19:09:00 93 mm[Hg] [facility] pressure [facility] Heart rate 2023-01-18 19:04:00 83 /min [facility] Body temperature 2023-01-18 19:04:00 36.83 Felicita [facility] Respiratory rate 2023-01-18 19:04:00 18 /min [facility] Body height 2023-01-18 19:04:00 154.9 cm [facility] Body weight 2023-01-18 19:04:00 99.791 kg [facility] BMI 2023-01-18 19:04:00 41.57 kg/m2 [facility] Systolic blood 2022-11-09 21:18:00 134 mm[Hg] [facility] pressure [facility] Diastolic blood 2022-11-09 21:18:00 86 mm[Hg] [facility]ive rsity of pressure [facility] Heart rate 2022-11-09 21:18:00 78 /min [facility] Body temperature 2022-11-09 21:18:00 36.89 Felicita [facility] Respiratory rate 2022-11-09 21:18:00 18 /min [facility] Body height 2022-11-09 21:18:00 154.9 cm [facility] Body weight 2022-11-09 21:18:00 103.329 kg [facility] BMI 2022-11-09 21:18:00 43.04 kg/m2 [facility] Systolic blood 2022-10-11 20:20:00 136 mm[Hg] [facility]iver [facility] pressure [facility] Diastolic blood 2022-10-11 20:20:00 80 mm[Hg] [facility]ive [facility]ity [facility] pressure [facility] Heart rate 2022-10-11 20:20:00 88 /min [facility] Body temperature 2022-10-11 20:20:00 36.56 Felicita [facility] Respiratory rate 2022-10-11 20:20:00 18 /min [facility] Body height 2022-10-11 20:20:00 154.9 cm [facility] Body weight 2022-10-11 20:20:00 102.649 kg [facility] BMI 2022-10-11 20:20:00 42.76 kg/m2 [facility] Systolic blood 2022-07-17 19:04:00 130 mm[Hg] [facility] pressure [facility] Diastolic blood 2022-07-17 19:04:00 88 mm[Hg] [facility]ive rsity [facility] pressure [facility] Heart rate 2022-07-17 19:04:00 90 /min [facility] Body temperature 2022-07-17 19:04:00 37.33 Felicita [facility] Respiratory rate 2022-07-17 19:04:00 16 /min [facility] Body height 2022-07-17 19:04:00 154.9 cm [facility] Body weight 2022-07-17 19:04:00 101.47 kg [facility] BMI 2022-07-17 19:04:00 42.27 kg/m2 [facility] Oxygen saturation in 2022-07-17 19:04:00 96 /min [facility]ial blood by [facility] Pulse oximetry Branch Systolic blood 2022-01-09 18:27:00 117 mm[Hg] [facility]iver [facility]ity of pressure [facility] Diastolic blood 2022-01-09 18:27:00 84 mm[Hg] Unive rsity of pressure [facility] Heart rate 2022-01-09 18:27:00 84 /min [facility] Body temperature 2022-01-09 18:27:00 36.67 Felicita [facility] Respiratory rate 2022-01-09 18:27:00 16 /min [facility] Body height 2022-01-09 18:27:00 154.9 cm [facility] Body weight 2022-01-09 18:27:00 100.245 kg [facility] BMI 2022-01-09 18:27:00 41.76 kg/m2 [facility] Oxygen saturation in 2022-01-09 18:27:00 97 /min [facility] Arterial blood by [facility] Pulse oximetry Branch Systolic blood 2021-12-26 13:13:00 125 mm[Hg] [facility]iver [facility]ity of pressure [facility] Diastolic blood 2021-12-26 13:13:00 84 mm[Hg] [facility]ive rsity of pressure [facility] Heart rate 2021-12-26 13:13:00 80 /min [facility] Body temperature 2021-12-26 13:13:00 36.56 Felicita [facility] Respiratory rate 2021-12-26 13:13:00 18 /min [facility] Body height 2021-12-26 13:13:00 154.9 cm Universi [facility] Body weight 2021-12-26 13:13:00 100.245 [facility] BMI 2021-12-26 13:13:00 41.76 kg/m2 [facility] Oxygen saturation in 2021-12-26 13:13:00 100 /min [facility] Arterial blood by [facility] Pulse oximetry Branch Systolic blood 2021-11-28 13:32:00 132 mm[Hg] [facility] [place] Diastolic blood 2021-11-28 13:32:00 84 mm[Hg] [facility] Heart rate 2021-11-28 13:32:00 86 /min [facility] Body temperature 2021-11-28 13:32:00 36.78 Felicita [facility] Respiratory rate 2021-11-28 13:32:00 18 /min [facility] Body height 2021-11-28 13:32:00 154.9 cm [facility] Body weight 2021-11-28 13:32:00 98.385 kg [facility] BMI 2021-11-28 13:32:00 40.98 kg/m2 [facility] Procedures Procedure Date / Time Performing Clinician Source Performed MR KNEE RIGHT WO CONTRAST 2023-06-05 18:06:35 Marychuy Johnson [facility] POCT TEST 2023-04-25 18:49:00 Marychuy Johnson [facility] POCT SARS-COV-2 ANTIGEN 2023-04-25 18:48:00 Marychuy Johnson [facility] (BINAX NOW) [facility] POCT MOLECULAR FLU 2023-04-25 18:37:00 Marychuy Johnson [facility] HCG, TOTAL, QN-Q 2023-03-22 16:22:[address] [facility] MEDICATION CORRESPONDENCE 2023-03-09 05:01:00 Doctor Behzad [facility] [place] [facility] [place] TOTAL BETA HCG ASSAY 2023-03-05 20:53:00 Remedios [facility] HCG, TOTAL, QN-Q 2023-02-20 20:13:[address] [facility] HCG, TOTAL, QN-Q 2023-02-12 19:01:[address] [facility] US FIRST 2023-02-02 19:47:31 Remedios [facility] TRIMESTER LESS THAN 14 [facility] WEEKS WITH TRANSVAGINAL POCT TEST 2023-02-01 00:00:00 Remedios [facility] EXTERNAL PROVIDER RECORDS 2023-01-26 05:01:00 Doctor Wen [facility] Name [facility] POCT URINALYSIS W/O 2023-01-25 00:00:00 Remedios [facility] SPECIFIC [facility] ASSIGNMENT OF BENEFITS 2023-01-18 18:48:59 Doctor Behzad, [facility] [place] [facility] POCT TEST 2023-01-18 00:00:00 Remedios [facility] POCT URINALYSIS W/O 2023-01-18 00:00:00 Remedios [facility] SPECIFIC [facility] EXTERNAL PROVIDER RECORDS 2022-10-26 05:01:00 Doctor Wen [facility] [place] [facility] [place] HCG, TOTAL, QN-Q 2022-10-13 16:27:00 AdumConsuelo [facility] POCT TEST 2022-10-11 00:00:00 AdumConsuelo [facility] POCT URINALYSIS W/O 2022-10-11 00:00:00 AdumConsuelo [facility] AUTHORIZATION TO RELEASE 2022-10-06 06:01:00 Doctor Wen [facility] TO [facility] [place] [facility] POCT TEST 2022-07-17 19:20:00 [facility] 2022-02-16 05:01:00 Doctor UnassOrtega luevano [facility] [place] [facility] POCT TEST 2021-12-26 13:39:00 Antonio Mckeon [facility] POCT URINALYSIS 2021-12-26 13:27:00 Antonio Mckeon [facility] US FIRST 2021-12-09 14:05:00 Antonio Mckeon [facility] TRIMESTER LESS THAN 14 [facility] ranch WEEKS WITH TRANSVAGINAL POCT URINALYSIS W/O 2021-11-28 14:19:00 Antonio Mckeon [facility] SPECIFIC GRAVITY [facility] POCT TEST 2021-11-28 14:01:00 Mike [facility] Encounters Start End Encounter Admission Attending Care Care Encounter Source Date/Time Date/Time Type Type Clinicians Facility Department ID 2021-06-[address] [facility] VAL [id number] Univers 19:02:24 [facility] 2023-09-11 2023-09-11 Out[facility] [id number] Univers 09:40:00 09:40:00 [facility] 2023-06-11 2023-06-11 Outpatient R [facility] [id number] Univers 09:20:00 09:26:00 [facility] 2023-06-11 2023-06-11 Office Obi-Ana [facility] 1.2.840.114 10 [id number] Univers 09:20:00 09:26:00 Visit , Marychuy [place] 350.1.13.10 i ty [facility] 4.2.7.2.686 Umair CHAPMNAESSFRANCESCA [id number] Az dical [place] [address] Branch BUILDING 2023-06-08 2023-06-08 Camouflage Specialist Pob, Adc Lab Main [facility] 1.2.8 40.114 [id number] Univers 14:15:00 14:30:00 Visit Diamante Baer 350.1.13.10 ity of [facility] 4.2.7.2.[place] [id number] Az dical NAL 353 [facility] 2023-06-08 2023-06-08 [address] R [address] [facility] [id number] Univers 14:15:00 14:15:00 DIAMANTE [facility] 2023-06-05 2023-06-05 Outpatient R OBI-ANA [facility] [id number] Univers 11:41:37 23:59:00 [facility] 2023-06-05 2023-06-05 Hospital Obi-Ana [facility] 1.2.840.114 1 [id number] Univers 11:41:37 23:59:00 Encounter Marychuy 350.1.13.10 ity [facility] [place]2.7.[place] [id number] [facility] [address] [place] 2023-05-29 2023-05-29 Outpatient R [facility]BI[facility] [id number] Univers 10:40:00 11:23:06 OBI-ANAMARYCHUY [facility] 2023-05-29 2023-05-29 Office Obi-Ana [facility] 1.2.840.114 10 [id number] Univers 10:40:00 11:23:06 Visit Marychuy 350.1.13.10 i ty of [facility] 4.2.7.2.[place] [id number] Az dicnate NAL 044 [facility] 2023-05-29 2023-05-29 Outpatient R [facility] [id number] Univers 10:40:00 11:23:06 OBI-ANA, MARYCHUY [facility] 2023-05-09 2023-05-09 Patient Obi-Ana [facility] 1.2.840.114 10 [id number] Univers 00:00:00 00:00:00 Secure Msg , Marychuy [place] 350.1.13.10 ity of [place].2.[place] [id number] Az dical NAL 044 [facility] 2023-04-27 2023-04-27 Telephone Obi-Ana [facility] 1.2.840.114 [id number] Univers 00:00:00 00:00:00 , Marychuy [place] 350.1.13.10 i ty of [place] 4.2.7.2.[place] [id number] Az dical NAL 044 [facility] 2023-04-26 2023-04-26 Patient Obi-Ana [facility] 1.2.840.114 10 [id number] Univers 00:00:00 00:00:00 Secure Msg , Marychuy [place] 350.1.13.10 ity of [place] 4.2.7.2.[place] [id number] Az dical NAL 044 [facility] 2023-04-26 2023-04-26 Patient Moreau-Jenna [facility] 1.2.840.114 10 [id number] Univers 00:00:00 00:00:00 Secure Msg s, Mila [place] 350.1.13.10 ity of [place] 4.2.7.2.[place] [id number] Az dical NAL 134 [facility] 2023-04-26 2023-04-26 Patient Moreau-Jenna [facility] 1.2.840.114 10 [id number] Univers 00:00:00 00:00:00 Secure Msg s, Mila [place] 350.1.13.10 ity of [place] 4.2.7.2.[place] [id number] Az dical NAL 134 [facility] 2023-04-25 2023-04-25 Outpatient R OBJuan Ramon-MARYCHUY PEREZ [facility] [place] [id number] Univers 13:00:00 13:49:44 OBJuan Ramon-MARYCHUY PEREZ ity [facility] 2023-04-25 2023-04-25 Office Obi-Ana [facility] 1.2.840.114 10 [id number] Univers 13:00:00 13:49:44 Visit Marychuy 350.1.13.10 i ty of [place] 4.2.7.2.686 [place] [id number] Az dic[address] 2023-04-25 2023-04-25 Telephone Obi-Ana [facility] 1.2.840.114 [id number] Univers 00:00:00 00:00:00 , Marychuy [place] 350.1.13.10 i ty of [place] 4.2.7.2.[place] [id number] [address] 2023-04-24 2023-04-[address] [facility] [id number] [address] 08:47:42 08:47:42 [id number] 2023-03-26 2023-03-26 Patient Obi-Ana [facility] 1.2.840.114 10 [id number] Univers 00:00:00 00:00:00 Secure Msg Marychuy 350.1.13.10 ity of [place] 4.2.7.2.[place] [id number] [address] 2023-03-22 2023-03-22 Orders Wendie CLEANING 1.2.840.114 10 [id number] Univers 00:00:00 00:00:00 Only s, Mila TESSA 350.1.13.10 ity of [facility] 4.2.7.2.686 Deepak as [id number] [address] 2023-03-13 2023-03-13 Outpatient R OBI-MARYCHUY PEREZ [facility] [id number] Univers 13:00:00 13:00:00 OBI-MARYCHUY PEREZ ity [facility] 2023-03-13 2023-03-13 Telephone Obi-Ana [facility] 1.2.840.114 [id number] Univers 00:00:00 00:00:00 , Marychuy [place] 350.1.13.10 i ty of [facility] 4.2.7.2.[place] [id number] Az dical NAL 044 [facility] 2023-03-09 2023-03-09 Camouflage Specialist 2, Adc Lab [facility] 1.2.840.114 [id number] Univers 09:15:00 09:15:00 Visit Mila Whittaker 350.1.1 3.10 ity of [facility] 4.2.7.2.[place] [id number] Az dical NAL 353 [facility] 2023-03-09 2023-03-09 Outpatient R MILA WHITTAKER [facility] U [facility] [id number] Univers 09:15:00 08:57:52 MILA WHITTAKER ity of [facility] 2023-03-09 2023-03-09 Telephone Lex-Ana [facility] 1.2.840.114 [id number] Univers 00:00:00 00:00:00 , [facility] 350.1.13.10 it y of [place]2.[place] - [phone] [address] 2023-03-09 2023-03-[address] [facility] 1.2.840.114 [id number] Univers 00:00:00 00:00:00 , [facility] 350.1.13.10 it y of [place].2.[place] - [id number] [address] 2023-03-09 2023-03-09 Orders Doctor BLACK 1.2.840.114 [id number] Univers 00:00:00 00:00:00 Only Unassigned, TESSA 350.1.13.10 ity of [place] [facility] 4.2.7.2.686 Deepak as [id number] [address] 2023-03-09 2023-03-[address] [facility] 1.2.840.114 [id number] Univers 00:00:00 00:00:00 Herson [place] 350.1.13.10 ity of [place] 4.2.7.2.[place] [id number] Az dical NAL 044 [facility] 2023-03-09 2023-03-[address] [facility] 1.2.840.114 [id number] 679 [facility] 00:00:00 00:00:00 Secure Msg Unassigned, ALEXEY 350.1.13.10 ity of [place]2.[place] [id number] Az dical NAL 134 [facility] 2023-03-08 2023-03-08 Outpatient R OBJuan Ramon-ANA [facility] [id number] Univers 13:00:00 14:06:28 OBELIZABETH [facility] 2023-03-08 2023-03-[address] [facility] 1.2.840.114 10 [id number] Univers 13:00:00 14:06:28 Visit , [facility] ALEXEY 350.1.13.10 i ty of [facility] 4.2.7.2.[place] [phone] Az dical NAL 044 [facility] 2023-03-07 2023-03-07 Outpatient R JOSE [facility] [id number] Univers 09:00:00 09:00:00 MARYCHUY JOHNSON [facility] 2023-03-05 2023-03-05 Camouflage Specialist 2, Adc Lab [facility] 1.2.840.114 [id number] Univers 15:30:00 15:54:36 Visit Mila Whittaker 350.1.1 3.10 ity of [place]2.[place].2.[place] [id number] Az dical NAL 353 [facility] 2023-03-05 2023-03-05 Outpatient R MILA WHITTAKER [facility] [id number] Univers 15:00:00 15:30:54 REMEDIOS, MILA ity [facility] 2023-03-05 2023-03-05 Routine Moreau-Jenna [facility] 1.2.840.114 10 [id number] Univers 15:00:00 15:30:54 s, Mila [place] 350.1.13.10 ity of Visit [place] 4.2.7.2.[place] [id number] Az dic[address] 2023-03-02 2023-03-02 Outpatient R MOREAU-DEE MILA [facility] U [facility] [id number] Univers 09:00:00 09:00:00 MOREAU-PRICEKAMINI SHETTYSOL ity [facility] 2023-02-22 2023-02-22 Outpatient R MOREAU-KAMINI PRICESOL [facility] U [facility] [id number] Univers 08:00:00 08:00:00 MOREAU-KAMINI PRICESOL ity [facility] 2023-02-20 2023-02-20 Outpatient [facility] [id number] [address] 11:53:48 11:53:48 [id number] 2023-02-20 2023-02-20 Orders Lizzeth-Jenna BLACK 1.2.840.114 10 [id number] Univers 00:00:00 00:00:00 Only s, Mila TESSA 350.1.13.10 ity of [facility] 4.2.7.2.686 Deepak as [id number] [address] 2023-02-12 2023-02-12 Orders Moreau-Jenna BLACK 1.2.840.114 10 [id number] Univers 00:00:00 00:00:00 Only s, Imla TESSA 350.1.13.10 ity of [facility] 4.2.7.2.686 Deepak as [id number] [address] 2023-02-02 2023-02-02 Outpatient R MOREAU-DEE MILA [facility] R AD [id number] Univers 14:13:10 23:59:00 MOREAU-PRICE, MILA ity [facility] 2023-02-02 2023-02-02 [facility] 1.2.840.114 1 [id number] Univers 14:13:10 23:59:00 Encounter sMilaTHOMAS 350.1.13.10 ity of [facility] 4.2.7.2.686 [facility] [id number] [facility] [address] 2023-02-02 2023-02-02 Patient [facility] 1.2.840.114 [id number] Univers 00:00:00 00:00:00 Secure Msg Mila keating 350.1.13.10 ity of [place] 4.2.7.2.686 [facility] [id number] [address] 2023-02-01 2023-02-01 Routine [facility] 1.2.840.114 [id number] Univers 08:15:00 08:40:43 sMila 350.1.13.10 ity of Visit [place]S 4.2.7.2.686 [facility] [id number] [address] 2023-02-01 2023-02-01 Outpatient R MOREAUEMELIA MILA [facility] U [facility] [id number] Univers 00:00:00 00:00:00 KAMINI WHITTAKERSOL ity of [facility] 2023-02-01 2023-02-01 Telephone [facility] 1.2.840.11 4 [id number] Univers 00:00:00 00:00:00 Mila keating 350.1.13.10 ity of [place] 4.2.7.2.686 [facility] [id number] [address] 2023-01-30 2023-01-30 Outpatient R ANTONIO MCKEON [facility] B [id number] Univers 09:30:00 09:30:00 ANTONIO MCKEON ity [facility] 2023-01-26 2023-01-26 Orders Doctor CLEANING 1.2.840.114 [id number] Univers 00:00:00 00:00:00 Only Unassigned, TESSA 350.1.13.10 ity of [place] [facility] 4.2.7.2.686 Deepak as [id number] [address] 2023-01-25 2023-01-25 Outpatient R MILA WHITTAKER [facility] U [facility] [id number] Univers 15:00:00 15:39:01 MIL[facility]KER [facility] 2023-01-25 2023-01-25 [facility] 1.2.840.114 [id number] Univers 15:00:00 15:39:01 sMila 350.1.13.10 ity of [place]2.[place].2.[place] [id number] [address] 2023-01-23 2023-01-23 Telephone [facility] 1.2.840.11 4 [id number] Univers 00:00:00 00:00:00 sMila 350.1.13.10 ity of [place] [id number] [address] 2023-01-18 2023-01-18 Outpatient R MILA WHITTAKER [facility] U [facility] [id number] Univers 14:00:00 14:36:54 MILA WHITTAKER ity [facility] 2023-01-18 2023-01-18 Initial [facility] 1.2.840.114 [id number] Univers 14:00:00 14:36:54 sMila 350.1.13.10 ity of [place] 4[place]2.7.2.[place] [id number] [address] 2023-01-18 2023-01-18 Orders Doctor CLEANING 1.2.840.114 [id number] Univers 00:00:00 00:00:00 Only Unassigned, TESSA 350.1.13.10 ity of [place] [facility] 4.2.7.2.686 Deepak as [id number] [address] 2023-01-18 2023-01-18 Telephone [facility] 1.2.840.11 4 [id number] Univers 00:00:00 00:00:00 sMila 350.1.13.10 ity of [place] [id number] [address] 2022-11-24 2022-11-24 Patient Ana Trujillo [facility] 1.2.225.070 [id number] Univers 00:00:00 00:00:00 Secure Msg Cam [place] 350.1.13.10 ity of [facility] 4.2.7[place]2.686 [place] [id number] Az dic[address] 2022-11-23 2022-11-23 Refill Ana Trujillo [facility] 1.2.098.860 [id number] Univers 00:00:00 00:00:00 Cam [place] 350.1.13.10 i ty of [facility] 4.2.7.2.[place] [id number] [address] 2022-11-22 2022-11-[address] [facility] [id number] Ward 09:45:26 09:45:26 [id number] [address] 2022-11-11 2022-11-11 Case Ana Trujillo [facility] 1.2.365.877 [id number] Univers 00:00:00 00:00:00 Management Cam [place] 350.1.13.10 ity of [place] 4.[place].7.2.[place] [id number] Az dic[address] 2022-11-09 2022-11-09 Outpatient R MILA WHITTAKER [facility] [id number] Univers 16:00:00 16:35:12 MILA WHITTAKER ity of [facility] 2022-11-09 2022-11-09 Office [facility] 1.2.840.114 [id number] Univers 16:00:00 16:35:12 Visit Mila keating 350.1.13.10 ity of [place] 4[place]2.[place] [id number] [facility] [address] 2022-11-09 2022-11-09 Outpatient R MOREAUBraedenPRICEKAMINI SHETTYSOL [facility] [id number] Univers 14:00:00 14:00:00 REMEDIOSMILA ity [facility] 2022-10-31 2022-10-31 JAKI Barker 1.2.840.114 [id number] Univers 00:00:00 00:00:00 Management Klarissa [place] 350.1.13.10 ity of [place]2.7.2.686 [place] [id number] [facility] [address] [place] 2022-10-26 2022-10-26 Orders Doctor BLACK 1.2.840.114 [id number] Univers 00:00:00 00:00:00 Only Unassigned, TESSA 350.1.13.10 ity of [place] [facility] 4.2.7.2.686 Deepak as [id number] [facility] [address] [place] 2022-10-18 2022-10-[address] [facility] [id number]- Ward 10:46:03 10:46:03 [id number] F Brian 2022-10-13 2022-10-13 Orders BLACK [place] 1.2.840.114 [id number] Univers 00:00:00 00:00:00 Only Consuelo ZARATE 350.1.13.10 i ty of HOSPITAL 4.2.7.2.686 Deepak as [id number] [address] 2022-10-13 2022-10-13 [facility] 1.2.840.114 10 [id number] Univers 00:00:00 00:00:00 Consuelo MORAN 350.1.13.10 i ty of [place] [id number] [address] 2022-10-11 2022-10-11 Outpatient R AD, [facility] [id number] Univers 14:00:00 14:51:10 CONSUELO felix [facility] 2022-10-11 2022-10-11 Initial Adum, [facility] CHRIS 1.2.822.064 [id number] Univers 14:00:00 14:51:10 Consuelo MORAN 350.1.13.10 ity of [place] 4[place]2.[place].2.[place] [id number] [address] 2022-10-11 2022-10-11 Patient Adum, [facility] CHRIS 1.2.837.411 [id number] Univers 00:00:00 00:00:00 Secure Msg Consuelo MORAN 350.1.13.10 ity of [place] 4[place] [id number] [address] 2022-10-06 2022-10-06 Orders Doctor BLACK 1.2.840.114 [id number] Univers 00:00:00 00:00:00 Only Unassigned, TESSA 350.1.13.10 ity of [place] [facility] 4.2.7.2.686 Deepak as [id number] [address] 2022-07-17 2022-07-17 Outpatient R ISHA [facility] [id number] Univers 12:20:00 13:24:12 [facility] 2022-07-17 2022-07-[address] [facility] 1.2.840.114 [id number] Univers 12:20:00 13:24:12 Care Unknown, Attending HEALTH 350.1.13.10 ity of [place] 4.2.7.2.686 Deepak as TAVON?BLEA [id number] Az carole ALYSIA [address] [place] [address] MEDICAL OFFICE BUILDING 2022-06-14 2022-06-[address] [facility] GEORGI [id number]- Ward 11:06:56 11:06:56 F Brian 2022-05-31 2022-05-31 Outpatient [facility] [id number] Ward 14:03:19 14:03:19 F Brian 2022-05-09 2022-05-09 Outpatient R ANTONIO MCKEON [facility] B [id number] Univers 09:00:00 09:00:00 ANTONIO MCKEON [facility] 2022-02-212022-02-21 Camouflage Specialist Lab, Ang-Rmchp [facility] 1.2.840. 114 [id number] Univers 10:00:00 10:11:49 Visit SanonAnthony [facility] 350.1.13.10 ity of [facility] 4.2.7.2.686 Deepak as MATERNAL [id number] [facility] & [address] 2022-02-21 2022-02-21 Outpatient R TALITA [facility] [id number] Univers 10:00:00 10:00:00 ANTHONY alaniz princess [facility] 2022-02-20 2022-02-20 Outpatient R [facility]LECT [facility] [id number] Univers 08:30:00 08:30:00 ANTHONY sánchez [facility] 2022-02-16 2022-02-[address] [facility] 1.2.840.114 [id number] Univers 00:00:00 00:00:00 Management Mare SPECIALTY 350.1.13.10 it[place] [id number] [facility] [place] [address] 2022-02-16 2022-02-16 Orders Doctor BLACK 1.2.840.114 [id number] Univers 00:00:00 00:00:00 Only Unassigned, TESSA 350.1.13.10 ity of [place] [facility] 4.2.7.2.686 Deepak as [phone] [facility] [place] [address] 2022-02-08 2022-02-[address] [facility] 1.2.840.114 [id number] Univers 00:00:00 00:00:00 Secure Msg Unassigned, [facility] [employer] [facility] 350.1.13.10 ity of [place] [facility] 4.2.7.2.686 Deepak as MATERNAL [id number] [facility] & CHILD [address] [place] [address] 2022-01-13 2022-01-13 Outpatient R OSMEL HIGGINS [facility] [id number] Univers 10:30:00 11:24:57 ity of [facility] 2022-01-13 2022-01-13 Telemedici Mare Anthony [facility] 1.2.8 40.114 [id number] Univers 10:30:00 11:24:57 ne Visit Osmel Higgins [facility] 350.1.13.10 ity of REGIONAL 4.2.7.2.686 Deepak as MATERNAL [id number] [facility] ical & CHILD [address] [place] [address] 2022-01-11 2022-01-11 Patient Mike [facility] 1.2.840.114 [id number] Univers 00:00:00 00:00:00 Secure Msg Antonio MORAN 350.1.13.10 ity of PEDIATRIC 4.2.7.2.686 [facility] [id number] [address] 2022-01-09 2022-01-09 Outpatient R ANTONIO MCKEON [facility] B [id number] Univers 13:15:00 16:40:15 ANTONIO MCKEON [facility] 2022-01-09 2022-01-09 Routine Unafidel [facility] 1.2.840.114 [id number] Univers 13:15:00 16:40:15 Jenniferburak LUISA 350.1.13.10 i [address] of [place] [id number] [address] 2022-01-09 2022-01-09 Patient LINSEY Mckeon PEREZ 1.2.840.114 [id number] Univers 00:00:00 00:00:00 Secure Msg Antonio MORAN 350.1.13.10 it[place] [id number] [address] 2022-01-06 2022-01-06 Outpatient R ANTONIO MCKEON [facility] B [id number] Univers 09:30:00 09:30:00 ANTONIO MCKEON [facility] 2022-01-03 2022-01-03 Patient Mike [facility] 1.2.840.114 [id number] Univers 00:00:00 00:00:00 Secure Msg Jenniferburak MORAN 350.1.13.10 ity [place] [id number] [address] 2021-12-31 2021-12-31 Camouflage Specialist Santana, [facility] Main [facility] 1.2.8 40.114 [id number] Univers 09:00:00 09:15:00 Visit Ana Trujillo 350.1.13.10 ity of [facility] [place] [phone] Az dical NAL [address] [place] [address] 2021-12-31 2021-12-31 Outpatient R RONNIE ANA [facility] [id number] Univers 09:00:00 09:00:00 ity of [facility] 2021-12-29 2021-12-[address] [facility] CHRIS 1.2.137.277 [id number] Univers 00:00:00 00:00:00 Secure Msg UnassignedLUISA 350.1.13.10 ity of [place] [facility] [place] [facility] [phone] [address] 2021-12-28 2021-12-28 Camouflage Specialist 2, Adc Lab [facility] 1.2.840.114 [id number] Univers 13:15:00 13:30:00 Visit Antonio Mckeon 350.1.13. 10 ity of [facility] [place] [phone] Az dical NAL [address] [place] [address] 2021-12-28 2021-12-28 Outpatient R ANTONIO MCKEON [facility] B [id number] Univers 13:15:00 13:15:00 ANTONIO MCKEON ity of [facility] 2021-12-27 2021-12-[address] [facility] [place] 1.2.840.114 [id number] Univers 00:00:00 00:00:00 Secure Msg Antonio MORAN 350.1.13.10 ity of [place] [id number] [address] 2021-12-26 2021-12-26 Outpatient P EDITH [facility] [id number] Univers 11:45:00 12:20:51 ISABELLE it y of S, SONG [facility] 2021-12-26 2021-12-26 Camouflage Specialist [facility] 1.2 .840.114 [id number] Univers 11:45:00 12:20:51 Visit Antonio Mckeon [facility] 350.1.13.1 0 ity of Nohemi Young [facility] 4.2.7.2 .686 [place] MATERNAL [phone] [facility] CHILD [address] [place] [address] 2021-12-26 2021-12-26 Routine [facility] 1.2.840.114 [id number] Univers 08:00:00 08:43:28 Jenniferburak MORAN 350.1.13.10 i ty of [place] [id number] [address] 2021-12-26 2021-12-26 Case Dorinakevincierrafidel [facility] 1.2.840.114 [id number] Univers 00:00:00 00:00:00 Management Jenniferburak MORAN 350.1.13.10 ity of [place] [id number] [address] 2021-12-26 2021-12-26 Telephone Dorinamatt [facility] 1.2.840.11 [id number] Univers 00:00:00 00:00:00 Jenniferburak MORAN 350.1.13.10 it y of [place] [phone] [address] 2021-12-14 2021-12-14 Outpatient R ANTONIO MCKEON [facility] B [id number] Univers 13:00:00 13:00:00 ANTONIO MCKEON [facility] 2021-12-09 2021-12-09 Outpatient R ANTOINO MCKEON [facility] B [id number] Univers 07:54:22 23:59:00 TRITSCHLER, CHERYAL [facility] 2021-12-09 2021-12-09 [facility] 1.2.840.114 [id number] Univers 07:54:22 23:59:00 Encounter Antonio TELLOTHOMAS 350.1.13.10 ity of [place] 4.2.7.2.686 [facility] [phone] [facility] [place] [address] 2021-12-09 2021-12-09 [facility] 1.2.840.114 [id number] Univers 00:00:00 00:00:00 Management Antonio MORAN 350.1.13.10 ity of [place] 4.2.7.2.686 [facility] [phone] [address] 2021-11-29 2021-11-29 [facility] 1.2.840.114 [id number] Univers 00:00:00 00:00:00 Management Antonio MORAN 350.1.13.10 ity of [place] 4.2.7.2.686 [facility] [id number] [address] 2021-11-28 2021-11-28 Outpatient R MIKEJENNIFERBURAK [facility] B [id number] Univers 08:00:00 09:04:01 MIKEJENNIFERBURAK [facility] 2021-11-28 2021-11-28 Initial [facility] 1.2.840.114 [id number] Univers 08:00:00 09:04:01 Antonio MORAN 350.1.13.10 i ty of Visit WOMEN'S 4.2.7.2.686 [facility] [phone] [address] 2021-07-27 2021-07-27 Laboratory Only, Ang Db Test [facility] 1.2.8 40.114 [id number] Univers 17:45:00 18:00:00 Only Osiel Grajeda HEALTH 350.1.13.10 ity of [place] 4.2.7.2.686 Deepak as TAVON?BLEA [phone] Az carole [address] MEDICAL OFFICE BUILDING 2021-07-27 2021-07-27 Outpatient R JASMINEANTONIOMichelle [facility] [id number] Univers 17:45:00 17:45:00 RANAUBREY itkaruna [facility] 2021-07-27 2021-07-27 Outpatient R DUGLAS [facility] [id number] Univers 17:45:00 17:45:00 RANIA ity [facility] 2021-07-22 2021-07-22 Laboratory Only, Ang Db Test [facility] 1.2.8 40.114 [id number] Univers 17:30:00 17:45:00 Only Unknown, Attending HEALTH 350.1.13.10 ity of [place] 4.2.7.2.686 Deepak as TAVON?BLEA [phone] Az dicnate KNEY [address] MEDICAL OFFICE BUILDING 2021-07-22 2021-07-[address] [facility] [id number] Univers 17:30:00 17:30:00 FARZANA ity of [facility] 2021-03-09 2021-03-[address] [facility] 1.2.840.114 [id number] Univers 00:00:00 00:00:00 Secure Msg Unassigned, ALEXEY 350.1.13.10 ity of [place]2.7.2.[place] [phone] Az carole VARGAS [address] BUILDING 2021-03-02 2021-03-02 Outpatient R ANA TRUJILLO [facility] [id number] Univers 10:15:00 10:15:00 ity of [facility] 2021-02-24 2021-02-24 Orders Doctor BLACK 1.2.840.114 [id number] Univers 00:00:00 00:00:00 Only Unassigned, TESSA 350.1.13.10 ity of [place] [facility] 4.2.7.2.686 Deepak as [phone] [address] 2021-02-22 2021-02-22 Routine Ana Trujillo [facility] 1.2.410.632 [id number] Univers 13:39:17 14:19:25 Cam Alexey 350.1.13.10 ity of [place].2.[place] [phone] Az dical nal 134 [facility] 2021-02-22 2021-02-22 Camouflage Specialist 2, Adc Lab [facility] 1.2.840.114 [id number] Univers 08:39:23 08:54:23 Visit Ana Trujillo [place] 350.1.13.10 ity of [place] 4[place].7.2.[place] [phone] Az dical nal 353 [facility] 2021-02-22 2021-02-22 Outpatient R ANA TRUJILLO [facility] [id number] Univers 08:30:00 08:30:00 ity of [facility] 2021-02-22 2021-02-22 Patient Ana Trujillo [facility] 1.2.459.831 [id number] Univers 00:00:00 00:00:00 Secure Msg Jovany [place] 350.1.13.10 ity of [place] 4.2.7.2.[place] [phone] Az dical NAL [address] [place] [address] 2021-02-21 2021-02-21 Outpatient R ANA TRUJILLO [facility] [id number] Univers 14:00:00 14:00:00 ity of [facility] 2021-02-21 2021-02-21 Telephone Ana Trujillo [facility] 1.2.840.114 [id number] Univers 00:00:00 00:00:00 Jovany Blackburn 350.1.13.10 i ty of [place] 4.2.7.2.[place] [phone] Az dical nal [address] [place] [address] 2021-02-19 2021-02-19 Outpatient R ANA TRUJILLO [facility] [id number] Univers 11:45:00 11:45:00 ity of [facility] 2021-02-18 2021-02-[address] [facility] 1.2.840.114 [id number] Univers 00:00:00 00:00:00 Ann Marie Blackburn 350.1.13.10 i ty of [place] 4.2.7.2.[place] [phone] Az dical nal [address] [place] [address] 2021-02-18 2021-02-18 [facility] 1.2.840.114 [id number] 00:00:00 00:00:00 Ann Marie Alexey 350.1.13.10 [place] 4.2.7.2.686 Professio [phone] [address] 2021-02-17 2021-02-17 Camouflage Specialist 2, Adc Lab [facility] 1.2.840.114 [id number] [facility] 11:18:57 11:33:57 Visit Ana Trujillo 350.1.13.10 ity of [place] 4.2.7.2.[place] [phone] Az dical [address] 2021-02-17 2021-02-17 Camouflage Specialist 2, Adc Lab [facility] 1.2.840.114 [id number] 11:18:57 11:33:57 Visit Alexey 350.1.13.10 [place] 4.2.7.2.686 Professio [phone] [address] 2021-02-17 2021-02-17 Initial Ana Trujillo [facility] 1.2.840.114 [id number] Univers 09:23:48 11:08:40 Adum, Consuelo dAkins Alexey 350.1.13.10 ity of [place] 4.2.7.2.[place] [phone] Az dical [address] 2021-02-17 2021-02-17 Initial Ana Trujillo [facility] 1.2.107.668 [id number] 09:23:48 11:08:40 Jovany Blackburn 350.1.13.10 Visit [place] 4.2.7.2.686 Professio [phone] [address] 2021-02-17 2021-02-17 Outpatient R TYRELL [facility] [id number] Univers 09:30:00 09:30:00 CONSUELO felix [facility] 2021-01-06 2021-01-06 Outpatient R ALENA [facility] [id number] Univers 09:00:00 09:00:00 ANN MARIE felix [facility] 2020-12-23 2020-12-[address] [facility] 1.2.840.114 [id number] Univers 00:00:00 00:00:00 Secure Msg UnassignedOMERTHOMAS 350.1.13.10 ity of [place] 4.2.7.2.[place] [phone] Az dical NAL 134 [facility] 2020-12-23 2020-12-[address] [facility] 1.2.360.351 [id number] Univers 00:00:00 00:00:00 Management Ann Marie Blackburn 350.1.13.10 ity of [place] 4.[place].2.[place] [phone] Az dical nal 134 [facility] 2020-12-22 2020-12-[address] [facility] 1.2.840.114 [id number] Univers 00:00:00 00:00:00 Secure Msg Unassigned, ALEXEY 350.1.13.10 ity of [place] 4.2.7.2.[place] [phone] Az dical NAL 134 [facility] 2020-12-21 2020-12-21 Camouflage Specialist Santana, Riley [facility] Main [facility] 1.2.8 40.114 [id number] Univers 16:00:27 16:15:27 Visit Ann Marie Carvajal 350.1.13.10 ity of [place] 4[place]2.7.2.[place] [phone] Az dical nal 353 [facility] 2020-12-21 2020-12-[address] [facility] 1.2.365.513 [id number] Univers 15:11:19 15:45:05 Visit Ann Marie Blackburn 350.1.13.10 i ty of [place] 4.2.7.2.686 [place] [phone] Az dical nal 134 [facility] 2020-12-21 2020-12-21 Outpatient R ALENA [facility] [id number] Univers 15:30:00 15:30:00 ANN MARIE felix of [facility] 2020-12-21 2020-12-21 Orders Doctor BLACK 1.2.840.114 [id number] Univers 00:00:00 00:00:00 Only Unassigned, TESSA 350.1.13.10 ity of [facility] 4.2.7.2.686 Deepak as [phone] [address] 2020-10-13 2020-10-[address] [facility] [id number] Univers 09:00:00 09:00:00 ANN MARIE felix [facility] 2020-10-07 2020-10-07 Outpatient Jose [address]JAL [facility] [id number] Univers 08:30:00 08:30:00 ANN MARIE karuna [facility] 2020-06-02 2020-06-02 Patient Ana Trujillo [facility] 1.2.505.332 [id number] Univers 00:00:00 00:00:00 Secure Msg Cam [place] 350.1.13.10 ity [facility] 4.2.7.2.[place] [phone] [address] 2020-04-16 2020-04-16 Patient Ana Trujillo [facility] 1.2.243.680 [id number] Univers 00:00:00 00:00:00 Secure Msg Cam [place] 350.1.13.10 ity of [place] 4.2.7.2.686 [place] [phone] [address] 2020-01-05 2020-01-[address] Jose [address] [facility] [id number] Univers 14:45:00 14:45:00 ANN MARIE felix [facility] 2020-01-02 2020-01-[address] Jose [address]JAL [facility] [id number] Univers 11:00:00 11:00:00 ANN MARIE felix [facility] 2019-12-31 2019-12-31 Outpatient Jose CARVAJAL [facility] [id number] Univers 10:00:00 10:00:00 ANN MARIE felix [facility] 2019-12-22 2019-12-22 Patient Ana Trujillo [facility] 1.2.918.451 [id number] Univers 00:00:00 00:00:00 Secure Msg Jovany Blackburn 350.1.13.10 ity of [place] 4.[place].7.2.[place] [phone] Az dic[address] 2019-12-09 2019-12-09 Nurse Nurse, [facility] 1.2.840.114 [id number] Univers 10:18:56 10:39:45 Visit Ana Trujillo Jovany Blackburn 350.1.13.10 ity of [place] 4.2.7.2.[place] [phone] [address] 2019-12-09 2019-12-[address] [facility] [id number] Univers 10:30:00 10:30:00 ity of [facility] 2019-12-08 2019-12-[address] [facility] [id number] Univers 14:00:00 14:00:00 ity of [facility] 2019-12-08 2019-12-[address] [facility] [id number] Univers 10:00:00 10:00:00 ity of [facility] 2019-12-05 2019-12-05 Outpatient R TRUJILLO ANA [facility] [id number] Univers 10:00:00 10:00:00 ity of [facility] 2019-12-03 2019-12-03 Outpatient R RONNIE ANA [facility] [id number] Univers 16:15:00 16:15:00 ity [facility] 2019-11-30 2019-12-02 [facility] 1..840.114 7 [id number] Univers 14:27:57 15:00:00 Encounter Diamante Blackburn 350.1.13.10 ity of [place] 4.2.7.2.686 [place] [phone] [facility] [place] [address] 2019-11-28 2019-11-28 Camouflage Specialist Ultrasound, [facility] 1.2 .840.114 [id number] Univers 15:43:44 16:08:14 Visit Jada Mckeon 350.1.13.10 ity of [place] 4.2.7.2.686 [place] [phone] Az dical nal [address] [place] [address] 2019-11-28 2019-11-[address] [facility] [id number] Univers 15:30:00 15:30:00 ity of [facility] 2019-11-24 2019-11-24 Outpatient R ANA TRUJILLO [facility] [id number] Univers 15:45:00 15:45:00 ity of [facility] 2019-11-20 2019-11-20 Telephone Ana Trujillo [facility] 1.2.840.114 [id number] Univers 00:00:00 00:00:00 Cam Sabula 350.1.13.10 i ty of [place] 4.2.7.2.686 [place] [phone] [address] 2019-11-20 2019-11-20 Telephone Ana Trujillo [facility] 1.2.840.114 [id number] Univers 00:00:00 00:00:00 Cam Sabula 350.1.13.10 i ty of [place] 4.2.7.2.686 [place] [phone] [address] 2019-11-20 2019-11-[address] [facility] 1.2.840.114 [id number] Univers 00:00:00 00:00:00 Secure Msg Unassigned, [place] 350.1.13.10 ity of [place] 4.2.7.2.686 [place] [phone] Az dical nal [address] [place] [address] 2019-11-17 2019-11-17 Outpatient R ANA TRUJILLO [facility] [id number] Univers 16:00:00 16:00:00 ity of [facility] 2019-11-17 2019-11-17 Routine Ronnie [facility] 1.2.094.176 [id number] Univers 13:18:33 14:02:08 Cam [place] 350.1.13.10 ity of Visit [place] 4.2.7.2.686 [place] [phone] Az dic[address] 2019-11-17 2019-11-17 Camouflage Specialist 2, Adc Lab [facility] 1.2.840.114 [id number] Univers 13:04:03 13:19:03 Visit LeoraSruthi quesadayoni Blackburn 350.1.13.10 ity of [place] 4.2.7.2.[place] [phone] Az dical nal 353 [facility] 2019-11-17 2019-11-17 Orders Doctor BLACK 1.2.840.114 [id number] Univers 00:00:00 00:00:00 Only Unassigned, TESSA 350.1.13.10 ity of [place] [facility] 4.2.7.2.686 Deepak as [phone] [address] 2019-11-14 2019-11-14 Telephone Ana Trujillo [facility] 1.2.840.114 [id number] Univers 00:00:00 00:00:00 Jovany Blackburn 350.1.13.10 i ty of [place] 4.2.7.2.686 [place] [phone] Az dical nal 134 [facility] 2019-11-14 2019-11-14 Telephone Ana Trujillo [facility] 1.2.840.114 [id number] Univers 00:00:00 00:00:00 Cam Sabula 350.1.13.10 i ty of [place] 4.2.7.2.686 [place] [phone] Az dical nal 134 [facility] 2019-11-14 2019-11-[address] [facility] 1.2.840.114 [id number] Univers 00:00:00 00:00:00 Ann Marie Blackburn 350.1.13.10 i ty of [place] 4.2.7.2.686 [place] [phone] Az dical nal 134 [facility] 2019-11-07 2019-11-[address] [facility] [id number] Univers 13:30:00 13:30:00 ity of [facility] 2019-11-07 2019-11-[address] [facility] 1.2.840.114 [id number] Univers 00:00:00 00:00:00 Secure Msg Unassigned, [place] 350.1.13.10 ity of [place] 4.2.7.2.686 [place] [phone] [address] 2019-11-03 2019-11-03 Outpatient R ALENA [facility] [id number] Univers 10:15:00 10:15:00 ANN MARIE felix [facility] 2019-11-03 2019-11-03 [facility] 1.2.840.114 [id number] Univers 08:16:34 08:31:34 ne Visit Ann Marie Blackburn 350.1.13.10 ity of [place] 4.2.7.2.[place] [phone] [address] 2019-10-24 2019-10-24 Orders Doctor BLACK 1.2.840.114 [id number] Univers 00:00:00 00:00:00 Only Unassigned, TESSA 350.1.13.10 ity of [place] [facility] 4.2.7.2.686 Deepak as [phone] [address] 2019-10-23 2019-10-[address] [facility] 1.2.840.114 [id number] Univers 00:00:00 00:00:00 Ann Marie Blackburn 350.1.13.10 i ty of [place] 4.2.7.2.[place] [phone] [address] 2019-10-20 2019-10-20 Routine Ana Trujillo [facility] 1.2.840.114 [id number] Univers 10:23:53 10:59:47 Ann Marie Carvajal 350.1.13.10 ity of Visit [place] 4.2.7.2.686 [place] [phone] [address] 2019-10-20 2019-10-20 Outpatient R ALENA [facility] [id number] Univers 10:15:00 10:15:00 ANN MARIE felix [facility] 2019-10-20 2019-10-20 Telephone Ana Trujillo [facility] 1.2.840.114 [id number] Univers 00:00:00 00:00:00 Jovany Blackburn 350.1.13.10 i ty of [place] 4.2.7.2.[place] [phone] [facility] 134 [facility] 2019-10-08 2019-10-[address] [facility] [id number] Univers 10:00:00 10:00:00 ity of [facility] 2019-10-06 2019-10-06 Routine [facility] 1.2.318.278 [id number] Univers 15:11:25 16:24:42 Ann Marie Blackburn 350.1.13.10 ity of [place] 4.2.7.2.[place] [phone] [facility] 134 [facility] 2019-10-06 2019-10-06 Camouflage Specialist Santana, Adc Lab Main [facility] 1.2.8 40.114 [id number] Univers 09:03:03 09:18:03 Visit Ann Marie Carvajal 350.1.13.10 ity of [place] 4.2.7.2.[place] [phone] [facility] 353 [facility] 2019-10-06 2019-10-06 Outpatient [facility] [id number] Univers 09:15:00 09:15:00 ANN MARIE ity of [facility] 2019-10-06 2019-10-06 Orders Doctor BLACK 1.2.840.114 [id number] Univers 00:00:00 00:00:00 Only Unassigned, TESSA 350.1.13.10 ity of [place] [facility] 4.2.7.2.686 Deepak as [phone] [address] 2019-10-06 2019-10-06 Letter [facility] 1.2.903.650 [id number] Univers 00:00:00 00:00:00 (Out) Ann Marie Blackburn 350.1.13.10 i ty of [place] 4.2.7.2.[place] [phone] [facility] 134 [facility] 2019-10-06 2019-10-06 Letter [facility] 1.2.027.979 [id number] Univers 00:00:00 00:00:00 (Out) Ann Marie Blackburn 350.1.13.10 i ty of [place] 4.2.7.2.[place] [phone] Az dical nal 134 [facility] 2019-09-30 2019-09-30 Patient Ana Trujillo [place] 1.2.710.158 [id number] Univers 00:00:00 00:00:00 Secure Msg Jovany Blackburn 350.1.13.10 ity of [place] 4.2.7.2.[place] [phone] Az dical nal 134 [facility] 2019-09-16 2019-09-16 Camouflage Specialist Santana, [facility] Main [facility] 1.2.8 40.114 [id number] Univers 14:24:11 17:50:40 Visit Ana Trujillo 350.1.13.10 ity of [place] 4.2.7.2.[place] [phone] Az dical nal 353 [facility] 2019-09-16 2019-09-[address] [facility] 1.2.282.372 [id number] Univers 00:00:00 00:00:00 Management Ann Marie Blackburn 350.1.13.10 ity of [place] 4.2.7.2.[place] [phone] Az dicsc nal 134 [facility] 2019-09-08 2019-09-08 Routine [place] Trujillo [place] 1.2.533.241 [id number] Univers 11:18:19 12:11:06 Jovany Blackburn 350.1.13.10 ity of [place] 4.2.7.2.[place] [phone] Az dical nal 134 [facility] 2019-08-20 2019-08-[address] [facility] 1.2.610.809 [id number] Univers 08:56:22 09:13:24 Ann Marie Blackburn 350.1.13.10 ity of [place] 4.2.[place].2.[place] [phone] [facility] nal 134 [facility] Results Test Description Test Time Test Comments Results Result Comments Source POCT TEST 2023-04-25 18:49:00 Test Item Value Reference Range Interpretation Comme nts POCT PREG (test code = 1605) Negative On board controls acceptable with C Line (test code = 3574) Yes POCT PREG LOT # (test code = 3575) POCT PREG TEST DATE (test code = 3576) Lab Interpretation (test code = 70213-5) Normal [facility] [id number] 18:49:00 Test Item Value Reference Range Interpretation Comments POCT PREG (test code = 1605) Negative On board controls acceptable with C Yes Line (test code = 3574) POCT PREG LOT # (test code = 3575) POCT PREG TEST DATE (test code = 3576) Lab Interpretation (test code = Normal 71741-1) [facility] MOLECULAR [id number] 18:48:48 Test Item Value Reference Range Interpretation Comments POCT Molecular FluA (test code = Negative Negative 38992-3) POCT Molecular FluB (test code = Negative Negative 39447-0) Lab Interpretation (test code = Normal 46809-6) [facility] MOLECULAR [id number] 18:48:48 Test Item Value Reference Range Interpretation Comments POCT Molecular FluA (test code = Negative Negative 12313-5) POCT Molecular FluB (test code = Negative Negative 55226-0) Lab Interpretation (test code = Normal 93643-0) [facility] SARS-COV-2 ANTIGEN (BINAX NOW)2023-04-25 18:48:00 Test Item Value Reference Range Interpretation Comments POCT SARS-COV-2 ANTIGEN (test Not Detected Not Detected code = 46526-4) On board controls acceptable Yes with C Line (test code = 3574) Lab Interpretation (test code = Normal 51115-9) [facility] SARS-COV-2 ANTIGEN (BINAX NOW)2023-04-25 18:48:00 Test Item Value Reference Range Interpretation Comments POCT SARS-COV-2 ANTIGEN (test Not Detected Not Detected code = 20719-1) On board controls acceptable Yes with C Line (test code = 3574) Lab Interpretation (test code = Normal 60406-9) [facility] [id number] 10:15:39 Test Item Value Reference Range Interpretation Comments GLUCOSE (test code = 115 MG/DL 70-99 H 2216) BUN (test code = 9 MG/DL 6-20 2207) CREATININE (test 0.53 MG/DL 0.60-1.30 L code = 2213) eGFR (2020 CKD-EPI) 130 >60 (test code = 04175) ML/MIN/1.73 CALC BUN/CREAT (test 17 RATIO 6-28 code = 223) SODIUM (test code = 142 MEQ/L 229-217 8947) POTASSIUM (test code 3.8 MEQ/L 3.5-5.4 = 2227) CHLORIDE (test code 107 MEQ/L 95-107 = 2214) CARBON DIOXIDE (test 23 MEQ/L 19-31 code = 2205) CALCIUM (test code = 9.0 MG/DL 8.5-10.5 2208) PROTEIN, TOTAL (test 6.8 G/DL 6.1-8.3 code = 2228) ALBUMIN (test code = 4.2 G/DL 3.5-5.2 2200) CALC GLOBULIN (test 2.6 G/DL 1.9-3.7 code = 224) CALC A/G RATIO (test 1.6 RATIO 1.0-2.6 code = 223) BILIRUBIN, TOTAL 0.5 MG/DL <=1.2 (test code = 220) ALKALINE PHOSPHATASE 70 U/L 40-112 (test code = 220) AST (test code = 20 U/L 9-40 2217) ALT (test code = 39 U/L 5-40 UNLESS OTH ERWISE 2218) INDICATED, ALL TESTING PERFORM ED AT CLINICAL PATHOL [facility], [facility] [address] [place] [address] DIRECTOR: Tommie VASQUES [place] NUMBER [id number] CAP ACCREDITATION N O. [id number] LIPID [id number] 10:15:39 Test Item Value Reference Range Interpretation Comments CHOLESTEROL (test 162 MG/DL <200 code = 2210) TRIGLYCERIDES (test 129 MG/DL <150 code = 2232) HDL CHOLESTEROL (test 35 MG/DL >39 L code = 2220) CALC LDL CHOL (test 104 MG/DL <100 H NOTE: C ALCULATED LDL code = 2237) IS BASED ON TAIWO-MAC METHOD WHICHINCLUDES ADJUSTABLE TRIGLYCERIDE:VL DL CHOLESTEROL RAT IO.THIS FACTOR VARIES B Y MEASURED TRIGLY CERIDE AND NON-HDLCHOL ESTEROL CONCENTRATIONS WITH INCREASED CALCU LATED LDL SEENIN HIGH ER TRIGLYCERIDE OR LOWER NON-HDL SPECIME NS. FOR MOREINFORMATION , SEE CLIENT ANNOUNCE MENT AT [email or web address] [email or web address] RATIO LDL/HDL 2.97 RATIO <3.22 (test code = 2238) HEMOGLOBIN [id number] 02:59:20 Test Item Value Reference Range Interpretation Comments HEMOGLOBIN A1c (test 6.5 % 4.2-5.6 H AMERIC AN DIABETES code = 38230) ASSOCIATION IDELINES FOR HGB A1C: PREDIABETES/INC REASED [...] TESTING OR LABORATORY C ONSULTATION. HCG, TOTAL, [id number] 06:00:00 Test Item Value Reference Range Interpretation Comments HCG, TOTAL, <5 mIU/mL Reference QN-Q (test RangeNonpregnan t or code = premenopausal ? 76765-9) ?<5Postmenopaus al ? <10 V alues from different assay methods may esther y.The use of this ass ay to monitor or to d iagnose patients with c ancer or any condition unrelatedto pre gnancy has not been cl eared or approved bythe FDA or the manufacture r of the assay. REPORT COMMENT:FASTING :NO SANTANA (test PERFORMED BY QUEST code = SANTANA) [facility]; [address] [place] [address]; HITESH MERCEDES MD,PHD. [facility] Texas[facility]CG, TOTAL, [id number] 04:00:00 Test Item Value Reference Interpretation Comments Range HCG, TOTAL, QN-Q 29 mIU/mL H Reference (test code = [place] [address]-6) premenopausal ? ?<5Postmenopaus al ? <10 Values from dif ferent assay methods m ay vary.The use of this assay to monito r or to diagnose pat ients with cancer or any condition unrel atedto has n ot been cleared or approved [facility] FDA or the manufacture r of the assay. SANTANA (test code = PERFORMED BY SANTANA) [facility]; [address] [place] [phone]; HITESH MERCEDES MD,PHD. Lab Interpretation Abnormal (test code = 05060-0) [facility] Texas[facility]CG, TOTAL, [id number] 04:00:00 Test Item Value Reference Interpretation Comments Range HCG, TOTAL, QN-Q 61 mIU/mL H Reference (test code = [place] [address]-9) premenopausal ? ?<5Postmenopaus al ? <10 Values from dif ferent assay methods m ay vary.The use of this assay to monito r or to diagnose pat ients with cancer or any condition unrel atedto has n ot been cleared or approved [facility] FDA or the manufacture r of the assay. SANTANA (test code = PERFORMED BY SANTANA) [facility]; [address] [place] [address]; HITESH MERCEDES MD,PHD. Lab Interpretation Abnormal (test code = 06361-5) [facility] [id number] 13:37:00 Test Item Value Reference Range Interpretation Comments POCT PREG (test code = 1605) Positive faint On board controls acceptable with C Yes Line (test code = 3574) POCT PREG LOT # (test code = 3575) POCT PREG TEST DATE (test code = 3576) [facility] URINALYSIS W/O SPECIFIC [id number] 20:45:00 Test Item Value Reference Range Interpretation Comments POCT PH U (test code = 3254) n/a 5-8 POCT U LEUK EST (test code = 3263) n/a Negative - Negative POCT U NIT (test code = 3262) n/a Negative - Negative POCT U PROT (test code = 3259) neg Negative - Negative POCT U GLU (test code = 3256) neg Negative - Negative POCT U KETONE (test code = 3258) n/a Negative - Negative POCT U BLD (test code = 3257) n/a Negative - Negative [facility] [id number] 19:17:00 Test Item Value Reference Range Interpretation Comments POCT PREG (test code = 1605) Positive faint On board controls acceptable with C Yes Line (test code = 3574) POCT PREG LOT # (test code = 3575) POCT PREG TEST DATE (test code = 3576) [facility] URINALYSIS W/O SPECIFIC [id number] 19:17:00 Test Item Value Reference Range Interpretation [...] code = 3257) N/A Negative - Negative [facility] TexasRHEUMATOID FACTOR IgG, IgM, [id number] 11:33:07 Test Item Value Reference Range Interpretation Comments RHEUMATOID FACTOR IgG 2 Units <7 (test code = 29488) RHEUMATOID FACTOR IgA 2 Units <7 (test code = 96966) RHEUMATOID FACTOR IgM 3 Units <7 TEST ING PERFORMED AT (test code = 29107) [facility] [employer], [address], [address], [place] [address] 8 CLIA NO: [id number] NAY AUTOIMMUNE [id number] 02:36:39 Test Item Value Reference Range Interpretation Comments ANTI-NUCLEAR NEGATIVE NEGATIVE ANTIBODIES (test code = 3506) NAY PATTERN SEE BELOW (REPORTED TITER) (test code = 18280) HOMOGENEOUS (test NEGATIVE TITER NEGATIVE code = 74079) SPECKLED (test NEGATIVE TITER NEGATIVE code = 418912) DENSE FINE NEGATIVE TITER NEGATIVE SPECKLED (test code = 74276) CENTROMERE (test NEGATIVE TITER NEGATIVE code = 605881) COARSE SPECKLED NEGATIVE TITER NEGATIVE (test code = 035564) DISCRETE NUCLEAR NEGATIVE TITER NEGATIVE DOTS (test code = 521155) NUCLEOLAR (test NEGATIVE TITER NEGATIVE code = 986553) NUCLEAR MEMBRANE NEGATIVE TITER NEGATIVE (test code = 347429) CYTO. RETICULAR NEGATIVE NEGATIVE (SHARLENE) (test code = 136109) COMMENTS (test NONE code = 185495) METHOD (test code (NOTE) TESTING P ERFORMED BY = 41759) [facility] [employer] IFA PLATFORM.THE ME THOD INCLUDES A SCRE EN THRESHOLD OF 1: 80, DIGITIZED AND COMPUTER ALGORITHM-KARRI NICOLE INTERPRETATION OF TITERS AND DIGI HOLLEY PATTERNS, AND H Ep-2 CELL LINE SUBST RATE. ADDITIONAL UNUS UAL PATTERNS WILL B E GIVEN COMMEN TS.FOR MORE INFORMATIO N, SEE [email or web address] SJOGREN'S SS-A <0.2 AI <1.0 ANTIBODY (test code = 76793) SJOGREN'S SS-B <0.2 AI <1.0 ANTIBODY (test code = 01050) SALDANA (Sm) <0.2 AI <1.0 ANTIBODY (test code = 57232) BAIT DIGGER ANTIBODY (test <0.2 AI <1.0 code = 23586) SCL-70 ANTIBODY <0.2 AI <1.0 (test code = 4606) Marj-1 ANTIBODY <0.2 AI <1.0 (test code = 4680) CENTROMERE B <0.2 AI <1.0 ANTIBODY (test code = 4630) RIBOSOMAL P <0.2 AI <1.0 ANTIBODY (test code = 43332) CHROMATIN ANTIBODY <0.2 AI <1.0 (test code = 40814) THYROID PEROXIDASE 3 IU/ML <9 AB (test code = 18284) COMPLEMENT C3 201 MG/DL 90-180 H (test [...] code <0.5 U/ML <3.0 INTE RPRETIVE = 76667) INFORMATION INTERPRETATION RESULT NEGATIVE <3.0 U/ML POSITIVE >=3.0 U/ML SEDIMENTATION [id number] 10:17:52 Test Item Value Reference Range Interpretation Comments SEDIMENTATION RATE (test code = 8 MM/HOUR 0-20 1017) VITAMIN D, 25 [id number] 07:14:47 Test Item Value Reference Range Interpretation Comments VITAMIN D, 25 24 NG/ML SEE BELOW L EFFECTIVE 08/14/2022, [place] (test code PLEASE NOTE NE W METHODOLOGY = 7288) IS ELECTROCH EMILUMINESCENCE BINDING ASSAY. NOTE: 25-HYDROXYVITAM IN D ASSAY INCLUDES 25-HYD ROXYVITAMIN D2 AND D3. INTERPRETIVE RANGES PED IATRIC (<17 YEARS) . . [...] . . . . NG/ML 30-100 VITAMIN [id number] 07:14:34 Test Item Value Reference Range Interpretation Comments VITAMIN B-12 (test code = 2840) 381 PG/ML 200-950 LIPID [id number] 06:50:15 Test Item Value Reference Range Interpretation [...] MOREINFORMATION , SEE CLIENT ANNOUNCE MENT AT [email or web address] RATIO LDL/HDL 3.54 RATIO <3.22 H [facility] has important (test code = 2238) pathology staff changes effecti ve 10/04/2022. New pathology staff will provide uninter rupted, excellent patie nt care and clinical consultation. S ee URL: [email or web address] UNLES S OTHERWISE INDIC ATED, ALL TESTING PER FORMED AT [facility] [employer], [facility]. [address] [place] [address] MEHUL HASKINS DIRECTOR: Tommie VASQUES [place] NUMBER [id number] CAP ACCREDITATION N O. [id number] URIC [id number] 06:50:15 Test Item Value Reference Range Interpretation Comments URIC ACID (test code = 2233) 4.2 MG/DL 2.7-6.1 C-REACTIVE [id number] 06:48:54 Test Item Value Reference Range Interpretation Comments C-REACTIVE PROTEIN (test code = 0.4 MG/DL <0.5 3513) HEMOGLOBIN [id number] 05:15:02 Test Item Value Reference Range Interpretation Comments HEMOGLOBIN A1c (test 8.9 % 4.2-5.6 H [employer] code = 97470) ASSOCIATION IDELINES FOR HGB A1C: PREDIABETES/INC REASED [...] TESTING OR LABORATORY C ONSULTATION. HCG, TOTAL, [id number] 06:00:00 Test Item Value Reference Interpretation Comments Range HCG, TOTAL, QN-Q 6 mIU/mL H Reference (test code = [place] [address]-3) premenopausal ? ?<5Postmenopaus al ? <10 Values [...] SANTANA (test code = PERFORMED BY SANTANA) [facility]; [address] [place] [phone]; NESS KINGSLEY MD Lab Interpretation Abnormal (test code = 45061-9) [facility] [id number] 20:22:00 Test Item Value Reference Range Interpretation Comments POCT PREG (test code = 1605) Negative very faint On board controls acceptable with Yes C Line (test code = 3574) POCT PREG LOT # (test code = 3575) POCT PREG TEST DATE (test code = 3576) [facility] URINALYSIS W/O SPECIFIC [id number] 20:19:00 Test Item Value Reference Range Interpretation [...] code = 3257) n/a Negative - Negative [facility] [id number] 19:21:00 Test Item Value Reference Range Interpretation Comments POCT PREG (test code = 1605) Negative On board controls acceptable with C Yes Line (test code = 3574) POCT PREG LOT # (test code = 3575) POCT PREG TEST DATE (test code = 3576) [facility] [id number] 13:39:00 Test Item Value Reference Range Interpretation Comments POCT PREG (test code = 1605) Positive On board controls acceptable with C Yes Line (test code = 3574) POCT PREG LOT # (test code = 3575) POCT PREG TEST DATE (test code = 3576) [facility] URINALYSIS W SPECIFIC [id number] 13:28:00 Test Item Value Reference Range Interpretation Comments POCT U SP GRAV (test code = N/A 1.005-1.025 3255) POCT PH U (test code = 3254) N/A 5-8 POCT U LEUK EST (test code = N/A Negative - Negative 3263) POCT U NIT (test code = N/A Negative - Negative 3262) POCT U PROT (test code = Negative Negative - Negative 9) POCT U GLU (test code = Negative - Negative 6) POCT U KETONE (test code = N/A Negative - Negative 8) POCT U UROBILI (test code = N/A 0.2-1 0) POCT U BILI (test code = N/A Negative - Negative 1) POCT U BLD (test code = N/A Negative - Negative 7) POCT U COLOR (test code = light yellow 3266) POCT U APPEAR (test code = clear 3267) [facility] URINALYSIS W/O SPECIFIC [id number] 14:19:00 Test Item Value Reference Range Interpretation [...] Negative Lab Interpretation (test code = Abnormal 59297-4) [facility] [id number] 14:02:00 Test Item Value Reference Range Interpretation Comments POCT PREG (test code = 1605) Positive On board controls acceptable with C Yes Line (test code = 3574) POCT PREG LOT # (test code = 3575) POCT PREG TEST DATE (test code = 3576) [facility]
--- NOTE | 2023-06-21 10:31 | EDPHYS ---
Physician Documentation [facility] Name: Sharlene Thayer Age: 27 yrs Sex: Female : 1995 Arrival Date: 06/21/2023 Time: 10:19 Bed 7 Private MD: ED Physician Hernan Christensen HPI: 06/21 10:40 This 27 yrs old Female presents to ER via Ambulatory with complaints of Knee rt Pain - right. 10:40 Patient presents to the ED with several weeks of a right knee pain. She denies injury. rt Patient did have an MRI that was performed that showed arthritic changes. She does have follow-up at [facility] scheduled for next week. Denies any other discrete injury. The pain is intermittent. She not take anything for the symptoms. Denies other acute complaints, symptoms are moderate severity, aching nature, nonradiating, no other aggravating or elevating factors.. Historical: - Allergies: 10:23 No Known Drug Allergies; ll1 - PMHx: 10:23 diabetes mellitus; high risk pregnancies; Hypercholesterolemia; ll1 - PSHx: 10:23 section; ll1 - Immunization history:: Adult Immunizations up to date. - Social history:: Smoking status: Patient denies any tobacco usage or history of. - Family history:: not pertinent. ROS: 10:40 Constitutional: Negative for fever, chills, and weight loss, Cardiovascular: Negative rt for chest pain, palpitations, and edema, Respiratory: Negative for shortness of breath, cough, wheezing, and pleuritic chest pain, Abdomen/GI: Negative for abdominal pain, nausea, vomiting, diarrhea, and constipation, Skin: Negative for injury, rash, and discoloration, Neuro: Negative for headache, weakness, numbness, tingling, and seizure, Psych: Negative for depression, anxiety, suicide ideation, homicidal ideation, and hallucinations, 10:40 MS/extremity: Positive for pain, Negative for injury or acute deformity, Exam: 10:40 Constitutional: This is a well developed, well nourished patient who is awake, alert, rt and in no acute distress. Head/Face: Normocephalic, atraumatic. Chest/axilla: Normal chest wall appearance and motion. Nontender with no deformity. No lesions are appreciated. Cardiovascular: Regular rate and rhythm with a normal S1 and S2. No gallops, murmurs, or rubs. Normal PMI, no JVD. No pulse deficits. Respiratory: Lungs have equal breath sounds bilaterally, clear to auscultation and percussion. No rales, rhonchi or wheezes noted. No increased work of breathing, no retractions or nasal flaring. Skin: Warm, dry with normal turgor. Normal color with no rashes, no lesions, and no evidence of cellulitis. Neuro: Awake and alert, GCS 15, oriented to person, place, time, and situation. Cranial nerves II-XII grossly intact. Motor strength 5/5 in all extremities. Sensory grossly intact. Cerebellar exam normal. Normal gait. Psych: Awake, alert, with orientation to person, place and time. Behavior, mood, and affect are within normal limits. 10:40 Musculoskeletal/extremity: Mild swelling laterally with tenderness, no overlying skin changes, full range of motion, no other tenderness or deformity, pulse, motor, sensation intact. Vital Signs: 10:36 BP 135 / 76; Pulse 71; Resp 18; Temp 97.9; Pulse Ox 100% on R/A; ph MDM: 10:27 Patient medically screened. rt 10:40 Differential diagnosis: Arthritis, patellofemoral syndrome. Data reviewed: vital signs, rt nurses notes. Counseling: I had a detailed discussion with the patient and/or guardian regarding the historical points, exam findings, and any diagnostic results supporting the discharge/admit diagnosis, the need for outpatient follow up. Administered Medications: 10:45 Drug: Ketorolac IM 15 mg IM once Route: IM; Site: right deltoid; ph Disposition Summary: 06/21/23 10:30 Discharge Ordered Notes: Location: Home rt Problem: an ongoing problem rt Symptoms: are unchanged rt Condition: Stable rt Diagnosis - Pain in right knee rt Followup: rt - With: Private Physician - When: 5 - 6 days - Reason: Discharge Instructions: - Discharge Summary Sheet ll1 - Musculoskeletal Pain rt Forms: - Work release form ll1 - Medication Reconciliation Form rt - Thank You Letter rt - Antibiotic Education rt - Prescription Opioid Use rt - Patient Portal Instructions rt - Leadership Thank You Letter rt Signatures: Zora Coombs RN RN ph Aurelia Brooks RN RN 1 Hernan Christensen MD MD rt
--- NOTE | 2023-06-21 10:31 | ER ---
Nurse's Notes [facility] Name: Sharlene Thayer Age: 27 yrs Sex: Female : 1995 Arrival Date: 06/21/2023 Time: 10:19 Bed 7 Private MD: Diagnosis: Pain in right knee Presentation: 06/21 10:23 Chief complaint: Patient states: R knee pain. Coronavirus screen: Client denies travel ll1 out of the [place] in the last 14 days. At this time, the client does not indicate any symptoms associated with coronavirus-19. Ebola Screen: Patient denies travel to an Ebola-affected area in the 21 days before illness onset. Initial Sepsis Screen: Does the patient meet any 2 criteria? No. Patient's initial sepsis screen is negative. Does the patient have a suspected source of infection? Yes: Bone or joint infection. Risk Assessment: Do you want to hurt yourself or someone else? Patient reports no desire to harm self or others. 10:23 Acuity: SAMANTHA 4 ll1 10:23 Method Of Arrival: Ambulatory [facility] 10:37 Onset of symptoms was June 21, 2023. ph Historical: - Allergies: 10:23 No Known Drug Allergies; ll1 - PMHx: 10:23 diabetes mellitus; high risk pregnancies; Hypercholesterolemia; ll1 - PSHx: 10:23 section; ll1 - Immunization history:: Adult Immunizations up to date. - Social history:: Smoking status: Patient denies any tobacco usage or history of. - Family history:: not pertinent. Screenin:37 [facility] ED Fall Risk Assessment (Adult) History of falling in the last 3 months, ph including since admission Yes- single mechanical fall (1 pt). Abuse screen: Denies threats or abuse. Denies injuries from another. Nutritional screening: No deficits noted. Tuberculosis screening: No symptoms or risk factors identified. Assessment: 10:45 General: Appears in no apparent distress. Behavior is calm, cooperative. Pain: ph Complains of pain in right knee. Neuro: Level of Consciousness is awake, alert, obeys commands, Oriented to person, place, time, situation. Musculoskeletal: Circulation, motion, and sensation intact. 10:46 Reassessment: Patient appears in no apparent distress at this time. D/C pending 15 min ph shot time. Vital Signs: 10:36 BP 135 / 76; Pulse 71; Resp 18; Temp 97.9; Pulse Ox 100% on R/A; ph ED Course: 10:22 Patient arrived in ED. im 10:23 Hernan hCristensen MD is Attending Physician. rt 10:23 Arm band placed on Patient placed in an exam room, on a stretcher. ll1 10:24 Triage completed. ll1 10:36 Zora Coombs RN is Primary Nurse. ph 10:37 Patient has correct armband on for positive identification. Bed in low position. Call ph light in reach. Side rails up X 1. 10:49 No provider procedures requiring assistance completed. Patient admitted, IV remains in ph place. Administered Medications: 10:45 Drug: Ketorolac IM 15 mg IM once Route: IM; Site: right deltoid; ph Medication: 10:37 VIS not applicable for this client. ph Outcome: 10:30 Discharge ordered by MD. rt 11:07 Discharged to home ambulatory, ph 11:07 Condition: good 11:07 Discharge instructions given to patient, Instructed on discharge instructions, follow up and referral plans. Demonstrated understanding of instructions, follow-up care, 11:08 Patient left the ED. ph Signatures: Zora Coombs RN RN ph Aurelia Brooks RN RN 1 Hernan Christensen MD MD rt Safia Cabrera im
[2023-06-21 11:13] VITALS: BP 135/76; TEMP 97.9; O2SAT 100
== END 2023-06-21 11:08 | disposition home or self-care (01) ==
LOC: ER 10:19
DX: M25.561 Pain in right knee (principal)
CPT/HCPCS: 96372; 99284